=== PATIENT | male | born 1960 | race Caucasian/White ===

== ENCOUNTER 2023-05-03 06:41 | Observation (INO) ==
--- NOTE | 2023-04-26 08:16 | History & Physical Report ---
Date of Service April 26, 2023 date of surgery: 05/03/23 Procedure: Right Total Knee Arthroplasty Surgeon: Gareth Rust, DO Assessment & Plan (1) Arthritis of right knee: Plan: X-rays were reviewed which show advanced degenerative changes of the right knee, he has a history of right knee meniscectomy 30+ years ago. Has tried and failed previous injections and would like to proceed with surgical invention. Plan to be patient-matched Yair right total knee arthroplasty, we will plan to keep him overnight with discharge home the following day with home health physical therapy. Otherwise has no other questions or concerns The risks and benefits have been discussed including, but not limited to, risk of infection, nerve injury, stiffness, loss of motion, failure to improve, etc. Reasonable outcomes and options of treatment were discussed. An explanation of appropriate alternatives to the procedure that may be advantageous were discussed and their risks and benefits, as well as the risks and benefits of not proceeding with treatment. I offered to answer any additional inquiries concerning the treatment involved. All the patient's questions were answered. The patient is agreeable, understanding of the treatment plan and alternatives, and wishes to proceed with the treatment plan. History of Present Illness Chief Complaint: Right knee pain Primary Care Provider: Rock Christie is a pleasant 63-year-old male who presented for preop evaluation prior to upcoming right total knee replacement. He has a longstanding history of right knee pain, had a scope on that knee approximately 30 years ago, has also undergone injections including viscosupplementation without any relief. He has tried oral anti-inflammatories and Tylenol, his pain is now affecting his daily activities and at this point he would like to proceed with right total knee replacement Allergies Allergy/AdvReac Type Severity Reaction Status Date / Time No Known Allergies Allergy Verified 04/25/23 08:21 Home Medications Medication Instructions Recorded Confirmed Type Lactobacillus 40-Bifidobact 1 cap PO QAM 03/27/23 04/25/23 History 3-S.thermophilus 100 billion cell capsule (Probiotic) aspirin 81 mg capsule 81 mg PO QAM 03/27/23 03/27/23 History atorvastatin 80 mg tablet 80 mg PO HS 03/27/23 04/25/23 History cyanocobalamin (vitamin B-12) 1,000 mcg PO QAM 03/27/23 04/25/23 History 1,000 mcg tablet (Vitamin B-12) empagliflozin 25 mg tablet 25 mg PO QPM 03/27/23 04/25/23 History (Jardiance) fluticasone propionate 50 1 spray intranasal QAM 03/27/23 04/25/23 History mcg/actuation nasal spray,suspension lisinopril 20 mg tablet 20 mg PO QAM 03/27/23 04/25/23 History magnesium 200 mg tablet 400 mg PO HS 03/27/23 04/25/23 History metoprolol tartrate 50 mg tablet 50 mg PO BID 03/27/23 04/25/23 History tamsulosin 0.4 mg capsule 0.4 mg PO HS 03/27/23 04/25/23 History zinc 50 mg tablet 50 mg PO HS 03/27/23 04/25/23 History multivitamin with minerals-folic tab PO 04/03/23 History acid 0.4 mg tablet (Adult One Daily Multivitamin) Past Med/Surg History Medical History GERD (gastroesophageal reflux disease) rare Witnessed apneic spells per patient's , denies previous sleep apnea study Snoring Hypertension controlled, stable per pt History of airway aspiration per pt, josuha-operatively for renal stone procedure in past CAD (coronary artery disease) 2005- x1 stent 2009- x1 stent 2016- CABG x3 Follows with Dr. 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 No other treatments/no current issues Diabetes mellitus, type 2 NIDDM Surgical History Family history of adverse reaction to anesthesia Grandmother in 1934- from the ether given to her by anesthesia S/P cystoscopy with ureteral stent placement w/laser lithotripsy History of anesthesia complications pt stated he should not be intubated unless it's a dire emergency due to his overactive/hyperactive gag reflex; did aspirate once when going under for kidney stones" Hx of left knee surgery age 7, cancerous tumor removed Hx of right knee surgery 1970s-"total reconstruction" Hx laparoscopic cholecystectomy History of esophagogastroduodenoscopy (EGD) Hx of colonoscopy Hx of nasal septoplasty Hx of tonsillectomy History of cardiac cath 2005- x1 stent 2009- x1 stent 2016- CABG x3 Hx of CABG CABG x3 (2016) Social History Smoking Status: Former smoker Second Hand Exposure: No; Do You Dip or Chew Tobacco: No (quit 10/15/15); Hx Alcohol Use: Yes Hx Substance Use: No Preferred Language: Colombian Communication Ability: Effective Shareholder Required: No Beliefs That Will Affect Care: None Current Living Situation: Spouse Feels Safe at Home: Yes Assistive Devices: Glasses Review of Systems Review of Systems: All systems reviewed & are unremarkable except as noted in HPI & below Constitutional: no fever, no chills and no sweats Respiratory: no cough and no dyspnea Cardiovascular: no chest pain, no dyspnea and no orthopnea Gastrointestinal: no abdominal pain, no nausea and no vomiting Musculoskeletal: as per Subjective / HPI Physical Exam Physical Exam: HT: 5ft 6in WT: 88kg Constitutional: WD/WN, vitals as above no acute distress Respiratory: normal respiratory effort, lungs clear to auscultation no respiratory distress, no labored breathing and does not use accessory muscles Cardiovascular: RRR, no murmur, no edema Gastrointestinal (Abdomen): normal bowel sounds, soft, nontender, no hepatosplenomegaly Musculoskeletal: Knee: + knee abnormal to inspection (RIGHT KNEE), + effusion (+1 effusion), + surgical incision (well healed portals), + limited ROM of knee (ROM 0/3/110), + knee ROM with crepitation, + joint line tenderness (medial joint line) and + Justine's sign positive; no deformity, no skin erythema, no ecchymosis, no valgus laxity, no varus laxity, anterior drawer test negative, Lamar's sign negative and pivot shift test negative Results & Data Results & Data Diagnostic Findings Right Knee X-ray: Right knee series showing degenerative changes to the right knee, findings showing joint space narrowing of the medial compartment and patello-femoral joint, osteophyte formation and subchondral sclerosis noted. overall varus alignment. no acute bony pathology noted.
--- NOTE | 2023-04-28 11:30 | Anesthesiology Consultation ---
Date of Service April 28, 2023 Assessment & Plan (1) Encounter for pre-operative examination: Plan - check BSG am DOS. - please also refer to 04/03/23 PAT clinic note. Account number changed for re- scheduled surgery. - anesthesia concerns: plan is for neuraxial anesthesia, patient will further discuss with anesthesiologist assigned to case and surgeon DOS if procedure is not tolerated with neuraxial anesthesia and sedation if he would wish they proc eed with general anesthesia/intubation or for procedure to be aborted. He states in that situation would be agreeable to general anesthesia, will have final discussion with anesthesiologist DOS. He said NO students to participate in any aspect of his case. He states he will notify the surgeon's office. - surgery re-scheduled due to surgeon illness. - cardiology clearance 04/14/23: "...able to exercise daily without any complaints of chest pain or chest pressure...do not recommend further invasive or noninvasive cardiovascular testing or procedures...monotherapy with ASA need not be routinely d/c'd for elective noncardiac surgery...should be d/c'd if known bleeding risks are similar or more severe than CV risk of ASA withdrawal..." - PCP office advised thyroid ultrasound is scheduled after surgery. Patient denied shortness of breath or breathing difficulties at PAT visit. Case discussed in detail with Dr. Enrique who advised patient is acceptable to proceed with surgery prior to thyroid ultrasound. - Outpatient joint assessment: Patient is currently scheduled for inpatient pathway. If re-evaluated and patient/surgeon requests outpatient pathway, patient is not recommended candidate for outpatient joint program from anesthesia standpoint. - Per personal trainer on 04/27/2023: No known infectious disease contacts, current infectious disease symptoms in past 10 days or COVID positive test result in the past 90 days. Chart Review Chart Review: Acceptable Risk for Surgery and Patient NOT seen in Pre Admission Testing History Surgery Operation Date: 05/03/23 08:15 Proposed Procedures p Right Total Knee Arthroplasty - Gareth Rust DO Height/Weight Height: 5 ft 6 in Weight: 83.915 kg Allergies Allergy/AdvReac Type Severity Reaction Status Date / Time No Known Allergies Allergy Verified 04/27/23 12:47 Medications Home Medications Medication Instructions Recorded Confirmed Last Taken Lactobacillus 40-Bifidobact 1 cap PO QAM 03/27/23 04/27/23 04/23/23 18:00 3-S.thermophilus 100 billion cell capsule (Probiotic) aspirin 81 mg capsule 81 mg PO QAM 03/27/23 04/27/23 04/25/23 07:00 atorvastatin 80 mg tablet 80 mg PO HS 03/27/23 04/27/23 04/23/23 18:00 cyanocobalamin (vitamin B-12) 1,000 mcg PO QAM 03/27/23 04/27/23 04/23/23 07:00 1,000 mcg tablet (Vitamin B-12) empagliflozin 25 mg tablet 25 mg PO QPM 03/27/23 04/27/23 04/24/23 21:00 (Jardiance) fluticasone propionate 50 1 spray intranasal QAM 03/27/23 04/27/23 04/25/23 07:00 mcg/actuation nasal spray,suspension lisinopril 20 mg tablet 20 mg PO QAM 03/27/23 04/27/23 04/24/23 07:00 magnesium 200 mg tablet 400 mg PO HS 03/27/23 04/27/23 04/23/23 07:00 metoprolol tartrate 50 mg tablet 50 mg PO BID 03/27/23 04/27/23 04/25/23 07:00 tamsulosin 0.4 mg capsule 0.4 mg PO HS 03/27/23 04/27/23 04/24/23 09:00 zinc 50 mg tablet 50 mg PO HS 03/27/23 04/27/23 04/23/23 07:00 multivitamin with minerals-folic 1 tab PO DAILY 04/03/23 04/27/23 04/23/23 07:00 acid 0.4 mg tablet (Adult One Daily Multivitamin) Past Medical History Medical History GERD (gastroesophageal reflux disease) rare Witnessed apneic spells per patient's , denies previous sleep apnea study Snoring Hypertension controlled, stable per pt History of airway aspiration per pt, joshua-operatively for renal stone procedure in past CAD (coronary artery disease) 2005- x1 stent 2009- x1 stent 2016- CABG x3 Follows with Dr. Frances/ELIZABETH Mar of renal calculi last episode several months ago Hyperactive gag reflex "please do not intubate due to overactive/hyperactive gag reflex" History of cancer Age 7, 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 No other treatments/no current issues Diabetes mellitus, type 2 NIDDM Past Surgical History Surgical History Family history of adverse reaction to anesthesia Grandmother in 1934- from the ether given to her by anesthesia S/P cystoscopy with ureteral stent placement w/laser lithotripsy History of anesthesia complications pt stated he should not be intubated unless it's a dire emergency due to his overactive/hyperactive gag reflex; did aspirate once when going under for kidney stones" Hx of left knee surgery age 7, cancerous tumor removed Hx of right knee surgery -"total reconstruction" Hx laparoscopic cholecystectomy History of esophagogastroduodenoscopy (EGD) Hx of colonoscopy Hx of nasal septoplasty Hx of tonsillectomy History of cardiac cath 2005- x1 stent 2009- x1 stent 2016- CABG x3 Hx of CABG CABG x3 (2016) Social History Smoking Status: Former smoker Do You Dip or Chew Tobacco: No Smoking End Date: 30 yrs Hx Alcohol Use: Yes alcohol intake frequency: a few times a month Hx Substance Use: No substance use type: does not use Testing Laboratory Results 03/30/2023 WBC: 4.2 H/H: 15/54 PLATELETS: 125 SODIUM: 136 POTASSIUM: 4.5 CHLORIDE: 103 CO2: 27 Albumin: 4.5 BUN: 18 CREATININE: 0.6 GLUCOSE: 146 TSH: < 0.01 T4, free: 1.2 HbA1c: 7.1% Electrocardiogram Date: 05/23/22 SR 83 bpm RSR' Chest X-Ray Date: 04/03/23 No acute process Echocardiogram Date: 06/03/16 EF 60% Poor endocardial delineation precludes a proper assessment however there is probably normal LV cavity size, wall thickness and preserved LV systolic function Normal TV size and systolic function
[~2023-05-03 06:41] MED LIST: ACETAMINOPHEN 500 MG TAB PO SCH; CeleBREX 200 MG CAP PO SCH; FAMOTIDINE 20 MG TAB PO SCH; GABAPENTIN 600 MG DOSE PO SCH; LR 500ML BOLUS, THEN 15ML/HR IV SCH; LR 60ML/HR IV SCH; METOCLOPRAMIDE HCL 10 MG TABLET PO SCH; ROPIVACAINE 0.5% HCL/PF 150 MG, BUPIVACAINE 0.75% MPF 20 ML, EPINEPHrine 30MG/30ML (OR ... INSTIL SCH; TRANEXAMIC ACID 1,000 MG **IV Intra-op IV SCH; TRANEXAMIC ACID 1,000 MG **IV Pre-op IV SCH; ceFAZolin 2000MG 2,000 MG/15 ML SYR IV SCH
--- NOTE | 2023-05-03 07:04 | History & Physical Bridge Note ---
Date of Service May 03, 2023 History & Physical Bridge Note I have examined the patient, reviewed the History & Physical and in the interval since the performance of the History & Physical I have noted the following changes of clinical significance: no changes noted
[2023-05-03] MEDS ORDERED: ORTHO JOINT ANESTHETIC ONE (07:07)
[2023-05-03] MEDS ORDERED: MIDAZOLAM HCL 1 MG/ML 2ML VIAL ONE (07:14)
[2023-05-03] MEDS ORDERED: PROPOFOL IV EMULSION 10 MG/ML 20 ML VIAL IV ONE (07:14)
[2023-05-03] MEDS ORDERED: ONDANSETRON INJ 2 MG/ML 2 ML VIAL ONE (07:14)
[2023-05-03] MEDS ORDERED: BUPIVACAINE 0.5 % 5 MG/1 ML PF 10ML VIAL ONE (07:22)
[2023-05-03] MEDS ORDERED: BUPIVACAINE 0.25% PF 30 ML VIAL ONE (07:23)
[2023-05-03] MEDS ORDERED: ONDANSETRON INJ 2 MG/ML 2 ML VIAL IV PRN ×2 (07:39→11:01)
[2023-05-03] MEDS ORDERED: fentaNYL citrate PF 100 MCG/2 ML VIAL IV PRN (07:39)
[2023-05-03] MEDS ORDERED: ePHEDrine sulfate 50 MG/ML AMP IV PRN (07:39)
[2023-05-03] MEDS ORDERED: ATROPINE SULFATE 0.1 MG/ML 10ML SYR IV PRN (07:39)
[2023-05-03] MEDS ORDERED: fentaNYL citrate PF 100 MCG/2 ML VIAL ONE (08:36)
[2023-05-03] MEDS ORDERED: ePHEDrine sulfate 50 MG/5 ML SYR ONE (08:41)
[2023-05-03] MEDS ORDERED: PHENYLEPHRINE 100MCG/ML 10ML SYR IV ONE (09:00)
[2023-05-03] MEDS ORDERED: GLYCOPYRROLATE 0.2 MG/ML VIAL ONE (09:02)
--- NOTE | 2023-05-03 09:23 | Operative Report ---
Post Operative Report Pre & Post Diagnosis Operation Date: 05/03/23 08:15 Pre-Op Diagnosis: Right Knee Osteoarthritis Post-Op Diagnosis: Right Knee Osteoarthritis I identified the patient and participated in the time-out.: Yes Procedure Operation Date: 05/03/23 08:15 Actual Procedures p Right Total Knee Arthroplasty(Right)Utilizing [employer]air [employer] persona right total knee arthroplasty size femur 9 narrow CR tibia F poly 10 patella 31 oval - Gareth Rust DO Surgeon Gareth Rust DO Face Boss Avinash CACERES Estimated Blood Loss 5 Findings Consistent with Post-Op Diagnosis Patient presents with severe end-stage DJD eburnated ebge-so-ovez subchondral cystic changes marginal osteophytes moderate to large effusion Specimens Bone and cartilage Drains Medium bore Hemovac Anesthesia Type MAC Spinal Regional Complications none Disposition Accompanied Patient To Recovery: No Disposition: Recovery Room Indications Patient presents with severe end-stage tricompartmental DJD failing attempted conservative management clinic physical therapy anti-inflammatories relative rest activity modification corticosteroid injection viscosupplementation Description of Procedure After proper prepping and draping of the Right lower extremity anterior midline incision was made over the region of the extensor extensor mechanism after meticulous hemostasis was obtained and maintained in subcutaneous tissues a medial parapatellar incision was made The patella was subluxed lateralward the medial lateral gutter were cleaned from any hypertrophic synovitis and scar tissue of the distal femoral block was placed and the distal femoral osteotomy cut was made subsequently the chamfers anterior and posterior osteotomy cuts were made utilizing the 4-in-1 block the tibia was subsequently subluxed anteriorward medial and ateral meniscal remnants were excised in their entirety remnants of the anterior and posterior cruciate ligaments were excised in their entirety excellent exposure of the proximal tibia was obtained the tibial osteotomy guide was placed on the proximal tibial osteotomy cut was made once again the knee was irrigated with copious amounts of sterile saline solution the patella was subsequently everted lateralward thickened scar tissue around the patella was removed the patella was subsequently cut utilizing a freehand technique and was drilled prepared for final preparation and placement of patella socially flexion-extension gaps were checked and the equal and symmetric trials were placed to the appropriate femoral and tibial trials with poly-spacer being placed for equal flexion and extension gaps and full range of motion including extension to 0 and flexion to 140 the trial components after having been taken to recovery range of motion was subsequently removed meticulous hemostasis was obtained and maintained subsequently a knee block injection of joint cocktail including ropivacaine 0.5% 150 mg. Bupivacaine 0.5% epinephrine 1-200,030 mL's toradol 30 mg dexamethasone 4 mg ketamine 10 mg clonidine 100 micrograms normal saline solution 30 mg was infiltrated into the soft tissues of the posterior knee medial lateral gutters and periosteal synovium special attention was paid to protect neurovascular structures at all times subsequently trial components having been removed the knee was irrigated with sterile saline solution. debris was removed the proximal tibia was subsequently prepared and was made ready for the placement of the tibial component tibial component was also cemented and tamped into position the femoral component was subsequently placed and cemented in the position the patellar component was subsequently cemented in position because hemostasis once again obtained and maintained wound having been thoroughly irrigated with debridement and debridement lavage was performed as well as a medial parapatellar incision closed with #1 Vicryl in interrupted fashion subcutaneous was closed with #2 Vicryl skin was closed with skin clips. PA-C was necessary for prepping and drapping as well as wound closure of deep fascia Sub cutaneous tissue and skin and was necessary for the case. A sterile compressive dressing was placed patient was taken to recovery in stable condition of report dictated by Barrera I attest to the content of the Intraoperative Record and any orders documented therein. Any exceptions are noted below.Due to the complex nature of the procedure, the entire surgery was performed with the operational assistance of Avinash CACERES. The vector control assistant, under direct supervision, was involved in the actual performance of all aspects of the surgical procedure including hemostasis, tissue retraction and incision, instrument management, patient positioning, and wound closure. I attest to the content of the Intraoperative Record and any orders documented therein. Any exceptions are noted below.
--- NOTE | 2023-05-03 10:36 | XRay Report ---
TWO VIEWS RIGHT KNEE CLINICAL HISTORY: Postoperative examination. FINDINGS: AP and crosstable lateral portable views of the right knee are obtained. A right knee arthr oplasty is in near anatomic alignment. There has been undersurface remodeling of the patella. No acut e fracture is seen. There are expected postoperative changes around the knee including a surgical roslyn in, soft tissue edema, and subcutaneous gas. IMPRESSION: Expected postoperative changes status post right knee arthroplasty. No acute fracture is seen. ACT 112: Negative or not required by law. Electronically signed by: Adelso He M.D. 05/03/2023 10:35 AM
[2023-05-03] MEDS ORDERED: NALOXONE HCL 0.4 MG/1 ML VIAL/CARP IV PRN (11:01)
[2023-05-03] MEDS ORDERED: HYDROmorphone INJ 0.5 MG/0.5 ML SYR IV PRN (11:01)
[2023-05-03] MEDS ORDERED: PHARMACY GLYCEMIC MGMT CONSULT PRN (11:01)
[2023-05-03] MEDS ORDERED: bisacodyL 10 MG SUPP PR PRN (11:01)
[2023-05-03] MEDS ORDERED: diphenhydrAMINE 50 MG/ML VIAL IV PRN (11:01)
[2023-05-03] MEDS ORDERED: MAGNESIUM HYDROXIDE SUSP 30 ML UDC PO PRN (11:01)
[2023-05-03] MEDS ORDERED: SODIUM CHLORIDE 0.9% 1,000 ML IV SCH (11:01)
[2023-05-03] MEDS ORDERED: CARBOHYDRATES FOR HYPOGLYCEMIA PO PRN (11:30)
[2023-05-03] MEDS ORDERED: LANTUS PER UNIT CHARGE SC ONE (11:30)
[2023-05-03] MEDS ORDERED: GLUCOSE 10 TAB/TUBE PO PRN (11:30)
[2023-05-03] MEDS ORDERED: GLUCOSE 40% GEL 15 GM TUBE PO PRN (11:30)
[2023-05-03] MEDS ORDERED: GLUCAGON FOR INJ 1 MG VIAL IM PRN (11:30)
[2023-05-03] MEDS ORDERED: DEXTROSE 50% 50 ML SYRINGE IV PRN (11:30)
[2023-05-03] MEDS: INSULIN ASPART PER UNIT CHARGE SC SCH ×3 (12:15→21:33)
--- NOTE | 2023-05-03 12:26 | Anesthesiology Progress Note ---
Date of Service May 03, 2023 Anesthesia Post Procedure Vital Signs Vital Signs: Temp Pulse Pulse Pulse Resp BP Pulse Ox 05/03/23 12:14 36.4 C L 58 L 16 108/62 95 05/03/23 11:20 36.6 C 55 L 18 115/74 94 05/03/23 10:30 36.4 C L 52 L 19 115/67 96 05/03/23 10:20 58 L 15 113/70 97 05/03/23 10:10 71 18 109/67 97 05/03/23 10:00 36.1 C L 65 16 102/59 L 96 05/03/23 07:05 36.9 C 59 L 21 132/73 95 O2 Del Method 05/03/23 12:14 Room Air 05/03/23 11:20 Room Air 05/03/23 10:30 Room Air 05/03/23 10:20 Room Air 05/03/23 10:10 Room Air 05/03/23 10:00 Room Air 05/03/23 07:05 Room Air Pain Intensity Right Knee: Pain Intensity: 3 Right Ankle: Pain Intensity: 7 Transfer of Care Handoff Completed per policy Notes Mental Status: alert / awake / arousable and participated in evaluation Patient Amnestic to Procedure: Yes Nausea / Vomiting: adequately controlled Pain: adequately controlled Airway Patency, RR, SpO2: stable & adequate BP & HR: stable & adequate Hydration State: stable & adequate Neuraxial Anesthesia: was administered and sensory block is resolving Anesthetic Complications: no major complications apparent and Pt Satisfied with anesthetic care
--- NOTE | 2023-05-03 12:51 | Pharmacy Report ---
Pharmacy Glycemic Short Note 2 - Date of Service May 03, 2023 - Glycemic Short BSG Results (Last 24 hours): 05/03/23 05/03/23 05/03/23 07:00 10:02 11:39 POC Glucose 150 H 146 H 144 H OUTPATIENT ANTIDIABETIC REGIMEN: * Jardiance 25 mg PO daily HbA1c ordered for 05/04/23 ASSESSMENT: * OMER is a 63 year old male POD #0 s/p right total knee arthroplasty * No IV steroids in OR, but did receive intra-articular ortho mix containing dexamethasone * Preop BSG of 150 mg/dL, postop BSG of 144 * Will utilize a low-dose basal dose today w/ weight-based stress of 2 Novolog parameters PLAN FOR INPATIENT GLYCEMIC CONTROL: * Hold outpatient oral diabetes medications * Basal insulin * Lantus 5 units SQ x 1 * Bolus insulin * NovoLog per scale ACHS or Q6hrs while NPO * Goal Range: Low 110 mg/dL - High 140 mg/dL * Correction Factor: 25 mg/dL/unit * Nutritional / Prandial insulin per carb ratio of 1 unit per 9 grams CHO consumed
[2023-05-03] MEDS: ACETAMINOPHEN 500 MG TAB PO SCH ×2 (14:27→21:56)
[2023-05-03] MEDS: ceFAZolin 2000MG 2,000 MG/15 ML SYR IV SCH ×2 (15:34→23:18)
[2023-05-03] MEDS ORDERED: MAGNESIUM OXIDE 400 MG TAB PO SCH (21:00)
[2023-05-03] MEDS ORDERED: ZINC SULFATE 220 MG CAPSULE PO SCH (21:00)
[2023-05-03] MEDS ORDERED: TAMSULOSIN HCL 0.4 MG CAP PO SCH (21:00)
[2023-05-03] MEDS ORDERED: ATORVASTATIN 40 MG TAB PO SCH (21:00)
[2023-05-03] MEDS ORDERED: SENNA 8.6 MG TAB PO SCH (21:00)
[2023-05-03] MEDS ORDERED: EMPAGLIFLOZIN 25 MG TAB PO SCH (21:00)
[2023-05-03] MEDS: oxyCODONE HCL IR 5 MG TAB (IMMEDIATE RELEASE) PO PRN (21:34)
[2023-05-03] MEDS: ASPIRIN 81 MG ECTAB PO SCH (21:56)
[2023-05-03] MEDS: DOCUSATE SODIUM 100 MG CAP PO SCH (21:57)
[2023-05-03] MEDS: METOPROLOL TARTRATE 50 MG TAB PO SCH (21:57)
[2023-05-04] MEDS: ACETAMINOPHEN 500 MG TAB PO SCH (05:33)
[2023-05-04 07:14] LABS: Hematocrit (blood only) 38.4 % (42.0-52.0); Hemoglobin 13.4 g/dl (14.0-18.0); Mean Corpuscular Hemoglobin 29.8 pg (25.0-34.0); Mean Corpuscular Hgb Conc 34.9 g/dL (32.0-36.0); Mean Corpuscular Volume 85.3 fL (80.0-100.0); Mean Platelet Volume 11.9 fL (9.4-12.4); Platelet Count 120 K/uL (130-400); RDW Coefficient of Variation 12.9 % (11.5-14.5); RDW Standard Deviation 39.8 fL (36.4-46.3); White Blood Count 11.55 K/ul (4.8-10.8)
[2023-05-04] MEDS: oxyCODONE HCL IR 5 MG TAB (IMMEDIATE RELEASE) PO PRN (07:35)
[2023-05-04 07:39] LABS: BUN Creatinine Ratio 29.1 (10-20); Calcium 9.2 mg/dl (8.6-10.3); Creatinine Clr Calc Pharmacy 142.3 ml/min; Est GFR (African American) 128.5 ml/min; Est GFR (Non-African American) 110.9 ml/min; Potassium 4.5 mmol/L (3.5-5.1)
--- NOTE | 2023-05-04 08:31 | Orthopedic Progress Note ---
Date of Service May 04, 2023 Assessment & Plan (1) Arthritis of right knee: Plan: Postop day #1 status post right total knee arthroplasty. PT/OT. DVT prophylaxisaspirin twice daily x 30 days, LASHAE stockings x 2 weeks. Weightbearing as tolerated right lower extremity. The Hemovac will stay in place for 24 more hours. Plan will be to have the Hemovac removed by home health tomorrow. Discharge planningHome with home health today. Admission and Anticipated Discharge Date Admission Date: May 03, 2023 Subjective Patient states he is doing well. Pain is controlled in the right knee. Denies chest pain, shortness of breath, lightheadedness. States plan at discharge is to go home with home health. No complaints today. Physical Exam Constitutional: WD/WN, vitals as above no acute distress Musculoskeletal: Knee: + surgical incision (Right knee: KARLA dressing in place and functioning.) and + surgical drain present (675 cc total drainage in 24 hours.); no deformity and no skin erythema Skin: no rashes, warm and dry Neurologic: normal touch/pain/proprioception Psychiatric: A+Ox3, euthymic affect Speech: normal rate/rhythm/volume of speech Results & Data Vital Signs (Past 12 Hours) Vital Signs Temp Pulse Resp BP Pulse Ox O2 Del Method 05/04/23 07:20 36.5 C 73 16 99/59 L 95 Room Air 05/04/23 03:56 36.5 C 60 16 110/70 95 Room Air 05/03/23 23:48 36.6 C 75 16 104/61 95 Room Air Laboratory Results Laboratory Tests 05/04/23 06:45 Hgb 13.4 L Hct 38.4 L BUN 16 Creatinine 0.55 L
[2023-05-04 08:32] LABS: Estimated Average Glucose 169 mg/dl; Hemoglobin A1C 7.5 % (4.5-5.6)
[2023-05-04] MEDS ORDERED: LANTUS PER UNIT CHARGE SC ONE (09:00)
[2023-05-04] MEDS ORDERED: FLUTICASONE PROPIONATE NA SPR 16 GM BTL SCH (09:00)
[2023-05-04] MEDS ORDERED: ADVANCED PROBIOTIC 1250 MG CAPSULE PO SCH (09:00)
[2023-05-04] MEDS ORDERED: lisinopril 20 MG TAB PO SCH (09:00)
[2023-05-04] MEDS ORDERED: MULTIVITAMIN TAB PO SCH (09:00)
[2023-05-04] MEDS: INSULIN ASPART PER UNIT CHARGE SC SCH (09:26)
[2023-05-04] MEDS: DOCUSATE SODIUM 100 MG CAP PO SCH (09:26)
[2023-05-04] MEDS: ASPIRIN 81 MG ECTAB PO SCH (09:28)
[2023-05-04] MEDS: METOPROLOL TARTRATE 50 MG TAB PO SCH (09:57)
== END 2023-05-04 11:45 | disposition home health service (06) ==
LOC: ASU 06:41 → 3W 06:41

== ENCOUNTER 2023-11-18 12:35 | Observation (INO) ==
--- NOTE | 2023-11-18 13:06 | Emergency Department Note ---
History of Present Illness General Chief complaint: Chest Pain Stated complaint: CHEST PAIN, WEAKNESS L ARM, POSS HEART ATTACK Time Seen by Provider: 11/18/23 12:46 Source: patient, family ( was at the bedside), RN notes reviewed and old records reviewed (05/03/23-orthopedics visit for osteoarthritis) Mode of arrival: ambulatory Limitations: no limitations History of Present Illness This patient is a 63-year-old male with history of coronary artery disease, comes in after having episode of chest pain last night he said it felt exactly like his previous chest pain which she has not had since 2016. He said it was different and that he had no shortness of breath this time. He has had 2 stents in 2015 and 2016 as well as had a CABG in 2016 they have been done at [place]. He was at rest and had a onset of this pain it was 8 out of 10 initially and went down his arm his left arm felt painful and weak. He was diaphoretic and pale. The whole episode lasted about an hour although he woke up this morning felt a little sore he denies that he has any pain at present. He did travel to [facility] 3 weeks ago but has had no lower extreme pain or swelling no history of DVT. No pleuritic component. No focal numbness or weakness anywhere. No fever or cough or recent illness. Home Medications Medication Instructions Recorded Confirmed Type Lactobacillus 40-Bifidobact 1 cap PO QAM 03/27/23 11/18/23 History 3-S.thermophilus 100 billion cell capsule (Probiotic) aspirin 81 mg capsule 81 mg PO QAM 03/27/23 11/18/23 History atorvastatin 80 mg tablet 80 mg PO HS 03/27/23 11/18/23 History cyanocobalamin (vitamin B-12) 1,000 mcg PO QAM 03/27/23 11/18/23 History 1,000 mcg tablet (Vitamin B-12) empagliflozin 25 mg tablet 25 mg PO QPM 03/27/23 11/18/23 History (Jardiance) lisinopril 20 mg tablet 20 mg PO QAM 03/27/23 11/18/23 History magnesium 200 mg tablet 400 mg PO HS 03/27/23 11/18/23 History metoprolol tartrate 50 mg tablet 50 mg PO BID 03/27/23 11/18/23 History multivitamin with minerals-folic 1 tab PO DAILY 04/03/23 11/18/23 History acid 0.4 mg tablet (Adult One Daily Multivitamin) Allergies Allergy/AdvReac Type Severity Reaction Status Date / Time metformin Allergy Intermediate Rash Unverified 11/18/23 14:54 ether Allergy Unknown Unknown Unverified 11/18/23 14:54 Past Med/Surg History Problem List (Updated 11/18/23 @ 15:41 by Jeromy Vanegas MD) D-dimer, elevated (Acute) Elevated troponin (Acute) Diabetes mellitus, type 2 NIDDM Hypertension controlled, stable per pt Bradycardia, sinus (Acute) Hx of CABG (Acute) Chest pain (Acute) Arthritis of right knee Encounter for pre-operative examination Medical History GERD (gastroesophageal reflux disease) rare Witnessed apneic spells per patient's , denies previous sleep apnea study Snoring Hypertension controlled, stable per pt History of airway aspiration per pt, joshua-operatively for renal stone procedure in past CAD (coronary artery disease) 2004- stent stent 2016- CABG x3 Follows with Dr. 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 No other treatments/no current issues Diabetes mellitus, type 2 NIDDM Surgical History Family history of adverse reaction to anesthesia Grandmother in 1934- from the ether given to her by anesthesia S/P cystoscopy with ureteral stent placement w/laser lithotripsy History of anesthesia complications pt stated he should not be intubated unless it's a dire emergency due to his overactive/hyperactive gag reflex; did aspirate once when going under for kidney stones" Hx of left knee surgery age 7, cancerous tumor removed Hx of right knee surgery -"total reconstruction" Hx laparoscopic cholecystectomy History of esophagogastroduodenoscopy (EGD) Hx of colonoscopy Hx of nasal septoplasty Hx of tonsillectomy History of cardiac cath 2004- x1 stent 2008- x1 stent 2016- CABG x3 Hx of CABG CABG x3 (2016) Social History Smoking Status: Never smoker Second Hand Exposure: No; Do You Dip or Chew Tobacco: No; Hx Alcohol Use: Yes Hx Substance Use: No Preferred Language: Singaporean Communication Ability: Effective Chemical Tester Required: No Beliefs That Will Affect Care: None Current Living Situation: Spouse Feels Safe at Home: Yes Assistive Devices: Walker Review of Systems A total of 10 systems reviewed and were otherwise negative Physical Exam Vital Signs Vital Signs - 24 hr 11/18/23 12:39 11/18/23 12:49 11/18/23 12:49 Temperature 36.7 C Temperature Source Temporal Artery Scan Pulse Rate 57 L Pulse Rate [Apical] 55 L Pulse Rhythm Pulse Rhythm [Apical] Regular Pulse Strength [Apical] Normal Respiratory Rate 18 20 Respiratory Effort / Characteristics Non-Labored Spontaneous Non-Labored Spontaneous Respiratory Depth Normal Normal Respiratory Pattern Regular Blood Pressure 128/82 Blood Pressure [Right Arm] 149/86 H Blood Pressure Mean 97 Blood Pressure Mean [Right Arm] 107 Blood Pressure Position [Right Arm] Pulse Oximetry 96 96 96 Oxygen Delivery Method Room Air Room Air Room Air Sepsis Recent Fever Within 48 Hours No Sepsis New/Unexplained Change in Mental Status No Sepsis Action Taken by Nursing No Action Required 11/18/23 12:55 11/18/23 13:35 11/18/23 14:36 Temperature Temperature Source Pulse Rate 56 L 53 L Pulse Rate [Apical] 61 Pulse Rhythm Regular Pulse Rhythm [Apical] Regular Pulse Strength [Apical] Normal Respiratory Rate 20 18 Respiratory Effort / Characteristics Non-Labored Spontaneous Respiratory Depth Normal Respiratory Pattern Regular Blood Pressure Blood Pressure [Right Arm] 119/62 Blood Pressure Mean Blood Pressure Mean [Right Arm] 81 Blood Pressure Position [Right Arm] Sitting Pulse Oximetry 94 96 Oxygen Delivery Method Room Air Room Air Sepsis Recent Fever Within 48 Hours Sepsis New/Unexplained Change in Mental Status Sepsis Action Taken by Nursing General: Well developed well nourished middle-age male who appears not ill and in no acute distress, breathing comfortably on room air. Normal speech HEENT: Normal cephalic atraumatic. Pupils are equal round and reactive to light. Extraocular movements are intact. Oropharynx is pink with moist mucous membranes. No swelling of the mouth lips or tongue. Neck: Supple with a midline trachea. No meningeal signs or stiffness, no JVD or bruits. No Stridor. Chest: Clear to auscultation bilaterally. No wheezes or rhonchi. No increased work of breathing. Heart: Regular rate and rhythm without murmurs or gallops. Abdomen: Soft nontender, nondistended without rebound guarding or rigidity. Extremities: No cyanosis clubbing or edema. No calf tenderness or assymetry Spine/Back. Non tender to palpation. No CVA tenderness Skin: Good turgor without rashes. Neurologic exam: Cranial nerves two through 12 are intact. Motor and sensation are intact and symmetrical throughout. Course Administered Medications Heparin Sodium/Dextrose (Heparin Sodium/Dextrose) 25,000 units in 500 mls @ 18 mls/hr IV .Q24H [facility]; Protocol Stop: 12/18/23 14:59 Last Admin: 11/18/23 15:14 Dose: 900 units/hr, 18 mls/hr Documented By: SUKI Co-signed By: RAISA Discontinued Medications Clopidogrel Bisulfate (Clopidogrel Bisulfate 300 Mg Tab) 300 mg PO NOW STA Stop: 11/18/23 14:35 Last Admin: 11/18/23 15:14 Dose: 300 mg Documented By: SUKI Heparin Sodium (Porcine) (Heparin Sod (Porcine) 1000 Unit/Ml) 4,000 units IV NOW ONE Stop: 11/18/23 15:01 Last Admin: 11/18/23 15:14 Dose: 4,000 units Documented By: SUKI Co-signed By: RAISA Heparin Sodium/Dextrose (Heparin Iv Adult Wt-Based Low-Dose W/ Initial Bolus Protocol) 1 each IV NOW STA; Protocol Stop: 11/18/23 14:35 Last Admin: 11/18/23 15:37 Dose: Not Given Documented By: SUKI Ioversol (Optiray 320 150ml) 82 ml IV ONCE ONE Stop: 11/18/23 14:39 Last Admin: 11/18/23 14:41 Dose: 82 ml Documented By: ANTONIO Medical Decision Making Differential Diagnosis Acute coronary syndrome, arrhythmia, GI illness, PE, pneumothorax, aortic pathologies, electrolyte or metabolic abdomen, musculoskeletal, anxiety, infection Medical Records Attestation: I reviewed the patient's medical records. Home Medications Current Medication List: was personally reviewed by me Laboratory Data Attestation: I reviewed the patient's lab results. 11/18/23 12:49 11/18/23 12:49 Lab Results 11/18/23 11/18/23 Range/Units 12:49 14:56 WBC 6.33 (4.8-10.8) K/ul RBC 5.32 (4.70-6.10) M/uL Hgb 16.3 (14.0-18.0) g/dl Hct 48.1 (42.0-52.0) % MCV 90.4 (80.0-100.0) fL MCH 30.6 (25.0-34.0) pg MCHC 33.9 (32.0-36.0) g/dL RDW Std Deviation 41.1 (36.4-46.3) fL RDW Coeff of [place] 12.5 (11.5-14.5) % Plt Count 147 (130-400) K/uL MPV 10.7 (9.4-12.4) fL Immature Gran % (Auto) 0.3 % Neut % (Auto) 68.9 % Lymph % (Auto) 15.5 % [place] % (Auto) 11.5 % Eos % (Auto) 3.0 % Baso % (Auto) 0.8 % Neut # (Auto) 4.36 (1.40-6.50) K/uL Lymph # (Auto) 0.98 L (1.20-3.40) K/uL [place] # (Auto) 0.73 H (0.11-0.59) K/uL Eos # (Auto) 0.19 (0.00-0.50) K/uL Baso # (Auto) 0.05 (0.00-0.20) K/uL Immature Gran # (Auto) 0.02 (0.01-0.20) K/uL D-Dimer 1160 H* (0-500) ug/L FEU Sodium 136 (136-145) mmol/L Potassium 4.7 (3.5-5.1) mmol/L Chloride 103 (98-107) mmol/L Carbon Dioxide 28 (21-32) mmol/L Anion Gap 5 (3-11) BUN 23 (6-23) mg/dl Creatinine 0.77 (0.6-1.4) mg/dl Est Cr Clr Drug Dosing 104.8 ml/min Est GFR ( Amer) 111.9 ml/min Est GFR (Non-Af Amer) 96.6 ml/min BUN/Creatinine Ratio 29.9 H (10-20) Glucose 191 H (70-99(Fasting)) mg/dl Calcium 10.3 (8.6-10.3) mg/dl Total Bilirubin 0.8 (0.2-1.0) mg/dl AST 21 (13-39) U/L ALT 36 (7-52) U/L Alkaline Phosphatase 101 (34-104) U/L Troponin I High Sens 189.8 H* 195.3 H* (0-20) pg/ml Total Protein 7.9 (6.0-8.3) gm/dl Albumin 4.8 (3.4-5.0) gm/dl Globulin 3.1 (2.5-4.0) gm/dl Albumin/Globulin Ratio 1.5 (0.9-2) Lipase 45 (11-82) U/L Imaging Data Attestation: I personally reviewed and interpreted this imaging study as follows: My Impression: Chest x-raymild cardiomegaly but no acute infiltrate, failure, pneumothorax seen CT angiography for TERE do not see any large or central PE Radiologist's Impression: Chest X-Ray 11/18/23 13:01 SINGLE VIEW CHEST CLINICAL HISTORY: Atypical chest pain FINDINGS: An AP, portable, upright chest radiograph is compared to study dated 04/03/2023. The patient is status post midline sternotomy. The heart is not enlarged and noting atherosclerotic calcification of the thoracic aorta. The pulmonary vasculature is noncongested. There is mild bibasilar scarring/atelectasis. No airspace consolidation or large pleural effusion is identified. No pneumothorax is seen. The skeletal structures appear osteopenic. The bony thorax is grossly intact. Arthritic change is noted in the shoulders. IMPRESSION: Mild cardiomegaly with no acute cardiopulmonary abnormality identified. ACT 112: Negative or not required by law. Electronically signed by: Adelso He M.D. 11/18/2023 1:26 PM Chest CTA 11/18/23 13:57 CT ANGIOGRAM OF THE CHEST CLINICAL HISTORY: Atypical chest pain. COMPARISON STUDY: Chest x-ray dated 11/18/2023. TECHNIQUE: Following the IV administration of 82 cc of Optiray 320, CT angiogram of the chest was performed from the upper abdomen to the thoracic inlet utilizing the pulmonary embolus protocol. Images are reviewed in the axial, sagittal, and coronal planes. 3-D MIPS images are created and assessed. IV contrast was administered without complication. A dose lowering technique was utilized adhering to the principles of ALARA. CT DOSE: 883.32 mGy.cm FINDINGS: Thyroid: Imaged portions of the thyroid gland are normal in size and attenuation. Thoracic aorta: There is atherosclerotic calcification of the thoracic aorta, which is normal in caliber and demonstrates standard 3-vessel arch anatomy. No dissection is seen. Pulmonary vasculature: The pulmonary trunk is normal in caliber. There are no filling defects identified in main, lobar, or segmental pulmonary branches to suggest pulmonary embolus. Heart: The patient is status post midline sternotomy. The heart is mildly enlarged and without pericardial effusion. The coronary arteries are densely calcified. Lungs and pleural spaces: There is no airspace consolidation typical for pneumonia or pleural effusion. Foci of probable scarring are seen throughout both lungs. There is a 10 mm right basilar pulmonary nodule seen on image #70. 2 to 3 mm left lower lobe pulmonary nodules are seen on images #60, #77, and #88. A 3 mm right lower lobe nodule as seen on image #105, and a 7 mm right upper lobe nodule as seen on image #176. The trachea and central airways are clear. Mediastinum: There is no mediastinal lymphadenopathy. [place]: Clear. Axillae: There is no axillary lymphadenopathy. Upper abdomen: Cholecystectomy clips are noted. Diverticulosis is seen in the partially imaged colon. Skeletal structures: The skeletal structures are osteopenic. Degenerative change is noted in the shoulders and spine. There is a subacute appearing right anterior 7th rib fracture. No lytic or blastic bony lesions are seen. IMPRESSION: 1. There is no evidence of pulmonary embolus in the main, lobar, or segmental pulmonary arteries. 2. Cardiomegaly noting advanced coronary artery atherosclerosis. 3. There is no airspace consolidation or pleural effusion. 4. Scattered pulmonary nodules measure to 10 mm. These are pathologically indeterminate and can be followed as per the Fleischner criteria. See below. 5. There is a subacute appearing right anterior 7th rib fracture. 6. Additional findings as above. Please refer to below summary of Fleischner criteria recommendations for follow- up of incidental CT nodules ([place], Guidelines for management of small pulmonary nodules detected on CT scans: A statement from the Fleischner Society, Radiology 237: [phone].) SOLID NODULES Solitary nodule size: <6 mm * low risk patients: no follow-up needed * high risk patients: optional CT at 12 months Solitary nodule size: 6-8 mm * low risk patients: follow-up at 6-12 months, then consider further follow-up at 18-24 months * high risk patients: initial follow-up CT at 6-12 months and then at 18-24 months if no change Solitary nodule size: >8 mm * either low or high risk patients - consider follow-up CT at 3 months, and/or CT-PET, and/or biopsy Multiple nodules size: <6 mm * low risk patients: no routine follow-up * high risk patients: optional CT at 12 months Multiple nodules size: 6-8 mm * low risk patients: follow-up at 3-6 months, then consider further follow-up at 18-24 months * high risk patients: follow-up at 3-6 months, then at 18-24 months if no change Multiple nodules size: >8 mm * low risk patients: follow-up at 3-6 months, then consider further follow-up at 18-24 months * high risk patients: follow-up at 3-6 months, then at 18-24 months if no change Note: newly detected indeterminate nodule in persons 35 years of age or older. * low risk patients: minimal or absent history of smoking and/or other known risk factors * high risk patients: history of smoking or of other known risk factors (e.g. first degree relative with lung cancer, or exposure to asbestos, radon, uranium) * if a nodule up to 8 mm is partly solid or is ground glass further follow-up is required after 24 months to exclude possible slow growing adenocarcinoma (BRIDGETT) SUBSOLID NODULES Solitary pure ground-glass nodule * nodule size <6 mm - no CT follow-up required * nodule size >=6 mm - follow-up CT at 6-12 months, then every 2 years until 5 years Solitary part-solid nodule * nodule size <6 mm - no CT follow-up required * nodule size >=6 mm - follow-up CT at 3-6 months. If unchanged, and solid component remains <6 mm, then annual follow-up for 5 years Multiple subsolid nodules * nodule size <6 mm - follow-up CT at 3-6 months, consider further follow-up at 2 and 4 years if stable * nodule size >=6 mm - follow-up CT at 3-6 months, subsequent management based on the most suspicious nodule(s) ACT 112: Positive. There are findings on this exam that require communication between the performing entity and the patient following Patient Test Result Information Act ([place] Act 112) guidelines. Electronically signed by: Adelso He M.D. 11/18/2023 3:41 PM ECG Data Attestation: I personally reviewed and interpreted this ECG as follows: Indication: + chest pain Rate (beats per minute): 55 Rhythm: + normal sinus ECG Intervals/blocks: + Normal QRS, + Normal QT and + Normal DC ECG [place]: + Normal ECG ST segments: + Normal ST segments ECG Findings: no PACs or no PVCs Comparison ECG Date: no prior available Additional Comments: EKG #2: Sinus bradycardia without ischemic changes. No change compared to EKG #1. MDM Narrative This patient comes in as described above. He was placed on a playground monitor and B11. He had episode of chest pain last evening around 630 p.m. He feels better at present he does have a significant cardiac history and felt that this felt similar to previous cardiac events. His initial EKG shows no ischemic changes or ectopy. IV access was established and multiple blood testing was obtained including cardiac biomarkers. I also ordered D-dimer given his recent travel although I do not think PE is likely at this point. Chest x-ray was ordered as well. Chest x-ray was unremarkable for any acute findings. He has no significant electrolyte or metabolic abnormalities. He has not suggest infection or any significant anemia. His troponin came back significantly elevated at 189. The patient is asymptomatic at present. A second EKG shows no change compared to the first. His D-dimer was also elevated moderately so I did a CT angiography to the rule out PE I do not see any large PE. I do think the patient needs to be admitted/observed he has requested the [facility] team. I talked to Dr. Murray in consultation, and he saw the patient in the emergency department will admit the patient for these measures. The patient's formal read of the CAT scan came back negative for PE. I went to check on the patient and he was getting an echo and was resting comfortably and had no pain. His second troponin was also only minimally elevated compared to the first in the 190s. Continuous cardiac monitoring: Orders placed in EMR for continuous cardiac monitoring: Upon my evaluation patient noted to be in sinus bradycardia at a rate of 55 Impression & Plan Chest pain, Hx of CABG, Bradycardia, sinus, Elevated troponin, D-dimer, elevated Discharge Plan Visit Data Chief Complaint: Chest Pain Stated Complaint: CHEST PAIN, WEAKNESS L ARM, POSS HEART ATTACK ED Provider: Jeromy Vanegas Discharge Problem: Chest pain, Hx of CABG, Bradycardia, sinus, Elevated troponin, D-dimer, elevated Forms Stand Alone Forms: My [facility] Prescriptions Prescriptions: No Action atorvastatin 80 mg Tablet 80 mg PO HS lisinopril 20 mg Tablet 20 mg PO QAM cyanocobalamin (vitamin B-12) [Vitamin B-12] 1,000 mcg Tablet 1,000 mcg PO QAM metoprolol tartrate 50 mg Tablet 50 mg PO BID magnesium 200 mg Tablet 400 mg PO HS Jardiance 25 mg Tablet 25 mg PO QPM Rx Instructions: after evening meal Probiotic 100 billion cell Capsule 1 cap PO QAM aspirin 81 mg Capsule 81 mg PO QAM multivit with min-folic acid [Adult One Daily Multivitamin] 0.4 mg Tablet 1 tab PO DAILY Referrals Referrals: Rock Fairchild MD [Primary Care Provider] - Discharge Problem: Chest pain Qualifiers: Chest pain type: precordial pain Qualified Code(s): R07.2 - Precordial pain
[2023-11-18 13:17] LABS: Basophils # (auto) 0.05 K/uL (0.00-0.20); Basophils % (auto) 0.8 %; Eosinophils # (auto) 0.19 K/uL (0.00-0.50); Hematocrit (blood only) 48.1 % (42.0-52.0); Hemoglobin 16.3 g/dl (14.0-18.0); Immature Granulocytes # (auto) 0.02 K/uL (0.01-0.20); Immature Granulocytes % (auto) 0.3 %; Lymphocytes # (auto) 0.98 K/uL (1.20-3.40); Lymphocytes % (auto) 15.5 %; Mean Corpuscular Hemoglobin 30.6 pg (25.0-34.0); Mean Corpuscular Hgb Conc 33.9 g/dL (32.0-36.0); Mean Corpuscular Volume 90.4 fL (80.0-100.0); Mean Platelet Volume 10.7 fL (9.4-12.4); Monocytes # (auto) 0.73 K/uL (0.11-0.59); Monocytes % (auto) 11.5 %; Neutrophils # (auto) 4.36 K/uL (1.40-6.50); Neutrophils % (auto) 68.9 %; Platelet Count 147 K/uL (130-400); RDW Coefficient of Variation 12.5 % (11.5-14.5); RDW Standard Deviation 41.1 fL (36.4-46.3); Red Blood Count 5.32 M/uL (4.70-6.10); White Blood Count 6.33 K/ul (4.8-10.8)
--- NOTE | 2023-11-18 13:27 | XRay Report ---
SINGLE VIEW CHEST CLINICAL HISTORY: Atypical chest pain FINDINGS: An AP, portable, upright chest radiograph is compared to study dated 04/03/2023. The patien t is status post midline sternotomy. The heart is not enlarged and noting atherosclerotic calcificati on of the thoracic aorta. The pulmonary vasculature is noncongested. There is mild bibasilar scarring /atelectasis. No airspace consolidation or large pleural effusion is identified. No pneumothorax is s een. The skeletal structures appear osteopenic. The bony thorax is grossly intact. Arthritic change i s noted in the shoulders. IMPRESSION: Mild cardiomegaly with no acute cardiopulmonary abnormality identified. ACT 112: Negative or not required by law. Electronically signed by: Adelso He M.D. 11/18/2023 1:26 PM
[2023-11-18 13:35] LABS: Albumin Globulin Ratio 1.5 (0.9-2); Albumin Level 4.8 gm/dl (3.4-5.0); BUN Creatinine Ratio 29.9 (10-20); Bilirubin,Total 0.8 mg/dl (0.2-1.0); Calcium 10.3 mg/dl (8.6-10.3); Creatinine Clr Calc Pharmacy 104.8 ml/min; Est GFR (African American) 111.9 ml/min; Est GFR (Non-African American) 96.6 ml/min; Globulin 3.1 gm/dl (2.5-4.0); Potassium 4.7 mmol/L (3.5-5.1); Total Protein 7.9 gm/dl (6.0-8.3)
[2023-11-18 13:47] LABS: Troponin I High Sensitivity 189.8 pg/ml (0-20)
[2023-11-18 13:56] LABS: D Dimer 1160 ug/L FEU (0-500)
--- NOTE | 2023-11-18 14:09 | History & Physical Report ---
Date of Service November 18, 2023 Assessment & Plan (1) Chest pain: Plan: Chest pain, history of CAD History of PCI to RCA 2008, CABG with MONTES to LAD/SVG to OM/SVG to RCA 10/2015 Sudden onset of severe chest pain into the chest, left shoulder and arm without shortness of breath but with sweating/diaphoresis which persisted until patient took aspirin and then improved is highly suspicious for plaque rupture improved following aspirin. Initial troponin 189. Biomarkers trended. Echo ordered. Patient given Plavix load and heparinized. Cardiology consulted. Last seen by [facility] 04/2023 for preoperative clearance. At that time was able to perform 4 above METS without any anginal symptoms Patient had recent travel to [facility]. D-dimer was obtained which showed a level of 1160, CTA ordered, no PE Metoprolol dose reduced from 50 mg twice daily to 25 mg twice daily due to bradycardia. (2) Diabetes mellitus, type 2: Plan: Type 2 DM - On jardiance - Allergic to metformin Basal bolus insulin while inpatient, BSG on admission 191 Goal BSG [id number] RIGHT Knee replacement - R Knee TKA w/ Dr Rust in April Doing well since. Some slight leg swelling postoperatively, but patient reports this has not changed there is no calf tenderness and no pitting edema (3) Hx of CABG: (4) Pulmonary nodule: Plan: CTA with multiple pulmonary nodules up to 10 cm. Per Fleischner criteria should have repeat CT in 3 months. Discussed with patient. Refer to pulmonary nodule clinic Does have history of former tobacco abuse in remission Plan DVT prophylaxis: Anticoagulated Disposition: PCU CODE STATUS: Full code Diet: Heart healthy/DM2 History of Present Illness Primary Care Provider: Rock Fairchild Pratik is a 63-year-old male with a PMHx of R TKA, history of PCI to RCA 2008, CABG MONTES to LAD, SVG to OM, SVG to RCA 10/14/2015 who presents with chest pain and elevated troponin. Patient like to establish with [facility] providers. 'Puneet' Seen at the bedside with his present. 2004 got his first stent, 2008 got his second stent, 2015 had triple bipass. 'Last night first time in 9 years I have a chest pain event.' Had sudden onset in the evening of chest and left arm pain pain, discomfort, sweats, and a little tingling/weakness/tightness of the L chest into his left shoulder and radiating into his L arm. Lasted for about 1 hour, then severity reduced but lasted most of the night and was present when he woke up. In the morning he took his usual aspirin 81 mg, and then by the time he went to the bathroom after taking aspirin pain subsided. No shortness of breath during the episode. No pain with breathing. He has some right leg swelling after his knee replacement in April, this has not changed in there is no pitting edema. Got back from [facility] on the 27 of October. No leg swelling. No pain. No orthopnea. No inspiratory pain No fever,schills, or sweats. No lightheadedness or dizziness. Sees Dr. Frances in [facility], would like to switch his care to [facility] He and his has had good experiences with [facility] specialists int he past. Exercises and lfits weights, walks 3-5 miles per day. No limited chest pain or dyspnea. Still takes 81mg aspirin qam. Atovastatin 80mg daily. Lisinopril 20mg daily. Multivitamin, probiotic, b12 daily,jardiance 25 daily, mg 400mg daily, metoprolol 50mg tartrate BID Medical History: Reviewed Medications: Reviewed. Surgical History: Reviewed Family history: Reviewed Allergies: Reviewed. Rash to metformin, allergy to ether in childhood Social History: Quit cigarettes October 2015. 1 can per day x 30 years. EtOH average 1 per week. Code Status: Full Allergies Allergy/AdvReac Type Severity Reaction Status Date / Time metformin Allergy Intermediate Rash Unverified 11/18/23 14:54 ether Allergy Unknown Unknown Unverified 11/18/23 14:54 Home Medications Medication Instructions Recorded Confirmed Type Lactobacillus 40-Bifidobact 1 cap PO QAM 03/27/23 11/18/23 History 3-S.thermophilus 100 billion cell capsule (Probiotic) aspirin 81 mg capsule 81 mg PO QAM 03/27/23 11/18/23 History atorvastatin 80 mg tablet 80 mg PO HS 03/27/23 11/18/23 History cyanocobalamin (vitamin B-12) 1,000 mcg PO QAM 03/27/23 11/18/23 History 1,000 mcg tablet (Vitamin B-12) empagliflozin 25 mg tablet 25 mg PO QPM 03/27/23 11/18/23 History (Jardiance) lisinopril 20 mg tablet 20 mg PO QAM 03/27/23 11/18/23 History magnesium 200 mg tablet 400 mg PO HS 03/27/23 11/18/23 History metoprolol tartrate 50 mg tablet 50 mg PO BID 03/27/23 11/18/23 History multivitamin with minerals-folic 1 tab PO DAILY 04/03/23 11/18/23 History acid 0.4 mg tablet (Adult One Daily Multivitamin) Past Med/Surg History Problem List (Updated 11/18/23 @ 16:19 by Shawn Kennedy MD) Pulmonary nodule D-dimer, elevated (Acute) Elevated troponin (Acute) Diabetes mellitus, type 2 NIDDM Hypertension controlled, stable per pt Bradycardia, sinus (Acute) Hx of CABG (Acute) Chest pain (Acute) Arthritis of right knee Encounter for pre-operative examination Medical History GERD (gastroesophageal reflux disease) rare Witnessed apneic spells per patient's , denies previous sleep apnea study Snoring Hypertension controlled, stable per pt History of airway aspiration per pt, joshua-operatively for renal stone procedure in past CAD (coronary artery disease) 2005- x1 stent 2009- x1 stent 2016- CABG x3 Follows with Dr. 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 No other treatments/no current issues Diabetes mellitus, type 2 NIDDM Surgical History Family history of adverse reaction to anesthesia Grandmother in 1934- from the ether given to her by anesthesia S/P cystoscopy with ureteral stent placement w/laser lithotripsy History of anesthesia complications pt stated he should not be intubated unless it's a dire emergency due to his overactive/hyperactive gag reflex; did aspirate once when going under for kidney stones" Hx of left knee surgery age 7, cancerous tumor removed Hx of right knee surgery 1970s-"total reconstruction" Hx laparoscopic cholecystectomy History of esophagogastroduodenoscopy (EGD) Hx of colonoscopy Hx of nasal septoplasty Hx of tonsillectomy History of cardiac cath 2004- x1 stent 2009- x1 stent 2016- CABG x3 Hx of CABG CABG x3 (2016) Social History Smoking Status: Never smoker Second Hand Exposure: No; Do You Dip or Chew Tobacco: No; Hx Alcohol Use: Yes Hx Substance Use: No Preferred Language: Urdu Communication Ability: Effective Material Assembler Required: No Beliefs That Will Affect Care: None Current Living Situation: Spouse Feels Safe at Home: Yes Assistive Devices: Walker Physical Exam Physical Exam: General: A&Ox3. NAD. Cooperative. HEENT: Atraumatic, normocephalic. Vision and hearing grossly intact Pulm: CTAB A&P. -wheezes, -rales, -rhonchi. Symmetrical chest rise. No increased work of breathing. No respiratory distress. Cardiac: RRR, +sm. Radial pulses intact and symmetrical. Abdominal: Nontender, nondistended, soft. BS present. Ext: Warm, dry. No pitting edema. Strength/sensation intact in upper and lower extremities bilaterally without asymmetry or deficit Results & Data Results & Data Vital Signs (Past 12 Hours) Vital Signs Temp Pulse Pulse Resp BP BP Pulse Ox 11/18/23 13:35 53 L 20 94 11/18/23 12:55 56 L 11/18/23 12:49 55 L 20 149/86 H 96 11/18/23 12:49 96 11/18/23 12:39 36.7 C 57 L 18 128/82 96 O2 Del Method 11/18/23 13:35 Room Air 11/18/23 12:55 11/18/23 12:49 Room Air 11/18/23 12:49 Room Air 11/18/23 12:39 Room Air PG Care Time/CCT Total # of Minutes Spent Total Time Spent with Patient: Total time spent is greater than 50% in coordination of care (as documented) at patient's floor/unit and/or counseling patient: Coding Level of Care Code 81043 INT INP/OBS CARE 3/75MIN Diagnoses Chest pain R07.9 Diabetes mellitus, type 2 E11.9 Hx of CABG Z95.1 Pulmonary nodule R91.1
[2023-11-18] MEDS ORDERED: GLUCAGON FOR INJ 1 MG VIAL SQ PRN (14:40)
[2023-11-18] MEDS ORDERED: DEXTROSE 50% 50 ML SYRINGE IV PRN (14:40)
[2023-11-18] MEDS ORDERED: CARBOHYDRATES FOR HYPOGLYCEMIA PO PRN (14:40)
[2023-11-18] MEDS ORDERED: GLUCOSE 10 TAB/TUBE PO PRN (14:40)
[2023-11-18] MEDS ORDERED: GLUCOSE 40% GEL 15 GM TUBE PO PRN (14:40)
[2023-11-18] MEDS: OPTIRAY 320 150ml IV ONE (14:41)
[2023-11-18] MEDS: HEPARIN SODIUM/DEXTROSE 25,000 UNITS/500 ML BAG IV SCH (15:14)
[2023-11-18] MEDS: CLOPIDOGREL BISULFATE 300 MG TAB PO STA (15:14)
[2023-11-18] MEDS: HEPARIN SOD (PORCINE) 1000 UNIT/ML IV ONE (15:14)
[2023-11-18] MEDS: Heparin IV Adult Wt-Based Low-Dose w/ INITIAL Bolus Protocol IV STA (15:37)
--- NOTE | 2023-11-18 15:44 | CT Scan Report ---
CT ANGIOGRAM OF THE CHEST CLINICAL HISTORY: Atypical chest pain. COMPARISON STUDY: Chest x-ray dated 11/18/2023. TECHNIQUE: Following the IV administration of 82 cc of Optiray 320, CT angiogram of the chest was per formed from the upper abdomen to the thoracic inlet utilizing the pulmonary embolus protocol. Images are reviewed in the axial, sagittal, and coronal planes. 3-D MIPS images are created and assessed. IV contrast was administered without complication. A dose lowering technique was utilized adhering to the principles of ALARA. CT DOSE: 883.32 mGy.cm FINDINGS: Thyroid: Imaged portions of the thyroid gland are normal in size and attenuation. Thoracic aorta: There is atherosclerotic calcification of the thoracic aorta, which is normal in grisel daren and demonstrates standard 3-vessel arch anatomy. No dissection is seen. Pulmonary vasculature: The pulmonary trunk is normal in caliber. There are no filling defects identif ied in main, lobar, or segmental pulmonary branches to suggest pulmonary embolus. Heart: The patient is status post midline sternotomy. The heart is mildly enlarged and without perica rdial effusion. The coronary arteries are densely calcified. Lungs and pleural spaces: There is no airspace consolidation typical for pneumonia or pleural effusio n. Foci of probable scarring are seen throughout both lungs. There is a 10 mm right basilar pulmonary nodule seen on image #70. 2 to 3 mm left lower lobe pulmonary nodules are seen on images #60, #77, a nd #88. A 3 mm right lower lobe nodule as seen on image #105, and a 7 mm right upper lobe nodule as s een on image #176. The trachea and central airways are clear. Mediastinum: There is no mediastinal lymphadenopathy. Aleah: Clear. Axillae: There is no axillary lymphadenopathy. Upper abdomen: Cholecystectomy clips are noted. Diverticulosis is seen in the partially imaged colon. Skeletal structures: The skeletal structures are osteopenic. Degenerative change is noted in the shou lders and spine. There is a subacute appearing right anterior 7th rib fracture. No lytic or blastic b osmani lesions are seen. IMPRESSION: 1. There is no evidence of pulmonary embolus in the main, lobar, or segmental pulmonary arteries. 2. Cardiomegaly noting advanced coronary artery atherosclerosis. 3. There is no airspace consolidation or pleural effusion. 4. Scattered pulmonary nodules measure to 10 mm. These are pathologically indeterminate and can be fo llowed as per the Fleischner criteria. See below. 5. There is a subacute appearing right anterior 7th rib fracture. 6. Additional findings as above. Please refer to below summary of Fleischner criteria recommendations for follow-up of incidental CT n odules ([place], Guidelines for management of small pulmonary nodules detected on CT scans: A sta tement from the Fleischner Society, Radiology 237: [phone].) SOLID NODULES Solitary nodule size: <6 mm * low risk patients: no follow-up needed * high risk patients: optional CT at 12 months Solitary nodule size: 6-8 mm * low risk patients: follow-up at 6-12 months, then consider further follow-up at 18-24 months * high risk patients: initial follow-up CT at 6-12 months and then at 18-24 months if no change Solitary nodule size: >8 mm * either low or high risk patients - consider follow-up CT at 3 months, and/or CT-PET, and/or biopsy Multiple nodules size: <6 mm * low risk patients: no routine follow-up * high risk patients: optional CT at 12 months Multiple nodules size: 6-8 mm * low risk patients: follow-up at 3-6 months, then consider further follow-up at 18-24 months * high risk patients: follow-up at 3-6 months, then at 18-24 months if no change Multiple nodules size: >8 mm * low risk patients: follow-up at 3-6 months, then consider further follow-up at 18-24 months * high risk patients: follow-up at 3-6 months, then at 18-24 months if no change Note: newly detected indeterminate nodule in persons 35 years of age or older. * low risk patients: minimal or absent history of smoking and/or other known risk factors * high risk patients: history of smoking or of other known risk factors (e.g. first degree relative with lung cancer, or exposure to asbestos, radon, uranium) * if a nodule up to 8 mm is partly solid or is ground glass further follow-up is required after 24 m onths to exclude possible slow growing adenocarcinoma (BRIDGETT) SUBSOLID NODULES Solitary pure ground-glass nodule * nodule size <6 mm - no CT follow-up required * nodule size >=6 mm - follow-up CT at 6-12 months, then every 2 years until 5 years Solitary part-solid nodule * nodule size <6 mm - no CT follow-up required * nodule size >=6 mm - follow-up CT at 3-6 months. If unchanged, and solid component remains <6 mm, then annual follow-up for 5 years Multiple subsolid nodules * nodule size <6 mm - follow-up CT at 3-6 months, consider further follow-up at 2 and 4 years if sta ble * nodule size >=6 mm - follow-up CT at 3-6 months, subsequent management based on the most suspiciou s nodule(s) ACT 112: Positive. There are findings on this exam that require communication between the performing entity and the patient following Patient Test Result Information Act ([place] Act 112) guidelines. Electronically signed by: Adelso He M.D. 11/18/2023 3:41 PM
[2023-11-18] MEDS ORDERED: ACETAMINOPHEN 325 MG TAB PO PRN (16:26)
[2023-11-18] MEDS: INSULIN ASPART PER UNIT CHARGE SC SCH (17:48)
[2023-11-18] MEDS: ATORVASTATIN 40 MG TAB PO SCH (20:25)
[2023-11-18] MEDS: EMPAGLIFLOZIN 25 MG TAB PO SCH (20:26)
[2023-11-18] MEDS: METOPROLOL TARTRATE 25 MG TAB PO SCH (20:26)
--- NOTE | 2023-11-18 20:36 | XCELERA ---
[id number]
[2023-11-18] MEDS: LANTUS PER UNIT CHARGE SQ SCH (21:01)
[2023-11-18 22:18] LABS: ANTI-Xa, UFH(UnfractionatedHep 0.24 IU/ml (0.3-0.7)
[2023-11-18] MEDS: MELATONIN 3 MG TAB PO PRN (23:33)
[2023-11-19 05:35] LABS: Basophils # (auto) 0.04 K/uL (0.00-0.20); Basophils % (auto) 0.8 %; Eosinophils # (auto) 0.23 K/uL (0.00-0.50); Eosinophils % (auto) 4.7 %; Hematocrit (blood only) 45.2 % (42.0-52.0); Hemoglobin 15.7 g/dl (14.0-18.0); Immature Granulocytes # (auto) 0.01 K/uL (0.01-0.20); Immature Granulocytes % (auto) 0.2 %; Lymphocytes # (auto) 1.11 K/uL (1.20-3.40); Lymphocytes % (auto) 22.9 %; Mean Corpuscular Hgb Conc 34.7 g/dL (32.0-36.0); Mean Corpuscular Volume 89.2 fL (80.0-100.0); Mean Platelet Volume 10.4 fL (9.4-12.4); Monocytes # (auto) 0.55 K/uL (0.11-0.59); Monocytes % (auto) 11.3 %; Neutrophils # (auto) 2.91 K/uL (1.40-6.50); Neutrophils % (auto) 60.1 %; Platelet Count 114 K/uL (130-400); RDW Coefficient of Variation 12.5 % (11.5-14.5); RDW Standard Deviation 40.1 fL (36.4-46.3); Red Blood Count 5.07 M/uL (4.70-6.10); White Blood Count 4.85 K/ul (4.8-10.8)
[2023-11-19 05:46] LABS: BUN Creatinine Ratio 26.7 (10-20); Calcium 9.8 mg/dl (8.6-10.3); Est GFR (African American) 113.2 ml/min; Est GFR (Non-African American) 97.6 ml/min; Potassium 4.7 mmol/L (3.5-5.1)
[2023-11-19 05:58] LABS: Troponin I High Sensitivity 112.2 pg/ml (0-20)
[2023-11-19 05:59] LABS: ANTI-Xa, UFH(UnfractionatedHep 0.27 IU/ml (0.3-0.7)
--- NOTE | 2023-11-19 07:15 | Electrocardiogram Report ---
Test Reason : Blood Pressure : / mmHG Vent. Rate : 055 BPM Atrial Rate : 055 BPM P-R Int : 160 ms QRS Dur : 078 ms QT Int : 404 ms P-R-T Axes : 049 016 030 degrees QTc Int : 386 ms Sinus bradycardia Otherwise normal ECG No previous ECGs available Confirmed by Jadiel Hooper ([id number]) on 11/19/2023 7:15:05 AM Referred By: REFERRED SELF Confirmed By:Bob Hooper
--- NOTE | 2023-11-19 07:18 | Electrocardiogram Report ---
Test Reason : Blood Pressure : / mmHG Vent. Rate : 057 BPM Atrial Rate : 057 BPM P-R Int : 164 ms QRS Dur : 080 ms QT Int : 412 ms P-R-T Axes : 041 016 034 degrees QTc Int : 401 ms Sinus bradycardia Otherwise normal ECG When compared with ECG of 18-NOV-2023 12:49, (unconfirmed) No significant change was found Confirmed by Jadiel Hooper ([id number]) on 11/19/2023 7:18:02 AM Referred By: REFERRED SELF Confirmed By:Bob Hooper
[2023-11-19] MEDS: ASPIRIN 81 MG ECTAB PO SCH (09:01)
[2023-11-19] MEDS: lisinopril 20 MG TAB PO SCH (09:01)
--- NOTE | 2023-11-19 09:27 | Cardiology Consultation ---
Date of Consultation November 19, 2023 Assessment & Plan (1) Chest pain: (2) Elevated troponin: (3) Bradycardia, sinus: (4) CAD (coronary artery disease): Plan 1. Chest pain: Unclear etiology. He feels that the symptoms are similar to those that he experienced prior to his former revascularization. The character certainly concerning for cardiac ischemia, but the prolonged nature of the event, the absence of his prior severe dyspnea and the only mild elevation of biomarkers leads me to believe this was likely not an acute coronary syndrome. 2. Elevated troponin: Very mild elevation of the cardiac biomarkers which is fairly constant peer no acute rise and fall as we would expect with acute coronary syndrome. The magnitude of the elevation is also very small suggesting this was not an acute coronary event. No new wall motion abnormalities on his echocardiogram. While it is possible this could have involved a small branch vessel or a territory that is otherwise well perfused, do not think we need to deras to coronary angiography and its associated risks. I think we can perform some perfusion imaging and if that looks promising perhaps reassess his medical regimen and avoid invasive test. 3. Coronary disease: No symptoms until yesterday. Previously followed through the [facility] system. We can continue his outpatient regimen which includes aspirin, high-dose atorvastatin, Jardiance, lisinopril and metoprolol. 4. Lipids: Will obtain a fasting lipid profile in the morning I think we will continue Plavix daily and the heparin infusion until this afternoon. Will obtain a perfusion study tomorrow morning for risk stratification. History of Present Illness Reason for Consultation: Chest pain, elevated troponin Requesting Physician: Brent Attending Physician: Jose Jiménez MD History of Present Illness The patient is a 63-year-old gentleman with a history of coronary artery disease having previously undergone both percutaneous and surgical revascularization. Generally speaking he has been feeling well. He and in fact exercised yesterday by walking over 3 miles. He states that yesterday afternoon he noticed the fairly sudden onset of diaphoresis left chest discomfort and left arm weakness. The symptoms were fairly severe for approximately 1 hour and then improved. The diaphoresis seem to have resolved but the chest pressure and left arm symptoms never resolved until the following day. He was able to sleep but awoke in the morning with similar symptoms. He took his usual morning medications and his symptoms gradually resolved. However, based on the nature of the symptoms in the recollection of prior cardiac symptoms which were similar he elected to proceed to the emergency room for evaluation. He reported being symptom free by the time of arrival. He has not had any recurrence of symptoms over the course of the evening. This morning feeling quite well. No breathing difficulty, no chest pain, no arm weakness, no sense of palpitations, no dizziness. In general he is an active individual who exercises regularly. Since his bypass surgery in 2016 he cannot recall any cardiac symptoms. Symptoms leading up to his prior evaluations included the chest pressure and left arm weakness in association with significant dyspnea on exertion. Allergies Allergy/AdvReac Type Severity Reaction Status Date / Time metformin Allergy Intermediate Rash Unverified 11/18/23 14:54 ether Allergy Unknown Unknown Unverified 11/18/23 14:54 Home Medications Medication Instructions Recorded Confirmed Type Lactobacillus 40-Bifidobact 1 cap PO QAM 03/27/23 11/18/23 History 3-S.thermophilus 100 billion cell capsule (Probiotic) aspirin 81 mg capsule 81 mg PO QAM 03/27/23 11/18/23 History atorvastatin 80 mg tablet 80 mg PO HS 03/27/23 11/18/23 History cyanocobalamin (vitamin B-12) 1,000 mcg PO QAM 03/27/23 11/18/23 History 1,000 mcg tablet (Vitamin B-12) empagliflozin 25 mg tablet 25 mg PO QPM 03/27/23 11/18/23 History (Jardiance) lisinopril 20 mg tablet 20 mg PO QAM 03/27/23 11/18/23 History magnesium 200 mg tablet 400 mg PO HS 03/27/23 11/18/23 History metoprolol tartrate 50 mg tablet 50 mg PO BID 03/27/23 11/18/23 History multivitamin with minerals-folic 1 tab PO DAILY 04/03/23 11/18/23 History acid 0.4 mg tablet (Adult One Daily Multivitamin) Patient History Medical History GERD (gastroesophageal reflux disease) rare Witnessed apneic spells per patient's , denies previous sleep apnea study Snoring Hypertension controlled, stable per pt History of airway aspiration per pt, joshua-operatively for renal stone procedure in past CAD (coronary artery disease) 2005- x1 stent 2008- x1 stent 2016- CABG x3 Follows with Dr. 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 No other treatments/no current issues Diabetes mellitus, type 2 NIDDM Surgical History Family history of adverse reaction to anesthesia Grandmother in 1934- from the ether given to her by anesthesia S/P cystoscopy with ureteral stent placement w/laser lithotripsy History of anesthesia complications pt stated he should not be intubated unless it's a dire emergency due to his overactive/hyperactive gag reflex; did aspirate once when going under for kidney stones" Hx of left knee surgery age 7, cancerous tumor removed Hx of right knee surgery -"total reconstruction" Hx laparoscopic cholecystectomy History of esophagogastroduodenoscopy (EGD) Hx of colonoscopy Hx of nasal septoplasty Hx of tonsillectomy History of cardiac cath 2005- x1 stent 2008- x1 stent 2016- CABG x3 Hx of CABG CABG x3 (2016) Social History Smoking Status: Former smoker Smoking End Date: 11 years ago; Second Hand Exposure: No; Do You Dip or Chew Tobacco: No; Tobacco Cessation Education Requested by Patient: No Hx Alcohol Use: Yes Alcohol type: beer Hx Substance Use: No Preferred Language: Ethiopian Communication Ability: Effective Studio Hand Required: No Beliefs That Will Affect Care: None Current Living Situation: Spouse Current Living Situation Comment: Lives at home with Other Information That Helps Us Care for You: No Feels Safe at Home: Yes Safety Concerns: Feels Safe At This Time Assistive Devices: Glasses Review of Systems Review of Systems: Per HPI Physical Exam Physical Exam: The patient is alert and oriented. Mood and affect appeared normal. He answered all questions appropriately. HEENT: Pupils are equal and reactive to light and accommodation. Extraocular movements are intact. The sclerae are anicteric. Neuro: Cranial nerves intact Chest: Well-healed sternotomy scar Lungs: Clear to auscultation bilaterally. He has good air movement without use of accessory muscles. No rales wheezes or rhonchi. Cardiac: Heart demonstrates a regular rate and rhythm. Normal S1 and S2. No murmurs on examination. Pulses: The patient has palpable radial pulses bilaterally that are equal in intensity Extremities: There was no evidence of hypoperfusion. There is no cyanosis or clubbing. There is no edema. Skin: I did not appreciate any rashes on examination today. Results & Data Vital Signs (Past 12 Hours) Vital Signs Temp Pulse Pulse Resp BP Pulse Ox O2 Del Method 11/19/23 08:06 37.0 C 66 20 122/75 95 Room Air 11/19/23 07:13 58 L 11/19/23 03:14 36.5 C 55 L 18 108/73 98 Room Air 11/18/23 23:31 36.6 C 54 L 19 117/72 94 Room Air 11/18/23 23:08 58 L Laboratory Results Abnormal Lab Results 11/18/23 11/18/23 11/18/23 12:49 14:56 17:40 WBC 6.33 RBC 5.32 Hgb 16.3 Hct 48.1 MCV 90.4 MCH 30.6 MCHC 33.9 RDW Std Deviation 41.1 RDW Coeff of [place] 12.5 Plt Count 147 MPV 10.7 Immature Gran % (Auto) 0.3 Neut % (Auto) 68.9 Lymph % (Auto) 15.5 Gladwin % (Auto) 11.5 Eos % (Auto) 3.0 Baso % (Auto) 0.8 Neut # (Auto) 4.36 Lymph # (Auto) 0.98 L Gladwin # (Auto) 0.73 H Eos # (Auto) 0.19 Baso # (Auto) 0.05 Immature Gran # (Auto) 0.02 D-Dimer 1160 H* Heparin Anti-Xa, Unfract Sodium 136 Potassium 4.7 Chloride 103 Carbon Dioxide 28 Anion Gap 5 BUN 23 Creatinine 0.77 Est Cr Clr Drug Dosing 104.8 Est GFR ( Amer) 111.9 Est GFR (Non-Af Amer) 96.6 BUN/Creatinine Ratio 29.9 H Glucose 191 H POC Glucose 150 H Calcium 10.3 Total Bilirubin 0.8 AST 21 ALT 36 Alkaline Phosphatase 101 Troponin I High Sens 189.8 H* 195.3 H* Total Protein 7.9 Albumin 4.8 Globulin 3.1 Albumin/Globulin Ratio 1.5 Lipase 45 11/18/23 11/18/23 11/19/23 20:37 21:43 05:18 WBC 4.85 RBC 5.07 Hgb 15.7 Hct 45.2 MCV 89.2 MCH 31.0 MCHC 34.7 RDW Std Deviation 40.1 RDW Coeff of [place] 12.5 Plt Count 114 L MPV 10.4 Immature Gran % (Auto) 0.2 Neut % (Auto) 60.1 Lymph % (Auto) 22.9 Gladwin % (Auto) 11.3 Eos % (Auto) 4.7 Baso % (Auto) 0.8 Neut # (Auto) 2.91 Lymph # (Auto) 1.11 L Gladwin # (Auto) 0.55 Eos # (Auto) 0.23 Baso # (Auto) 0.04 Immature Gran # (Auto) 0.01 D-Dimer Heparin Anti-Xa, Unfract 0.24 L 0.27 L Sodium 134 L Potassium 4.7 Chloride 102 Carbon Dioxide 26 Anion Gap 6 BUN 20 Creatinine 0.75 Est Cr Clr Drug Dosing 105.0 Est GFR ( Amer) 113.2 Est GFR (Non-Af Amer) 97.6 BUN/Creatinine Ratio 26.7 H Glucose 140 H POC Glucose 201 H Calcium 9.8 Total Bilirubin AST ALT Alkaline Phosphatase Troponin I High Sens 178.6 H* 112.2 H* D Total Protein Albumin Globulin Albumin/Globulin Ratio Lipase 11/19/23 07:47 WBC RBC Hgb Hct MCV MCH MCHC RDW Std Deviation RDW Coeff of [place]ore[place] Plt Count MPV Immature Gran % (Auto) Neut % (Auto) Lymph % (Auto) Gladwin % (Auto) Eos % (Auto) Baso % (Auto) Neut # (Auto) Lymph # (Auto) Gladwin # (Auto) Eos # (Auto) Baso # (Auto) Immature Gran # (Auto) D-Dimer Heparin Anti-Xa, Unfract Sodium Potassium Chloride Carbon Dioxide Anion Gap BUN Creatinine Est Cr Clr Drug Dosing Est GFR ( Amer) Est GFR (Non-Af Amer) BUN/Creatinine Ratio Glucose POC Glucose 140 H Calcium Total Bilirubin AST ALT Alkaline Phosphatase Troponin I High Sens Total Protein Albumin Globulin Albumin/Globulin Ratio Lipase Diagnostic Findings Echocardiogram 11/18/2023: Normal LV systolic function with ejection fraction of 60-65%. Stage II diastolic dysfunction. Mild LVH. Mild left atrial dilation. Aortic valve sclerosis without stenosis. Mild mitral annular calcification. Chest CTA 11/18/2023: No pulmonary embolus. Cardiac catheterization 2004 [facility]: PCI to the RCA Cardiac catheterization 2008 [facility]: PCI to the RCA Cardiac catheterization 2015 [facility]: Proximal LAD 80%, proximal OM1 90%, distal RCA 90% Coronary bypass grafting 2016 [facility]: Arce to LAD, saphenous vein graft to OM, saphenous vein graft to RCA ECG Additional Comments: EKG the time admission revealed sinus bradycardia, otherwise unremarkable. PG Care Time/CCT Total # of Minutes Spent Total Time Spent with Patient: Total time spent is greater than 50% in coordination of care (as documented) at patient's floor/unit and/or counseling patient: Coding Level of Care Code 12143 IN/OBS CONSULT LVL 4,60M Diagnoses Chest pain R07.2 Chest pain type: precordial pain Elevated troponin R79.89 Bradycardia, sinus R00.1 CAD (coronary artery disease) I25.10 (1) Chest pain Chest pain type: precordial pain Qualified Code(s): R07.2 - Precordial pain
[2023-11-19 12:50] LABS: ANTI-Xa, UFH(UnfractionatedHep 0.28 IU/ml (0.3-0.7)
--- NOTE | 2023-11-19 16:35 | Hospitalist Progress Note ---
Date of Service November 19, 2023 Assessment & Plan (1) Chest pain: Plan: History of coronary artery disease and CABG/PCI. Appreciate cardiology consultation and recommendations. He will undergo stress testing with imaging tomorrow, November 19. This will determine whether he can be discharged or proceed to left heart catheterization. Previous PCI to RCA 2008, CABG with MONTES to LAD/SVG to OM/SVG to RCA 10/2015. Usually seen by [facility] (2) Diabetes mellitus, type 2: Plan: ADA diet. Sliding scale coverage. Jardiance is on hold. (3) Pulmonary nodule: Plan: Seen on chest CT scan. Outpatient follow-up warranted. Plan To be determined by stress test results on November 19 Admission and Anticipated Discharge Date Admission Date: November 18, 2023 Subjective Alert and oriented. Currently asymptomatic. Metoprolol has been down titrated and heart rate has improved. He is no longer bradycardic. Cardiology consultation and recommendations appreciated. Stress testing with imaging will be completed tomorrow, November 19. Heparin drip will be discontinued today, November 18. Review of Systems 2 Review of Systems: Constitutional-no fever or chills ENT-no blurred vision, no double vision, no epistaxis, no sore throat Respiratory-no cough, no wheezing, no shortness of breath Cardiac-no palpitations, no chest pain, no syncope GI-no nausea, vomiting, diarrhea, melena, hematochezia -no urinary retention, no urinary incontinence, no dysuria, no hematuria Musculoskeletal-no joint pain, no muscle tenderness Skin-no bruising, no rashes, no pruritus Neuro-no isolated weakness, no paresthesia Psych-no depression, no anxiety Physical Exam 2 Physical Exam: General-alert and oriented x3, no fever, no chills HEENT-head atraumatic and normocephalic, pupils equal and reactive to light, extraocular muscles intact Neck-no lymphadenopathy or thyromegaly, trachea midline Chest-clear to auscultation. No rales, wheezing or rhonchi Cardiac-regular rate and rhythm, normal S1 and S2 Abdomen-normal bowel sounds, no hepatosplenomegaly Extremities-no cyanosis, clubbing, or edema Neuro-cranial nerves II through XII intact, motor and sensory function within normal limits, strength symmetrical, no focal deficits Psych-normal affect, normal mood Results & Data Results & Data Vital Signs (Past 12 Hours) Vital Signs Temp Pulse Pulse Resp BP Pulse Ox O2 Del Method 11/19/23 15:41 36.9 C 68 20 114/72 96 Room Air 11/19/23 12:32 36.9 C 61 20 100/67 95 Room Air 11/19/23 08:06 37.0 C 66 20 122/75 95 Room Air 11/19/23 07:13 58 L Laboratory Results 11/19/23 05:18 11/19/23 05:18 PG Care Time/CCT Total # of Minutes Spent Total Time Spent with Patient: Total time spent is greater than 50% in coordination of care (as documented) at patient's floor/unit and/or counseling patient: Coding Level of Care Code 00530 SUB INP/OBS CARE 3/50MIN Diagnoses Chest pain R07.2 Chest pain type: precordial pain Diabetes mellitus, type 2 E11.9 Pulmonary nodule R91.1 (1) Chest pain Chest pain type: precordial pain Qualified Code(s): R07.2 - Precordial pain
[2023-11-19 19:34] LABS: ANTI-Xa, UFH(UnfractionatedHep 0.31 IU/ml (0.3-0.7)
[2023-11-19] MEDS: STOP HEPARIN ORDER ONE (19:59)
[2023-11-20 05:48] LABS: Basophils # (auto) 0.04 K/uL (0.00-0.20); Basophils % (auto) 0.8 %; Eosinophils # (auto) 0.26 K/uL (0.00-0.50); Hematocrit (blood only) 45.6 % (42.0-52.0); Hemoglobin 15.8 g/dl (14.0-18.0); Immature Granulocytes # (auto) 0.01 K/uL (0.01-0.20); Immature Granulocytes % (auto) 0.2 %; Lymphocytes # (auto) 1.04 K/uL (1.20-3.40); Lymphocytes % (auto) 20.2 %; Mean Corpuscular Hemoglobin 30.7 pg (25.0-34.0); Mean Corpuscular Hgb Conc 34.6 g/dL (32.0-36.0); Mean Corpuscular Volume 88.5 fL (80.0-100.0); Mean Platelet Volume 10.6 fL (9.4-12.4); Monocytes # (auto) 0.69 K/uL (0.11-0.59); Monocytes % (auto) 13.4 %; Neutrophils # (auto) 3.12 K/uL (1.40-6.50); Neutrophils % (auto) 60.4 %; Platelet Count 116 K/uL (130-400); RDW Coefficient of Variation 12.4 % (11.5-14.5); RDW Standard Deviation 40.7 fL (36.4-46.3); Red Blood Count 5.15 M/uL (4.70-6.10); White Blood Count 5.16 K/ul (4.8-10.8)
[2023-11-20 06:03] LABS: Calcium 9.8 mg/dl (8.6-10.3); Chol HDL Ratio 2.1 (0-5); Creatinine Clr Calc Pharmacy 95.7 ml/min; Est GFR (Non-African American) 93.2 ml/min; Potassium 4.7 mmol/L (3.5-5.1)
[2023-11-20] MEDS: CLOPIDOGREL BISULFATE 75 MG TAB PO ONE (09:14)
--- NOTE | 2023-11-20 10:52 | Electrocardiogram Report ---
Test Reason : Blood Pressure : / mmHG Vent. Rate : 067 BPM Atrial Rate : 067 BPM P-R Int : 154 ms QRS Dur : 082 ms QT Int : 400 ms P-R-T Axes : 046 029 041 degrees QTc Int : 422 ms Normal sinus rhythm Normal ECG When compared with ECG of 18-NOV-2023 14:08, No significant change was found Confirmed by Jadiel Hooper ([id number]) on 11/20/2023 10:52:00 AM Referred By: REFERRED SELF Confirmed By:Bob Hooper
[2023-11-20] MEDS: REGADENOSON 0.4 MG/5 ML SYR IV ONE (13:53)
--- NOTE | 2023-11-20 14:33 | Discharge Summary ---
Date of Service November 20, 2023 Admission HPI Per Admitting Provider Pratik is a 63-year-old male with a PMHx of R TKA, history of PCI to RCA 2008, CABG MONTES to LAD, SVG to OM, SVG to RCA 10/14/2015 who presents with chest pain and elevated troponin. Patient like to establish with [facility] providers. 'Puneet' Seen at the bedside with his present. 2004 got his first stent, 2008 got his second stent, 2015 had triple bipass. 'Last night first time in 9 years I have a chest pain event.' Had sudden onset in the evening of chest and left arm pain pain, discomfort, sweats, and a little tingling/weakness/tightness of the L chest into his left shoulder and radiating into his L arm. Lasted for about 1 hour, then severity reduced but lasted most of the night and was present when he woke up. In the morning he took his usual aspirin 81 mg, and then by the time he went to the bathroom after taking aspirin pain subsided. No shortness of breath during the episode. No pain with breathing. He has some right leg swelling after his knee replacement in April, this has not changed in there is no pitting edema. Got back from [facility] on the 27 of October. No leg swelling. No pain. No orthopnea. No inspiratory pain No fever,schills, or sweats. No lightheadedness or dizziness. Sees Dr. Frances in [facility], would like to switch his care to [facility]. He and his has had good experiences with [facility] specialists int he past. Exercises and lfits weights, walks 3-5 miles per day. No limited chest pain or dyspnea. Still takes 81mg aspirin qam. Atovastatin 80mg daily. Lisinopril 20mg daily. Multivitamin, probiotic, b12 daily,jardiance 25 daily, mg 400mg daily, metoprolol 50mg tartrate BID Medical History: Reviewed Medications: Reviewed. Surgical History: Reviewed Family history: Reviewed Allergies: Reviewed. Rash to metformin, allergy to ether in childhood Social History: Quit cigarettes October 2015. 1 can per day x 30 years. EtOH average 1 per week. Code Status: Full Principal Diagnosis Atypical chest pain, sinus bradycardia Discharge Exam General-alert and oriented x3, no fever, no chills HEENT-head atraumatic and normocephalic, pupils equal and reactive to light, extraocular muscles intact Neck-no lymphadenopathy or thyromegaly, trachea midline Chest-clear to auscultation. No rales, wheezing or rhonchi Cardiac-regular rate and rhythm, normal S1 and S2 Abdomen-normal bowel sounds, no hepatosplenomegaly Extremities-no cyanosis, clubbing, or edema Neuro-cranial nerves II through XII intact, motor and sensory function within normal limits, strength symmetrical, no focal deficits Psych-normal affect, normal mood Discharge Data Allergies Allergy/AdvReac Type Severity Reaction Status Date / Time metformin Allergy Intermediate Rash Unverified 11/18/23 14:54 ether Allergy Unknown Unknown Unverified 11/18/23 14:54 Consultations 11/18/23 13:57 ED Decision to Admit Stat 11/18/23 14:39 Consult Cardiology Stat Ordered Studies 11/18/23 13:57 CT angio chest PE protocol Stat Hospital Course (1) Chest pain: History of coronary artery disease and CABG/PCI. Appreciate cardiology consultation and recommendations. Lexiscan stress test completed today, November 19, was negative for myocardial ischemia. Previous PCI to RCA 2008, CABG with MONTES to LAD/SVG to OM/SVG to RCA 10/2015. Usually seen by [facility]. He will be switching to [facility] cardiology (2) Bradycardia: Sinus bradycardia present on admission. Metoprolol has been down titrated and now resolved. (3) Diabetes mellitus, type 2: ADA diet. Sliding scale coverage. Jardiance is on hold. (4) Pulmonary nodule: Seen on chest CT scan. Outpatient follow-up warranted. Plan Home todayNovember 19 Total Time Total Time Spent Total Time Spent (In Minutes): 45 minutes Discharge Plan Discharge Items Patient Disposition: Home - Self-Care Reason For Visit: CHEST PAIN Discharge Diagnosis: Atypical chest pain, sinus bradycardia Activity: Resume your previous activity Non-emergency contact: Primary Care Provider and Squad Leader Call non-emergency contact if: you have any medication questions and your symptoms worsen Follow-up/Referrals: Rock Fairchild MD [Primary Care Provider] - Diet: Carb Consistent or DM2 and Heart Healthy Addtl Attending Provider Instructions: Metoprolol dosage has been lowered. Take Plavix (clopidogrel) once daily. Use nitroglycerin as directed under the tongue as needed for any recurrent chest discomfort Pending Studies at Discharge: No Stand-Alone Forms: My [facility], Smoking Cessation Medications and DC Order Prescriptions: New metoprolol tartrate 25 mg Tablet 25 mg PO BID Qty: 60 0RF clopidogrel 75 mg tablet 75 mg PO DAILY Qty: 30 0RF nitroglycerin 0.4 mg tablet, sublingual 0.4 mg sublingual Q5M PRN (Reason: chest pain) Qty: 25 0RF Continued atorvastatin 80 mg Tablet 80 mg PO HS lisinopril 20 mg Tablet 20 mg PO QAM cyanocobalamin (vitamin B-12) [Vitamin B-12] 1,000 mcg Tablet 1,000 mcg PO QAM magnesium 200 mg Tablet 400 mg PO HS Jardiance 25 mg Tablet 25 mg PO QPM Rx Instructions: after evening meal Probiotic 100 billion cell Capsule 1 cap PO QAM aspirin 81 mg Capsule 81 mg PO QAM multivit with min-folic acid [Adult One Daily Multivitamin] 0.4 mg Tablet 1 tab PO DAILY Discontinued metoprolol tartrate 50 mg Tablet 50 mg PO BID Discharge Orders: Discharge Order (Routine); Ordered 11/20/23 Ordered By: Jose Jiménez Admission Data Admit Date/Time: 11/18/23 14:39 Attending Provider: Jose Jiménez Admit Provider: Shawn Kennedy Primary Care Provider: Rock Fairchild Other Providers: Shawn Kennedy; Jadiel Hooper Coding Level of Care Code 13641 INP/OBS DISCH >30 MIN Diagnoses Chest pain R07.2 Chest pain type: precordial pain Bradycardia R00.1 Diabetes mellitus, type 2 E11.9 Pulmonary nodule R91.1
--- NOTE | 2023-11-20 16:47 | Myocardial Perfusion Study ---
Date of Service November 20, 2023 Myocardial Perfusion Study Blk Myocardial Perfusion Study Report LEXISCAN STRESS MYOCARDIAL PERFUSION IMAGING STUDY Indication: Chest pain Brief description: Rest portion-patient was injected with 9.7 mCi of technetium 99m Cardiolite IV. 1 hour following injection, myocardial perfusion imaging was performed in multiple projections. Stress portion-baseline heart rate, blood pressure, and EKG were obtained. These same parameters were monitored continuously for 3 minutes during infusion and 3 minutes of recovery. They were intermittently recorded. Patient was infused with 0.4 mg Lexiscan IV followed immediately by injection of 33.3 mCi of technetium 99m Cardiolite IV. 30 minutes following injection, myocardial perfusion imaging was performed in multiple projections identical to those used for the rest portion. Patient reported mild dyspnea with infusion. Hemodynamic and electrocardiographic findings: 1. Resting heart rate 56 bpm colin to a maximum of 99 bpm with Lexiscan infusion. 2. Resting blood pressure 106/70 mmHg colin to a maximum of 115/71 mmHg with Lexiscan infusion. 3. Baseline EKG shows sinus bradycardia. Otherwise normal EKG. There are no Lexiscan induced diagnostic ST segment or T wave changes. No Lexiscan induced arrhythmias. Myocardial perfusion imaging findings: 1. Raw data analysis demonstrates no significant sources of artifact. This is a good quality study. 2. Gated myocardial perfusion imaging demonstrates a normal size LV, normal EF calculated at 65%, and only very mild septal hypokinesis consistent with prior cardiac surgery. 3. There were no significant rest or stress associated myocardial perfusion defects. No evidence of myocardial ischemia or infarction. 4. This is considered a low risk myocardial perfusion stress test for ischemia. No prior studies for comparison. [facility] Myocardial perfusion code Indication for Procedure (1) Chest pain: (2) Hx of CABG: Procedure Code Procedure 1: Myocardial Perfusion Codes: 46853 Cardiovascular Stress Test, multiple Procedure 2: Myocardial Perfusion Codes: 63386 Cardiovascular Stress Test, supervision only Procedure 3: Myocardial Perfusion Codes: 87929 Cardiovascular Stress Test, interpretation and report
== END 2023-11-20 16:13 | disposition home or self-care (01) | DRG 313 ==
LOC: ED 12:35 → EDINP 14:39 → SUATTDRO 14:39 → INTOOBSV 14:39 → EDINP 16:26 → 4W 18:23

== ENCOUNTER 2024-09-19 11:43 | Inpatient (IN) ==
[2024-09-19 12:39] LABS: Hematocrit (blood only) 37.2 % (42.0-52.0); Mean Corpuscular Hgb Conc 32.3 g/dL (32.0-36.0); Mean Corpuscular Volume 89.9 fL (80.0-100.0); Mean Platelet Volume 11.4 fL (9.4-12.4); Platelet Count 174 K/uL (130-400); RDW Coefficient of Variation 13.5 % (11.5-14.5); RDW Standard Deviation 43.7 fL (36.4-46.3); Red Blood Count 4.14 M/uL (4.70-6.10); White Blood Count 19.25 K/ul (4.8-10.8)
[2024-09-19] MEDS: SODIUM CHLORIDE 0.9% 1,000 ML IV ONE (12:51)
[2024-09-19 12:54] LABS: Albumin Globulin Ratio 1.5 (0.9-2); Albumin Level 4.1 gm/dl (3.4-5.0); BUN Creatinine Ratio 41.6 (10-20); Bilirubin,Total 0.6 mg/dl (0.2-1.0); Calcium 9.6 mg/dl (8.6-10.3); Creatinine Clr Calc Pharmacy 90.6 ml/min; Globulin 2.7 gm/dl (2.5-4.0); Total Protein 6.8 gm/dl (6.0-8.3)
[2024-09-19 13:04] LABS: Basophils # (auto) 0.03 K/uL (0.00-0.20); Basophils % (auto) 0.2 %; Echinocytes 1+; Immature Granulocytes # (auto) 0.15 K/uL (0.01-0.20); Immature Granulocytes % (auto) 0.8 %; Lymphocytes # (auto) 0.66 K/uL (1.20-3.40); Lymphocytes % (auto) 3.4 %; Monocytes # (auto) 0.75 K/uL (0.11-0.59); Monocytes % (auto) 3.9 %; Neutrophils # (auto) 17.66 K/uL (1.40-6.50); Neutrophils % (auto) 91.7 %
[2024-09-19 13:07] LABS: INR 1.1 (0.9-1.1); Partial Thromboplastin Ratio 0.8; Partial Thromboplastin Time 22 Seconds (21-31); Prothrombin Time 11.8 Seconds (9.0-12.0)
--- NOTE | 2024-09-19 14:07 | History & Physical Report ---
Date of Service September 19, 2024 Assessment & Plan (1) Upper GI bleed: (2) Hyperkalemia: (3) CAD (coronary artery disease): (4) Convulsive syncope: (5) Aspiration pneumonia: Plan This pt is a 64-year-old male who came in for a syncopal episode on the evening of 09/18. Coming in for GI bleed, hyperkalemia, aspiration pneumonia, and syncope workup. # Acute GI bleed Melena that started on Friday 09/15; BRB in stool x 2 A/P CT angio with and without contrast performed at [facility] was unremarkable; no diverticulitis Per [facility] labs: Hgb 13.1 at 0100 -> 12.0 at 1200 on 09/19 --> 10.1 at 1600 on 09/19 Fecal occult stool positive Lactate 4.3 -> 1.6 Troponin WNL x 2 BUN/creatinine ratio 41.6 NPO/bowel rest for now Plasma-Lyte at 80 mL/hr started; held for transfusions Protonix bolus + drip Trend H&H q4h Blood consent form obtained at bedside Given tachycardia / pre-syncope / new onset BRB in stool, concern for progression of of a gradual GI bleed to something more acute 2u ordered / transfused for symptomatic anemia; 1 additional unit ordered, held 2 large bore IVs ordered / communicated to nursing staff Reached out to GI, who recommended initial resuscitation prior to scope Signed out to overnight hospital medicine team #Hyperkalemia K 6.0 -> 5.3 on arrival Calcium gluconate 1000 mg IV x 1 Trend BMP q4h #CAD s/p PCI and CABG Nuclear stress test 11/20/2023 negative for ischemia Hold all p.o. medications in the setting of acute GI bleed (hold aspirin, Plavix, metoprolol, atorvastatin, lisinopril) #Convulsive syncope/vasovagal syncope Full LOC on the evening of 09/18 with 20 seconds of jerking/convulsions No prior history of seizures Head CT on 09/19 at [facility] revealed no acute findings Orthostatic vitals ordered, pending Suspect this could be vasovagal/orthostatic in nature However given patient's cardiac history, will obtain echocardiogram Update at 1500: Patient had another episode of diaphoresis, lightheadedness, and nausea while standing to use urinal in the emergency department Activity: Bedrest #Aspiration pneumonia Per , patient aspirated into his airway on 09/19 Leukocytosis of 19.25 with a neutrophilic predominance Zosyn 4.5 g IV q8h CXR ordered, pending #T2DM Last A1c at 7.5% on 05/04/2023 Hold metformin Hold Lantus while NPO Loose SSI with target BSG range 120-150mg/dL, CF 50, carb ratio 15 BSG q4h while NPO Adjust regimen as needed AM A1c Disposition: Admit to PCU telemetry VTE PPx: Hold chemical DVT PPx in the setting of GI bleed; SCDs History of Present Illness Chief Complaint: GI bleed Primary Care Provider: Rock Fairchild Mr. Osullivan is a 64-year-old male with PMH of HTN, T2DM, CAD, CABG, apneic episodes, and GERD. He presented on 09/19 for a syncopal episode that occurred at 2300 on 09/18. Patient reports he has been in his normal state of health this past week. He did begin to develop black/tarry stools on Friday 09/15. Then, last night, after eating dinner, he went to the bathroom around 9:30 PM and felt queasy and lightheaded. He was barely able to make it up back to his bedroom. Around 2300, he fainted; full LOC. His then witnessed seizure-like activity for 20 seconds involving teeth clenching, and vomiting. Patient did vomit into his own airway, and had to clear his airway. No prior history of seizures. No eye rolling. No loss of urinary continence or tongue biting. When he came to, he was dazed, but oriented to self and location. They called EMS and he went to [facility] ED at 0100. There, he had another episode where he became diaphoretic, nauseated, and presyncopal. At [facility] he had 2 bloody bowel movements. BRB in stool. This was new compared to the black tarry stool has been having a week. He was told at [facility] that he would need to have a endoscopy done, but given his cardiac history and the lack of cardiology group at [facility], anesthesia reportedly would be uncomfortable performing the scope there. The patient decided to leave AMA, and come to [facility]. He currently takes Plavix and aspirin for history of heart stent in 2005, as well as triple bypass. Patient restarted Plavix in November 2023. Of not e, the patient has been taking ibuprofen 2 tablets (400 mg) every 6-8 hours x 5 days recently for a dental crown; stop taking on Monday. No prior history of blood transfusions. No prior history of GI bleeds, but he did have episodes of black tarry stool in June. No iron supplements or Pepto-Bismol. Patient did not take any of his regular morning medicine today; last aspirin and Plavix were taken yesterday morning. No history of allergies to antibiotics or penicillin. He does have a history of internal hemorrhoids. Patient denies smoking or tobacco use. Alcohol use last weekend; Misael Fernandez. Patient is tachycardic at 104 bpm at time of admission; vitals otherwise stable. ED course: ROS: Patient endorses syncope, convulsions, diaphoresis, pallor, black stool x 3 days, abdominal bloating + pain when going to the bathroom, N/V, cough x 2 weeks, and nocturia. Patient denies fever, chills, chest pain, chest palpitations, pleuritic CP, SOB, hematemesis, burning with urination, blood in the urine, or numbness/tingling in the arms or legs. Allergies Allergy/AdvReac Type Severity Reaction Status Date / Time metformin Allergy Intermediate Rash Unverified 05/20/24 14:42 ether Allergy Unknown Unknown Unverified 05/20/24 14:42 Home Medications Medication Instructions Recorded Confirmed Type Lactobacillus 40-Bifidobact 1 cap PO QAM 03/27/23 09/19/24 History 3-S.thermophilus 100 billion cell capsule (Probiotic) aspirin 81 mg capsule 81 mg PO QAM 03/27/23 09/19/24 History cyanocobalamin (vitamin B-12) 1,000 mcg PO QAM 03/27/23 09/19/24 History 1,000 mcg tablet (Vitamin B-12) empagliflozin 25 mg tablet 25 mg PO QPM 03/27/23 09/19/24 History (Jardiance) magnesium 200 mg tablet 400 mg PO HS 03/27/23 09/19/24 History multivitamin with minerals-folic 1 tab PO DAILY 04/03/23 09/19/24 History acid 0.4 mg tablet (Adult One Daily Multivitamin) clopidogrel 75 mg tablet 75 mg PO DAILY #30 tabs 11/20/23 09/19/24 Rx nitroglycerin 0.4 mg sublingual 0.4 mg sublingual Q5M PRN chest 11/20/23 09/19/24 Rx tablet pain #25 tabs atorvastatin 80 mg tablet 80 mg PO HS #90 tabs 07/22/24 09/19/24 Rx lisinopril 20 mg tablet 20 mg PO DAILY 08/15/24 09/19/24 History zinc acetate 50 mg (zinc) capsule 50 mg PO DAILY 08/15/24 09/19/24 History metoprolol tartrate 25 mg tablet 50 mg PO BID 09/19/24 09/19/24 History Past Med/Surg History Problem List (Updated 09/19/24 @ 19:09 by Ran Church PA-C) Aspiration pneumonia Convulsive syncope CAD (coronary artery disease) 2005- x1 stent 2008- x1 stent 2016- CABG x3 Follows with Dr. Frances/ELIZABETH Bagley Hyperkalemia Upper GI bleed Obesity Ex-smoker Multiple pulmonary nodules Bradycardia Elevated troponin (Acute) Hypertension controlled, stable per pt Bradycardia, sinus (Acute) Chest pain (Acute) Arthritis of right knee Encounter for pre-operative examination Medical History (Updated 09/19/24 @ 19:09 by YASH BasurtoC) Pulmonary nodule Diabetes mellitus, type 2 NIDDM GERD (gastroesophageal reflux disease) rare Witnessed apneic spells per patient's , denies previous sleep apnea study Snoring History of airway aspiration per pt, joshua-operatively for renal stone procedure in past Hx of renal calculi last episode several months ago Hyperactive gag reflex "please do not intubate due to overactive/hyperactive gag reflex" History of cancer Age 7, 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 No other treatments/no current issues Surgical History (Updated 08/15/24 @ 10:26 by Delma Bourgeois RN) Hx of CABG Family history of adverse reaction to anesthesia Grandmother in 1934- from the ether given to her by anesthesia S/P cystoscopy with ureteral stent placement w/laser lithotripsy History of anesthesia complications pt stated he should not be intubated unless it's a dire emergency due to his overactive/hyperactive gag reflex; did aspirate once when going under for kidney stones" Hx of left knee surgery age 7, cancerous tumor removed Hx of right knee surgery 1970s-"total reconstruction" Hx laparoscopic cholecystectomy History of esophagogastroduodenoscopy (EGD) Hx of colonoscopy Dr. Benigno Bryson 10/13/2014 Hx of nasal septoplasty Hx of tonsillectomy History of cardiac cath 2005- x1 stent 2009- x1 stent 2016- CABG x3 Hx of CABG CABG x3 (2016) Social History (Updated 04/04/24 @ 15:36 by Audrey Caballero LPN) Smoking Status: Never smoker Age Started Using Tobacco: 24; Age Quit Using Tobacco: 34; packs per day: 1; Second Hand Exposure: No; Do You Dip or Chew Tobacco: No; Hx Alcohol Use: Yes Alcohol type: beer Hx Substance Use: No Preferred Language: Romanian Communication Ability: Effective Office Electrician Required: No Beliefs That Will Affect Care: None Current Living Situation: Spouse Current Living Situation Comment: Lives at home with Feels Safe at Home: Yes Assistive Devices: Glasses Review of Systems Review of Systems: See HPI above Physical Exam Physical Exam: General: no acute distress; non-toxic appearing; well-nourished; cooperative; SpO2 95% on RA HEENT: normocephalic, atraumatic; no scleral icterus; PERRLA w/ EOMs intact; vision and hearing grossly intact Neck: supple; no lymphadenopathy; trachea midline Skin: warm, dry without signs of tenting; no cyanosis; no rashes, bruising, lesions, or erythema noted CV: chest wall NTP; RR tachycardic around 120bpm; S1/S2 normal; no murmurs/rubs/gallops; pulses intact and symmetric at radial, DP, and PT Lungs: no acute respiratory distress; symmetrical chest wall expansion; clear breath sounds across all lung mendes w/o adventitious sounds; no wheezing ABD: Soft, NTP in all four quadrants; BS present; no rebound/guarding; no distention MSK: no tics or fasciculations; no edema noted in the LEs b/l, nonerythematous Neuro: A&Ox3; normal mood and affect; fluent speech; no focal deficits; sensation intact and symmetric the lower extremities bilaterally Results & Data Results & Data Vital Signs (Past 12 Hours) Vital Signs Temp Pulse Resp BP Pulse Ox O2 Del Method 09/19/24 13:06 104 H 20 115/73 97 09/19/24 12:46 118 H 09/19/24 12:15 117 H 16 98 Room Air 09/19/24 11:49 36.5 C 119 H 18 115/68 97 Room Air Laboratory Results Abnormal lab results 09/19/24 Range/Units 12:06 WBC 19.25 H (4.8-10.8) K/ul RBC 4.14 L (4.70-6.10) M/uL Hgb 12.0 L (14.0-18.0) g/dl Hct 37.2 L (42.0-52.0) % Neut # (Auto) 17.66 H (1.40-6.50) K/uL Lymph # (Auto) 0.66 L (1.20-3.40) K/uL Sabine # (Auto) 0.75 H (0.11-0.59) K/uL Potassium 6.0 H (3.5-5.1) mmol/L BUN 37 H (6-23) mg/dl BUN/Creatinine Ratio 41.6 H (10-20) Glucose 259 H (70-99(Fasting)) mg/dl ECG Additional Comments: ECG revealed sinus tachycardia at 118 bpm; QTc 442 Code Status & VTE Plan Code Status Full code VTE Prophylaxis Plan VTE Prophylaxis will be ordered: Yes Supervising Physician Co-Signing Physician Notes Attending Attestation & Admit Note: Pt seen/examined, chart reviewed, admit care plan d/w MORRIS Church. I agree w/ the rebolledo components of his admission documentation. 64yo male with h/o HTN, hyperlipidemia, T2DM, CAD with stents, prior CABG, GERD. 09/15/24, pt began to have black/tarry stools. This was in the absence of taking FE supplements or pepto. The tarry schools continued into Monday/Monday. He admits to drinking liquor last Monday and taking motrin for about 5 days for recent dental issues. This is in the setting of taking asa/plavix for CAD. Evening of 09/18 had severe dizziness that then progressed to full syncopal episode followed by <30 seconds of convulsive type activity. In the midst of this episode apparently vomited then aspirated ? This prompted him to visit [facility] in [facility]. There his stool was heme+ and they were concerned about GI bleeding. By report he left [facility] due to lack of cardiology availability and hesitation from [facility] to perform endoscopies without cardiac back-up? While at [facility] he had another brief episode of diaphoresis and dizziness/pre-syncope. He subsequently came to [facility] for evaluation. since arrival here any time he attempts to stand he has severe dizziness. He has been tachycardic since arrival as well. He mentions he had a melena stool in between [place] and [facility], and had a mixed melena stool with some BRB after arrival in our ER. PMH/PSH/allergies/meds/soch - reviewed vitals - tachy, but BP wnl; afebrile gen - laying comfortably in bed, awake/alert, no pain/distress skin - pallor, not diaphoretic neck - no JVD mouth - MM dry heart - tachy, s1 s2 lungs - CTA b/l, no rales, no wheeze, no tachypnea or distress abd - soft NT ND BS+, no peritoneal signs, no HSM ext - pulses 1+ b/l feet, no edema labs reviewed initial Hb 12, falling to 10.1 within 4 hours BUN elevated, Cr <1 leukocytosis INR 1.1 EKG - my reading - sinus tach, no ST changes trop minimally elevated A/P: 1. acute GI bleeding, proven heme+ at outside hospital; initially melena for several days, now mixed melena/BRB? 2. acute blood loss anemia 3. known CAD with prior stents & CABG 4. chronic asa/plavix for #3 with recent motrin for dental problem & recent etoh use 5. T2DM 6. ?convulsive syncope; does not sound like true seizure event (he had no prolonged post-ictal state, etc); suspect syncope due to #1, #2 7. HTN PPI bolus followed by drip strict NPO hold aspirin / plavix will Tx 2 units PRBCs now given highly symptomatic acute blood loss anemia (dizzy with standing, presyncope/syncope, ongoing tachycardia, etc) hold anti-hypertensives I have spoken directly to on-call GI, Dr Parson; discussed Mr Osullivan's case in great detail Dr Parson will perform urgent endoscopy tonight or overnight if there are ongoing symptoms/signs of worsening GI bleeding despite supportive care, IV PPI, and PRBCs serial labs, exams, and follow vitals closely given the severe tachycardia given concern for aspiration & leukocytosis will obtain cxr cover for possible aspiration pneumonitis with zosyn to be complete will obtain echo in light of syncope at this time anti-epileptic medicine likely not needed plan of care relayed to night physician by MORRIS Herzog MD PG Care Time/CCT Total # of Minutes Spent Total Time Spent with Patient: Total time spent is greater than 50% in coordination of care (as documented) at patient's floor/unit and/or counseling patient: Coding [place] [address] INT INP/OBS CARE 3/75MIN Patient Type Established Medical Decision Making High Complexity Diagnoses Upper GI bleed K92.2 Hyperkalemia E87.5 CAD (coronary artery disease) I25.10 Convulsive syncope R55 Aspiration pneumonia J69.0
[2024-09-19] MEDS: CALCIUM GLUCONATE 1,000 MG/60 ML BAG IV STA (14:39)
--- NOTE | 2024-09-19 14:53 | Emergency Department Note ---
Impression & Plan Acute GI bleeding, Tachycardia ED Provider Note NAME: CARMEN HELTON AGE: 64 SEX: M : 1960 ARRIVES VIA: Walk-In INFORMANT: Patient, ED PROVIDER(S): Ankit Bird MD CHIEF COMPLAINT: Syncope, GI bleed HPI: This is a 54-year-old male presenting for syncope and GI bleed. Patient states he went outside facility due to syncope and significant GI bleeding. He notes that last night around 11 PM he began having presyncopal/syncopal episode. He was diaphoretic and nauseous when standing up. He passed out at some point later in the night. This was thought to be due to multiple episodes of initially dark stool which progressed to more bloody stool Over the past 2 days. Patient was in outside hospital where he was resuscitated, had CT imaging, basic blood work and was admitted. The anesthesiologist there was uncomfortable doing colonoscopy but patient left AMA and came here. This is because patient has cardiac history. Daughter and are with the patient who state that he may have also had a seizure during the syncopal episodes lasting under 20 seconds each time. Patient on Plavix and aspirin, last taken yesterday. ROS: See above HPI for pertinent positives & negatives. A total of 10 systems reviewed and were otherwise negative. PAST MEDICAL HISTORY: See Below PAST SURGICAL HISTORY: See Below FAMILY HISTORY: See Below SOCIAL HISTORY: See Below HOME MEDICATIONS: See Below ALLERGIES: See Below VITALS: See Below PHYSICAL EXAMINATION: General: resting comfortably in no acute distress Head: Normocephalic and atraumatic Eyes: Normal inspection, extraocular muscles intact Ear, nose, throat: Normal external exam Neck: Normal range of motion Respiratory: lungs clear to auscultation bilaterally Cardiovascular: Regular rate/rhythm, no murmur GI: soft, nontender, no guarding or rebound Extremities: nontender, moves all extremities Neuro: The patient awake and alert, appropriately conversive, no focal deficits, symmetric faces Skin: Warm, dry, and intact MEDICAL DECISION MAKING: This is a 54-year-old male present for syncope/GI bleed. Unclear if patient had seizure, based on story this may be more syncope however currently patient is tachycardic and have a GI bleed. His CTA done outside facility which revealed no acute bleeding. -Lab work at outside facility reveals a hemoglobin of 12.1 on last check, downtrending at 1 point. Lactic acid was slowly rising as per family. -Significant leukocytosis to 19.25, hemoglobin 10.1, electrolytes show hyperkalemia to 6 at this time. No signs of EKG changes. Troponin at 22.1, possibly demand ischemia. Patient has no current chest pain -ECG independently interpreted by me with sinus tachycardia rate of 118, normal [place], normal QRS, normal QTc, no ST segment elevations consistent with STEMI criteria -Will admit the patient at this time the patient has continued GI bleed symptoms and presyncopal/syncopal episodes. -Care discussed with Ran Church PA-C for [facility] service -Patient admitted to their service Differential diagnosis: Upper versus lower GI bleed, syncope, ACS, demand ischemia Independent History obtained from: and daughter Diagnostics interpreted by me: ECG: See above Cardiac Monitoring: An order was placed for continuous cardiac monitoring. The monitor shows a rate of 118 with sinus tachycardia rhythm. Past Med/Surg History Problem List (Updated 09/20/24 @ 09:49 by Ankit Bird MD) Tachycardia (Acute) Acute GI bleeding (Acute) GI bleed Aspiration pneumonia Convulsive syncope CAD (coronary artery disease) 2005- x1 stent 2009- x1 stent 2016- CABG x3 Follows with Dr. Frances/ELIZABETH Bagley Hyperkalemia Upper GI bleed Obesity Ex-smoker Multiple pulmonary nodules Bradycardia Elevated troponin (Acute) Hypertension controlled, stable per pt Bradycardia, sinus (Acute) Chest pain (Acute) Arthritis of right knee Encounter for pre-operative examination Medical History (Updated 09/20/24 @ 09:49 by Ankit Bird MD) Pulmonary nodule Diabetes mellitus, type 2 NIDDM GERD (gastroesophageal reflux disease) rare Witnessed apneic spells per patient's , denies previous sleep apnea study Snoring History of airway aspiration per pt, joshua-operatively for renal stone procedure in past Hx of renal calculi last episode several months ago Hyperactive gag reflex "please do not intubate due to overactive/hyperactive gag reflex" History of cancer Age 7, 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 No other treatments/no current issues Surgical History (Updated 08/15/24 @ 10:26 by Delma Bourgeois RN) Hx of CABG Family history of adverse reaction to anesthesia Grandmother in 1934- from the ether given to her by anesthesia S/P cystoscopy with ureteral stent placement w/laser lithotripsy History of anesthesia complications pt stated he should not be intubated unless it's a dire emergency due to his overactive/hyperactive gag reflex; did aspirate once when going under for kidney stones" Hx of left knee surgery age 7, cancerous tumor removed Hx of right knee surgery 1970s-"total reconstruction" Hx laparoscopic cholecystectomy History of esophagogastroduodenoscopy (EGD) Hx of colonoscopy Dr. Benigno Bryson 10/13/2014 Hx of nasal septoplasty Hx of tonsillectomy History of cardiac cath 2005- x1 stent 2009- x1 stent 2016- CABG x3 Hx of CABG CABG x3 (2016) Social History (Updated 04/04/24 @ 15:36 by Audrey Caballero LPN) Smoking Status: Never smoker Age Started Using Tobacco: 24; Age Quit Using Tobacco: 34; packs per day: 1; Second Hand Exposure: No; Do You Dip or Chew Tobacco: No; Hx Alcohol Use: Yes Alcohol type: beer Hx Substance Use: No Preferred Language: [place] Communication Ability: Effective Director Group Sales Required: No Beliefs That Will Affect Care: None Current Living Situation: Spouse Current Living Situation Comment: Lives at home with Feels Safe at Home: Yes Assistive Devices: Glasses Allergies Allergies Allergy/AdvReac Type Severity Reaction Status Date / Time metformin Allergy Intermediate Rash Unverified 05/20/24 14:42 ether Allergy Unknown Unknown Unverified 05/20/24 14:42 Home Meds Home Medications Medication Instructions Recorded Confirmed Lactobacillus 40-Bifidobact 1 cap PO QAM 03/27/23 09/19/24 3-S.thermophilus 100 billion cell capsule (Probiotic) aspirin 81 mg capsule 81 mg PO QAM 03/27/23 09/19/24 cyanocobalamin (vitamin B-12) 1,000 mcg PO QAM 03/27/23 09/19/24 1,000 mcg tablet (Vitamin B-12) empagliflozin 25 mg tablet 25 mg PO QPM 03/27/23 09/19/24 (Jardiance) magnesium 200 mg tablet 400 mg PO HS 03/27/23 09/19/24 multivitamin with minerals-folic 1 tab PO DAILY 04/03/23 09/19/24 acid 0.4 mg tablet (Adult One Daily Multivitamin) lisinopril 20 mg tablet 20 mg PO DAILY 08/15/24 09/19/24 zinc acetate 50 mg (zinc) capsule 50 mg PO DAILY 08/15/24 09/19/24 metoprolol tartrate 25 mg tablet 50 mg PO BID 09/19/24 09/19/24 Previous Rx's Medication Instructions Recorded clopidogrel 75 mg tablet 75 mg PO DAILY #30 tabs 11/20/23 nitroglycerin 0.4 mg sublingual 0.4 mg sublingual Q5M PRN chest 11/20/23 tablet pain #25 tabs atorvastatin 80 mg tablet 80 mg PO HS #90 tabs 07/22/24 Results & Data (ED) Vital Signs Vital Signs - 24 hr 09/19/24 11:49 09/19/24 12:15 09/19/24 12:46 Temperature 36.5 C Temperature Source Temporal Artery Scan Pulse Rate 119 H 117 H 118 H Pulse Rate from SpO2 Sensor Respiratory Rate 18 16 Respiratory Effort / Characteristics Non-Labored Spontaneous Respiratory Depth Normal Respiratory Pattern Regular Blood Pressure 115/68 Blood Pressure Mean 83 Pulse Oximetry 97 98 Oxygen Delivery Method Room Air Room Air Sepsis Recent Fever Within 48 Hours No Sepsis New/Unexplained Change in Mental Status N/A Sepsis Action Taken by Nursing No Action Required 09/19/24 13:06 09/19/24 14:09 09/19/24 15:09 Temperature Temperature Source Pulse Rate 104 H 113 H 121 H Pulse Rate from SpO2 Sensor 104 H 115 H Respiratory Rate 20 19 20 Respiratory Effort / Characteristics Respiratory Depth Respiratory Pattern Blood Pressure 115/73 132/78 116/78 Blood Pressure Mean 87 96 90 Pulse Oximetry 97 96 95 Oxygen Delivery Method Sepsis Recent Fever Within 48 Hours Sepsis New/Unexplained Change in Mental Status Sepsis Action Taken by Nursing Laboratory Data 09/20/24 05:50 09/20/24 05:50 Lab Results 09/19/24 Range/Units 12:06 WBC 19.25 H (4.8-10.8) K/ul RBC 4.14 L (4.70-6.10) M/uL Hgb 12.0 L (14.0-18.0) g/dl Hct 37.2 L (42.0-52.0) % MCV 89.9 (80.0-100.0) fL MCH 29.0 (25.0-34.0) pg MCHC 32.3 (32.0-36.0) g/dL RDW Std Deviation 43.7 (36.4-46.3) fL RDW Coeff of [place] 13.5 (11.5-14.5) % Plt Count 174 (130-400) K/uL MPV 11.4 (9.4-12.4) fL Immature Gran % (Auto) 0.8 % Neut % (Auto) 91.7 % Lymph % (Auto) 3.4 % [place] % (Auto) 3.9 % Eos % (Auto) 0.0 % Baso % (Auto) 0.2 % Neut # (Auto) 17.66 H (1.40-6.50) K/uL Lymph # (Auto) 0.66 L (1.20-3.40) K/uL [place] # (Auto) 0.75 H (0.11-0.59) K/uL Eos # (Auto) 0.00 (0.00-0.50) K/uL Baso # (Auto) 0.03 (0.00-0.20) K/uL Immature Gran # (Auto) 0.15 (0.01-0.20) K/uL Echinocytes 1+ PT 11.8 (9.0-12.0) Seconds INR 1.1 (0.9-1.1) APTT 22 (21-31) Seconds PTT Ratio 0.8 Sodium 139 (136-145) mmol/L Potassium 6.0 H (3.5-5.1) mmol/L Chloride 107 (98-107) mmol/L Carbon Dioxide 21 (21-32) mmol/L Anion Gap 11 (3-11) BUN 37 H (6-23) mg/dl Creatinine 0.89 (0.6-1.4) mg/dl Est Cr Clr Drug Dosing 90.6 ml/min eGFR 95.70 BUN/Creatinine Ratio 41.6 H (10-20) Glucose 259 H (70-99(Fasting)) mg/dl Calcium 9.6 (8.6-10.3) mg/dl Total Bilirubin 0.6 (0.2-1.0) mg/dl AST 13 (13-39) U/L ALT 20 (7-52) U/L Alkaline Phosphatase 79 (34-104) U/L Troponin I High Sens 22.1 H (0-20) pg/ml Total Protein 6.8 (6.0-8.3) gm/dl Albumin 4.1 (3.4-5.0) gm/dl Globulin 2.7 (2.5-4.0) gm/dl Albumin/Globulin Ratio 1.5 (0.9-2) Blood Type A Positive Antibody Screen NEGATIVE Crossmatch See Detail Administered Medications Piperacillin Sod/Tazobactam Sod (Zosyn) 4.5 gm in 100 mls @ 25 mls/hr IV Q8H FOR[facility], 1928[facility]1983; Protocol Stop: 09/24/24 22:59 Last Admin: 09/20/24 07:34 Dose: 25 mls/hr Documented By: Infusion: 09/20/24 02:55 Dose: Infused Documented By: Admin: 09/19/24 22:55 Dose: 25 mls/hr Documented By: MICHELLE Pantoprazole Sodium 40 mg/ (Dextrose) 100 mls @ 20 mls/hr IV Q5H [facility], [facility]–1983 Stop: 10/19/24 19:29 Last Admin: 09/20/24 05:42 Dose: 8 mg/hr, 20 mls/hr Documented By: Infusion: 09/20/24 05:42 Dose: Infused Documented By: Admin: 09/20/24 00:51 Dose: 8 mg/hr, 20 mls/hr Documented By: Infusion: 09/20/24 00:51 Dose: Infused Documented By: Admin: 09/19/24 21:07 Dose: 8 mg/hr, 20 mls/hr Documented By: MICHELLE Insulin Human Regular 250 (units/ Sodium Chloride) 250 mls @ 11.4 mls/hr IV .[id number] [facility], 1928–1983; Protocol Stop: 10/20/24 02:14 Last Titration: 09/20/24 08:35 Dose: 11.4 units/hr, 11.4 mls/hr Documented By: MARKELL Co-signed By: MANE Titration: 09/20/24 06:58 Dose: 11.4 units/hr, 11.4 mls/hr Documented By: MICHELLE Co-signed By: MARKELL Titration: 09/20/24 05:57 Dose: 11.4 units/hr, 11.4 mls/hr Documented By: MICHELLE Co-signed By: NATALIIA Titration: 09/20/24 04:53 Dose: 11.4 units/hr, 11.4 mls/hr Documented By: MICHELLE Co-signed By: MANE(2) Titration: 09/20/24 03:44 Dose: 9.5 units/hr, 9.5 mls/hr Documented By: MICHELLE Co-signed By: NATALIIA Admin: 09/20/24 02:34 Dose: 9.5 units/hr, 9.5 mls/hr Documented By: MICHELLE Co-signed By: NATALIIA Sodium Chloride (Nss) 1,000 mls @ 125 mls/hr IV .Q8H ONOFRE Stop: 09/21/24 03:29 Last Admin: 09/20/24 03:42 Dose: 80 mls/hr Documented By: MICHELLE Insulin Aspart (Insulin Aspart Per Unit Charge) 0 units SC ACHS ONOFRE Stop: 10/20/24 07:29 Last Admin: 09/20/24 08:34 Dose: Not Given Documented By: MARKELL Co-signed By: MANE Ondansetron HCl (Ondansetron Inj 2 Mg/Ml 2 Ml Vial) 4 mg IV Q6H PRN PRN Reason: Nausea Stop: 10/19/24 17:53 Last Admin: 09/20/24 01:03 Dose: 4 mg Documented By: Admin: 09/19/24 19:40 Dose: 4 mg Documented By: MICHELLE Discontinued Medications Sodium Chloride (Nss) 1,000 mls @ 999 mls/hr IV .Q1H1M ONE Stop: 09/19/24 13:46 Last Infusion: 09/19/24 14:39 Dose: Infused Documented By: Admin: 09/19/24 12:51 Dose: 999 mls/hr Documented By: Calcium Gluconate () 1,000 mg in 60 mls @ 240 mls/hr IV NOW STA Stop: 09/19/24 14:34 Last Infusion: 09/19/24 14:59 Dose: Infused Documented By: Admin: 09/19/24 14:39 Dose: 240 mls/hr Documented By: JH Piperacillin Sod/Tazobactam Sod (Zosyn) 4.5 gm in 100 mls @ 200 mls/hr IV NOW ONE; Protocol Stop: 09/19/24 15:51 Last Infusion: 09/19/24 18:13 Dose: Infused Documented By: Admin: 09/19/24 17:19 Dose: 200 mls/hr Documented By: ARLENE Pantoprazole Sodium (Protonix) 40 mg in 10 mls @ 5 mls/min IV NOW ONE Stop: 09/19/24 15:24 Last Admin: 09/19/24 17:19 Dose: 5 mls/min Documented By: ARLENE Parenteral Electrolytes (Plasma-Lyte A Ph 7.4) 1,000 mls @ 80 mls/hr IV .[id number] [facility], 1928–1983 Stop: 09/20/24 15:44 Last Admin: 09/19/24 18:48 Dose: Not Given Documented By: MARKELL Pantoprazole Sodium 40 mg/ (Dextrose) 110 mls @ 480 mls/hr IV NOW ONE Stop: 09/19/24 19:18 Last Infusion: 09/19/24 20:52 Dose: Infused Documented By: Admin: 09/19/24 20:38 Dose: 480 mls/hr Documented By: MICHELLE Parenteral Electrolytes (Plasma-Lyte A Ph 7.4) 1,000 mls @ 999 mls/hr IV .Q1H1M ONE Stop: 09/20/24 03:13 Last Infusion: 09/20/24 03:32 Dose: Infused Documented By: Admin: 09/20/24 02:31 Dose: 999 mls/hr Documented By: MICHELLE Parenteral Electrolytes (Plasma-Lyte A Ph 7.4) 1,000 mls @ 999 mls/hr IV .Q1H1M ONE Stop: 09/20/24 08:13 Last Infusion: 09/20/24 08:52 Dose: Infused Documented By: Admin: 09/20/24 07:40 Dose: 999 mls/hr Documented By: MARKELL Insulin Aspart (Insulin Aspart Per Unit Charge) 0 units SC ACHS [facility]1983 Stop: 10/19/24 16:29 Last Admin: 09/19/24 17:52 Dose: 3 units Documented By: MARKELL Co-signed By: TJ Insulin Aspart (Insulin Aspart Per Unit Charge) 0 units SC Q4 [facility]1983 Stop: 10/20/24 00:00 Last Admin: 09/20/24 00:49 Dose: 5 units Documented By: MICHELLE Co-signed By: MANE(2) Ioversol (Optiray 320 125ml) 112 ml IV ONCE ONE Stop: 09/20/24 08:15 Last Admin: 09/20/24 08:14 Dose: 112 ml Documented By: NITO Sodium Bicarbonate (Sodium Bicarb 8.4% Inj 50 Meq/50 Ml Syr) 50 meq IV NOW STA Stop: 09/19/24 15:22 Last Admin: 09/19/24 15:35 Dose: 50 meq Documented By: MR Discharge Plan Visit Data Chief Complaint: GI Bleed Stated Complaint: GI BLEED, ABDOMINAL PAIN, DIZZY, PASSED OUT ED Provider: Ankit Bird Discharge Problem: Acute GI bleeding, Tachycardia Patient Disposition: Admitted As Inpatient Discharge Instructions Interventions: ED Discharge Assessment Last Done: 09/19/24 17:22
[2024-09-19] MEDS ORDERED: SODIUM CHLORIDE 0.9% 100 ML IV PRN ×3 (15:25→16:56)
[2024-09-19] MEDS: SODIUM BICARB 8.4% INJ 50 MEQ/50 ML SYR IV STA (15:35)
[2024-09-19] MEDS ORDERED: DEXTROSE 50% 50 ML SYRINGE IV PRN (15:40)
[2024-09-19] MEDS ORDERED: GLUCAGON FOR INJ 1 MG VIAL SQ PRN (15:40)
[2024-09-19 15:41] LABS: Troponin I High Sensitivity 22.1 pg/ml (0-20)
[2024-09-19] MEDS ORDERED: GLUCOSE 10 TAB/TUBE PO PRN (15:45)
[2024-09-19] MEDS ORDERED: CARBOHYDRATES FOR HYPOGLYCEMIA PO PRN (15:45)
[2024-09-19] MEDS ORDERED: GLUCOSE 40% GEL 15 GM TUBE PO PRN (15:45)
--- NOTE | 2024-09-19 16:34 | XRay Report ---
EXAM: Radiograph of the Chest 1 View INDICATION: Aspiration TECHNIQUE: Frontal view of the chest. COMPARISON: 04/02/2024 FINDINGS: Lungs and pleural spaces: Stable mild left basilar pleural and parenchymal scarring. No consolidation or pulmonary edema. No pleural effusion or pneumothorax. Heart: Coronary bypass changes noted. Mediastinum: Normal contour. Bones/joints: No fracture, erosion or dislocation. Soft tissues: No abnormality noted. No radiopaque foreign body noted. Upper abdomen: No abnormality noted. IMPRESSION: No acute cardiopulmonary disease. ACT 112: N/A Electronically signed by Denisha Cameron 09-19-2024 4:33 PM
[2024-09-19 16:45] LABS: Hematocrit (blood only) 30.7 % (42.0-52.0); Hemoglobin 10.1 g/dl (14.0-18.0)
[2024-09-19 16:54] LABS: BUN Creatinine Ratio 56.3 (10-20); Calcium 9.1 mg/dl (8.6-10.3); Creatinine Clr Calc Pharmacy 113.6 ml/min; Potassium 5.3 mmol/L (3.5-5.1)
[2024-09-19] MEDS: PIPERACILLIN/TAZOBACTAM 4.5 GM/100 ML BAG IV ONE (17:19)
[2024-09-19] MEDS: PANTOprazole 40 MG/10 ML SYR IV ONE (17:19)
[2024-09-19] MEDS: INSULIN ASPART PER UNIT CHARGE SC SCH (17:52)
[2024-09-19] MEDS: PLASMA-LYTE A 1,000 ML IV SCH (18:48)
[2024-09-19] MEDS ORDERED: PANTOPRAZOLE BOLUS/DRIP IV STA (19:05)
[2024-09-19] MEDS: ONDANSETRON INJ 2 MG/ML 2 ML VIAL IV PRN (19:40)
[2024-09-19] MEDS ORDERED: Nursing to Pharmacy Communication SCH ×2 (20:15→20:30)
[2024-09-19] MEDS: PANTOprazole 40 MG in DEXTROSE 5% 100 ML IV ONE (20:38)
[2024-09-19] MEDS ORDERED: PANTOprazole 40 MG/10 ML SYR IV SCH (21:00)
[2024-09-19] MEDS: PANTOprazole 40 MG in DEXTROSE 5% MINI-B 100 ML IV SCH (21:07)
--- NOTE | 2024-09-19 22:46 | Electrocardiogram Report ---
Test Reason : Blood Pressure : */* mmHG Vent. Rate : 118 BPM Atrial Rate : 118 BPM P-R Int : 132 ms QRS Dur : 68 ms QT Int : 316 ms P-R-T Axes : 36 27 51 degrees QTcB Int : 442 ms Sinus tachycardia Otherwise normal ECG When compared with ECG of 19-Nov-2023 16:52, Vent. rate has increased by 51 bpm Confirmed by Saud Huber ([id number]) on 09/19/2024 10:45:45 PM Referred By: REFERRED SELF Confirmed By: Saud Huber
[2024-09-19] MEDS: PIPERACILLIN/TAZOBACTAM 4.5 GM/100 ML BAG IV SCH (22:55)
[2024-09-20] MEDS ORDERED: INSULIN ASPART PER UNIT CHARGE SC SCH
[2024-09-20] MEDS: INSULIN ASPART PER UNIT CHARGE SC SCH ×2 (00:49→08:34)
--- NOTE | 2024-09-20 00:49 | Communication Note ---
Date of Service: September 20, 2024 Contacted by RN due to patient having elevated HR in 140-150s. Went to bedside to evaluate and patient found to be awake and alert, and in NAD. He endorses having dizziness and palpitations. Denies having chest pain, SOB, abdominal discomfort, N/V, or other sxs. VS at the time showing BP with systolic in 120s and diastolic in 70s, afebrile, and with good O2 saturation at room air. Patient had just recently completed transfusion of 2 units of PRBCs and was s/p 1L IVF. Exam showing patient with light sheen over skin, and shorter breaths. Exam otherwise unremarkable. RN indicated bsg at the time was 360. EKG showing sinus tachycardia. Given VS and presentation as well as bsg, I did order VBG, BMP, Mg, lactate, and post-transfusion HH was also drawn at this time. Hgb was 11.1 with Hct at 33.6. VBG with pH of 7.31 and pCO2 of 29. BMP w/ Na of 141, K of 5.4, Anion gap of 15, BUN of 59 (was 40), Creatinine 1.13 (was 0.71), and bsg of 331. Lactate was 5.7. Magnesium was 2.1. TSH was 0.498 and Free T4 was 0.79. Current presentation and lab findings concerning for DKA with current bleed/infection acting as a precipitating factor versus developing sepsis. Patient currently on Zosyn. Will order Plasmalyte 1L bolus and start insulin gtt. Q4h BMP, VBG, Mag, Phos, and repeat lactate in am. 2-hr repeat lactate collected and pending. Second PIV obtained. Once bsg ~250, will start D5, and once bsg ~150, will hold insulin gtt and switch to subcutaneous. May add potassium to fluids if this decreases with insulin drip. Suspect that once DKA resolves, patient's tachycardia and dizziness may also improve. If tachycardia fails to respond, given improved BP and stable hgb after transfusion, less suggestive of hypovolemia, but may consider other causes such as metoprolol withdrawal or sepsis. Continue to monitor. Resident Activity Tracking Resident Involvement: Resident Care Provided Care Provided: [facility]
[2024-09-20 01:01] LABS: Base Excess VBG -10.2 mEq/L; HCO3 VBG 15 mmol/L; Oxygen Saturation VBG 73.8 %; PCO2 VBG 29 mmHg (38-50); PO2 VBG 41 mmHg; pH VBG 7.31 (7.36-7.41)
[2024-09-20 01:23] LABS: Hematocrit (blood only) 33.6 % (42.0-52.0); Hemoglobin 11.1 g/dl (14.0-18.0)
[2024-09-20 01:24] LABS: BUN Creatinine Ratio 52.2 (10-20); Calcium 8.5 mg/dl (8.6-10.3); Creatinine Clr Calc Pharmacy 71.4 ml/min; Magnesium 2.1 mg/dl (1.7-2.4); Potassium 5.4 mmol/L (3.5-5.1)
[2024-09-20 01:38] LABS: Thyroid Stimulating Hormone 0.498 uIu/ml (0.300-4.500)
[2024-09-20 01:52] LABS: T4 Free Thyroxine 0.79 ng/dl (0.61-1.60)
[2024-09-20] MEDS ORDERED: STAT IV Infusion **Titration per Protocol STA (02:08)
[2024-09-20] MEDS ORDERED: PHARMACY GLYCEMIC MGMT CONSULT PRN (02:08)
[2024-09-20] MEDS: PLASMA-LYTE A 1,000 ML IV ONE ×2 (02:31→07:40)
[2024-09-20] MEDS: INSULIN REGULAR 250 UNITS in SODIUM CHLORIDE 0.9% 247.5 ML IV SCH (02:34)
[2024-09-20] MEDS: SODIUM CHLORIDE 0.9% 1,000 ML IV SCH (03:42)
[2024-09-20 06:22] LABS: Basophils # (auto) 0.02 K/uL (0.00-0.20); Basophils % (auto) 0.1 %; Hematocrit (blood only) 28.3 % (42.0-52.0); Hemoglobin 9.6 g/dl (14.0-18.0); Immature Granulocytes # (auto) 0.07 K/uL (0.01-0.20); Immature Granulocytes % (auto) 0.5 %; Lymphocytes # (auto) 1.29 K/uL (1.20-3.40); Lymphocytes % (auto) 9.2 %; Mean Corpuscular Hemoglobin 30.5 pg (25.0-34.0); Mean Corpuscular Hgb Conc 33.9 g/dL (32.0-36.0); Mean Corpuscular Volume 89.8 fL (80.0-100.0); Mean Platelet Volume 11.6 fL (9.4-12.4); Monocytes # (auto) 1.38 K/uL (0.11-0.59); Monocytes % (auto) 9.8 %; Neutrophils # (auto) 11.32 K/uL (1.40-6.50); Neutrophils % (auto) 80.4 %; Platelet Count 178 K/uL (130-400); RDW Coefficient of Variation 13.9 % (11.5-14.5); RDW Standard Deviation 44.2 fL (36.4-46.3); Red Blood Count 3.15 M/uL (4.70-6.10); White Blood Count 14.08 K/ul (4.8-10.8)
[2024-09-20 06:47] LABS: BUN Creatinine Ratio 42.2 (10-20); Calcium 8.4 mg/dl (8.6-10.3); Creatinine Clr Calc Pharmacy 54.8 ml/min; Magnesium 2.3 mg/dl (1.7-2.4); Phosphorus 2.7 mg/dl (2.5-4.9); Potassium 4.5 mmol/L (3.5-5.1)
--- NOTE | 2024-09-20 07:16 | Gastrointestinal Consultation ---
Date of Consultation September 20, 2024 Assessment & Plan (1) GI bleed: Clinical picture consistent with upper GI bleed. Differential includes peptic ulcer disease, NSAID gastropathy, gastritis less likely variceal bleeding. Clinical picture complicated by elevated lactate level and leukocytosis. No clear infection. Agree with CTA to exclude mass of ischemia or intra-abdominal pathology as well as to help better localize the bleeding site. Continue to manage his diabetes, maintain adequate hydration light of azotemia which may partially reflect an upper GI bleed but suspect these intravascularly volume. Continue IV PPI drip. Will plan on endoscopy this morning once CTA excludes any other significant pathology. History of Present Illness Reason for Consultation: GI bleed Attending Physician: Owen Espinoza MD History of Present Illness Patient was well until 5 days prior to admission when he started noticing some black bowel movements and some mild dyspeptic like symptoms. 2 days prior to admission here he had a syncopal episode and was taken to a local hospital. [place] that he had an upper GI bleed. He was unhappy with the care there and presented to our emergency room yesterday. He was informed that he had melena. As June episode of black stool which was found to be heme-negative. 10 years ago he had a colonoscopy and endoscopy which showed some colon polyps and gastritis. He had been in his usual state of good health until 5 days ago. Denies any history of liver disease significant alcohol use. Has been taking ibuprofen over the last several days after dental work. He does take aspirin and Plavix for underlying cardiac disease. On admission he has been found to have a lactate level that is elevated and tachycardic with a leukocytosis. Chest x-ray was negative. He has been treated for DKA. EKG shows sinus tachycardia. Overnight he was transfused 2 units of packed red blood cells hemoglobin colin to 11.1 has had 1 episode of dark bloody stool around 4 AM. Blood pressures remained stable. Last hemoglobin was 9.6. Denies any abdominal pain, fever chills, vomiting recent weight loss. Allergies Allergy/AdvReac Type Severity Reaction Status Date / Time metformin Allergy Intermediate Rash Unverified 05/20/24 14:42 ether Allergy Unknown Unknown Unverified 05/20/24 14:42 Home Medications Medication Instructions Recorded Confirmed Type Lactobacillus 40-Bifidobact 1 cap PO QAM 03/27/23 09/19/24 History 3-S.thermophilus 100 billion cell capsule (Probiotic) aspirin 81 mg capsule 81 mg PO QAM 03/27/23 09/19/24 History cyanocobalamin (vitamin B-12) 1,000 mcg PO QAM 03/27/23 09/19/24 History 1,000 mcg tablet (Vitamin B-12) empagliflozin 25 mg tablet 25 mg PO QPM 03/27/23 09/19/24 History (Jardiance) magnesium 200 mg tablet 400 mg PO HS 03/27/23 09/19/24 History multivitamin with minerals-folic 1 tab PO DAILY 04/03/23 09/19/24 History acid 0.4 mg tablet (Adult One Daily Multivitamin) clopidogrel 75 mg tablet 75 mg PO DAILY #30 tabs 11/20/23 09/19/24 Rx nitroglycerin 0.4 mg sublingual 0.4 mg sublingual Q5M PRN chest 11/20/23 09/19/24 Rx tablet pain #25 tabs atorvastatin 80 mg tablet 80 mg PO HS #90 tabs 07/22/24 09/19/24 Rx lisinopril 20 mg tablet 20 mg PO DAILY 08/15/24 09/19/24 History zinc acetate 50 mg (zinc) capsule 50 mg PO DAILY 08/15/24 09/19/24 History metoprolol tartrate 25 mg tablet 50 mg PO BID 09/19/24 09/19/24 History Patient History Medical History (Updated 09/20/24 @ 07:21 by Joseph Parson MD) Pulmonary nodule Diabetes mellitus, type 2 NIDDM GERD (gastroesophageal reflux disease) rare Witnessed apneic spells per patient's , denies previous sleep apnea study Snoring History of airway aspiration per pt, joshua-operatively for renal stone procedure in past Hx of renal calculi last episode several months ago Hyperactive gag reflex "please do not intubate due to overactive/hyperactive gag reflex" History of cancer Age 7, 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 No other treatments/no current issues Surgical History (Updated 08/15/24 @ 10:26 by Delma Bourgeois RN) Hx of CABG Family history of adverse reaction to anesthesia Grandmother in 1934- from the ether given to her by anesthesia S/P cystoscopy with ureteral stent placement w/laser lithotripsy History of anesthesia complications pt stated he should not be intubated unless it's a dire emergency due to his overactive/hyperactive gag reflex; did aspirate once when going under for kidney stones" Hx of left knee surgery age 7, cancerous tumor removed Hx of right knee surgery 1970s-"total reconstruction" Hx laparoscopic cholecystectomy History of esophagogastroduodenoscopy (EGD) Hx of colonoscopy Dr. Benigno Bryson 10/13/2014 Hx of nasal septoplasty Hx of tonsillectomy History of cardiac cath 2005- x1 stent 2008- x1 stent 2016- CABG x3 Hx of CABG CABG x3 (2016) Social History (Updated 04/04/24 @ 15:36 by Audrey Caballero LPN) Smoking Status: Never smoker Age Started Using Tobacco: 24; Age Quit Using Tobacco: 34; packs per day: 1; Second Hand Exposure: No; Do You Dip or Chew Tobacco: No; Hx Alcohol Use: Yes Alcohol type: beer Hx Substance Use: No Preferred Language: Portuguese Communication Ability: Effective Marketing Systems Analyst Required: No Beliefs That Will Affect Care: None Current Living Situation: Spouse Current Living Situation Comment: Lives at home with Feels Safe at Home: Yes Assistive Devices: Glasses Review of Systems Review of Systems: No fever No chills No SOB No CP No Abd pain Physical Exam Physical Exam: Eyes; anicteric HENT No masses Chest clear to A Cor S1, S2 physiologic Abd: softer nontender no masses Ext no edema Results & Data Vital Signs (Past 12 Hours) Vital Signs Temp Pulse Pulse Resp BP BP Pulse Ox 09/20/24 01:35 154 H 118/81 09/19/24 23:49 36.6 C 148 H 20 120/72 95 09/19/24 23:14 36.4 C L 149 H 20 111/80 95 09/19/24 23:00 154 H 09/19/24 22:14 36.6 C 150 H 18 88/64 L 96 09/19/24 21:44 36.2 C L 148 H 20 92/64 L 96 09/19/24 21:31 36.3 C L 146 H 20 100/71 95 09/19/24 21:29 36.3 C L 154 H 20 100/71 95 09/19/24 21:12 36.4 C L 154 H 18 110/80 96 09/19/24 20:34 36.6 C 150 H 18 113/81 96 09/19/24 20:09 36.6 C 149 H 18 114/76 96 09/19/24 19:40 O2 Del Method 09/20/24 01:35 09/19/24 23:49 09/19/24 23:14 09/19/24 23:00 09/19/24 22:14 09/19/24 21:44 09/19/24 21:31 09/19/24 21:29 09/19/24 21:12 09/19/24 20:34 09/19/24 20:09 09/19/24 19:40 Room Air Laboratory Results Laboratory Results - last 48 hr 09/19/24 09/19/24 09/19/24 12:06 16:23 17:46 WBC 19.25 H RBC 4.14 L Hgb 12.0 L 10.1 L Hct 37.2 L 30.7 L MCV 89.9 MCH 29.0 MCHC 32.3 RDW Std Deviation 43.7 RDW Coeff of [place] 13.5 Plt Count 174 MPV 11.4 Immature Gran % (Auto) 0.8 Neut % (Auto) 91.7 Lymph % (Auto) 3.4 [place] % (Auto) 3.9 Eos % (Auto) 0.0 Baso % (Auto) 0.2 Neut # (Auto) 17.66 H Lymph # (Auto) 0.66 L [place] # (Auto) 0.75 H Eos # (Auto) 0.00 Baso # (Auto) 0.03 Immature Gran # (Auto) 0.15 Echinocytes 1+ PT 11.8 INR 1.1 APTT 22 PTT Ratio 0.8 VBG pH VBG pCO2 VBG pO2 VBG HCO3 VBG O2 Saturation VBG Base Excess Sodium 139 141 Potassium 6.0 H 5.3 H Chloride 107 111 H Carbon Dioxide 21 22 Anion Gap 11 8 BUN 37 H 40 H Creatinine 0.89 0.71 Est Cr Clr Drug Dosing 90.6 113.6 eGFR 95.70 102.45 BUN/Creatinine Ratio 41.6 H 56.3 H Glucose 259 H 200 H POC Glucose 256 H Lactate Calcium 9.6 9.1 Phosphorus Magnesium Total Bilirubin 0.6 AST 13 ALT 20 Alkaline Phosphatase 79 Lactate Dehydrogenase Troponin I High Sens 22.1 H 67.7 H* D Total Protein 6.8 Albumin 4.1 Globulin 2.7 Albumin/Globulin Ratio 1.5 TSH Free T4 Blood Type A Positive Antibody Screen NEGATIVE Crossmatch See Detail 09/20/24 09/20/24 09/20/24 00:26 00:40 00:44 WBC RBC Hgb 11.1 L Hct 33.6 L MCV MCH MCHC RDW Std Deviation RDW Coeff of [place] Plt Count MPV Immature Gran % (Auto) Neut % (Auto) Lymph % (Auto) [place] % (Auto) Eos % (Auto) Baso % (Auto) Neut # (Auto) Lymph # (Auto) [place] # (Auto) Eos # (Auto) Baso # (Auto) Immature Gran # (Auto) Echinocytes PT INR APTT PTT Ratio VBG pH 7.31 L VBG pCO2 29 L VBG pO2 41 VBG HCO3 15 VBG O2 Saturation 73.8 VBG Base Excess -10.2 Sodium 141 Potassium 5.4 H Chloride 111 H Carbon Dioxide 15 L Anion Gap 15 H BUN 59 H Creatinine 1.13 D Est Cr Clr Drug Dosing 71.4 eGFR 72.58 BUN/Creatinine Ratio 52.2 H Glucose 331 H* POC Glucose 372 H* 331 H* Lactate 5.7 H* Calcium 8.5 L Phosphorus Magnesium 2.1 Total Bilirubin AST ALT Alkaline Phosphatase Lactate Dehydrogenase Troponin I High Sens Total Protein Albumin Globulin Albumin/Globulin Ratio TSH 0.498 Free T4 0.79 Blood Type Antibody Screen Crossmatch 09/20/24 09/20/24 09/20/24 02:18 02:34 03:44 WBC RBC Hgb Hct MCV MCH MCHC RDW Std Deviation RDW Coeff of [place] Plt Count MPV Immature Gran % (Auto) Neut % (Auto) Lymph % (Auto) [place] % (Auto) Eos % (Auto) Baso % (Auto) Neut # (Auto) Lymph # (Auto) [place] # (Auto) Eos # (Auto) Baso # (Auto) Immature Gran # (Auto) Echinocytes PT INR APTT PTT Ratio VBG pH VBG pCO2 VBG pO2 VBG HCO3 VBG O2 Saturation VBG Base Excess Sodium Potassium Chloride Carbon Dioxide Anion Gap BUN Creatinine Est Cr Clr Drug Dosing eGFR BUN/Creatinine Ratio Glucose POC Glucose 360 H* 279 H Lactate 6.3 H* Calcium Phosphorus Magnesium Total Bilirubin AST ALT Alkaline Phosphatase Lactate Dehydrogenase Troponin I High Sens Total Protein Albumin Globulin Albumin/Globulin Ratio TSH Free T4 Blood Type Antibody Screen Crossmatch 09/20/24 09/20/24 09/20/24 04:51 05:50 05:52 WBC 14.08 H RBC 3.15 L Hgb 9.6 L Hct 28.3 L MCV 89.8 MCH 30.5 MCHC 33.9 RDW Std Deviation 44.2 RDW Coeff of [place] 13.9 Plt Count 178 MPV 11.6 Immature Gran % (Auto) 0.5 Neut % (Auto) 80.4 Lymph % (Auto) 9.2 [place] % (Auto) 9.8 Eos % (Auto) 0.0 Baso % (Auto) 0.1 Neut # (Auto) 11.32 H Lymph # (Auto) 1.29 [place] # (Auto) 1.38 H Eos # (Auto) 0.00 Baso # (Auto) 0.02 Immature Gran # (Auto) 0.07 Echinocytes PT INR APTT PTT Ratio VBG pH 7.26 L VBG pCO2 VBG pO2 VBG HCO3 VBG O2 Saturation VBG Base Excess Sodium 145 Potassium 4.5 Chloride 112 H Carbon Dioxide 19 L Anion Gap 14 H BUN 62 H Creatinine 1.47 H D Est Cr Clr Drug Dosing 54.8 eGFR 52.93 BUN/Creatinine Ratio 42.2 H Glucose 267 H POC Glucose 291 H 277 H Lactate Calcium 8.4 L Phosphorus 2.7 Magnesium 2.3 Total Bilirubin AST ALT Alkaline Phosphatase Lactate Dehydrogenase 114 Troponin I High Sens Total Protein Albumin Globulin Albumin/Globulin Ratio TSH Free T4 Blood Type Antibody Screen Crossmatch 09/20/24 09/20/24 06:33 06:52 WBC RBC Hgb Hct MCV MCH MCHC RDW Std Deviation RDW Coeff of [place] Plt Count MPV Immature Gran % (Auto) Neut % (Auto) Lymph % (Auto) [place] % (Auto) Eos % (Auto) Baso % (Auto) Neut # (Auto) Lymph # (Auto) [place] # (Auto) Eos # (Auto) Baso # (Auto) Immature Gran # (Auto) Echinocytes PT INR APTT PTT Ratio VBG pH VBG pCO2 VBG pO2 VBG HCO3 VBG O2 Saturation VBG Base Excess Sodium Potassium Chloride Carbon Dioxide Anion Gap BUN Creatinine Est Cr Clr Drug Dosing eGFR BUN/Creatinine Ratio Glucose POC Glucose 262 H Lactate 5.9 H* Calcium Phosphorus Magnesium Total Bilirubin AST ALT Alkaline Phosphatase Lactate Dehydrogenase Troponin I High Sens Total Protein Albumin Globulin Albumin/Globulin Ratio TSH Free T4 Blood Type Antibody Screen Crossmatch PG Care Time/CCT Total # of Minutes Spent Total Time Spent with Patient: Total time spent is greater than 50% in coordination of care (as documented) at patient's floor/unit and/or counseling patient: Coding Level of Care Code 75505 INT INP/OBS CARE 75MIN Diagnoses GI bleed K92.2
[2024-09-20] MEDS: OPTIRAY 320 125ml IV ONE (08:14)
--- NOTE | 2024-09-20 08:55 | CT Scan Report ---
CT ANGIOGRAPHY OF THE ABDOMEN AND PELVIS CLINICAL HISTORY: Upper GI bleed, increasing lactate; ischemia? COMPARISON STUDY: No previous studies for comparison. TECHNIQUE: Helical axial images of the abdomen and pelvis were obtained during arterial phase followi ng intravenous injection 112 cc Optiray 320 IV. Sagittal and coronal reformats were viewed as well as maximal intensity projections on an independent 3-D workstation. A dose lowering technique was utili zed adhering to the principles of ALARA. FINDINGS: A 1 cm right lower lobe pulmonary nodule is unchanged since initial chest CT of November 17 4. No pneumatosis, free air or portal venous gas is present. There is no biliary ductal dilatation st atus post cholecystectomy. Unenhanced images of the liver, spleen and adrenal glands are unremarkable . Bilateral renal calculi measure up to 8 mm. There are no ureteral calculi. There is no hydronephros is. 1.7 cm right mid pole renal lesion on image 151 has an attenuation of 29 Hounsfield units. There is no evidence for a bowel obstruction. Colonic diverticulosis without evidence for acute diverticuli tis. A few hyperdense foci within the gastric fundus are noted. The largest is on image 69. This may represent the site of bleed. Ingested contents could appear similar. Linear hyperdensity within the w all of the gastric fundus is also noted. No lymphadenopathy. No ascites is present. There are no flui d collections. The caliber of the abdominal aorta is normal. There is no abdominal aortic dissection. There is mild plaque within the abdominal aorta and the branch vessels. Branch vessels are patent. T here is no aneurysm within the abdomen or pelvis. IMPRESSION: 1. Normal caliber abdominal aorta. Mild plaque within the abdominal aorta. No stenoses or aneurysms i dentified. 2. Small intraluminal hyperdense focus within the gastric fundus with a few linear hyperdensities wit hin the wall of the gastric fundus. This favors active bleeding although ingested contents could appe ar similar. Findings could be correlated with upper endoscopy. 3. Colonic diverticulosis. No evidence for acute diverticulitis. No bowel wall thickening. No bowel o bstruction. 4. Bilateral nephrolithiasis. 5. Stable 1 cm right lower lobe pulmonary nodule since initial chest CT November 18, 2023. A chest CT in 6 months to ensure continued stability is recommended. 6. 1.7 cm right renal lesion. This is indeterminate although a cyst is favored. Renal ultrasound is r ecommended for confirmation. ACT 112: Negative or not required by law. Electronically signed by: Tony Villavicencio M.D. 09/20/2024 8:52 AM
[2024-09-20 08:58] LABS: Estimated Average Glucose 160 mg/dl; Hemoglobin A1C 7.2 % (4.5-5.6)
[2024-09-20] MEDS ORDERED: SODIUM CHLORIDE 0.9% 100 ML IV PRN ×3 (09:00→16:39)
--- NOTE | 2024-09-20 09:46 | Hospitalist Progress Note ---
Date of Service September 20, 2024 Assessment & Plan (1) Duodenal ulcer with hemorrhage: (2) Upper GI bleed: (3) Hyperkalemia: (4) CAD (coronary artery disease): (5) Convulsive syncope: (6) Aspiration pneumonia: (7) Elevated troponin: (8) Uncontrolled diabetes mellitus with hyperglycemia: (9) Lactic acidosis: (10) ESTRADA (acute kidney injury): (11) Acute blood loss anemia: Plan 64-year-old male with known CAD on DAPT and T2DM -- presented after 2 near- syncopal & syncopal episodes on the evening of 09/18, upper GI bleed, hyperkalemia, possible aspiration pneumonia. # Acute Upper GI bleed with resulting acute blood loss anemia - 2nd to duodenal ulcer with visible vessel - appreciate Dr Parson's assistance from GI a STAT CTA abd/pelvis obtained this am showing probable active GI bleed from the stomach followed by EGD --> this confirmed the duodenal ulcer - s/p epi injection, bipolar cautery, and clip placement s/p 2 units PRBCs with 3rd this am and ultimately gave 4th unit following his EGD Cont serial H/H's KEEP STRICT NPO Cont PPI drip Holding asa/plavix of course #Hyperkalemia - K 6.0 at peak s/p multiple interventions with normalized K level Cont BMP checks #CAD s/p PCI and CABG - Nuclear stress test 11/20/2023 negative for ischemia Echo with hyperdynamic LV (70% EF) due to acute GI bleeding Holding asa/plavix/HILARIO/BB/statin Fortunately, despite severe sinus tach from his UGI bleeding/Acute blood loss anemia and copious PRBCs, he has had no ischemic symptoms and has had no evidence of volume overload #Convulsive syncope/vasovagal syncope - Full LOC on the evening of 09/18 with 20 seconds of jerking/convulsions No prior history of seizures Head CT on 09/19 at [facility] revealed no acute findings Echo with findings as above Syncope 2nd to acute, active upper GI bleeding with resulting anemia and likely drop in BP with standing Cont bedrest #Aspiration pneumonia - possible - Per , patient aspirated into his airway on 09/19 Leukocytosis of 19.25 with a neutrophilic predominance at time of admission Zosyn 4.5 g IV q8h remains, cxr negative - but reasonable to cont for now O2 sats remain wnl #T2DM - Uncontrolled in setting of severe bodily stress s/p institution of insulin drip overnight due to prolonged NPO status & hyperglycemia Cont such Pharmacy glycemic team assisting #lactic acidosis - 2nd to upper GI bleeding and probable ischemia from such fortunately lactates have improved with PRBCs and resuscitation #hypernatremia - Change fluids to hypotonic starting tonight and serial BMPs ordered #ESTRADA - Multifactorial but likely all pre-renal from decreased renal perfusion in setting of severe GI bleeding / acute blood loss can't rule out contrast injury from CT contrast given at outside hospital cont PRBCs & IV fluids serial BMPs follow UOP holding HILARIO #acute encephalopathy - had such this afternoon acidosis, hyperglycemia, ESTRADA, lack of sleep, etc -- all to blame supportive care serial exams updated at bedside this am case d/w Dr Parson multiple times left message for pt's on her voicemail this evening, 09/20 patient remains very ill given several drips, ongoing PRBCs, ongoing acute GI bleeding management & rx -- this constitutes critical care; critical care time ~60 min today if any worsening overnight would Tx to our ICU as well plan of care signed out to night physician on-call if patient rebleeds....Tx to tertiary care center for IR embolization?? Admission and Anticipated Discharge Date Admission Date: September 19, 2024 Subjective overnight events extensively reviewed continues with maroon-colored stools - copious this am required institution of insulin drip overnight due to rising BSGs this am gave 1 unit PRBCs due to dropping H/H and ongoing tachycardia I communicated with Dr Parson from GI he saw patient in consult and EGD ultimately performed late am/early afternoon demonstrated duodenal ulcer with visible vessel with red blood in the duodenum s/p epi, clip, etc post-EGD H/H again down - gave another unit of PRBCs (this is 4th unit) during my rounds early AM he amazingly denied any abd pain or N/V he is very tired and has slept little denies orthopnea, PND, or chest pain at bedside during AM rounds tele - persistent sinus tachy, 130s/140s no arrhythmia, however Review of Systems Review of Systems: gen - no fevers or chills cv - no cp, no orthopnea pulm - no dyspnea GI - ongoing melena but primarily maroon-colored stools (frequent, copious) - still having some voiding issues at times Physical Exam Physical Exam: gen - generalized pallor/ashen complexion, NAD, resting comfortably in bed, awake/alert mouth - MMM neck - no JVD heart - tachy, s1 s2, no murmur lungs - CTA b/l abd - soft NT ND BS+; no HSM ext - cool feet, 1+ pulses, cap refill slightly prolonged; no edema psych - awake/alert Results & Data Results & Data Vital Signs (Past 12 Hours) Vital Signs Temp Pulse Pulse Resp BP BP Pulse Ox 09/20/24 09:31 36.8 C 147 H 18 113/80 81 L 09/20/24 09:15 36.9 C 142 H 18 115/81 98 09/20/24 08:08 36.3 C L 143 H 18 113/78 95 09/20/24 01:35 154 H 118/81 09/19/24 23:49 36.6 C 148 H 20 120/72 95 09/19/24 23:14 36.4 C L 149 H 20 111/80 95 09/19/24 23:00 154 H 09/19/24 22:14 36.6 C 150 H 18 88/64 L 96 O2 Del Method 09/20/24 09:31 09/20/24 09:15 09/20/24 08:08 Room Air 09/20/24 01:35 09/19/24 23:49 09/19/24 23:14 09/19/24 23:00 09/19/24 22:14 Laboratory Results Laboratory Results - last 24 hr 09/19/24 09/19/24 09/19/24 12:06 16:23 17:46 WBC 19.25 H RBC 4.14 L Hgb 12.0 L 10.1 L Hct 37.2 L 30.7 L MCV 89.9 MCH 29.0 MCHC 32.3 RDW Std Deviation 43.7 RDW Coeff of [place] 13.5 Plt Count 174 MPV 11.4 Immature Gran % (Auto) 0.8 Neut % (Auto) 91.7 Lymph % (Auto) 3.4 [place] % (Auto) 3.9 Eos % (Auto) 0.0 Baso % (Auto) 0.2 Neut # (Auto) 17.66 H Lymph # (Auto) 0.66 L [place] # (Auto) 0.75 H Eos # (Auto) 0.00 Baso # (Auto) 0.03 Immature Gran # (Auto) 0.15 Echinocytes 1+ PT 11.8 INR 1.1 APTT 22 PTT Ratio 0.8 VBG pH VBG pCO2 VBG pO2 VBG HCO3 VBG O2 Saturation VBG Base Excess Sodium 139 141 Potassium 6.0 H 5.3 H Chloride 107 111 H Carbon Dioxide 21 22 Anion Gap 11 8 BUN 37 H 40 H Creatinine 0.89 0.71 Est Cr Clr Drug Dosing 90.6 113.6 eGFR 95.70 102.45 BUN/Creatinine Ratio 41.6 H 56.3 H Glucose 259 H 200 H POC Glucose 256 H Estimat Average Glucose Hemoglobin A1c Lactate Calcium 9.6 9.1 Phosphorus Magnesium Total Bilirubin 0.6 AST 13 ALT 20 Alkaline Phosphatase 79 Lactate Dehydrogenase Troponin I High Sens 22.1 H 67.7 H* D Total Protein 6.8 Albumin 4.1 Globulin 2.7 Albumin/Globulin Ratio 1.5 TSH Free T4 Nasal Screen MRSA (PCR) POC Stool Occult Blood Blood Type A Positive Antibody Screen NEGATIVE Crossmatch See Detail 09/20/24 09/20/24 09/20/24 00:26 00:40 00:44 WBC RBC Hgb 11.1 L Hct 33.6 L MCV MCH MCHC RDW Std Deviation RDW Coeff of [place] Plt Count MPV Immature Gran % (Auto) Neut % (Auto) Lymph % (Auto) [place] % (Auto) Eos % (Auto) Baso % (Auto) Neut # (Auto) Lymph # (Auto) [place] # (Auto) Eos # (Auto) Baso # (Auto) Immature Gran # (Auto) Echinocytes PT INR APTT PTT Ratio VBG pH 7.31 L VBG pCO2 29 L VBG pO2 41 VBG HCO3 15 VBG O2 Saturation 73.8 VBG Base Excess -10.2 Sodium 141 Potassium 5.4 H Chloride 111 H Carbon Dioxide 15 L Anion Gap 15 H BUN 59 H Creatinine 1.13 D Est Cr Clr Drug Dosing 71.4 eGFR 72.58 BUN/Creatinine Ratio 52.2 H Glucose 331 H* POC Glucose 372 H* 331 H* Estimat Average Glucose Hemoglobin A1c Lactate 5.7 H* Calcium 8.5 L Phosphorus Magnesium 2.1 Total Bilirubin AST ALT Alkaline Phosphatase Lactate Dehydrogenase Troponin I High Sens Total Protein Albumin Globulin Albumin/Globulin Ratio TSH 0.498 Free T4 0.79 Nasal Screen MRSA (PCR) POC Stool Occult Blood Blood Type Antibody Screen Crossmatch 09/20/24 09/20/24 09/20/24 02:18 02:34 03:44 WBC RBC Hgb Hct MCV MCH MCHC RDW Std Deviation RDW Coeff of [place] Plt Count MPV Immature Gran % (Auto) Neut % (Auto) Lymph % (Auto) [place] % (Auto) Eos % (Auto) Baso % (Auto) Neut # (Auto) Lymph # (Auto) [place] # (Auto) Eos # (Auto) Baso # (Auto) Immature Gran # (Auto) Echinocytes PT INR APTT PTT Ratio VBG pH VBG pCO2 VBG pO2 VBG HCO3 VBG O2 Saturation VBG Base Excess Sodium Potassium Chloride Carbon Dioxide Anion Gap BUN Creatinine Est Cr Clr Drug Dosing eGFR BUN/Creatinine Ratio Glucose POC Glucose 360 H* 279 H Estimat Average Glucose Hemoglobin A1c Lactate 6.3 H* Calcium Phosphorus Magnesium Total Bilirubin AST ALT Alkaline Phosphatase Lactate Dehydrogenase Troponin I High Sens Total Protein Albumin Globulin Albumin/Globulin Ratio TSH Free T4 Nasal Screen MRSA (PCR) POC Stool Occult Blood Blood Type Antibody Screen Crossmatch 09/20/24 09/20/24 09/20/24 04:51 05:50 05:52 WBC 14.08 H RBC 3.15 L Hgb 9.6 L Hct 28.3 L MCV 89.8 MCH 30.5 MCHC 33.9 RDW Std Deviation 44.2 RDW Coeff of [place] 13.9 Plt Count 178 MPV 11.6 Immature Gran % (Auto) 0.5 Neut % (Auto) 80.4 Lymph % (Auto) 9.2 [place] % (Auto) 9.8 Eos % (Auto) 0.0 Baso % (Auto) 0.1 Neut # (Auto) 11.32 H Lymph # (Auto) 1.29 [place] # (Auto) 1.38 H Eos # (Auto) 0.00 Baso # (Auto) 0.02 Immature Gran # (Auto) 0.07 Echinocytes PT INR APTT PTT Ratio VBG pH 7.26 L VBG pCO2 VBG pO2 VBG HCO3 VBG O2 Saturation VBG Base Excess Sodium 145 Potassium 4.5 Chloride 112 H Carbon Dioxide 19 L Anion Gap 14 H BUN 62 H Creatinine 1.47 H D Est Cr Clr Drug Dosing 54.8 eGFR 52.93 BUN/Creatinine Ratio 42.2 H Glucose 267 H POC Glucose 291 H 277 H Estimat Average Glucose 160 Hemoglobin A1c 7.2 H Lactate Calcium 8.4 L Phosphorus 2.7 Magnesium 2.3 Total Bilirubin AST ALT Alkaline Phosphatase Lactate Dehydrogenase 114 Troponin I High Sens Total Protein Albumin Globulin Albumin/Globulin Ratio TSH Free T4 Nasal Screen MRSA (PCR) POC Stool Occult Blood Blood Type Antibody Screen Crossmatch 09/20/24 09/20/24 09/20/24 06:33 06:40 06:52 WBC RBC Hgb Hct MCV MCH MCHC RDW Std Deviation RDW Coeff of [place] Plt Count MPV Immature Gran % (Auto) Neut % (Auto) Lymph % (Auto) [place] % (Auto) Eos % (Auto) Baso % (Auto) Neut # (Auto) Lymph # (Auto) [place] # (Auto) Eos # (Auto) Baso # (Auto) Immature Gran # (Auto) Echinocytes PT INR APTT PTT Ratio VBG pH VBG pCO2 VBG pO2 VBG HCO3 VBG O2 Saturation VBG Base Excess Sodium Potassium Chloride Carbon Dioxide Anion Gap BUN Creatinine Est Cr Clr Drug Dosing eGFR BUN/Creatinine Ratio Glucose POC Glucose 262 H Estimat Average Glucose Hemoglobin A1c Lactate 5.9 H* Calcium Phosphorus Magnesium Total Bilirubin AST ALT Alkaline Phosphatase Lactate Dehydrogenase Troponin I High Sens 317.2 H* D Total Protein Albumin Globulin Albumin/Globulin Ratio TSH Free T4 Nasal Screen MRSA (PCR) POC Stool Occult Blood Blood Type Antibody Screen Crossmatch 09/20/24 09/20/24 09/20/24 08:03 09:00 Unknown WBC RBC Hgb Hct MCV MCH MCHC RDW Std Deviation RDW Coeff of [place] Plt Count MPV Immature Gran % (Auto) Neut % (Auto) Lymph % (Auto) [place] % (Auto) Eos % (Auto) Baso % (Auto) Neut # (Auto) Lymph # (Auto) [place] # (Auto) Eos # (Auto) Baso # (Auto) Immature Gran # (Auto) Echinocytes PT INR APTT PTT Ratio VBG pH VBG pCO2 VBG pO2 VBG HCO3 VBG O2 Saturation VBG Base Excess Sodium Potassium Chloride Carbon Dioxide Anion Gap BUN Creatinine Est Cr Clr Drug Dosing eGFR BUN/Creatinine Ratio Glucose POC Glucose 245 H Estimat Average Glucose Hemoglobin A1c Lactate Calcium Phosphorus Magnesium Total Bilirubin AST ALT Alkaline Phosphatase Lactate Dehydrogenase Troponin I High Sens Total Protein Albumin Globulin Albumin/Globulin Ratio TSH Free T4 Nasal Screen MRSA (PCR) Negative Diagnostic Findings EGD findings reviewed PG Care Time/CCT Total # of Minutes Spent Total Time Spent with Patient: Total time spent is greater than 50% in coordination of care (as documented) at patient's floor/unit and/or counseling patient: Critical Care Time: Yes Total Critical Care Time: 60 Coding Level of Care Code None Diagnoses Duodenal ulcer with hemorrhage K26.4 Upper GI bleed K92.2 Hyperkalemia E87.5 CAD (coronary artery disease) I25.10 Convulsive syncope R55 Aspiration pneumonia J69.0 Elevated troponin R79.89 Uncontrolled diabetes mellitus with hyperglycemia E11.65 Lactic acidosis E87.20 ESTRADA (acute kidney injury) N17.9 Acute blood loss anemia D62 Additional Codes Critical Care Time - Critical Care Time: Yes ([id number]) Time Spent (min) 60
--- NOTE | 2024-09-20 09:53 | Pharmacy Report ---
Pharmacy Glycemic Short Note 2 - Date of Service September 20, 2024 - Glycemic Short BSG Results (Last 24 hours): 09/19/24 09/19/24 09/19/24 12:06 16:23 17:46 Glucose 259 H 200 H POC Glucose 256 H 09/20/24 09/20/24 09/20/24 00:26 00:40 00:44 Glucose 331 H* POC Glucose 372 H* 331 H* 09/20/24 09/20/24 09/20/24 02:18 03:44 04:51 Glucose POC Glucose 360 H* 279 H 291 H 09/20/24 09/20/24 09/20/24 05:50 05:52 06:52 Glucose 267 H POC Glucose 277 H 262 H 09/20/24 08:03 Glucose POC Glucose 245 H OUTPATIENT ANTIDIABETIC REGIMEN: * Jardiance 25 mg PO PM HbA1c: * 7.2% (09/20/24) ASSESSMENT: * 64 yo M admitted on 09/19/24 secondary to acute GI bleed. Pharmacy has been consulted to assist with inpatient glycemic management. Patient is a Type 2 diabetic as an outpatient. Please refer to outpatient regimen and most recent HbA1c above. * Patient presented with hyperglycemia. BSGs [phone] mg/dL. He has been started on a Protonix drip, Zosyn, and received 3 units of blood so far. He is NPO currently for possible EGD. * There was some concern for DKA but acidosis may be related to elevated lactate: 5.7-6.3-5.9. VBG this AM showed pH of 7.26. BMP this AM showed AG of 14 and CO2 of 19. K was 6 upon admit but down to 4.5 this AM. BSGs this AM have been: 780-324-760-245 mg/dL. * Patient was started on an IV insulin drip overnight with an initial bolus of 9.5 units IVP. Drip was started at a rate of 9.5 units/hr but has been at 11.4 units/hr since. I have tightened the goal range on the drip to 110-180 mg/dL this AM (more for hyperglycemia rather than true DKA). Fluids are NS at 125 mL/hr as of now. These may need adjusted based on next BMP results to include potassium or even dextrose. Sodium is also at upper limit of normal so may consider reducing to half NS. * Given the acute nature of this patients illness, plan is to avoid any basal insulin and forego transitioning off the insulin drip until he is more stable. Likely to transition off the drip tomorrow. Continue with insulin drip for today with patient being NPO and plan for EGD. PLAN FOR INPATIENT GLYCEMIC CONTROL: * Hold outpatient oral diabetes medications * Continue with IV insulin drip today * Goal range: 110-180 mg/dL * Current rate: 11.4 units/hr * Basal insulin * Hold until patient more stable * Bolus insulin - per insulin drip calculator for now in case a diet is ordered post-EGD * NovoLog per scale ACHS or Q6hrs while NPO * Goal Range: Low [] mg/dL - High [] mg/dL * Correction Factor: [] mg/dL/unit * Nutritional / Prandial insulin per carb ratio of 1 unit per [] grams CHO consumed
--- NOTE | 2024-09-20 10:00 | Electrocardiogram Report ---
Test Reason : Blood Pressure : */* mmHG Vent. Rate : 146 BPM Atrial Rate : 146 BPM P-R Int : 134 ms QRS Dur : 66 ms QT Int : 260 ms P-R-T Axes : 43 33 49 degrees QTcB Int : 405 ms Sinus tachycardia Otherwise normal ECG When compared with ECG of 19-Sep-2024 12:05, No significant change was found Confirmed by Saud Huber ([id number]) on 09/20/2024 10:00:14 AM Referred By: REFERRED SELF Confirmed By: Saud Huber
--- NOTE | 2024-09-20 10:37 | XCELERA ---
[id number] [id number]
--- NOTE | 2024-09-20 12:07 | Anesthesiology Consultation ---
Date of Service September 20, 2024 Assessment & Plan ASA ASA4E Proposed Anesthesia Anesthesia Type: MAC Risk / Benefits Reviewed With: PT / POA / Parent / Guardian, Accepts Plan and Informed Consent Obtained Additional Comments: pt is not optimized and is being r/o for dka vs sepsis. pt recieved two units of prbc but has dropped two grms hgb since. i spoke with dr ibanez and feels the patient has an upper gi bleed and needs to be done emergently. i d/w pt and family. they wish to proceed History Surgery Operation Date: 09/20/24 16:45 Proposed Procedures p Esophagogastroduodenoscopy Dr. Ibanez - Joseph Ibanez MD Height/Weight Height: 5 ft 6 in Weight: 95 kg Allergies Allergy/AdvReac Type Severity Reaction Status Date / Time metformin Allergy Intermediate Rash Verified 09/20/24 11:50 ether Allergy Unknown Unknown Verified 09/20/24 11:50 Medications Home Medications Medication Instructions Recorded Confirmed Last Taken Lactobacillus 40-Bifidobact 1 cap PO QAM 03/27/23 09/19/24 09/18/24 3-S.thermophilus 100 billion cell capsule (Probiotic) aspirin 81 mg capsule 81 mg PO QAM 03/27/23 09/19/24 09/18/24 cyanocobalamin (vitamin B-12) 1,000 mcg PO QAM 03/27/23 09/19/24 09/18/24 1,000 mcg tablet (Vitamin B-12) empagliflozin 25 mg tablet 25 mg PO QPM 03/27/23 09/19/24 09/18/24 (Jardiance) magnesium 200 mg tablet 400 mg PO HS 03/27/23 09/19/24 09/18/24 multivitamin with minerals-folic 1 tab PO DAILY 04/03/23 09/19/24 09/18/24 acid 0.4 mg tablet (Adult One Daily Multivitamin) clopidogrel 75 mg tablet 75 mg PO DAILY #30 tabs 11/20/23 09/19/24 09/18/24 nitroglycerin 0.4 mg sublingual 0.4 mg sublingual Q5M PRN chest 11/20/23 09/19/24 Unknown tablet pain #25 tabs atorvastatin 80 mg tablet 80 mg PO HS #90 tabs 07/22/24 09/19/24 09/18/24 lisinopril 20 mg tablet 20 mg PO DAILY 08/15/24 09/19/24 09/18/24 zinc acetate 50 mg (zinc) capsule 50 mg PO DAILY 08/15/24 09/19/24 09/18/24 metoprolol tartrate 25 mg tablet 50 mg PO BID 09/19/24 09/19/24 09/18/24 Active Medications Generic Name Dose Route Start Last Admin Trade Name Freq PRN Reason Stop Dose Admin Piperacillin Sod/Tazobactam Sod 4.5 gm in 100 mls @ 25 mls/hr 09/19/24 23:00 09/20/24 11:53 Zosyn IV 09/24/24 22:59 Infused Q8H ONOFRE Infusion Protocol Pantoprazole Sodium 40 mg/ 100 mls @ 20 mls/hr 09/19/24 19:30 09/20/24 10:17 Dextrose IV 10/19/24 19:29 8 mg/hr Q5H ONOFRE 20 mls/hr Administration 8 MG/HR Insulin Human Regular 250 250 mls @ 11.4 mls/hr 09/20/24 02:15 09/20/24 12:03 units/ Sodium Chloride IV 10/20/24 02:14 11.4 units/hr .[id number] ONOFRE 11.4 mls/hr Titration Protocol 11.4 UNITS/HR Sodium Chloride 1,000 mls @ 125 mls/hr 09/20/24 03:30 09/20/24 03:42 Nss IV 09/21/24 03:29 80 mls/hr .Q8H ONOFRE Administration Insulin Aspart 0 units 09/20/24 07:30 09/20/24 11:54 Insulin Aspart Per Unit Charge SC 10/20/24 07:29 Not Given ACHS ONOFRE Ondansetron HCl 4 mg 09/19/24 17:54 09/20/24 01:03 Ondansetron Inj 2 Mg/Ml 2 Ml Vial IV 10/19/24 17:53 4 mg Q6H PRN Administration Nausea NPO Date Last Intake of Fluids: 09/20/24 Time Last Intake of Fluids: 08:00 Date Last Intake of Solids: 09/18/24 Time Last Intake of Solids: 18:00 Past Medical History Medical History Pulmonary nodule Diabetes mellitus, type 2 NIDDM GERD (gastroesophageal reflux disease) rare Witnessed apneic spells per patient's , denies previous sleep apnea study Snoring History of airway aspiration per pt, joshua-operatively for renal stone procedure in past Hx of renal calculi last episode several months ago Hyperactive gag reflex "please do not intubate due to overactive/hyperactive gag reflex" History of cancer Age 7, 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 No other treatments/no current issues Exercise / Class Metabolic Activity II 4-5 Yardwork/Stairs/Walk up hill Past Surgical History Surgical History Hx of CABG Family history of adverse reaction to anesthesia Grandmother in 1934- from the ether given to her by anesthesia S/P cystoscopy with ureteral stent placement w/laser lithotripsy History of anesthesia complications pt stated he should not be intubated unless it's a dire emergency due to his overactive/hyperactive gag reflex; did aspirate once when going under for kidney stones" Hx of left knee surgery age 7, cancerous tumor removed Hx of right knee surgery -"total reconstruction" Hx laparoscopic cholecystectomy History of esophagogastroduodenoscopy (EGD) Hx of colonoscopy Dr. Benigno Bryson 10/13/2014 Hx of nasal septoplasty Hx of tonsillectomy History of cardiac cath 2005- x1 stent 2009- x1 stent 2016- CABG x3 Hx of CABG CABG x3 (2016) Past Anesthesia History No Hx of Anesthesia Complications and No Family Hx of Anesthesia Complications History of PONV No Hx of PONV and No Hx of Motion Sickness Social History Smoking Status: Never smoker Do You Dip or Chew Tobacco: No Hx Alcohol Use: Yes Alcohol type: beer alcohol intake frequency: holidays/special occasions only Hx Substance Use: No substance use type: does not use Review of Systems denies fever/cough/ colds/ chest pain/ SOB/ ADRIAN denies ADRIAN Physical Exam Vital Signs Last Vital Signs Temp 37.2 C 09/20/24 11:54 Pulse 155 H 09/20/24 11:54 Resp 16 09/20/24 11:54 BP 150/96 H 09/20/24 11:54 Pulse Ox 97 09/20/24 11:54 O2 Del Method Room Air 09/20/24 11:54 ENMT Mouth: no TMJ abnormality and no dentition abnormality Thyromental Distance: > or= 3.5 Finger Breadths Mallampati Class: II Neck neck extension not limited Respiratory normal respiratory effort; no respiratory distress Auscultation: lungs clear to auscultation bilaterally Cardiovascular Rate/Rhythm: regular rhythm and + tachycardic Neurologic moves all extremities Psychiatric Orientation: alert and oriented x 3 Testing Laboratory Results 09/20/24 05:50 09/20/24 05:50 PT 11.8 Seconds (9.0-12.0) 09/19/24 12:06 INR 1.1 (0.9-1.1) 09/19/24 12:06 APTT 22 Seconds (21-31) 09/19/24 12:06 Hemoglobin A1c 7.2 % (4.5-5.6) H 09/20/24 05:50 Blood Type A Positive 09/19/24 12:06 Antibody Screen NEGATIVE 09/19/24 12:06 09/20/24 09/20/24 09/20/24 10:16 08:03 06:52 POC Glucose 172 H 245 H 262 H 09/20/24 09/20/24 09/20/24 05:52 04:51 03:44 POC Glucose 277 H 291 H 279 H 09/20/24 09/20/24 09/20/24 02:18 00:40 00:26 POC Glucose 360 H* 331 H* 372 H*
--- NOTE | 2024-09-20 13:31 | Anesthesiology Progress Note ---
Date of Service September 20, 2024 Anesthesia Post Procedure Vital Signs Vital Signs: Temp Pulse Pulse Resp BP BP BP 09/20/24 11:54 37.2 C 155 H 16 150/96 H 09/20/24 10:53 156 H 09/20/24 10:53 09/20/24 10:19 36.7 C 148 H 20 129/85 09/20/24 09:49 36.7 C 138 H 20 125/84 09/20/24 09:34 36.6 C 148 H 18 104/71 09/20/24 09:31 36.8 C 147 H 18 113/80 09/20/24 09:15 36.9 C 142 H 18 115/81 09/20/24 08:08 36.3 C L 143 H 18 113/78 09/20/24 01:35 154 H 118/81 09/19/24 23:49 36.6 C 148 H 20 120/72 09/19/24 23:14 36.4 C L 149 H 20 111/80 09/19/24 23:00 154 H 09/19/24 22:14 36.6 C 150 H 18 88/64 L 09/19/24 21:44 36.2 C L 148 H 20 92/64 L 09/19/24 21:31 36.3 C L 146 H 20 100/71 09/19/24 21:29 36.3 C L 154 H 20 100/71 09/19/24 21:12 36.4 C L 154 H 18 110/80 09/19/24 20:34 36.6 C 150 H 18 113/81 09/19/24 20:09 36.6 C 149 H 18 114/76 09/19/24 19:40 09/19/24 19:09 36.6 C 147 H 20 92/66 L 09/19/24 18:39 36.6 C 138 H 20 142/79 H 09/19/24 18:37 36.6 C 133 H 18 133/80 09/19/24 18:24 36.7 C 135 H 20 142/79 H 09/19/24 18:14 36.9 C 140 H 18 112/66 09/19/24 18:08 36.8 C 139 H 18 123/85 09/19/24 17:00 127 H 18 115/87 09/19/24 15:09 121 H 20 116/78 04/10/25 14:09 113 H 19 132/78 Pulse Ox O2 Del Method 09/20/24 11:54 97 Room Air 09/20/24 10:53 09/20/24 10:53 Room Air 09/20/24 10:19 97 09/20/24 09:49 09/20/24 09:34 96 09/20/24 09:31 81 L 09/20/24 09:15 98 09/20/24 08:08 95 Room Air 09/20/24 01:35 09/19/24 23:49 95 09/19/24 23:14 95 09/19/24 23:00 09/19/24 22:14 96 09/19/24 21:44 96 09/19/24 21:31 95 09/19/24 21:29 95 09/19/24 21:12 96 09/19/24 20:34 96 09/19/24 20:09 96 09/19/24 19:40 Room Air 09/19/24 19:09 96 09/19/24 18:39 95 09/19/24 18:37 96 09/19/24 18:24 95 09/19/24 18:14 97 Room Air 09/19/24 18:08 96 09/19/24 17:00 95 Room Air 09/19/24 15:09 95 09/19/24 14:09 96 Pain Intensity Abdomen: Pain Intensity: 4 Transfer of Care Handoff Completed per policy Notes Mental Status: alert / awake / arousable and participated in evaluation Patient Amnestic to Procedure: Yes Nausea / Vomiting: adequately controlled Pain: adequately controlled Airway Patency, RR, SpO2: stable & adequate BP & HR: stable & adequate (pt tachycardic prior to case and remains so) Hydration State: stable & adequate Anesthetic Complications: no major complications apparent and Pt Satisfied with anesthetic care
--- NOTE | 2024-09-20 13:32 | GI REPORT ---
[facility] Patient: CARMEN HELTON : 1960 Sex at : Male Age: 64 Years Procedure: Upper GI endoscopy Date: 09/20/2024 Attending Physician: Joseph Parson MD Referring MD: Owen Espinoza Indications: - Suspected upper gastrointestinal bleeding Medications: - Monitored Anesthesia Care Complications: - No immediate complications. Procedure: - Prior to the procedure, a History and Physical was performed, and patient medications and allergies were reviewed. The patient's tolerance of previous anesthesia was also reviewed. The risks and benefits of the procedure and the sedation options and risks were discussed with the patient. All questions were answered, and informed consent was obtained. [Anticoagulant Agents] [Days Prior to Procedure]. [ASA Grade]. After reviewing the risks and benefits, the patient was deemed in satisfactory condition to undergo the procedure. - The egd scope was introduced through the mouth and advanced to the third part of the duodenum. - The upper GI endoscopy was accomplished without difficulty. - The patient tolerated the procedure well. Findings: - The examined esophagus was normal. - The entire examined stomach was normal. - Red blood was found in the first portion of the duodenum. - One non-bleeding cratered circumferential duodenal ulcer with a nonbleeding visible vessel (Francisco Class IIa) was found in the first portion of the duodenum. Injected 2 mL 1:10,000 epinephrine into base of ulcer near visible vessel Coagulation for hemostasis using bipolar probe was successful. For hemostasis, one hemostatic clip was successfully placed. - One non-bleeding cratered circumferential duodenal ulcer was found in the third portion of the duodenum. Impression: - Normal esophagus. - Normal stomach. - Blood in the first portion of the duodenum. - Non-bleeding duodenal ulcer with a nonbleeding visible vessel (Francisco Class IIa). Treated with bipolar cautery. Clip was placed. - Injected 2 mL 1:10,000 epinephrine into base of ulcer near visible vessel - Non-bleeding duodenal ulcer. - No specimens collected. Recommendation: - Resume previous diet. - Patient has a contact number available for emergencies. The signs and symptoms of potential delayed complications were discussed with the patient. Return to normal activities tomorrow. Written discharge instructions were provided to the patient. Procedure Code(s): - 61028, Esophagogastroduodenoscopy, flexible, transoral; with control of bleeding, any method Diagnosis Code(s): - K92.2, Gastrointestinal hemorrhage, unspecified - K26.4, Chronic or unspecified duodenal ulcer with hemorrhage - K26.9, Duodenal ulcer, unspecified as acute or chronic, without hemorrhage or perforation CPT(R) - 202 copyright [employer]. All Rights Reserved. The CPT codes, CCI edits and ICD codes generated are intended as suggestions and were generated based on input data. These codes are preliminary and upon market research lead review may be revised to meet current compliance and payer requirements. The provider is responsible for the final determination of appropriate codes, and modifiers. Joseph Parson MD This document has been electronically signed. Note Initiated:09/20/2024 Note Completed:09/20/2024 1:31 PM \\[email or web address]\Central\InterfaceData\Data\Provation\Results\LIVE\[id number]
[2024-09-20] MEDS: LIDOCAINE 2% 2 ML VIAL/AMP(20MG/ML) INFIL ONE (15:16)
[2024-09-20] MEDS: PROPOFOL IV EMULSION 10 MG/ML 20 ML VIAL IV ONE (15:16)
[2024-09-20 15:25] LABS: Hemoglobin 8.7 g/dl (14.0-18.0); Mean Corpuscular Hemoglobin 28.9 pg (25.0-34.0); Mean Corpuscular Hgb Conc 33.5 g/dL (32.0-36.0); Mean Corpuscular Volume 86.4 fL (80.0-100.0); Mean Platelet Volume 11.5 fL (9.4-12.4); Nucleated RBC # (auto) 0.03 K/uL (0.00-0.12); Nucleated RBC % (auto) 0.2 %; Platelet Count 154 K/uL (130-400); RDW Coefficient of Variation 15.2 % (11.5-14.5); RDW Standard Deviation 46.3 fL (36.4-46.3); Red Blood Count 3.01 M/uL (4.70-6.10); White Blood Count 16.25 K/ul (4.8-10.8)
[2024-09-20 15:39] LABS: Calcium 7.9 mg/dl (8.6-10.3); Creatinine Clr Calc Pharmacy 64.9 ml/min; Magnesium 2.4 mg/dl (1.7-2.4); Phosphorus 2.1 mg/dl (2.5-4.9); Potassium 3.8 mmol/L (3.5-5.1)
[2024-09-20] MEDS: SODIUM CHLOR 0.45% + 20MEQ KCL 20 MEQ/1,000 ML BAG IV SCH (19:41)
[2024-09-20 20:06] LABS: Hematocrit (blood only) 29.5 % (42.0-52.0); Hemoglobin 10.2 g/dl (14.0-18.0)
[2024-09-20 20:17] LABS: BUN Creatinine Ratio 55.4 (10-20); Calcium 7.8 mg/dl (8.6-10.3); Creatinine Clr Calc Pharmacy 71.9 ml/min; Phosphorus 2.4 mg/dl (2.5-4.9); Potassium 3.7 mmol/L (3.5-5.1)
[2024-09-20 23:41] LABS: BUN Creatinine Ratio 49.2 (10-20); Calcium 7.6 mg/dl (8.6-10.3); Creatinine Clr Calc Pharmacy 64.9 ml/min; Phosphorus 2.9 mg/dl (2.5-4.9)
[2024-09-21 00:26] LABS: Hematocrit (blood only) 27.7 % (42.0-52.0); Hemoglobin 9.4 g/dl (14.0-18.0)
[2024-09-21 00:51] LABS: Fibrinogen 168 mg/dl (184-400); INR 1.2 (0.9-1.1); Prothrombin Time 13.1 Seconds (9.0-12.0)
[2024-09-21] MEDS ORDERED: SODIUM CHLORIDE 0.9% 100 ML IV PRN ×3 (01:29→10:19)
[2024-09-21] MEDS: CALCIUM GLUCONATE 1,000 MG/60 ML BAG IV SCH ×2 (02:26→09:16)
[2024-09-21 04:11] LABS: Hematocrit (blood only) 24.7 % (42.0-52.0); Hemoglobin 8.4 g/dl (14.0-18.0); Mean Corpuscular Hemoglobin 29.6 pg (25.0-34.0); Mean Platelet Volume 11.3 fL (9.4-12.4); Nucleated RBC # (auto) 0.05 K/uL (0.00-0.12); Nucleated RBC % (auto) 0.3 %; Platelet Count 123 K/uL (130-400); RDW Coefficient of Variation 15.8 % (11.5-14.5); RDW Standard Deviation 48.2 fL (36.4-46.3); Red Blood Count 2.84 M/uL (4.70-6.10); White Blood Count 19.45 K/ul (4.8-10.8)
[2024-09-21 04:28] LABS: BUN Creatinine Ratio 51.5 (10-20); Calcium 7.9 mg/dl (8.6-10.3); Creatinine Clr Calc Pharmacy 79.7 ml/min; Magnesium 2.1 mg/dl (1.7-2.4); Phosphorus 2.9 mg/dl (2.5-4.9); Potassium 5.8 mmol/L (3.5-5.1)
[2024-09-21] MEDS: SODIUM CHLORIDE 0.45 % 500 ML IV SCH (05:17)
--- NOTE | 2024-09-21 05:20 | Communication Note ---
Date of Service: September 21, 2024 Notified by RN re: rectal bleeding overnight - pt seen at bedside, having moderate volume liquidy melanotic stool, no bright red blood. Repeat Hgb 9.4, no change in vitals, no new sx. Addl labs checked: INR 1.2, Fibrinogen 168 - gave 1U FFP and 2g calcium gluconate. Later notified by RN of increasing frequency of stools, still maroon/liquidy - AM labs drawn early: - Hgb 8.4: fortunately, pt continues to be asx and remains hemodynamically stable. Case discussed with attending, will transfuse additional unit pRBCs. Timed repeat H&H ordered. Will contact on-call GI between now and day shift if stool volume increases/if passing overt red blood or if notable change in vitals.
--- NOTE | 2024-09-21 08:46 | Gastroenterology Progress Note ---
Date of Service September 21, 2024 Assessment & Plan (1) Acute blood loss anemia: (2) Duodenal ulcer with hemorrhage: Plan: Ongoing bleeding from ulcer in the duodenal sweep. The patient is being transferred to [facility] for possible IR embolization Admission and Anticipated Discharge Date Admission Date: September 19, 2024 Subjective Ongoing maroon stools. The patient feels weak . Hg decreased to 8.4 Remains tachycardic. Receiving 5th unit of PRBCs Review of Systems Review of Systems: Constitutional: Weak, fatigued Respiratory: Denies cough, denies shortness of breath. Cardiovascular: Denies chest pain and palpitations. Gastrointestinal:Ongoing maroon stools Physical Exam Physical Exam: Constitutional: vitals as above Respiratory: normal respiratory effort, lungs clear to auscultation Cardiovascular: tachycardic no murmur, no edema Gastrointestinal (Abdomen): normal bowel sounds, soft, nontender, no hepatosplenomegaly. Neurological: Oriented x 3, grossly no focal abnormalities, speech is intact. Results & Data Results & Data Vital Signs (Past 12 Hours) Vital Signs Temp Pulse Pulse Resp BP BP Pulse Ox 09/21/24 07:56 37.0 C 123 H 18 147/89 H 97 09/21/24 06:56 36.6 C 126 H 18 144/80 H 97 09/21/24 06:26 36.7 C 122 H 18 143/88 H 95 09/21/24 06:11 36.7 C 130 H 18 95 09/21/24 06:05 36.7 C 130 H 16 155/98 H 98 09/21/24 05:53 36.5 C 132 H 18 142/73 H 97 09/21/24 04:41 36.9 C 135 H 18 143/86 H 98 09/21/24 03:41 36.6 C 135 H 16 148/90 H 96 09/21/24 03:11 36.8 C 133 H 16 151/96 H 93 09/21/24 02:56 36.7 C 136 H 18 138/96 95 09/21/24 02:37 36.7 C 134 H 16 139/89 96 09/21/24 01:05 140 H 09/20/24 23:40 36.7 C 136 H 18 127/66 97 09/20/24 23:05 37.0 C 135 H 18 141/68 H 98 O2 Del Method 09/21/24 07:56 09/21/24 06:56 09/21/24 06:26 09/21/24 06:11 09/21/24 06:05 09/21/24 05:53 09/21/24 04:41 09/21/24 03:41 09/21/24 03:11 09/21/24 02:56 09/21/24 02:37 09/21/24 01:05 09/20/24 23:40 Room Air 09/20/24 23:05 Room Air PG Care Time/CCT Total # of Minutes Spent Total Time Spent with Patient: Total time spent is greater than 50% in coordination of care (as documented) at patient's floor/unit and/or counseling patient: Coding Level of Care Code 07514 SUB INP/OBS CARE 2/35MIN Diagnoses Acute blood loss anemia D62 Duodenal ulcer with hemorrhage K26.4
[2024-09-21 08:58] LABS: BUN Creatinine Ratio 41.8 (10-20); Calcium 7.9 mg/dl (8.6-10.3); Creatinine Clr Calc Pharmacy 82.2 ml/min
[2024-09-21] MEDS: SODIUM BICARB 8.4% INJ 50 MEQ/50 ML SYR IV STA (09:13)
[2024-09-21] MEDS: SODIUM BICARBONATE 8.4% 150 MEQ in WATER, STERILE 1,000 ML IV SCH (09:51)
[2024-09-21 10:02] LABS: Base Excess VBG 0.8 mEq/L; HCO3 VBG 26 mmol/L; Oxygen Saturation VBG < 60.0 %; PCO2 VBG 43 mmHg (38-50); PO2 VBG 20 mmHg; pH VBG 7.39 (7.36-7.41)
--- NOTE | 2024-09-21 10:08 | Procedure Note ---
Procedure Note Date of Service September 21, 2024 ARTERIAL LINE PROCEDURE NOTE: Procedure: Arterial Line Placement Provider: Boni Hawkins MD Indication: Monitoring on Pressors Anesthesia: None Verbal consent was obtained prior to the procedure. Indication, risks, and benefits were explained at length. Patient expressed understanding and is in agreement with plan as outlined A time-out was completed verifying correct patient, procedure, site, positioning, and implant(s) or special equipment if applicable. Allens test was performed to ensure adequate perfusion. Patients right wrist was prepped and draped in the usual sterile fashion. A 20g Arrow arterial line was introduced into the right radial artery. Catheter was threaded, and the needle was removed with appropriate blood return. Good waveform was observed. The patient tolerated the procedure well. Blood Loss: Minimal Complications: None [facility] Procedure Codes (Charges) Tubes, Drains, and Vasc Access Procedure 1: Tubes, Drains, and Vasc Access: [id number] Arterial Cath/Cannulation Sampling/Monitoring/Transfusion Coding CPT Codes Tubes, Drains, and Vasc Access - Tubes, Drains, and Vasc Access: [id number] Arterial Cath/Cannulation Sampling/Monitoring/Transfusion ([id number]) Additional Codes Date of Service (PG.SURGERY)
[2024-09-21 10:09] LABS: Hematocrit (blood only) 26.4 % (42.0-52.0); Hemoglobin 8.8 g/dl (14.0-18.0)
[2024-09-21] MEDS: PLASMA-LYTE A 2,000 ML IV ONE (10:20)
[2024-09-21 10:27] LABS: iSTAT Art Bld Gas pCO2 Correct 33 mmHg (35-46); iSTAT Art Bld Gas pH Corrected 7.459 (7.35-7.45); iSTAT Arterial Blood Gas HCO3 24 meg/L (19-24); iSTAT Arterial Blood Gas pCO2 34 mmHg (35-46); iSTAT Arterial Blood Gas pH 7.46 (7.35-7.45); iSTAT Arterial Blood Gas pO2 70 mmHg (80-95); iSTAT Arterial Blood Gas pO2 C 69; iSTAT Carbon Dioxide 25 mmol/L (24-31); iSTAT Hematocrit 22 % (42-52); iSTAT Hemoglobin 7.5 g/dl (14.0-18.0); iSTAT Sample Type Arterial; iSTAT Site Art Line; iSTAT Sodium 151 mmol/L (135-144); iSTAT SpO2 99
[2024-09-21 10:31] LABS: Fibrinogen 155 mg/dl (184-400); INR 1.3 (0.9-1.1); Prothrombin Time 13.8 Seconds (9.0-12.0)
--- NOTE | 2024-09-21 11:04 | Discharge Summary ---
Discharge Summary Date of Service September 21, 2024 Principal Dx & Hospital Course #1 = Principal Diagnosis (1) Duodenal ulcer with hemorrhage: (2) Upper GI bleed: (3) Hyperkalemia: (4) CAD (coronary artery disease): (5) Convulsive syncope: (6) Aspiration pneumonia: (7) Elevated troponin: (8) Uncontrolled diabetes mellitus with hyperglycemia: (9) Lactic acidosis: (10) ESTRADA (acute kidney injury): (11) Acute blood loss anemia: Plan 64-year-old male with known CAD on DAPT and T2DM -- presented after 2 near- syncopal & syncopal episodes on the evening of 09/18, upper GI bleed, hyperkalemia, possible aspiration pneumonia. # Acute Upper GI bleed with resulting acute blood loss anemia - 2nd to duodenal ulcer with visible vessel - appreciate Dr Parson's assistance from GI a STAT CTA abd/pelvis obtained this am showing probable active GI bleed from the stomach followed by EGD --> this confirmed the duodenal ulcer - s/p epi injection, bipolar cautery, and clip placement s/p 2 units PRBCs with 3rd this am and ultimately gave 4th unit following his EGD Cont serial H/H's KEEP STRICT NPO Cont PPI drip Holding asa/plavix of course #Hyperkalemia - K 6.0 at peak s/p multiple interventions with normalized K level Cont BMP checks #CAD s/p PCI and CABG - Nuclear stress test 11/20/2023 negative for ischemia Echo with hyperdynamic LV (70% EF) due to acute GI bleeding Holding asa/plavix/HILARIO/BB/statin Fortunately, despite severe sinus tach from his UGI bleeding/Acute blood loss anemia and copious PRBCs, he has had no ischemic symptoms and has had no evidence of volume overload #Convulsive syncope/vasovagal syncope - Full LOC on the evening of 09/18 with 20 seconds of jerking/convulsions No prior history of seizures Head CT on 09/19 at [facility] revealed no acute findings Echo with findings as above Syncope 2nd to acute, active upper GI bleeding with resulting anemia and likely drop in BP with standing Cont bedrest #Aspiration pneumonia - possible - Per , patient aspirated into his airway on 09/19 Leukocytosis of 19.25 with a neutrophilic predominance at time of admission Zosyn 4.5 g IV q8h remains, cxr negative - but reasonable to cont for now O2 sats remain wnl #T2DM - Uncontrolled in setting of severe bodily stress s/p institution of insulin drip overnight due to prolonged NPO status & hyperglycemia Cont such Pharmacy glycemic team assisting #lactic acidosis - 2nd to upper GI bleeding and probable ischemia from such fortunately lactates have improved with PRBCs and resuscitation #hypernatremia - Change fluids to hypotonic starting tonight and serial BMPs ordered #ESTRADA - Multifactorial but likely all pre-renal from decreased renal perfusion in setting of severe GI bleeding / acute blood loss can't rule out contrast injury from CT contrast given at outside hospital cont PRBCs & IV fluids serial BMPs follow UOP holding HILARIO #acute encephalopathy - had such this afternoon acidosis, hyperglycemia, ESTRADA, lack of sleep, etc -- all to blame supportive care serial exams updated at bedside this am case d/w Dr Parson multiple times left message for pt's on her voicemail this evening, 09/20 patient remains very ill given several drips, ongoing PRBCs, ongoing acute GI bleeding management & rx -- this constitutes critical care; critical care time ~60 min today if any worsening overnight would Tx to our ICU as well plan of care signed out to night physician on-call if patient rebleeds....Tx to tertiary care center for IR embolization?? Admission HPI Per Admitting Provider Mr. Osullivan is a 64-year-old male with PMH of HTN, T2DM, CAD, CABG, apneic episodes, and GERD. He presented on 09/19 for a syncopal episode that occurred at 2300 on 09/18. Patient reports he has been in his normal state of health this past week. He did begin to develop black/tarry stools on Friday 09/15. Then, last night, after eating dinner, he went to the bathroom around 9:30 PM and felt queasy and lightheaded. He was barely able to make it up back to his bedroom. Around 2300, he fainted; full LOC. His then witnessed seizure-like activity for 20 seconds involving teeth clenching, and vomiting. Patient did vomit into his own airway, and had to clear his airway. No prior history of seizures. No eye rolling. No loss of urinary continence or tongue biting. When he came to, he was dazed, but oriented to self and location. They called EMS and he went to [facility] ED at 0100. There, he had another episode where he became diaphoretic, nauseated, and presyncopal. At [facility] he had 2 bloody bowel movements. BRB in stool. This was new compared to the black tarry stool has been having a week. He was told at [facility] that he would need to have a endoscopy done, but given his cardiac history and the lack of cardiology group at [facility], anesthesia reportedly would be uncomfortable performing the scope there. The patient decided to leave [place], and come to [facility]. He currently takes Plavix and aspirin for history of heart stent in 2005, as well as triple bypass. Patient restarted Plavix in November 2023. Of note, the patient has been taking ibuprofen 2 tablets (400 mg) every 6-8 hours x 5 days recently for a dental crown; stop taking on Monday. No prior history of blood transfusions. No prior history of GI bleeds, but he did have episodes of black tarry stool in June. No iron supplements or Pepto-Bismol. Patient did not take any of his regular morning medicine today; last aspirin and Plavix were taken yesterday morning. No history of allergies to antibiotics or penicillin. He does have a history of internal hemorrhoids. Patient denies smoking or to bacco use. Alcohol use last ; Misael Anton's. Patient is tachycardic at 104 bpm at time of admission; vitals otherwise stable. ED course: ROS: Patient endorses syncope, convulsions, diaphoresis, pallor, black stool x 3 days, abdominal bloating + pain when going to the bathroom, N/V, cough x 2 weeks, and nocturia. Patient denies fever, chills, chest pain, chest palpitations, pleuritic CP, SOB, hematemesis, burning with urination, blood in the urine, or numbness/tingling in the arms or legs. Discharge Exam gen - generalized pallor/ashen complexion, NAD, resting comfortably in bed, awake/alert mouth - MMM neck - no JVD heart - tachy, s1 s2, no murmur lungs - CTA b/l abd - soft NT ND BS+; no HSM ext - cool feet, 1+ pulses, cap refill slightly prolonged; no edema psych - awake/alert Discharge Plan Discharge Items Reason For Visit: GI BLEED Follow-up/Referrals: Rock Fairchild MD [Primary Care Provider] - Addtl Testboard Operator Provider Instructions: DIABETES RECOMMENDATIONS: - Given GI bleed/anemia, your hemoglobin A1c level is possibly inaccurate. - Because of this and high blood sugar levels while hospitalized, recommend you check your blood sugar 1x/day x few weeks to ensure home blood sugar levels are within a reasonable safe range. - Try to change the time you check from day to day. - Great times to check are before any meal and before bed. - Please notify your provider of blood sugar levels frequently above target. Medications and DC Order Prescriptions: No Action atorvastatin 80 mg tablet 80 mg PO HS Qty: 90 3RF zinc acetate 50 mg (zinc) capsule 50 mg PO DAILY lisinopril 20 mg tablet 20 mg PO DAILY cyanocobalamin (vitamin B-12) [Vitamin B-12] 1,000 mcg Tablet 1,000 mcg PO QAM magnesium 200 mg Tablet 400 mg PO HS Jardiance 25 mg Tablet 25 mg PO QPM Rx Instructions: after evening meal Probiotic 100 billion cell Capsule 1 cap PO QAM aspirin 81 mg Capsule 81 mg PO QAM multivit with min-folic acid [Adult One Daily Multivitamin] 0.4 mg Tablet 1 tab PO DAILY clopidogrel 75 mg tablet 75 mg PO DAILY Qty: 30 0RF nitroglycerin 0.4 mg tablet, sublingual 0.4 mg sublingual Q5M PRN (Reason: chest pain) Qty: 25 0RF metoprolol tartrate 25 mg tablet 50 mg PO BID Krames/Other Patient Handouts: Managing Type 2 Diabetes, How to Check Your Blood Sugar Admission Data Admit Date/Time: 09/19/24 15:16 Attending Provider: Owen Espinoza Admit Provider: Owen Espinoza Primary Care Provider: Rock Fairchild Other Providers: Owen Espinoza; Joseph Prason I Hospital Stay Data Consultations 09/19/24 14:55 ED Decision to Admit Stat 09/19/24 15:09 Consult Gastroenterology Routine 09/21/24 10:10 Radiology Transfer Of Images Stat Procedures Performed Operation Date: 09/20/24 16:45 Actual Procedures p EGD Hemostasis - Joseph Parson MD Diagnostic Imagining Performed 09/20/24 06:50 CTA abdomen pelvis w con [CT angio abdomen pelvis w con] Stat Coding Diagnoses Duodenal ulcer with hemorrhage K26.4 Upper GI bleed K92.2 Hyperkalemia E87.5 CAD (coronary artery disease) I25.10 Convulsive syncope R55 Aspiration pneumonia J69.0 Elevated troponin R79.89 Uncontrolled diabetes mellitus with hyperglycemia E11.65 Lactic acidosis E87.20 ESTRADA (acute kidney injury) N17.9 Acute blood loss anemia D62
--- NOTE | 2024-09-21 11:31 | Critical Care Consultation ---
Date of Consultation September 21, 2024 Assessment & Plan (1) Acute blood loss anemia: (2) Duodenal ulcer with hemorrhage: (3) Tachycardia: (4) Hyperkalemia: Plan Impression: 64-year-old male with prior history of coronary disease presenting now with duodenal ulcer with visible vessel now rebleeding status post endoscopic therapy. He is pending transfer to a tertiary facility for IR evaluation versus repeat endoscopy. He is hemodynamically stable but was transferred to the ICU due to hyperkalemia and ongoing blood loss. Recommendations: 1. Neurologic: No current issues. Follow clinically. 2. Cardiovascular: Patient's tachycardic and hypertensive currently. Suspect that he is still under resuscitated from a volume standpoint. Will give an additional 2 L of crystalloid now. Repeat [id number] hemoglobin was 7.2 so we will transfuse an additional 1 unit now and cross for an additional 1 unit. Arterial line was placed for frequent lab draws and closer hemodynamic monitoring 3. Pulmonary: No active issues. 4. GI: GI bleed. Continue Protonix. Await transfer to tertiary facility. 5. Renal: Hyperkalemia: The patient received bicarb and is on an insulin drip for his diabetes. He received calcium prior to transfer to the ICU. [id number] electrolytes revealed a potassium of 4.0 on our assessment here. Discontinue bicarb infusion. Will continue calcium repletion. Replete calcium 6. Endocrine: The patient is on an insulin drip for glycemic control. 7. Hemo-: Acute blood loss anemia: Continue to transfuse and try defend hemoglobin of around 8 or 9 given active bleeding. Await fibrinogen and INR but will try and target fibrinogen greater than 200, and INR less than 1.5. Try and keep platelets above 50,000 in the setting of active bleeding. 8. ID: The patient was placed on Zosyn due to concerns about aspiration pneumonia. His CT showed no evidence of pneumonia his white count is mildly elevated but he is afebrile. Antibiotics will be discontinued at this point time and the patient followed clinically. Will observe the patient in the ICU pending transfer to tertiary facility. The above recommendations and plan were discussed extensively with the patient as well as with his family at bedside and the hospitalist. Total of 45 minutes in critical care time was spent in evaluation management and coordination of care for this patient with acute life-threatening GI bleeding and hyperkalemia History of Present Illness Attending Physician: Owen Espinoza MD History of Present Illness Asked by hospitalist to assist in evaluation management of this patient with duodenal ulcer upper GI bleed, hyperkalemia, and ongoing bleeding despite endoscopic efforts to control the ulcer. History is obtained from discussion with the patient as well as with the hospitalist and reviewed electronic medical record. The patient is a 64-year-old male who was admitted to the facility after sustaining a syncopal episode on the day previously. He has a history of diabetes and heart disease status post CABG. He had had a crown placed and had been taking ibuprofen 400 mg twice a day for the last multiple days. He developed dark stools on Friday 09/15. He had a syncopal episode on 09/18 with some questionable seizure-like activity and some vomiting. He was initially evaluated at [facility]. They felt given his cardiac history that they were unable to take care of him there so the patient signed out AMA and came to [facility]. He was on Plavix and aspirin. He was admitted to the floor and GI consultation was obtained. He underwent upper endoscopy 09/20/2014 revealing a duodenal ulcer with a visible vessel. Bipolar cautery was used. It was injected and hemostatic clips were placed. He was placed on a proton pump inhibitor and observed on the floor. He continued to develop decrease in hemoglobin and hematocrit but fortunately remained hemodynamically stable. He is received a total of 5 units of packed cells. Due to concern about persistent bleeding GI was contacted which recommended transfer to a tertiary facility for potential IR. He does not been seen by surgery. His labs this morning demonstrated hyperkalemia at 7.0 which prompted transfer to the ICU. I assessed the patient immediately on arrival. He is awake alert conversant and in no distress. He is hemodynamically stable actually tachycardic and hypertensive currently. He is not having any pain. He is complaining of dry mouth. No prior history of GI bleeding. Allergies Allergy/AdvReac Type Severity Reaction Status Date / Time metformin Allergy Intermediate Rash Verified 09/20/24 11:50 ether Allergy Unknown Unknown Verified 09/20/24 11:50 Home Medications Medication Instructions Recorded Confirmed Type Lactobacillus 40-Bifidobact 1 cap PO QAM 03/27/23 09/19/24 History 3-S.thermophilus 100 billion cell capsule (Probiotic) aspirin 81 mg capsule 81 mg PO QAM 03/27/23 09/19/24 History cyanocobalamin (vitamin B-12) 1,000 mcg PO QAM 03/27/23 09/19/24 History 1,000 mcg tablet (Vitamin B-12) empagliflozin 25 mg tablet 25 mg PO QPM 03/27/23 09/19/24 History (Jardiance) magnesium 200 mg tablet 400 mg PO HS 03/27/23 09/19/24 History multivitamin with minerals-folic 1 tab PO DAILY 04/03/23 09/19/24 History acid 0.4 mg tablet (Adult One Daily Multivitamin) clopidogrel 75 mg tablet 75 mg PO DAILY #30 tabs 11/20/23 09/19/24 Rx nitroglycerin 0.4 mg sublingual 0.4 mg sublingual Q5M PRN chest 11/20/23 09/19/24 Rx tablet pain #25 tabs atorvastatin 80 mg tablet 80 mg PO HS #90 tabs 07/22/24 09/19/24 Rx lisinopril 20 mg tablet 20 mg PO DAILY 08/15/24 09/19/24 History zinc acetate 50 mg (zinc) capsule 50 mg PO DAILY 08/15/24 09/19/24 History metoprolol tartrate 25 mg tablet 50 mg PO BID 09/19/24 09/19/24 History Patient History Medical History Pulmonary nodule Diabetes mellitus, type 2 NIDDM GERD (gastroesophageal reflux disease) rare Witnessed apneic spells per patient's , denies previous sleep apnea study Snoring History of airway aspiration per pt, joshua-operatively for renal stone procedure in past Hx of renal calculi last episode several months ago Hyperactive gag reflex "please do not intubate due to overactive/hyperactive gag reflex" History of cancer Age 7, 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 No other treatments/no current issues Surgical History Hx of CABG Family history of adverse reaction to anesthesia Grandmother in 1934- from the ether given to her by anesthesia S/P cystoscopy with ureteral stent placement w/laser lithotripsy History of anesthesia complications pt stated he should not be intubated unless it's a dire emergency due to his overactive/hyperactive gag reflex; did aspirate once when going under for kidney stones" Hx of left knee surgery age 7, cancerous tumor removed Hx of right knee surgery 1970s-"total reconstruction" Hx laparoscopic cholecystectomy History of esophagogastroduodenoscopy (EGD) Hx of colonoscopy Dr. Benigno Bryson 10/13/2014 Hx of nasal septoplasty Hx of tonsillectomy History of cardiac cath 2005- x1 stent 2009- x1 stent 2016- CABG x3 Hx of CABG CABG x3 (2016) Social History (Updated 04/04/24 @ 15:36 by Audrey Caballero LPN) Smoking Status: Never smoker Age Started Using Tobacco: 24; Age Quit Using Tobacco: 34; packs per day: 1; Second Hand Exposure: No; Do You Dip or Chew Tobacco: No; Hx Alcohol Use: Yes Alcohol type: beer Hx Substance Use: No Preferred Language: Amharic Communication Ability: Effective Riding Double Required: No Beliefs That Will Affect Care: None Current Living Situation: Spouse Current Living Situation Comment: Lives at home with Feels Safe at Home: Yes Assistive Devices: Glasses Review of Systems 2 Review of Systems: Please refer to hospitalist notes. No additions or deletions Physical Exam Constitutional: WD/WN, vitals as above Neck: trachea midline, no thyromegaly Respiratory: normal respiratory effort, lungs clear to auscultation Cardiovascular: RRR, no murmur, no edema Gastrointestinal (Abdomen): normal bowel sounds, soft, nontender, no hep atosplenomegaly Musculoskeletal: Extremities: extremities normal to inspection Skin: no rashes, warm and dry Neurologic: Nonfocal exam Lymphatic: no cervical lymphadenopathy Results & Data Results & Data Vital Signs (Past 12 Hours) Vital Signs Temp Pulse Pulse Resp BP BP Pulse Ox 09/21/24 09:06 37.2 C 124 H 18 147/76 H 98 09/21/24 08:56 37.2 C 124 H 18 147/76 H 98 09/21/24 07:56 37.0 C 123 H 18 147/89 H 97 09/21/24 06:56 36.6 C 126 H 18 144/80 H 97 09/21/24 06:26 36.7 C 122 H 18 143/88 H 95 09/21/24 06:11 36.7 C 130 H 18 95 09/21/24 06:05 36.7 C 130 H 16 155/98 H 98 09/21/24 05:53 36.5 C 132 H 18 142/73 H 97 09/21/24 04:41 36.9 C 135 H 18 143/86 H 98 09/21/24 03:41 36.6 C 135 H 16 148/90 H 96 09/21/24 03:11 36.8 C 133 H 16 151/96 H 93 09/21/24 02:56 36.7 C 136 H 18 138/96 95 09/21/24 02:37 36.7 C 134 H 16 139/89 96 09/21/24 01:05 140 H 09/20/24 23:40 36.7 C 136 H 18 127/66 97 09/20/24 23:05 37.0 C 135 H 18 141/68 H 98 O2 Del Method 09/21/24 09:06 09/21/24 08:56 09/21/24 07:56 09/21/24 06:56 09/21/24 06:26 09/21/24 06:11 09/21/24 06:05 09/21/24 05:53 09/21/24 04:41 09/21/24 03:41 09/21/24 03:11 09/21/24 02:56 09/21/24 02:37 09/21/24 01:05 09/20/24 23:40 Room Air 09/20/24 23:05 Room Air Critical Care Results & Data Vital Signs (Past 12 Hours) Vital Signs Temp Pulse Pulse Resp BP BP Pulse Ox 09/21/24 11:18 36.8 C 105 H 18 176/66 H 95 09/21/24 11:01 36.7 C 108 H 18 157/67 H 96 09/21/24 10:33 108 H 24 151/83 H 98 09/21/24 10:03 116 H 19 97 09/21/24 09:06 37.2 C 124 H 18 147/76 H 98 09/21/24 08:56 37.2 C 124 H 18 147/76 H 98 09/21/24 07:56 37.0 C 123 H 18 147/89 H 97 09/21/24 06:56 36.6 C 126 H 18 144/80 H 97 09/21/24 06:26 36.7 C 122 H 18 143/88 H 95 09/21/24 06:11 36.7 C 130 H 18 95 09/21/24 06:05 36.7 C 130 H 16 155/98 H 98 09/21/24 05:53 36.5 C 132 H 18 142/73 H 97 09/21/24 04:41 36.9 C 135 H 18 143/86 H 98 09/21/24 03:41 36.6 C 135 H 16 148/90 H 96 09/21/24 03:11 36.8 C 133 H 16 151/96 H 93 09/21/24 02:56 36.7 C 136 H 18 138/96 95 09/21/24 02:37 36.7 C 134 H 16 139/89 96 09/21/24 01:05 140 H 09/20/24 23:40 36.7 C 136 H 18 127/66 97 O2 Del Method 09/21/24 11:18 09/21/24 11:01 09/21/24 10:33 Room Air 09/21/24 10:03 09/21/24 09:06 09/21/24 08:56 09/21/24 07:56 09/21/24 06:56 09/21/24 06:26 09/21/24 06:11 09/21/24 06:05 09/21/24 05:53 09/21/24 04:41 09/21/24 03:41 09/21/24 03:11 09/21/24 02:56 09/21/24 02:37 09/21/24 01:05 09/20/24 23:40 Room Air Lab & Micro Results (Past 24 Hours) RBC 2.84 M/uL (4.70-6.10) L 09/21/24 WBC 19.45 K/ul (4.8-10.8) H 09/21/24 Hgb 8.8 g/dl (14.0-18.0) L 09/21/24 Hct 26.4 % (42.0-52.0) L 09/21/24 MCV 87.0 fL (80.0-100.0) 09/21/24 MCH 29.6 pg (25.0-34.0) 09/21/24 MCHC 34.0 g/dL (32.0-36.0) 09/21/24 RDW Standard Deviation 48.2 fL (36.4-46.3) H 09/21/24 RDW Coefficient of Variation 15.8 % (11.5-14.5) H 09/21/24 Plt Count 123 K/uL (130-400) L 09/21/24 MPV 11.3 fL (9.4-12.4) 09/21/24 Nucleated Red Blood Cells % (auto) 0.3 % 09/21 Nucleated RBC Absolute Count (auto) 0.05 K/uL (0.00-0.12) 0 09/21/24 Na 149 mmol/L (136-145) H 09/21/24 K 7.0 mmol/L (3.5-5.1) H* 09/21/24 Cl 120 mmol/L (98-107) H 09/21/24 CO2 25 mmol/L (21-32) 09/21/24 Anion Gap 4 (3-11) 09/21/24 BUN 41 mg/dl (6-23) H 09/21/24 Creatinine 0.98 mg/dl (0.6-1.4) 09/21/24 BUN/Creatinine Ratio 41.8 (10-20) H 09/21/24 Glu 247 mg/dl (70-99(Fasting)) H 09/21/24 Ca 7.9 mg/dl (8.6-10.3) L 09/21/24 Phosphorus Level 2.9 mg/dl (2.5-4.9) 09/21/24 Mg 2.1 mg/dl (1.7-2.4) 09/21/24 03:56 Calcium Level 7.9 mg/dl (8.6-10.3) L 09/21/24 08:06 Prothromb Time International Ratio 1.3 (0.9-1.1) H 09/21/24 09 :35 Venous Blood pH 7.39 (7.36-7.41) 09/21/24 09:44 Venous Blood Partial Pressure CO2 43 mmHg (38-50) 09/21/24 09:4 4 Venous Blood Partial Pressure O2 20 mmHg 09/21/24 09:44 Venous Blood HCO3 26 mmol/L 09/21/24 09:44 Venous Blood Base Excess 0.8 mEq/L 09/21/24 09:44 Venous Blood Oxygen Saturation < 60.0 % 09/21/24 09:44 Ranjit Test NA 09/21/24 10:13 I & O Totals 24 Hours 09/20/24 09/21/24 09/22/24 06:59 06:59 06:59 Intake Total 3207.425 / 3207.425 4914.101 / 4921.731 1223.463 / 1223.463 Output Total 1552 / 1552 Balance 1655.425 / 0740.447 7309.101 / 4907.731 1223.463 / 1223.463 Cumulative 09/19/24 11:43 thru 09/21/24 11:13 Intake Total 9344.989 Output Total 1566 Balance 7778.989 RT Ventilator Mngmt (Last Documented) Ventilator Ordered Settings Respiratory Rate 18 09/21/24 11:18 Ventilator - PT Measurements Respiratory Rate 18 Coding Level of Care Code 27654 CRITICAL CARE 1ST 30-74M Diagnoses Acute blood loss anemia D62 Duodenal ulcer with hemorrhage K26.4 Tachycardia R00.0 Hyperkalemia E87.5
[2024-09-21 11:40] VITALS: RESP 20
[2024-09-21 12:16] VITALS: TEMP 98.2
[2024-09-21 12:55] VITALS: BP 177/86; PULSE 107; O2SAT 98
== END 2024-09-21 13:40 | disposition short-term general hospital (02) | DRG 377 ==
LOC: ED 11:43 → 2S 15:16 → 1E 09-21 09:27

== ENCOUNTER 2025-02-05 10:28 | Inpatient (IN) ==
[2025-02-05 11:32] LABS: Hematocrit (blood only) 41.1 % (42.0-52.0); Hemoglobin 13.6 g/dl (14.0-18.0); Immature Granulocytes # (auto) 0.02 K/uL (0.01-0.20); Immature Granulocytes % (auto) 0.3 %; Mean Corpuscular Hemoglobin 25.7 pg (25.0-34.0); Mean Corpuscular Volume 77.5 fL (80.0-100.0); Platelet Count 134 K/uL (130-400); Red Blood Count 5.30 M/uL (4.70-6.10); White Blood Count 6.39 K/ul (4.8-10.8)
[2025-02-05 11:53] LABS: Polychromasia 1+; Smudge Cells Present
--- NOTE | 2025-02-05 11:56 | Emergency Department Note ---
History of Present Illness General Chief complaint: Cardiac Assessment Stated complaint: CHEST PAIN, LEFT ARM NUMBNESS, CARDIAC HISTORY Time Seen by Provider: 02/05/25 11:26 History of Present Illness Maximum Pain Intensity: 4 Patient is a 64-year-old male with past medical history significant for hypertension, dyslipidemia, coronary artery disease status post PCI and CABG x 3, history of duodenal ulcer with GI bleed, diabetes, among other chronic medical problems who presents to the emergency department for evaluation of chest pain x 6 hours. He states that at 5:00 this morning, roughly 6 hours ago, he developed pain in the underside of his left arm, that radiated to his armpit and into the left chest. He describes it as "stiffness" in his chest initially was left-sided, though it is now radiating across the entire chest. At its worst, he would have rated his discomfort an 8/10, states that it was very severe around [id number], he took 2 nitroglycerin tablets that he thinks were , during this time, which helped significantly and brought his pain down to a 2/10. states that he was sweaty and pale. There was no associated headache, lightheadedness, dizziness, nausea, vomiting, shortness of breath or palpitations. He does normally get short of breath and he notes that he did not. Patient does state that this pain is similar to prior, when he has needed further cardiac evaluation. Patient had a significant GI bleed in September of this year, he required 7 units of blood, and ultimately needed to be transferred for IR embolization. He feels like he has recovered from this, he was just started on iron at the beginning of the month, and his family doctor is monitoring his hemoglobin and hematocrit levels. He just saw cardiology in November, they felt that he could discontinue his aspirin at that time because of the GI bleed. He otherwise is active and healthy, he walks 3-1/2 miles per day, and lifts weights and never has chest pain with exercise. He did take his normal morning medications today including Plavix. Home Medications Medication Instructions Recorded Confirmed Type aspirin 81 mg capsule 81 mg PO QAM 03/27/23 02/05/25 History cyanocobalamin (vitamin B-12) 1,000 mcg PO QAM 03/27/23 02/05/25 History 1,000 mcg tablet (Vitamin B-12) empagliflozin 25 mg tablet 25 mg PO QPM 03/27/23 02/05/25 History (Jardiance) multivitamin with minerals-folic 1 tab PO DAILY 04/03/23 02/05/25 History acid 0.4 mg tablet (Adult One Daily Multivitamin) clopidogrel 75 mg tablet 75 mg PO DAILY #30 tabs 11/20/23 02/05/25 Rx nitroglycerin 0.4 mg sublingual 0.4 mg sublingual Q5M PRN chest 11/20/23 02/05/25 Rx tablet pain #25 tabs atorvastatin 80 mg tablet 80 mg PO HS #90 tabs 07/22/24 02/05/25 Rx lisinopril 20 mg tablet 20 mg PO DAILY 08/15/24 02/05/25 History metoprolol tartrate 25 mg tablet 25 mg PO BID 09/19/24 02/05/25 History pantoprazole 40 mg tablet,delayed 40 mg PO DAILY 90 days #90 tabs 11/14/24 02/05/25 Rx release ferrous sulfate 325 mg (65 mg 325 mg PO UD 02/05/25 02/05/25 History iron) tablet Allergies Allergy/AdvReac Type Severity Reaction Status Date / Time metformin Allergy Intermediate Rash Verified 12/02/24 11:51 ether Allergy Unknown Unknown Verified 12/02/24 11:51 Past Med/Surg History Problem List (Updated 02/05/25 @ 16:42 by Cesar Martinez) Substernal precordial chest pain (Acute) Unstable angina Diabetes mellitus, type 2 NIDDM Duodenal ulcer Renal cyst Acute blood loss anemia ESTRADA (acute kidney injury) Lactic acidosis Uncontrolled diabetes mellitus with hyperglycemia Duodenal ulcer with hemorrhage Tachycardia (Acute) Acute GI bleeding (Acute) GI bleed Aspiration pneumonia Convulsive syncope CAD (coronary artery disease) (Acute) 2005- x1 stent 2009- x1 stent 2016- CABG x3 Follows with Dr. Frances/ELIZABETH Bagley Hyperkalemia Upper GI bleed Obesity Ex-smoker Multiple pulmonary nodules Bradycardia Hypertension controlled, stable per pt Bradycardia, sinus (Acute) Chest pain (Acute) Arthritis of right knee Encounter for pre-operative examination Medical History Elevated troponin Pulmonary nodule Diabetes mellitus, type 2 NIDDM GERD (gastroesophageal reflux disease) rare Witnessed apneic spells per patient's , denies previous sleep apnea study Snoring History of airway aspiration per pt, joshua-operatively for renal stone procedure in past Hx of renal calculi last episode several months ago Hyperactive gag reflex "please do not intubate due to overactive/hyperactive gag reflex" History of cancer Age 7, 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 No other treatments/no current issues Surgical History Hx of CABG Family history of adverse reaction to anesthesia Grandmother in 1934- from the ether given to her by anesthesia S/P cystoscopy with ureteral stent placement w/laser lithotripsy History of anesthesia complications pt stated he should not be intubated unless it's a dire emergency due to his overactive/hyperactive gag reflex; did aspirate once when going under for kidney stones" Hx of left knee surgery age 7, cancerous tumor removed Hx of right knee surgery -"total reconstruction" Hx laparoscopic cholecystectomy History of esophagogastroduodenoscopy (EGD) Hx of colonoscopy Dr. Benigno Bryson 10/13/2014 Hx of nasal septoplasty Hx of tonsillectomy History of cardiac cath 2005- x1 stent 2009- x1 stent 2016- CABG x3 Hx of CABG CABG x3 (2016) Social History Smoking Status: Former smoker Age Started Using Tobacco: 24; Age Quit Using Tobacco: 34; packs per day: 1; Second Hand Exposure: No; Do You Dip or Chew Tobacco: No; Hx Alcohol Use: Yes Alcohol type: beer Hx Substance Use: No Preferred Language: Filipino Communication Ability: Effective Museum Registrar Required: No Beliefs That Will Affect Care: None Current Living Situation: Spouse Current Living Situation Comment: Lives at home with Feels Safe at Home: Yes Assistive Devices: Glasses Review of Systems A total of 10 systems reviewed and were otherwise negative Physical Exam Vital Signs Vital Signs - 24 hr 02/05/25 10:41 02/05/25 10:58 02/05/25 11:09 Temperature 36.6 C Temperature Source Temporal Artery Scan Pulse Rate 55 L 54 L 56 L Pulse Rate [Apical] Pulse Rate from SpO2 Sensor 55 L Respiratory Rate 18 18 Respiratory Effort / Characteristics Respiratory Depth Respiratory Pattern Blood Pressure 117/74 106/56 L Blood Pressure [Left Arm] Blood Pressure Mean 88 72 Blood Pressure Mean [Left Arm] Blood Pressure Position [Left Arm] Pulse Oximetry 96 96 Oxygen Delivery Method Room Air Sepsis New/Unexplained Change in Mental Status No Sepsis Action Taken by Nursing No Action Required 02/05/25 11:30 02/05/25 12:00 02/05/25 12:30 Temperature Temperature Source Pulse Rate 58 L 57 L 57 L Pulse Rate [Apical] Pulse Rate from SpO2 Sensor 59 L 57 L 57 L Respiratory Rate 20 18 22 Respiratory Effort / Characteristics Respiratory Depth Respiratory Pattern Blood Pressure 121/72 121/72 116/72 Blood Pressure [Left Arm] Blood Pressure Mean 88 88 86 Blood Pressure Mean [Left Arm] Blood Pressure Position [Left Arm] Pulse Oximetry 97 96 97 Oxygen Delivery Method Sepsis New/Unexplained Change in Mental Status Sepsis Action Taken by Nursing 02/05/25 13:00 02/05/25 13:01 02/05/25 13:15 Temperature Temperature Source Pulse Rate 57 L Pulse Rate [Apical] 60 Pulse Rate from SpO2 Sensor 58 L Respiratory Rate 16 18 Respiratory Effort / Characteristics Non-Labored Spontaneous Respiratory Depth Normal Respiratory Pattern Regular Blood Pressure 111/63 Blood Pressure [Left Arm] 111/63 Blood Pressure Mean 73 Blood Pressure Mean [Left Arm] 79 Blood Pressure Position [Left Arm] Semi-fowlers Pulse Oximetry 96 96 Oxygen Delivery Method Room Air Sepsis New/Unexplained Change in Mental Status Sepsis Action Taken by Nursing 02/05/25 13:33 02/05/25 14:00 02/05/25 14:33 Temperature Temperature Source Pulse Rate 63 61 74 Pulse Rate [Apical] Pulse Rate from SpO2 Sensor 62 59 L 71 Respiratory Rate 22 19 14 Respiratory Effort / Characteristics Respiratory Depth Respiratory Pattern Blood Pressure 108/71 124/76 Blood Pressure [Left Arm] Blood Pressure Mean 83 92 Blood Pressure Mean [Left Arm] Blood Pressure Position [Left Arm] Pulse Oximetry 97 97 100 Oxygen Delivery Method Sepsis New/Unexplained Change in Mental Status Sepsis Action Taken by Nursing 02/05/25 15:02 Temperature Temperature Source Pulse Rate 76 Pulse Rate [Apical] Pulse Rate from SpO2 Sensor Respiratory Rate Respiratory Effort / Characteristics Respiratory Depth Respiratory Pattern Blood Pressure Blood Pressure [Left Arm] Blood Pressure Mean Blood Pressure Mean [Left Arm] Blood Pressure Position [Left Arm] Pulse Oximetry Oxygen Delivery Method Sepsis New/Unexplained Change in Mental Status Sepsis Action Taken by Nursing CONSTITUTIONAL: Pleasant, well-appearing 64-year-old male who is awake and alert and laying on the gurney. is at the bedside. CARDIOVASCULAR: Regular rate and rhythm. Peripheral pulses easy to palpable. RESPIRATORY: Breath sounds equal and clear to auscultation . GI: Bowel sounds are present. Abdomen is soft, nontender, nondistended. No organomegaly. No pulsatile masses. No guarding or rebound. MUSCULOSKELETAL: Full range of motion of extremities x 4 with good strength. No cyanosis, edema, joint tenderness or swelling. No deformity. INTEGUMENTARY: No lesions or rash, normal skin turgor. NEUROLOGICAL: Alert, oriented, and cooperative. Cranial nerves, sensation and strength grossly intact. Pupils round, equal, and react to light, EOMs are full. LYMPH: No lymphadenopathy. Course Course The patient was seen and assessed as above. External medical records reviewed, including recent cardiology and GI notes. He presents to the emergency department for evaluation of chest pain, alleviated with nitroglycerin, that started about 6 hours ago. He is still having symptoms in the left arm and across the chest, but is much more comfortable. IV lock was initiated and laboratory studies collected. He was observed on the conveyor monitor. EKG and chest x-ray were obtained. Patient history and physical, ED plan were all reviewed with attending physician, Dr. Roy who agrees. I did discuss with the patient risks versus benefits of a single dose of aspirin 324 mg in the emergency department, given his recent GI bleed, and he was agreeable. Diagnostics, as interpreted by me: Laboratory studies: Normal white count at 6300, H&H 13.6 and 41.1, normal indices. Platelet count 134,000. Coags are normal. No significant electrolyte imbalance, no ESTRADA, no transaminitis. Nonfasting glucose elevated at 303. Initial troponin is negative. ECG: Sinus bradycardia, 53 bpm, no acute ischemic changes, no interval prolongation, no significant change on review of prior EKGs. Cardiac monitoring: An order was placed for continuous cardiac monitoring. The monitor shows a sinus bradycardia 55 beats per my interpretation. Medical decision rules: Heart score is 6, moderate risk for major adverse cardiac event. Imaging studies: Chest x-ray clear, no infiltrate or consolidation. All laboratory and diagnostic imaging studies were reviewed with the patient and his family at length. Given symptoms, and his extensive cardiac history, I do feel that patient would benefit from admission/observation for continued cardiac evaluation. Ultimately, patient and family were agreeable to this. Patient reviewed with ED caser up, and consultation placed with the [facility] service for further care and management. Patient discussed with Santy Church PA-C. Chronic conditions affecting care: CAD, DM type II, hypertension Differential diagnosis: acute myocardial infarction, acute coronary syndrome, myocarditis, pericarditis, pulmonary embolism, pneumonia, pneumothorax, cardiomyopathy, congestive heart failure, anemia, COPD/asthma exacerbation, musculoskeletal, anxiety, costochondritis, among others. Administered Medications Discontinued Medications Aspirin (Aspirin 81 Mg Chew) 324 mg PO NOW STA Stop: 02/05/25 11:53 Last Admin: 02/05/25 12:14 Dose: 324 mg Documented By: JADE Medical Decision Making Differential Diagnosis See ED course. Medical Records Attestation: I reviewed the patient's medical records. Home Medications Current Medication List: was personally reviewed by me Laboratory Data Attestation: I reviewed the patient's lab results. 02/05/25 11:00 02/05/25 11:00 Lab Results 02/05/25 02/05/25 02/05/25 Range/Units 11:00 14:24 16:50 WBC 6.39 (4.8-10.8) K/ul RBC 5.30 (4.70-6.10) M/uL Hgb 13.6 L (14.0-18.0) g/dl Hct 41.1 L (42.0-52.0) % MCV 77.5 L (80.0-100.0) fL MCH 25.7 (25.0-34.0) pg MCHC 33.1 (32.0-36.0) g/dL Plt Count 134 (130-400) K/uL MPV 10.4 (9.4-12.4) fL Immature Gran % (Auto) 0.3 % Neut % (Auto) 80.1 % Lymph % (Auto) 9.5 % [place] % (Auto) 8.0 % Eos % (Auto) 1.6 % Baso % (Auto) 0.5 % Neut # (Auto) 5.12 (1.40-6.50) K/uL Lymph # (Auto) 0.61 L (1.20-3.40) K/uL [place] # (Auto) 0.51 (0.11-0.59) K/uL Eos # (Auto) 0.10 (0.00-0.50) K/uL Baso # (Auto) 0.03 (0.00-0.20) K/uL Immature Gran # (Auto) 0.02 (0.01-0.20) K/uL Smudge Cells Present Polychromasia 1+ PT 11.4 (9.0-12.0) Seconds INR 1.1 (0.9-1.1) APTT 25 (21-31) Seconds PTT Ratio 0.9 Sodium 134 L (136-145) mmol/L Potassium 4.9 (3.5-5.1) mmol/L Chloride 102 (98-107) mmol/L Carbon Dioxide 26 (21-32) mmol/L Anion Gap 6 (3-11) BUN 23 (6-23) mg/dl Creatinine 0.69 (0.6-1.4) mg/dl Est Cr Clr Drug Dosing 115.1 ml/min eGFR 103.34 BUN/Creatinine Ratio 33.3 H (10-20) Glucose 303 H* (70-99(Fasting)) mg/dl POC Glucose 131 H (70-99) mg/dl Calcium 9.8 (8.6-10.3) mg/dl Total Bilirubin 0.5 (0.2-1.0) mg/dl AST 18 (13-39) U/L ALT 25 (7-52) U/L Alkaline Phosphatase 87 (34-104) U/L Troponin I High Sens < 2.3 10.3 D (0-20) pg/ml Total Protein 7.1 (6.0-8.3) gm/dl Albumin 4.1 (3.4-5.0) gm/dl Globulin 3.0 (2.5-4.0) gm/dl Albumin/Globulin Ratio 1.4 (0.9-2) Imaging Data Attestation: I personally reviewed and interpreted this imaging study as follows: Radiologist's Impression: Chest X-Ray 02/05/25 11:10 SINGLE VIEW CHEST CLINICAL HISTORY: Chest pain FINDINGS: An AP, portable, upright chest radiograph is compared to study dated 09/19/2024 and correlated with chest CT dated 11/28/2024. The patient is status post midline sternotomy. The heart is enlarged noting atherosclerotic calcification of the thoracic aorta. The pulmonary vasculature is noncongested. Airspace opacities are seen in the left lung base. Small pulmonary nodules seen on the prior chest CT are not appreciated on x-ray. No large pleural effusion or pneumothorax is identified. The skeletal structures are osteopenic. The bony thorax is grossly intact. IMPRESSION: 1. Cardiomegaly without radiographic evidence of congestive failure. 2. Left basilar opacities could represent atelectasis versus a mild pneumonitis. Clinical correlation will be required and radiographic follow-up to resolution is recommended. ACT 112: Negative or not required by law. Electronically signed by: Adelso He M.D. 02/05/2025 12:02 PM MDM Narrative See ED course. Impression & Plan Substernal precordial chest pain, CAD (coronary artery disease) Discharge Plan Visit Data Chief Complaint: Cardiac Assessment Stated Complaint: CHEST PAIN, LEFT ARM NUMBNESS, CARDIAC HISTORY ED Provider: Lindsay Roy ED Midlevel Provider: Cesar Martinez Discharge Problem: Substernal precordial chest pain, CAD (coronary artery disease) Patient Disposition: Being Evaluated by Hospitalist Condition: Fair Forms Stand Alone Forms: [facility] Cream.HR Prescriptions Prescriptions: No Action atorvastatin 80 mg tablet 80 mg PO HS Qty: 90 3RF lisinopril 20 mg tablet 20 mg PO DAILY Hold Instructions: hold for now pantoprazole 40 mg tablet,delayed release (DR/EC) 40 mg PO DAILY 90 Days Qty: 90 3RF Suflave 178.7-7.3-0.5 gram recon soln 0 ml PO UD 0RF Patient Comments: 02/05- no fill history unable to verify cyanocobalamin (vitamin B-12) [Vitamin B-12] 1,000 mcg Tablet 1,000 mcg PO QAM Hold Instructions: hold for now Patient Comments: 02/05- otc unable to verify Jardiance 25 mg Tablet 25 mg PO QPM Hold Instructions: hold for now Rx Instructions: after evening meal aspirin 81 mg Capsule 81 mg PO QAM Hold Instructions: hold due to GI bleeding Patient Comments: 02/05- otc unable to verify multivit with min-folic acid [Adult One Daily Multivitamin] 0.4 mg Tablet 1 tab PO DAILY Hold Instructions: hold for now Patient Comments: 02/05- otc unable to verify clopidogrel 75 mg tablet 75 mg PO DAILY Qty: 30 0RF Hold Instructions: hold due to GI bleeding nitroglycerin 0.4 mg tablet, sublingual 0.4 mg sublingual Q5M PRN (Reason: chest pain) Qty: 25 0RF Patient Comments: 02/05- no fill history unable to verify metoprolol tartrate 25 mg tablet 25 mg PO BID Hold Instructions: hold for now ferrous sulfate 325 mg (65 mg iron) tablet 325 mg PO UD Referrals Referrals: Rock Fairchild MD [Primary Care Provider] - Risk - HEART Scoring HEART Score for Major Cardiac Events History: Highly Suspicious EKG: Normal Age: > 64 Years of Age Risk Factors: >2 Risk Factors Initial Troponin: Normal Limit Total Points: 6 Risk Level: Moderate Risk for Major Adverse Cardiac Event HEART Score Interpretation: Score interpretation (as per derivation study): HEART Adverse Cardiac Score Event Risk Management 0-3 0.9-1.7% In the HEART Score study, these patients were discharged. 4-6 12-16.6% In the HEART Score study, these patients were admitted to the hospital. 7-10 50-65% In the HEART Score study, these patients were candidates for early invasive measurements. Original Source: 1. Casey AJ, Ulises BE, Amos MAYEN. Chest pain in the emergency room: value of the HEART score. Neth Heart J. 2008; 16(6):191-6.
[2025-02-05 12:01] LABS: INR 1.1 (0.9-1.1); Partial Thromboplastin Time 25 Seconds (21-31); Prothrombin Time 11.4 Seconds (9.0-12.0)
--- NOTE | 2025-02-05 12:03 | XRay Report ---
SINGLE VIEW CHEST CLINICAL HISTORY: Chest pain FINDINGS: An AP, portable, upright chest radiograph is compared to study dated 09/19/2024 and correlat ed with chest CT dated 11/28/2024. The patient is status post midline sternotomy. The heart is enlarge d noting atherosclerotic calcification of the thoracic aorta. The pulmonary vasculature is noncongest ed. Airspace opacities are seen in the left lung base. Small pulmonary nodules seen on the prior ches t CT are not appreciated on x-ray. No large pleural effusion or pneumothorax is identified. The skele javed structures are osteopenic. The bony thorax is grossly intact. IMPRESSION: 1. Cardiomegaly without radiographic evidence of congestive failure. 2. Left basilar opacities could represent atelectasis versus a mild pneumonitis. Clinical correlation will be required and radiographic follow-up to resolution is recommended. ACT 112: Negative or not required by law. Electronically signed by: Adelso He M.D. 02/05/2025 12:02 PM
[2025-02-05 12:04] LABS: Alanine Aminotransferase 25 U/L (7-52); Albumin Globulin Ratio 1.4 (0.9-2); Alkaline Phosphatase 87 U/L (34-104); Anion Gap 6 (3-11); Bilirubin,Total 0.5 mg/dl (0.2-1.0); Blood Urea Nitrogen 23 mg/dl (6-23); Calcium 9.8 mg/dl (8.6-10.3); Carbon Dioxide 26 mmol/L (21-32); Chloride 102 mmol/L (98-107); Creatinine Clr Calc Pharmacy 115.1 ml/min; Globulin 3.0 gm/dl (2.5-4.0); Glucose 303 mg/dl (70-99(Fasting)); Potassium 4.9 mmol/L (3.5-5.1); Sodium 134 mmol/L (136-145); Total Protein 7.1 gm/dl (6.0-8.3)
[2025-02-05] MEDS: ASPIRIN 81 MG CHEW PO STA (12:14)
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
[2025-02-05] MEDS ORDERED: GLUCAGON FOR INJ 1 MG VIAL SQ PRN (16:10)
[2025-02-05] MEDS ORDERED: GLUCOSE 40% GEL 15 GM TUBE PO PRN (16:10)
[2025-02-05] MEDS ORDERED: CARBOHYDRATES FOR HYPOGLYCEMIA PO PRN (16:10)
[2025-02-05] MEDS ORDERED: DEXTROSE 50% 50 ML SYRINGE IV PRN (16:10)
[2025-02-05] MEDS ORDERED: GLUCOSE 10 TAB/TUBE PO PRN (16:10)
[2025-02-05] MEDS: INSULIN ASPART PER UNIT CHARGE SC SCH (18:36)
[2025-02-05] MEDS ORDERED: NITROGLYCERIN SL 0.4 MG/TAB TAB SL PRN (18:44)
[2025-02-05] MEDS ORDERED: ACETAMINOPHEN 325 MG TAB PO PRN (18:44)
[2025-02-05] MEDS: METOPROLOL TARTRATE 25 MG TAB PO SCH (21:20)
[2025-02-05] MEDS ORDERED: MELATONIN 3 MG TAB PO PRN (22:43)
[2025-02-05] MEDS: ATORVASTATIN 40 MG TAB PO SCH (22:47)
[2025-02-06] MEDS: MELATONIN 3 MG TAB PO PRN (00:44)
[2025-02-06 07:24] LABS: Hemoglobin A1C 8.4 % (4.5-5.6)
--- NOTE | 2025-02-06 08:23 | Hospitalist Progress Note ---
"Date of Service February 06, 2025 Assessment & Plan (1) NSTEMI (non-ST elevated myocardial infarction): (2) Chest pain: (3) Diabetes mellitus, type 2: Plan This patient is a 64-year-old male who presented on 02/05 for left arm pain with radiation into the left chest wall. #NSTEMI | CAD s/p CHELSEY | HLD Troponin 2 ->10 ->218 -> 252 -> 193 Last echocardiogram on 09/20/2024 revealed LVEF at >70%; no regional wall motion abnormalities appreciated Repeat echocardiogram ordered, pending Patient follows with Dr. Hooper outpatient; last cardio visit 11/12/2024 H/o CAD s/p PCI and CABG in 2015 Nuclear stress test on 11/20/2023 was negative for ischemiaki Clinical history suspicious for cardiac event: Woke patient from sleep, severe left arm/chest pain at rest, and heart score: 5 Interventional cardiology consult appreciated N.p.o. for now Will proceed with cardiac catheterization on 02/06 Continue Plavix Continue atorvastatin Nitro tablets PRN for recurrence of angina #T2DM A1c 8.4% on 02/06/2025 Hold Jardiance Lantus 5u QAM SSI with target BSG range 110-150mg/dL, CF 50, carb ratio 15 T2DM diet BSG ACHS Adjust regimen as needed #HTN Continue metoprolol, lisinopril #GERD Continue pantoprazole Disposition: Continued stay on MedSurg telemetry VTE PPx: SCDs prior to cardiac catheterization Admission and Anticipated Discharge Date Admission Date: February 06, 2025 Subjective Mr. Osullivan is glad to report that he is doing well this morning. He had no e pisodes of recurrent chest pain or left shoulder/arm pain overnight. No chest palpitations. No pleuritic CP. He reports feeling fairly asymptomatic this time. Patient seen in conjunction with Dr. Johnson (interventional cardiology). Given patient's cardiac history, elevated troponin, and that the pain woke him from sleep yesterday (similar to prior cardiac events), it was recommended that we proceed with a cardiac catheterization. Patient is amenable at this time. ROS: Patient denies recurrence of chest pain, left arm pain, fever, chest palpitations, pleuritic CP, SOB, abdominal pain, N/V/D, or numbness or tingling in arms or legs. Review of Systems Review of Systems: See HPI above Physical Exam Physical Exam: General: no acute distress; pleasant affect; family at bedside; non-toxic appearing; well-nourished; cooperative; SpO2 95% on RA HEENT: normocephalic, atraumatic; no scleral icterus; PERRLA w/ EOMs intact; vision and hearing grossly intact Neck: supple; trachea midline Skin: warm, dry without signs of tenting; no cyanosis; no rashes, bruising, lesions, or erythema noted CV: chest wall NTP; pain is not reproducible with pressing on exam; no rashes or bruising on the chest wall or left flank; RRR; S1/S2 normal; no murmurs/rubs/gallops; pulses intact and symmetric at radial, DP, and PT Lungs: no acute respiratory distress; symmetrical chest wall expansion; clear breath sounds across all lung mendes w/o adventitious sounds; no wheezing ABD: Soft, NTP; BS present; no rebound/guarding; no distention MSK: no tics or fasciculations; no edema noted in the LEs b/l, nonerythematous; 5/5 deputy chief counsel strength bilateral; patient demonstrates ability to stand and move about the room without recurrence of chest pain Neuro: A&Ox3; normal mood and affect; fluent speech; no focal deficits; se nsation intact and symmetric in the upper and lower extremities bilaterally assessed via light touch Results & Data Results & Data Vital Signs (Past 12 Hours) Vital Signs Temp Pulse Pulse Resp BP BP Pulse Ox 02/06/25 08:22 54 L 02/06/25 07:35 36.8 C 61 20 111/71 96 02/06/25 03:25 36.2 C L 54 L 18 112/73 95 02/05/25 22:50 36.6 C 65 16 139/73 97 02/05/25 22:43 64 02/05/25 22:14 66 17 128/73 97 02/05/25 21:00 68 17 128/73 95 O2 Del Method 02/06/25 08:22 02/06/25 07:35 Room Air 02/06/25 03:25 Room Air 02/05/25 22:50 Room Air 02/05/25 22:43 02/05/25 22:14 Room Air 02/05/25 21:00 Room Air PG Care Time/CCT Total # of Minutes Spent Total Time Spent with Patient: Total time spent is greater than 50% in coordination of care (as documented) at patient's floor/unit and/or counseling patient: Coding [place] [address] SUB INP/OBS CARE 3/50MIN Patient Type Established History Comprehensive Exam Comprehensive Medical Decision Making High Complexity Diagnoses NSTEMI (non-ST elevated myocardial infarction) I21.4 Chest pain R07.2 Chest pain type: precordial pain Diabetes mellitus, type 2 E11.9 (2) Chest pain Chest pain type: precordial pain Qualified Code(s): R07.2 - Precordial pain"
[2025-02-06] MEDS: CLOPIDOGREL BISULFATE 75 MG TAB PO SCH (09:37)
[2025-02-06] MEDS: FERROUS SULFATE 325 MG TAB PO SCH (09:37)
--- NOTE | 2025-02-06 13:40 | Pre Anesthesia Assessment ---
Date of Service February 06, 2025 Pre Sedation Assessment Vital Signs Temp Pulse Pulse Resp BP BP Pulse Ox 02/06/25 11:10 97.9 F 72 21 132/80 96 02/06/25 08:22 54 L 02/06/25 07:35 98.2 F 61 20 111/71 96 02/06/25 03:25 97.2 F L 54 L 18 112/73 95 02/05/25 22:50 97.9 F 65 16 139/73 97 02/05/25 22:43 64 02/05/25 22:14 66 17 128/73 97 02/05/25 21:00 68 17 128/73 95 02/05/25 19:00 89 18 114/75 95 02/05/25 18:44 95 02/05/25 16:39 60 20 132/72 95 02/05/25 16:15 61 20 120/76 95 02/05/25 15:03 61 21 121/69 95 02/05/25 15:02 76 02/05/25 14:33 74 14 100 02/05/25 14:00 61 19 124/76 97 O2 Del Method 02/06/25 11:10 Room Air 02/06/25 08:22 02/06/25 07:35 Room Air 02/06/25 03:25 Room Air 02/05/25 22:50 Room Air 02/05/25 22:43 02/05/25 22:14 Room Air 02/05/25 21:00 Room Air 02/05/25 19:00 Room Air 02/05/25 18:44 Room Air 02/05/25 16:39 02/05/25 16:15 02/05/25 15:03 02/05/25 15:02 02/05/25 14:33 02/05/25 14:00 Cardiovascular + regular rate Respiratory + respiratory effort normal Pre-Sedation Airway Assessment Smoking Status: Never smoker Hx Sleep Apnea: No Hx Difficult Intubation: No Short, Thick Neck: No Thyromental Distance: < 3.5 Finger Breadths Oral Cavity: + Dental Abnormalities Mallampati Class: III ASA: ASA3 Procedure Planning Contraindications for Sedation: none Current Medications Reviewed: Yes Notes The planned sedation has been discussed with the patient. Informed Consent was obtained. I have identified the patient, determined the appropriateness of sedation and have assessed the patient immediately prior to the procedure. All medicine(s) and interventions are by my order.
[2025-02-06 13:47] VITALS: RESP 18
[2025-02-06] MEDS: HEPARIN (PORCINE) 1000 UNIT/ML 10 ML (CATH LAB USE ONLY) ONE (14:44)
[2025-02-06] MEDS: OPTIRAY 350 ONE (14:45)
[2025-02-06] MEDS: MIDAZOLAM HCL 1 MG/ML 2ML VIAL ONE ×2 (14:45)
[2025-02-06] MEDS: NITROGLYCERIN/D5W 100MCG/ML 20ML SYR ONE (14:46)
--- NOTE | 2025-02-06 15:15 | Post Anesthesia Assessment ---
Date of Service February 06, 2025 Post Sedation Assessment Vital Signs Temp Pulse Pulse Resp BP BP Pulse Ox 02/06/25 15:00 63 18 113/79 97 02/06/25 13:42 60 18 118/72 99 02/06/25 11:10 97.9 F 72 21 132/80 96 02/06/25 08:22 54 L 02/06/25 07:35 98.2 F 61 20 111/71 96 02/06/25 03:25 97.2 F L 54 L 18 112/73 95 02/05/25 22:50 97.9 F 65 16 139/73 97 02/05/25 22:43 64 02/05/25 22:14 66 17 128/73 97 02/05/25 21:00 68 17 128/73 95 02/05/25 19:00 89 18 114/75 95 02/05/25 18:44 95 02/05/25 16:39 60 20 132/72 95 02/05/25 16:15 61 20 120/76 95 O2 Del Method 02/06/25 15:00 Room Air 02/06/25 13:42 Room Air 02/06/25 11:10 Room Air 02/06/25 08:22 02/06/25 07:35 Room Air 02/06/25 03:25 Room Air 02/05/25 22:50 Room Air 02/05/25 22:43 02/05/25 22:14 Room Air 02/05/25 21:00 Room Air 02/05/25 19:00 Room Air 02/05/25 18:44 Room Air 02/05/25 16:39 02/05/25 16:15 Recovery Score Activity: Moves 4 extremities Respiration: Deep Breath/Cough Circulation: +/-20% PreAnes Value Consciousness: Fully Awake Oxygen Saturation: > 92% On Room Air Post Anesthesia Score: 10 Discharge Sedation Level of Care: Fast Track Phase II
[2025-02-06] MEDS: ASPIRIN 325 MG ECTAB PO ONE (15:58)
[2025-02-06 16:41] VITALS: O2SAT 95
[2025-02-06 17:18] VITALS: PULSE 70; TEMP 98.1
--- NOTE | 2025-02-06 17:36 | XCELERA ---
[id number]
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
[2025-02-06 19:24] VITALS: BP 112/71
--- NOTE | 2025-02-06 23:39 | Cardiac Catheterization ---
[facility] Data: Assembler Erector Cardiac Status Clinical evaluation leading to the procedure CAD Presenation: Non STEMI Anginal Classification: CCS IV Diagnostic Physicians Name: Jadiel Johnson MD Closure Device Recommendations: Medical Therapy and/or Counseling Cardiac Cath Procedure Full Procedure Date February 06, 2025 Pre-Procedure Diagnosis Pre-Procedure Diagnosis: Non STEMI AUC Score AUC Score: 8 Post-Procedure Diagnosis Post-Procedure Diagnosis: Severe CAD and Normal Intracardiac Pressures Procedure(s) Performed Procedure(s) Performed: Coronary Angiography, Left Heart Cath and Bypass Graft Angiography Car Stereo Installer Jadiel Johnson MD Residential Worker(s) Barron Estimated Blood Loss Estimated Blood Loss: 25 Medication(s) Medication(s): Fentanyl, Heparin, Lidocaine 1%, Nicardipine, Nitroglycerin and Versed Summary of Findings Indication: NSTEMI. History of CAD post three-vessel CABG Access: 6 Fr slender left radial artery Catheters: JL 3.5, JR4, MPA, DEVEN Findings: LM -normal caliber, no significant disease LAD -medium caliber, 20-30% proximal, mid segment tortuous with 50% stenosis just before takeoff of tortuous/bifurcating D2. Competitive flow in latemid/distal LAD. D2 without significant disease. Circumflex -100% mid occlusion at takeoff of very small OM2. Some haziness in mid segment potentially consistent with thrombus and acute on chronic occlusion. RCA -dominant, large caliber, proximal luminal irregularities, diffuse mid segment disease up to 50%. Diffuse distal disease up to 90%. Competitive flow in RPDA. SVG to OMlarge caliber and widely patent. OM after anastomosis without significant disease. Retrofills into AV groove circumflex and into left PLB. SVG to PDApatent, angulated proximally with 30-40% earlymid stenosis. RPDA after anastomosis widely patent. LIMALADsmall, widely patent. LAD after anastomosis widely patent with competitive flow. LVEDP -10 Arterial Closure: TR band Summary: 1. Patent SVGOM, SVGPDA (30% mid graft), small MONTES to LAD 2. Multivessel [place] coronary artery disease 100% mid circumflex (possibly acute on chronic with questionable thrombus?acute culprit). 50% mid LAD Diffuse mid RCA 50%, diffuse distal RCA up to 90%. 2. Normal intracardiac filling pressure Recommendations: No high risk findings on current study. Presenting pain may have been secondary to acute on chronic occlusion of mid circumflex lesion. Vein graft to downstream OM is large caliber and widely patent and no need for intervention to mid circumflex. Recommend additional antianginal therapy and continued ASCVD risk factor modification. Will start Imdur 30 mg daily. Continue current clopidogrel, antihypertensives and statin Hemodynamics Rest Ao:: 114/70/91 Final Ao: 113/67/91 LV: 121/10 Recommendations Recommendations: Medical Therapy and/or Counseling Radiation Exposure (mGy) 2339 Contrast (mls) 130 Anesthesia Moderate [id number] Procedural Complication(s) None Disposition PCU I attest to the content of the Intraoperative Record and any orders documented therein. Any exceptions are noted below. [facility] C[facility] Cardiac Catheterization Procedure 1: Cardiovascular Cath Procedures: 02686 Coronaries & LHC (+/-LV) & Grafts/IM (arterial & venous) Moderate Sedation Procedure 1: Sedation/Anesthesia: 11649 Mod Sedation by the same physician;Init15 Min Child Age 5 & Up Procedure 2: Sedation/Anesthesia: 04896 Mod Sedation by the same physician; Ea [id number] Minutes PG Care Time/CCT Total # of Minutes Spent Total Time Spent with Patient: Total time spent is greater than 50% in coordination of care (as documented) at patient's floor/unit and/or counseling patient:
--- NOTE | 2025-02-07 00:15 | Cardiology Consultation ---
Date of Consultation February 07, 2025 Assessment & Plan (1) NSTEMI (non-ST elevated myocardial infarction): 2. Coronary artery diseasepatent MONTES to LAD, SVG to OM, 2. Coronary artery diseasepatent MONTES to LAD, SVG to OM, SVG to PDA. 3. Preserved LV function 4. Hypertension 5. Type 2 diabetes 6. History of duodenal ulcer and GI bleeding. Cardiac catheterization revealed widely patent grafts today. Question if his symptoms were secondary to acute on chronic occlusion of his mid circumflex v ersus small vessel spasm. No need for PCI at this time and going forward recommend additional vasodilators and continued ASCVD risk factor modification. Will start Imdur 30 mg daily. Also add home sublingual nitroglycerin. With peptic ulcer disease will continue on antiplatelet therapy with clopidogrel alone. Continue home metoprolol, lisinopril Continue home statin, Jardiance. Cardiac standpoint okay with discharge today. Follow-up with cardiology in 2 weeks. History of Present Illness Attending Physician: Shawn Kennedy MD History of Present Illness Mr. Osullivan is a very pleasant 64-year-old man with a history of CAD post three- vessel CABG in 2016 seen today due to ACS. His primary raw sampler is Dr. Hooper. Remote PCI to RCA in 1999'. Prior hospital admission 11/2023 with mildly elevated troponin 295. Nuclear SPECT at that time unremarkable. Other medical issues include type 2 diabetes, hypertension, dyslipidemia. He has a history of duodenal ulcer with GI bleed and syncope 06/2024. Occurred in the setting of frequent ibuprofen use and required 7 units of blood products and eventual [place] [facility] [place]GD cautery for embolization of bleeding artery. Presented to [facility] yesterday after was awoken around 5 AM with chest pain radiating to his left arm consistent with his prior anginal symptoms. Symptoms largely resolved on arrival and has been chest pain-free. HS TropI peaked at 250. ECG is unremarkable. Repeat echo today showed EF 65% with no new WMA. No valve pathology. Underwent cardiac catheterization this afternoon which showed widely patent MONTES to LAD, SVG to OM and SVG to PDA. Questionable haziness at site of mid circumflex occlusion and question acute on chronic. Allergies Allergy/AdvReac Type Severity Reaction Status Date / Time metformin Allergy Intermediate Rash Verified 12/02/24 11:51 ether Allergy Unknown Unknown Verified 12/02/24 11:51 Home Medications Medication Instructions Recorded Confirmed Type cyanocobalamin (vitamin B-12) 1,000 mcg PO QAM 03/27/23 02/05/25 History 1,000 mcg tablet (Vitamin B-12) empagliflozin 25 mg tablet 25 mg PO QPM 03/27/23 02/05/25 History (Jardiance) multivitamin with minerals-folic 1 tab PO DAILY 04/03/23 02/05/25 History acid 0.4 mg tablet (Adult One Daily Multivitamin) clopidogrel 75 mg tablet 75 mg PO DAILY #30 tabs 11/20/23 02/05/25 Rx nitroglycerin 0.4 mg sublingual 0.4 mg sublingual Q5M PRN chest 11/20/23 02/05/25 Rx tablet pain #25 tabs atorvastatin 80 mg tablet 80 mg PO HS #90 tabs 07/22/24 02/05/25 Rx lisinopril 20 mg tablet 20 mg PO DAILY 08/15/24 02/05/25 History metoprolol tartrate 25 mg tablet 25 mg PO BID 09/19/24 02/05/25 History pantoprazole 40 mg tablet,delayed 40 mg PO DAILY 90 days #90 tabs 11/14/24 02/05/25 Rx release ferrous sulfate 325 mg (65 mg 325 mg PO UD 02/05/25 02/05/25 History iron) tablet isosorbide mononitrate 30 mg 30 mg PO DAILY #30 tabs 02/06/25 Rx tablet,extended release 24 hr Patient History Medical History Elevated troponin Pulmonary nodule Diabetes mellitus, type 2 NIDDM GERD (gastroesophageal reflux disease) rare Witnessed apneic spells per patient's , denies previous sleep apnea study Snoring History of airway aspiration per pt, joshua-operatively for renal stone procedure in past Hx of renal calculi last episode several months ago Hyperactive gag reflex "please do not intubate due to overactive/hyperactive gag reflex" History of cancer Age 7, 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 No other treatments/no current issues Surgical History Hx of CABG Family history of adverse reaction to anesthesia Grandmother in 1934- from the ether given to her by anesthesia S/P cystoscopy with ureteral stent placement w/laser lithotripsy History of anesthesia complications pt stated he should not be intubated unless it's a dire emergency due to his overactive/hyperactive gag reflex; did aspirate once when going under for kidney stones" Hx of left knee surgery age 7, cancerous tumor removed Hx of right knee surgery 1970s-"total reconstruction" Hx laparoscopic cholecystectomy History of esophagogastroduodenoscopy (EGD) Hx of colonoscopy Dr. Benigno Bryson 10/13/2014 Hx of nasal septoplasty Hx of tonsillectomy History of cardiac cath 2005- x1 stent 2009- x1 stent 2016- CABG x3 Hx of CABG CABG x3 (2016) Social History Smoking Status: Never smoker Age Started Using Tobacco: 24; Age Quit Using Tobacco: 34; packs per day: 1; Second Hand Exposure: No; Do You Dip or Chew Tobacco: No; Hx Alcohol Use: Yes Alcohol type: beer Hx Substance Use: No Preferred Language: Estonian Communication Ability: Effective Civil Design Specialist Required: No Beliefs That Will Affect Care: None Current Living Situation: Spouse Current Living Situation Comment: lives at home with Feels Safe at Home: Yes Assistive Devices: None Review of Systems Review of Systems: All systems reviewed & are unremarkable except as noted in HPI & below Physical Exam Physical Exam: General: Comfortable HEENT: Sclerae anicteric Lungs: Clear to auscultation bilaterally, no crackles or wheezes Cardiac: Regular rate and rhythm, no murmurs. Vascular: 2+ radial, DP pulses. No bruits Abdomen: Soft, nontender Extremities: Well perfused, no peripheral edema Neuro: Nonfocal Psych: Alert orient x3, normal affect and mood Results & Data Vital Signs (Past 12 Hours) Vital Signs Temp Pulse Pulse Resp BP BP Pulse Ox 02/06/25 19:22 98.1 F 70 18 112/71 128/76 95 02/06/25 17:10 98.1 F 70 18 128/76 02/06/25 16:40 97.3 F L 66 18 110/75 95 02/06/25 16:03 97.9 F 63 18 101/64 93 02/06/25 15:50 97.7 F 66 18 103/67 94 02/06/25 15:30 65 02/06/25 15:30 97.3 F L 66 18 112/71 96 02/06/25 15:15 63 18 104/69 95 02/06/25 15:00 63 18 113/79 97 02/06/25 13:42 60 18 118/72 99 O2 Del Method 02/06/25 19:22 02/06/25 17:10 02/06/25 16:40 Room Air 02/06/25 16:03 Room Air 02/06/25 15:50 Room Air 02/06/25 15:30 02/06/25 15:30 Room Air 02/06/25 15:15 Room Air 02/06/25 15:00 Room Air 02/06/25 13:42 Room Air PG Care Time/CCT Total # of Minutes Spent Total Time Spent with Patient: Total time spent is greater than 50% in coordination of care (as documented) at patient's floor/unit and/or counseling patient: Coding Level of Care Code 46701 IN/OBS CONSULT LVL 4,60M Diagnoses NSTEMI (non-ST elevated myocardial infarction) I21.4
--- NOTE | 2025-02-08 05:41 | Electrocardiogram Report ---
Test Reason : Blood Pressure : */* mmHG Vent. Rate : 53 BPM Atrial Rate : 53 BPM P-R Int : 166 ms QRS Dur : 82 ms QT Int : 418 ms P-R-T Axes : 56 33 45 degrees QTcB Int : 392 ms Sinus bradycardia Otherwise normal ECG When compared with ECG of 19-Sep-2024 23:54, Vent. rate has decreased by 93 bpm Confirmed by Saud Huber ([id number]) on 02/08/2025 5:41:03 AM Referred By: Confirmed By: Saud Huber
--- NOTE | 2025-02-08 05:42 | Electrocardiogram Report ---
Test Reason : Blood Pressure : */* mmHG Vent. Rate : 61 BPM Atrial Rate : 61 BPM P-R Int : 166 ms QRS Dur : 88 ms QT Int : 422 ms P-R-T Axes : 47 35 37 degrees QTcB Int : 424 ms Normal sinus rhythm Normal ECG When compared with ECG of 05-Feb-2025 21:33, No significant change was found Confirmed by Saud Huber ([id number]) on 02/08/2025 5:41:55 AM Referred By: REFERRED SELF Confirmed By: Saud Huber
--- NOTE | 2025-02-08 05:42 | Electrocardiogram Report ---
Test Reason : Blood Pressure : */* mmHG Vent. Rate : 62 BPM Atrial Rate : 62 BPM P-R Int : 160 ms QRS Dur : 86 ms QT Int : 398 ms P-R-T Axes : 55 38 35 degrees QTcB Int : 403 ms Normal sinus rhythm Normal ECG When compared with ECG of 05-Feb-2025 10:50, No significant change was found Confirmed by Saud Huber ([id number]) on 02/08/2025 5:41:46 AM Referred By: REFERRED SELF Confirmed By: Saud Huber
== END 2025-02-06 19:30 | disposition home or self-care (01) | DRG 281 ==
LOC: SUATTDRO → EDINP 10:28 → ED 10:28 → SUATTDRO 16:09 → 2S 22:14

== ENCOUNTER 2025-04-11 19:19 | Inpatient (IN) ==
--- NOTE | 2025-04-11 19:59 | Emergency Department Note ---
Impression & Plan Cellulitis, Tachycardia, Sepsis, Encephalopathy acute, Pseudohyponatremia, Acute dehydration ED Provider Note NAME: CARMEN HELTON AGE: 65 SEX: M : 1960 ARRIVES VIA: Walk-In INFORMANT: Patient, ED PROVIDER(S): Huber Fraga DO CHIEF COMPLAINT: Foot pain, fever HPI: This is a 65-year-old male with the PMHx of CHF, vascular disease, DM2 and prior GI bleed presenting to [facility] for further evaluation of rapid progression of L foot swelling, erythema and warmth. Patient is accompanied by his who provide additional history. notes intermittent confusion which has been odd to her. Notes that they were seen by orthopaedic surgery and placed in walking boot. He does have pain in this foot. No injury or trauma. They deny fever or chills. No cough or congestion. Denies chest pain or palpitations. No shortness of breath. They deny abdominal pain, nausea and vomiting. No urinary complaints. No recent changes in bowel movements. Patient denies recent changes in medications or OTC supplements. Patient offers no other complaints, today. ADDITIONAL HISTORY OBTAINED: Per HPI Chronic Medical/Social Conditions Affecting Care: Per HPI PAST MEDICAL HISTORY: See Below PAST SURGICAL HISTORY: See Below FAMILY HISTORY: See Below SOCIAL HISTORY: See Below HOME MEDICATIONS: See Below ALLERGIES: See Below VITALS: See Below PHYSICAL EXAMINATION: GENERAL: Sitting up in bed, alert, well appearing, well nourished, no distress, non-toxic EYE EXAM: normal conjunctiva. PERRL and EOM's grossly intact. OROPHARYNX: no exudate, no erythema, lips, buccal mucosa, and tongue normal and mucous membranes are moist NECK: supple, no nuchal rigidity, no adenopathy, non-tender LUNGS: Clear to auscultation. Normal chest wall mechanics HEART: no murmurs, tachycardic rate, regular rhythm ABDOMEN: abdomen soft, non-tender, no masses, no rebound or guarding. BACK: Back is symmetrical on inspection and there is no deformity, no midline tenderness, no CVA tenderness. SKIN: no rashes and no bruising UPPER EXTREMITIES: upper extremities are grossly normal. LOWER EXTREMITIES: No pitting edema. Swelling and erythema to the L foot. Pain out of proportion to exam. NVI. No crepitus, bullae or fluctuance. NEURO EXAM: Normal sensorium, GCS 15, he is inattentive, normal speech, no gross weakness of arms, no gross weakness of legs. No drift. Finger to nose intact. Gross sensation intact. MEDICAL DECISION MAKING: Differential diagnoses includes but not limited to cellulitis, necrotizing fasciitis, OM, abscess, gout, sepsis, bacteremia In summary, this is a 65 year old male who presented with foot infection. Differential as above. Nursing notes and pertinent past medical records reviewed. Vital signs reviewed and the patient is tachycardic, borderline febrile and mildly tachypneic. Patient has been intermittent inattentive and confused as well. Vital signs are concerning for sepsis with possible source of the soft tissue of the L foot. History and presentation revealed risk factors for severe soft tissue infection includng DM2. Physical examination revealed significant erythema, warmth and swelling. No fluctance or crepitus. As a result of my initial evaluation, we will provide for treatment of NSTI while obtaining further workup including CT scan and labs. Meets SIRS criteria and blood cultures obtained. NSAIDs were avoided at the patient's 's request given history of prior GI bleeds. IVFR and IV tylenol ordered Diagnostics interpreted by me include EKG and cardiac monitoring as listed below: -Cardiac Monitoring: An order was placed for continuous cardiac monitoring. The monitor shows a rate of 110-160s with regular rhythm. -ECG: Sinus tachycardia at a rate of [address] segment changes to suggest STEMI. Intervals are within normal limits. Patient completed laboratory studies and imaging. Results independently interpreted by me are leukocytosis with thrombocytopenia. Hyponatremia in the setting of hyperglycemia. Likely pseudohyponatremia. Does have an anion gap with increased BUN to creatinine ratio. Do feel some of his electrolyte derangements are from acute dehydration. Minimal troponin leak. Slight elevation in total bilirubin. Procalcitonin is also significantly elevated.. The patient was managed with broad spectrum abx including MRSA coverage and toxin prevention with Clindamycin. LRINEC score is 7. High risk NSTI at this point but clinical picture does fit with severe cellulitis. Question the possibility of deeper space including osteomyelitis in the setting of his vascular disease and DM2. The patient should be closely monitored on broad spectrum antibiotics which I have included as Zosyn, Clindamycin and Vancomycin. MRSA nares is positive. I would continue medications as above until clinical improvement prior to deescalation. Ultimately, the decision was made to admit the patient for severe soft tissue infection of the left lower extremity with concerns for possible necrotizing soft tissue infection. Patient is septic secondary to above. I discussed the case with the hospitalist service via telephone/TigerText and they are agreeable to admit the patient to their services. Based on the above, including the patient's age, coexisting illnesses, labs, imaging, and exam findings the decision to treat as an inpatient. I discussed the patient with the hospitalist team who recommended admission to their services. They received the medications, treatments, interventions indicated above and their condition remained guarded. I discussed my findings with the patient and their family and they understand and agree with the treatment plan. All patient / family questions were answered to their satisfaction. Consults/Care Managements Discussions: Per MDM ER treatment provided: See above Procedures:none Critical Care: None The chart was completed utilizing [employer] Speech voice recognition software. Grammatical errors, random word insertions, pronoun errors, and incomplete sentences are an occasional consequence of this system due to software limitations, ambient noise, and hardware issues. Any formal questions or concerns about the content, text, or information contained within the body of this dictation should be directly addressed to the physician for clarification. Past Med/Surg History Problem List (Updated 04/14/25 @ 16:31 by Huber Fraga DO) Acute dehydration (Acute) Pseudohyponatremia (Acute) Encephalopathy acute (Acute) Sepsis (Acute) Tachycardia (Acute) Cellulitis (Acute) Bacteremia Hyponatremia Sepsis Cellulitis Diabetes mellitus, type 2 NIDDM Duodenal ulcer Renal cyst Acute blood loss anemia ESTRADA (acute kidney injury) Lactic acidosis Uncontrolled diabetes mellitus with hyperglycemia Duodenal ulcer with hemorrhage Tachycardia (Acute) Acute GI bleeding (Acute) GI bleed Aspiration pneumonia Convulsive syncope CAD (coronary artery disease) (Acute) 2005- x1 stent 2009- x1 stent 2016- CABG x3 Follows with Dr. Frances/ELIZABETH Bagley Hyperkalemia Upper GI bleed Obesity Ex-smoker Multiple pulmonary nodules Bradycardia Hypertension controlled, stable per pt Bradycardia, sinus (Acute) Arthritis of right knee Encounter for pre-operative examination Medical History NSTEMI (non-ST elevated myocardial infarction) Substernal precordial chest pain Unstable angina Chest pain Elevated troponin Pulmonary nodule GERD (gastroesophageal reflux disease) rare Witnessed apneic spells per patient's , denies previous sleep apnea study Snoring History of airway aspiration per pt, joshua-operatively for renal stone procedure in past Hx of renal calculi last episode several months ago Hyperactive gag reflex "please do not intubate due to overactive/hyperactive gag reflex" History of cancer Age 7, 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 No other treatments/no current issues Surgical History Hx of CABG Family history of adverse reaction to anesthesia Grandmother in 1934- from the ether given to her by anesthesia S/P cystoscopy with ureteral stent placement w/laser lithotripsy History of anesthesia complications pt stated he should not be intubated unless it's a dire emergency due to his overactive/hyperactive gag reflex; did aspirate once when going under for kidney stones" Hx of left knee surgery age 7, cancerous tumor removed Hx of right knee surgery -"total reconstruction" Hx laparoscopic cholecystectomy History of esophagogastroduodenoscopy (EGD) Hx of colonoscopy Dr. Benigno Bryson 10/13/2014 Hx of nasal septoplasty Hx of tonsillectomy History of cardiac cath 2005- x1 stent 2009- x1 stent 2016- CABG x3 Hx of CABG CABG x3 (2016) Social History Smoking Status: Never smoker Age Started Using Tobacco: 24; Age Quit Using Tobacco: 34; packs per day: 1; Second Hand Exposure: No; Do You Dip or Chew Tobacco: No; Hx Alcohol Use: No Hx Substance Use: No Preferred Language: Romansh Communication Ability: Effective Electric Trucker Required: No Beliefs That Will Affect Care: None Current Living Situation: Spouse Current Living Situation Comment: lives at home with Feels Safe at Home: Yes Assistive Devices: None Allergies Allergies Allergy/AdvReac Type Severity Reaction Status Date / Time metformin Allergy Intermediate Rash Verified 04/11/25 22:13 ether Allergy Unknown Unknown Verified 04/11/25 22:13 NSAIDS (Non-Steroidal AdvReac Intermediate Gastrointestinal Verified 04/11/25 22:13 Anti-Inflamma Upset Home Meds Home Medications Medication Instructions Recorded Confirmed cyanocobalamin (vitamin B-12) 1,000 mcg PO QAM 03/27/23 04/11/25 1,000 mcg tablet (Vitamin B-12) empagliflozin 25 mg tablet 25 mg PO QPM 03/27/23 04/11/25 (Jardiance) multivitamin with minerals-folic 1 tab PO DAILY 04/03/23 04/11/25 acid 0.4 mg tablet (Adult One Daily Multivitamin) lactobacillus comb no.10 20 20,000 mmu cells PO DAILY 04/11/25 04/11/25 billion cell capsule (Probiotic) magnesium citrate,mag oxide 250 mg 250 mg PO DAILY 04/11/25 04/11/25 capsule zinc acetate 50 mg (zinc) capsule 50 mg PO DAILY 04/11/25 04/11/25 Previous Rx's Medication Instructions Recorded clopidogrel 75 mg tablet 75 mg PO DAILY #90 tabs 02/12/25 metoprolol tartrate 25 mg tablet 25 mg PO BID #180 tabs 02/12/25 atorvastatin 80 mg tablet 80 mg PO HS #90 tabs 03/12/25 lisinopril 20 mg tablet 20 mg PO DAILY #90 tabs 03/12/25 nitroglycerin 0.4 mg sublingual 0.4 mg sublingual Q5M PRN chest 03/12/25 tablet pain #25 tabs pantoprazole 40 mg tablet,delayed 40 mg PO DAILY 90 days #90 tabs 03/12/25 release Results & Data (ED) Vital Signs Vital Signs - 24 hr 04/11/25 19:32 04/11/25 19:51 04/11/25 21:06 Temperature 36.9 C 37.9 C H Temperature Source Oral Oral Pulse Rate 163 H 149 H Pulse Rate [Apical] 144 H Pulse Rhythm [Apical] Regular Pulse Strength [Apical] Normal Respiratory Rate 20 30 H Respiratory Effort / Characteristics Non-Labored Non-Labored Respiratory Depth Normal Normal Respiratory Pattern Regular Blood Pressure 142/81 H Blood Pressure [Right Arm] 130/98 Blood Pressure Mean 101 Blood Pressure Mean [Right Arm] 108 Blood Pressure Position [Right Arm] Lying Pulse Oximetry 93 95 Oxygen Delivery Method Room Air Room Air Sepsis Recent Fever Within 48 Hours Yes Sepsis New/Unexplained Change in Mental Status N/A Sepsis Action Taken by Nursing No Action Required 04/11/25 22:27 04/11/25 23:01 Temperature Temperature Source Pulse Rate Pulse Rate [Apical] 126 H 126 H Pulse Rhythm [Apical] Regular Regular Pulse Strength [Apical] Normal Normal Respiratory Rate 30 H 27 H Respiratory Effort / Characteristics Non-Labored Non-Labored Respiratory Depth Normal Normal Respiratory Pattern Regular Regular Blood Pressure Blood Pressure [Right Arm] 130/98 130/98 Blood Pressure Mean Blood Pressure Mean [Right Arm] 108 108 Blood Pressure Position [Right Arm] Lying Lying Pulse Oximetry 98 98 Oxygen Delivery Method Room Air Sepsis Recent Fever Within 48 Hours Sepsis New/Unexplained Change in Mental Status Sepsis Action Taken by Nursing Laboratory Data 04/14/25 06:53 04/14/25 06:53 Lab Results 04/11/25 04/11/25 04/11/25 Range/Units 19:50 19:59 20:00 WBC 14.76 H (4.8-10.8) K/ul RBC 5.54 (4.70-6.10) M/uL Hgb 16.1 (14.0-18.0) g/dl Hct 46.8 (42.0-52.0) % MCV 84.5 (80.0-100.0) fL MCH 29.1 (25.0-34.0) pg MCHC 34.4 (32.0-36.0) g/dL RDW Std Deviation 46.1 (36.4-46.3) fL RDW Coeff of [place] 15.9 H (11.5-14.5) % Plt Count 119 L (130-400) K/uL MPV 9.7 (9.4-12.4) fL Immature Gran % (Auto) 3.7 % Neut % (Auto) 83.6 % Lymph % (Auto) 2.2 % Vil[place] % (Auto) 10.3 % Eos % (Auto) 0.0 % Baso % (Auto) 0.2 % Neut # (Auto) 12.34 H (1.40-6.50) K/uL Lymph # (Auto) 0.32 L (1.20-3.40) K/uL Vil[place] # (Auto) 1.52 H (0.11-0.59) K/uL Eos # (Auto) 0.00 (0.00-0.50) K/uL Baso # (Auto) 0.03 (0.00-0.20) K/uL Immature Gran # (Auto) 0.55 H (0.01-0.20) K/uL Sodium 131 L (136-145) mmol/L Potassium 4.3 (3.5-5.1) mmol/L Chloride 97 L (98-107) mmol/L Carbon Dioxide 17 L (21-32) mmol/L Anion Gap 17 H (3-11) BUN 29 H (6-23) mg/dl Creatinine 1.01 (0.6-1.4) mg/dl Est Cr Clr Drug Dosing 74.8 ml/min eGFR 82.53 BUN/Creatinine Ratio 28.7 H (10-20) Glucose 196 H (70-99(Fasting)) mg/dl Lactate 2.3 H* (0.4-2.0) mmol/L Uric Acid 6.4 (2.6-7.2) mg/dl Calcium 10.2 (8.6-10.3) mg/dl Magnesium 2.2 (1.7-2.4) mg/dl Total Bilirubin 1.3 H (0.2-1.0) mg/dl Direct Bilirubin 0.4 H (0-0.2) mg/dl AST 24 (13-39) U/L ALT 22 (7-52) U/L Alkaline Phosphatase 96 (34-104) U/L Troponin I High Sens 36.7 H (0-20) pg/ml C-Reactive Protein (0-0.5) mg/dl Total Protein 8.1 (6.0-8.3) gm/dl Albumin 4.2 (3.4-5.0) gm/dl Procalcitonin 11.20 H (0-0.5) ng/ml Nasal Screen MRSA (PCR) (Negative) Staphylococcus sp PCR DETECTED A (NotDetected) Staph aureus (PCR) DETECTED A (NotDetected) mecA/C & MREJ Resist Gene MRSA DETECTED A* (NotDetected) Bld Cult ID Panel PCR See PCR Comment (NotDetected) 04/11/25 04/11/25 Range/Units 21:15 22:21 WBC (4.8-10.8) K/ul RBC (4.70-6.10) M/uL Hgb (14.0-18.0) g/dl Hct (42.0-52.0) % MCV (80.0-100.0) fL MCH (25.0-34.0) pg MCHC (32.0-36.0) g/dL RDW Std Deviation (36.4-46.3) fL RDW Coeff of [place] (11.5-14.5) % Plt Count (130-400) K/uL MPV (9.4-12.4) fL Immature Gran % (Auto) % Neut % (Auto) % Lymph % (Auto) % Vil[place] % (Auto) % Eos % (Auto) % Baso % (Auto) % Neut # (Auto) (1.40-6.50) K/uL Lymph # (Auto) (1.20-3.40) K/uL Vil[place] # (Auto) (0.11-0.59) K/uL Eos # (Auto) (0.00-0.50) K/uL Baso # (Auto) (0.00-0.20) K/uL Immature Gran # (Auto) (0.01-0.20) K/uL Sodium (136-145) mmol/L Potassium (3.5-5.1) mmol/L Chloride (98-107) mmol/L Carbon Dioxide (21-32) mmol/L Anion Gap (3-11) BUN (6-23) mg/dl Creatinine (0.6-1.4) mg/dl Est Cr Clr Drug Dosing ml/min eGFR BUN/Creatinine Ratio (10-20) Glucose (70-99(Fasting)) mg/dl Lactate 1.5 (0.4-2.0) mmol/L Uric Acid (2.6-7.2) mg/dl Calcium (8.6-10.3) mg/dl Magnesium (1.7-2.4) mg/dl Total Bilirubin (0.2-1.0) mg/dl Direct Bilirubin (0-0.2) mg/dl AST (13-39) U/L ALT (7-52) U/L Alkaline Phosphatase (34-104) U/L Troponin I High Sens 40.8 H (0-20) pg/ml C-Reactive Protein 38.84 H (0-0.5) mg/dl Total Protein (6.0-8.3) gm/dl Albumin (3.4-5.0) gm/dl Procalcitonin (0-0.5) ng/ml Nasal Screen MRSA (PCR) Positive A (Negative) Staphylococcus sp PCR (NotDetected) Staph aureus (PCR) (NotDetected) mecA/C & MREJ Resist Gene (NotDetected) Bld Cult ID Panel PCR (NotDetected) Administered Medications Acetaminophen (Acetaminophen 325 Mg Tab) 650 mg PO Q4H PRN PRN Reason: Pain or Fever Stop: 05/12/25 01:19 Last Admin: 04/12/25 18:33 Dose: 650 mg Documented By: Admin: 04/12/25 10:47 Dose: 650 mg Documented By: JULIETA Atorvastatin Calcium (Atorvastatin 40 Mg Tab) 80 mg PO HS ONOFRE Stop: 05/12/25 20:59 Last Admin: 04/13/25 20:56 Dose: 80 mg Documented By: Admin: 04/12/25 21:01 Dose: 80 mg Documented By: YVONNE Clopidogrel Bisulfate (Clopidogrel Bisulfate 75 Mg Tab) 75 mg PO DAILY ONOFRE Stop: 05/12/25 08:59 Last Admin: 04/14/25 08:28 Dose: 75 mg Documented By: Admin: 04/13/25 08:43 Dose: 75 mg Documented By: Admin: 04/12/25 08:56 Dose: 75 mg Documented By: JULIETA Vancomycin HCl 1,750 mg/ (Sodium Chloride) 535 mls @ 200 mls/hr IV Q8H ONOFRE Stop: 04/28/25 07:59 Last Admin: 04/14/25 16:18 Dose: 200 mls/hr Documented By: Infusion: 04/14/25 11:09 Dose: Infused Documented By: Admin: 04/14/25 08:28 Dose: 200 mls/hr Documented By: MKIAYLA Insulin Aspart (Insulin Aspart Per Unit Charge) 0 units SC ACHS ONOFRE Stop: 05/12/25 07:29 Last Admin: 04/14/25 12:03 Dose: 9 units Documented By: MIKAYLA Co-signed By: TJ Admin: 04/14/25 08:27 Dose: 4 units Documented By: MIKAYLA Co-signed By: ADE Admin: 04/13/25 20:55 Dose: 2 units Documented By: YVONNE Co-signed By: ARLEY Admin: 04/13/25 17:27 Dose: 4 units Documented By: SILVER Co-signed By: DTT Admin: 04/13/25 12:37 Dose: 5 units Documented By: SILVER Co-signed By: OO Admin: 04/13/25 08:46 Dose: 6 units Documented By: SILVER Co-signed By: CA Admin: 04/12/25 21:00 Dose: 3 units Documented By: YVONNE Co-signed By: alt Admin: 04/12/25 17:22 Dose: 6 units Documented By: JULIETA Co-signed By: DTT Admin: 04/12/25 12:56 Dose: 5 units Documented By: JULIETA Co-signed By: EP Admin: 04/12/25 08:56 Dose: 4 units Documented By: JULIETA Co-signed By: KENNEDI Metoprolol Tartrate (Metoprolol Tartrate 50 Mg Tab) 50 mg PO BID ONOFRE Stop: 05/12/25 08:59 Last Admin: 04/14/25 08:28 Dose: 50 mg Documented By: Admin: 04/13/25 20:56 Dose: 50 mg Documented By: Admin: 04/13/25 08:43 Dose: 50 mg Documented By: Admin: 04/12/25 21:01 Dose: 50 mg Documented By: Admin: 04/12/25 09:31 Dose: 50 mg Documented By: JULIETA Pantoprazole Sodium (Pantoprazole 40 Mg Tab) 40 mg PO DAILY ONOFRE Stop: 05/12/25 08:59 Last Admin: 04/14/25 08:28 Dose: 40 mg Documented By: Admin: 04/13/25 08:44 Dose: 40 mg Documented By: Admin: 04/12/25 08:56 Dose: 40 mg Documented By: JULIETA Psyllium Hydrophilic Mucilloid (Psyllium Husk 4gm Packet) 4 gm PO BID ONOFRE Stop: 05/12/25 12:44 Last Admin: 04/14/25 08:28 Dose: 4 gm Documented By: Admin: 04/13/25 20:56 Dose: 4 gm Documented By: Admin: 04/13/25 08:44 Dose: 4 gm Documented By: Admin: 04/12/25 21:01 Dose: 4 gm Documented By: Admin: 04/12/25 13:00 Dose: 4 gm Documented By: JULIETA Discontinued Medications Colchicine (Colchicine 0.6 Mg Tab) 0.6 mg PO BID ONOFRE Stop: 05/11/25 23:29 Last Admin: 04/12/25 02:15 Dose: 0.6 mg Documented By: AKP Fentanyl Citrate (Fentanyl Citrate Pf 100 Mcg/2 Ml Vial) 50 mcg IV NOW ONE Stop: 04/11/25 20:07 Last Admin: 04/11/25 23:09 Dose: Not Given Documented By: ASW Clindamycin Phosphate (Cleocin/D5w) 900 mg in 50 mls @ 100 mls/hr IV NOW ONE Stop: 04/11/25 20:33 Last Infusion: 04/11/25 22:10 Dose: Infused Documented By: vgr Admin: 04/11/25 21:28 Dose: 100 mls/hr Documented By: vgr Piperacillin Sod/Tazobactam Sod (Zosyn) 4.5 gm in 100 mls @ 200 mls/hr IV NOW ONE; Protocol Stop: 04/11/25 20:33 Last Infusion: 04/11/25 21:34 Dose: Infused Documented By: vgr Admin: 04/11/25 20:45 Dose: 200 mls/hr Documented By: vgr Vancomycin HCl 2,250 mg/ (Sodium Chloride) 545 mls @ 200 mls/hr IV NOW ONE Stop: 04/11/25 22:47 Last Infusion: 04/12/25 00:07 Dose: Infused Documented By: Admin: 04/11/25 21:25 Dose: 200 mls/hr Documented By: vgr Parenteral Electrolytes (Plasma-Lyte A Ph 7.4) 1,000 mls @ 999 mls/hr IV .Q1H1M ONE Stop: 04/11/25 21:06 Last Infusion: 04/11/25 22:53 Dose: Infused Documented By: Admin: 04/11/25 21:34 Dose: 999 mls/hr Documented By: vgr Acetaminophen (Ofirmev) 1,000 mg in 100 mls @ 400 mls/hr IV NOW STA Stop: 04/11/25 20:20 Last Infusion: 04/11/25 21:34 Dose: Infused Documented By: vgr Admin: 04/11/25 20:46 Dose: 400 mls/hr Documented By: vgr Parenteral Electrolytes (Plasma-Lyte A Ph 7.4) 1,000 mls @ 999 mls/hr IV .Q1H1M ONE Stop: 04/11/25 23:09 Last Infusion: 04/12/25 00:07 Dose: Infused Documented By: Admin: 04/11/25 22:53 Dose: 999 mls/hr Documented By: LYNN Piperacillin Sod/Tazobactam Sod (Zosyn) 4.5 gm in 100 mls @ 25 mls/hr IV Q8H ONOFRE; Protocol Stop: 04/19/25 01:59 Last Admin: 04/13/25 10:55 Dose: Not Given Documented By: Infusion: 04/13/25 08:44 Dose: Infused Documented By: Infusion: 04/13/25 06:21 Dose: 0 mls/hr Documented By: Admin: 04/13/25 02:27 Dose: 25 mls/hr Documented By: Infusion: 04/12/25 21:11 Dose: Infused Documented By: Admin: 04/12/25 17:23 Dose: 25 mls/hr Documented By: Infusion: 04/12/25 13:41 Dose: Infused Documented By: Admin: 04/12/25 09:33 Dose: 25 mls/hr Documented By: Infusion: 04/12/25 06:15 Dose: Infused Documented By: Admin: 04/12/25 02:15 Dose: 25 mls/hr Documented By: YVONNE Lactated Ringer's (Lr) 1,000 mls @ 100 mls/hr IV .Q10H ONOFRE Stop: 04/15/25 01:19 Last Infusion: 04/13/25 04:03 Dose: Infused Documented By: Admin: 04/12/25 21:00 Dose: 125 mls/hr Documented By: Infusion: 04/12/25 20:56 Dose: Infused Documented By: Admin: 04/12/25 12:56 Dose: 125 mls/hr Documented By: Infusion: 04/12/25 12:56 Dose: Infused Documented By: Admin: 04/12/25 08:18 Dose: 125 mls/hr Documented By: Infusion: 04/12/25 08:18 Dose: Infused Documented By: Admin: 04/12/25 02:15 Dose: 125 mls/hr Documented By: YVONNE Vancomycin HCl (Vancomycin Hcl / Nss) 1,000 mg in 270 mls @ 200 mls/hr IV Q12H ONOFRE Stop: 04/19/25 08:59 Last Infusion: 04/12/25 10:20 Dose: Infused Documented By: Admin: 04/12/25 08:55 Dose: 200 mls/hr Documented By: JULIETA Lactated Ringer's (Lr) 1,000 mls @ 999 mls/hr IV .Q1H1M ONE Stop: 04/12/25 07:26 Last Infusion: 04/12/25 08:19 Dose: Infused Documented By: Admin: 04/12/25 06:30 Dose: 999 mls/hr Documented By: YVONNE Vancomycin HCl 1,250 mg/ (Sodium Chloride) 275 mls @ 200 mls/hr IV Q12H ONOFRE Stop: 04/26/25 19:59 Last Infusion: 04/13/25 09:56 Dose: Infused Documented By: Admin: 04/13/25 08:52 Dose: 275 mls/hr Documented By: Infusion: 04/12/25 22:45 Dose: Infused Documented By: Admin: 04/12/25 21:00 Dose: 200 mls/hr Documented By: YVONNE Potassium Chloride/Sodium Chloride (Normal Saline W/20 Meq Kcl) 20 meq in 1,000 mls @ 80 mls/hr IV .[id number] ONOFRE Stop: 04/16/25 10:59 Last Infusion: 04/14/25 11:47 Dose: Infused Documented By: Admin: 04/14/25 11:11 Dose: 80 mls/hr Documented By: Infusion: 04/14/25 11:11 Dose: Infused Documented By: Admin: 04/13/25 23:09 Dose: 80 mls/hr Documented By: Infusion: 04/13/25 23:09 Dose: Infused Documented By: Admin: 04/13/25 11:50 Dose: 80 mls/hr Documented By: SILVER Vancomycin HCl 1,500 mg/ (Sodium Chloride) 530 mls @ 200 mls/hr IV Q8H ONOFRE Stop: 04/27/25 15:59 Last Infusion: 04/14/25 03:28 Dose: Infused Documented By: Admin: 04/14/25 00:41 Dose: 200 mls/hr Documented By: Infusion: 04/13/25 19:07 Dose: Infused Documented By: Admin: 04/13/25 16:22 Dose: 200 mls/hr Documented By: SILVER Ioversol (Optiray 320 100ml) 90 ml IV ONCE ONE Stop: 04/11/25 20:31 Last Admin: 04/11/25 20:30 Dose: 90 ml Documented By: HYACINTH Metoprolol Tartrate (Metoprolol Tartrate 25 Mg Tab) 25 mg PO NOW STA Stop: 04/12/25 02:38 Last Admin: 04/12/25 03:42 Dose: 25 mg Documented By: YVONNE Metoprolol Tartrate (Metoprolol Tartrate 1 Mg/Ml Vial) 5 mg IV NOW STA Stop: 04/12/25 08:10 Last Admin: 04/12/25 08:19 Dose: 5 mg Documented By: JULIETA Miscellaneous (Timely Administration Of Vanco - Pending Order) 1 each N/A TODAY@2330 ONE Stop: 04/13/25 23:31 Last Admin: 04/14/25 03:28 Dose: Not Given Documented By: YVONNE Sodium Bicarbonate (Sodium Bicarb 8.4% Inj 50 Meq/50 Ml Syr) 50 meq IV NOW STA Stop: 04/12/25 06:21 Last Admin: 04/12/25 06:29 Dose: 50 meq Documented By: YVONNE Imaging Data Radiologist's Impression: Chest X-Ray 04/11/25 19:40 Exam(s): XR CXR 1 VIEW EXAM: XR Chest, 1 View CLINICAL HISTORY: Reason for exam: Sepsis. TECHNIQUE: Frontal view of the chest. COMPARISON: Chest radiograph on 02/05/2025 FINDINGS: Hardware: None. Lungs/pleura: Left basilar opacity. No pleural effusion or pneumothorax. Heart/mediastinum: Normal. No cardiomegaly. Soft tissues: Unremarkable. Bones: No acute fracture. Upper abdomen: Normal. IMPRESSION: Left basilar opacity may represent atelectasis. Infectious/inflammatory process is not excluded. Electronically signed by: Mark Douglas M.D. 04/11/25 21:[address] 04/11/25 20:04 Exam(s): CT LEFT FOOT With Contrast EXAM: CT Left Lower Extremity With Intravenous Contrast, Foot CLINICAL HISTORY: Reason for exam: eval fo nec fasc. TECHNIQUE: Axial computed tomography images of the left foot with intravenous contrast. CTDI is 6.6 mGy and DLP is 379.19 mGy-cm. Automated exposure control was utilized for the study. A dose lowering technique was utilized adhering to the principles of ALARA. COMPARISON: None FINDINGS: Bones/joints: Plantar calcaneal spur. No acute fracture. No dislocation. No bony lesion to suggest osteomyelitis. Soft tissues: Soft tissue swelling and fat stranding throughout the visualized left ankle and foot. No discrete abscess or soft tissue gas. No radiopaque foreign body. IMPRESSION: 1. No bony lesion to suggest osteomyelitis. 2. Soft tissue swelling and fat stranding throughout the visualized left ankle and foot. No discrete abscess or soft tissue gas. Electronically signed by: Mark Douglas M.D. 04/11/25 20:[address] 04/11/25 20:04 Exam(s): CT EXTREMITY LEFT LOWER With Contrast IV Amt: 90ml [id number] EXAM: CT Left Lower Extremity With Intravenous Contrast CLINICAL HISTORY: Reason for exam: eval for nec fasc. TECHNIQUE: Axial computed tomography images of the left lower extremity with intravenous contrast. CTDI is 6.6 mGy and DLP is 379.19 mGy-cm. Automated exposure control was utilized for the study. A dose lowering technique was utilized adhering to the principles of ALARA. CONTRAST: Patient received 90ml [id number] of IV contrast COMPARISON: None FINDINGS: Bones/joints: Mild chondrocalcinosis in the medial and lateral compartments of the left knee. Small bone island in the lateral femoral condyle. No bony lesion to suggest osteomyelitis. No acute fracture or dislocation. Soft tissues: Soft tissue swelling and fat stranding in the distal left lower leg and ankle. No abscess or soft tissue gas identified. IMPRESSION: 1. No bony lesion to suggest osteomyelitis. 2. Soft tissue swelling and fat stranding in the distal left lower leg and ankle. No abscess or soft tissue gas identified. Electronically signed by: Mark Douglas M.D. 04/11/25 21:12 PM Discharge Plan Visit Data Chief Complaint: Infection Stated Complaint: POSS SEPSIS, LT FOOT SWOLLEN, FEVER, CONFUSION ED Provider: Huber Fraga Discharge Problem: Cellulitis, Tachycardia, Sepsis, Encephalopathy acute, Pseudohyponatremia, Acute dehydration Patient Disposition: Admitted As Inpatient Condition: Serious Discharge Instructions Interventions: ED Discharge Assessment Last Done: 04/12/25 00:44
[2025-04-11] MEDS ORDERED: VANCOMYCIN CONSULT ACTIVE PRN (20:04)
[2025-04-11 20:19] LABS: Hematocrit (blood only) 46.8 % (42.0-52.0); Hemoglobin 16.1 g/dl (14.0-18.0); Immature Granulocytes # (auto) 0.55 K/uL (0.01-0.20); Immature Granulocytes % (auto) 3.7 %; Mean Corpuscular Hemoglobin 29.1 pg (25.0-34.0); Mean Corpuscular Volume 84.5 fL (80.0-100.0); Platelet Count 119 K/uL (130-400); RDW Standard Deviation 46.1 fL (36.4-46.3); Red Blood Count 5.54 M/uL (4.70-6.10); White Blood Count 14.76 K/ul (4.8-10.8)
[2025-04-11] MEDS: OPTIRAY 320 100ml IV ONE (20:30)
[2025-04-11 20:37] LABS: Alanine Aminotransferase 22.0 U/L (7-52); Albumin Level 4.2 gm/dl (3.4-5.0); Alkaline Phosphatase 96.0 U/L (34-104); Anion Gap 17.0 (3-11); Bilirubin,Total 1.3 mg/dl (0.2-1.0); Blood Urea Nitrogen 29.0 mg/dl (6-23); Calcium 10.2 mg/dl (8.6-10.3); Carbon Dioxide 17.0 mmol/L (21-32); Chloride 97.0 mmol/L (98-107); Creatinine Clr Calc Pharmacy 74.8 ml/min; Glucose 196.0 mg/dl (70-99(Fasting)); Magnesium 2.2 mg/dl (1.7-2.4); Potassium 4.3 mmol/L (3.5-5.1); Sodium 131.0 mmol/L (136-145); Total Protein 8.1 gm/dl (6.0-8.3)
[2025-04-11] MEDS: PIPERACILLIN/TAZOBACTAM 4.5 GM/100 ML BAG IV ONE (20:45)
[2025-04-11] MEDS: ACETAMINOPHEN 1,000 MG/100 ML VIAL IV STA (20:46)
--- NOTE | 2025-04-11 21:00 | CT Scan Report ---
Exam(s): CT LEFT FOOT With Contrast EXAM: CT Left Lower Extremity With Intravenous Contrast, Foot CLINICAL HISTORY: Reason for exam: eval fo nec fasc. TECHNIQUE: Axial computed tomography images of the left foot with intravenous contrast. CTDI is 6.6 mGy and DLP is 379.19 mGy-cm. Automated exposure control was utilized for the study. A dose lowering technique was utilized adhering to the principles of ALARA. COMPARISON: None FINDINGS: Bones/joints: Plantar calcaneal spur. No acute fracture. No dislocation. No bony lesion to suggest osteomyelitis. Soft tissues: Soft tissue swelling and fat stranding throughout the visualized left ankle and foot. No discrete abscess or soft tissue gas. No radiopaque foreign body. IMPRESSION: 1. No bony lesion to suggest osteomyelitis. 2. Soft tissue swelling and fat stranding throughout the visualized left ankle and foot. No discrete abscess or soft tissue gas. Electronically signed by: Mark Douglas M.D. 04/11/25 20:59 PM
--- NOTE | 2025-04-11 21:13 | CT Scan Report ---
Exam(s): CT EXTREMITY LEFT LOWER With Contrast IV Amt: 90ml [id number] EXAM: CT Left Lower Extremity With Intravenous Contrast CLINICAL HISTORY: Reason for exam: eval for nec fasc. TECHNIQUE: Axial computed tomography images of the left lower extremity with intravenous contrast. CTDI is 6.6 mGy and DLP is 379.19 mGy-cm. Automated exposure control was utilized for the study. A dose lowering technique was utilized adhering to the principles of ALARA. CONTRAST: Patient received 90ml [id number] of IV contrast COMPARISON: None FINDINGS: Bones/joints: Mild chondrocalcinosis in the medial and lateral compartments of the left knee. Small bone island in the lateral femoral condyle. No bony lesion to suggest osteomyelitis. No acute fracture or dislocation. Soft tissues: Soft tissue swelling and fat stranding in the distal left lower leg and ankle. No abscess or soft tissue gas identified. IMPRESSION: 1. No bony lesion to suggest osteomyelitis. 2. Soft tissue swelling and fat stranding in the distal left lower leg and ankle. No abscess or soft tissue gas identified. Electronically signed by: Mark Douglas M.D. 04/11/25 21:12 PM
--- NOTE | 2025-04-11 21:17 | XRay Report ---
Exam(s): XR CXR 1 VIEW EXAM: XR Chest, 1 View CLINICAL HISTORY: Reason for exam: Sepsis. TECHNIQUE: Frontal view of the chest. COMPARISON: Chest radiograph on 02/05/2025 FINDINGS: Hardware: None. Lungs/pleura: Left basilar opacity. No pleural effusion or pneumothorax. Heart/mediastinum: Normal. No cardiomegaly. Soft tissues: Unremarkable. Bones: No acute fracture. Upper abdomen: Normal. IMPRESSION: Left basilar opacity may represent atelectasis. Infectious/inflammatory process is not excluded. Electronically signed by: Mark Douglas M.D. 04/11/25 21:16 PM
[2025-04-11] MEDS: VANCOMYCIN HCL 2,250 MG in SODIUM CHLORIDE 0.9% 500 ML IV ONE (21:25)
[2025-04-11] MEDS: CLINDAMYCIN/D5W 900 MG/50 ML BAG IV ONE (21:28)
[2025-04-11] MEDS: PLASMA-LYTE A 1,000 ML IV ONE ×2 (21:34→22:53)
--- NOTE | 2025-04-11 22:51 | History & Physical Report ---
Date of Service April 11, 2025 Assessment & Plan (1) Cellulitis: (2) Sepsis: (3) Elevated troponin: (4) Hyponatremia: Plan 65-year-old male PMHx CAD s/p CHELSEY Majanojefry 2015), HLD, angina, T2DM, HTN, GERD, and prior duodenal ulcer with hemorrhage with most recent hospital admission 02/05/2025 until 02/06/2025 for NSTEMI who is presenting now for concerns of infection and altered mental status. Evaluation does reveal leukocytosis of 14.76, platelets 119. Sodium is 131 and anion gap of 17 with elevated glucose of 196. Bilirubin is 1.3 and a direct bilirubin of 0.4. Lactate was 2.3 and then 1.5 on repeat following 1L of Plasma-Lyte. MRSA screen is positive. Procalcitonin 11.2. Imaging of LLE/foot suggestive of soft tissue swelling. #Cellulitis/Sepsis/? Gout L foot edema/pain, history of T2DM, no open wounds. Meeting criteria for sepsis at admission, (HR, RR, fever, WBC). IVF for IBW goal 1,936mL, received 2L IVF. Seen by ortho, ? gout, provided with boot. Uric acid at that time was WNL. He has no prior history of gout. Admission for IV abx and management of sepsis. - CBC leukocytosis 14,76; AG 17; lactate 2.3 -> 1.5 on repeat; procal 11.20; CRP, uric acid pending - CBC am - MRSA (+) - Blood cultures pending - L foot/LLE CT no OM, soft tissue swelling, no abscess or gas - Acetaminophen prn fever/pain - IVF LR @ 100 mL/hr - Colchicine BID - Zosyn + Vanco IV - continue #Elevated troponin No chest pain, has been tachycardic in setting of sepsis. Telemetry appears to be sinus tachycardia, but ? flutter. Will continue to monitor. - Trop 36.7, 40.8 on repeat - repeat am - EKG sinus tachycardia @ 149, ??? atrial rhythm -- monitor on tele - Likely 2/2 demand #Hyponatremia Received IVF in ED. - Na 131, glucose 196; corrected 133 - BMP am - IVF as above #T2DM H/o T2DM; At home regimen includes Jardiance. - Glucose on arrival 196; Most recent A1c 01/2025 @ 8.4% - Hold Jardiance - SSI with target BSG range 110-140mg/dL, CF 30, carb ratio 15 - BSG ACHS - Adjust regimen as needed #HLD- Atorvastatin - continue #CAD- Plavix - continue #HTN- Lisinopril, metoprolol - Hold at time of admission in presence of sepsis, add back once VS stabilize #GERD- Pantoprazole - continue Dispo: Admit, PCU VTE prophylaxis: SCDs This document was dictated utilizing Timescape. Please excuse any grammatical errors that may be secondary to use of this software. Admission and Anticipated Discharge Date Admission Date: 04/11/2025 History of Present Illness Chief Complaint: Infection Primary Care Provider: Rock Fairchild 65-year-old male PMHx CAD s/p CHELSEY (2016), HLD, angina, T2DM, HTN, GERD, and prior duodenal ulcer with hemorrhage with most recent hospital admission 02/05/2025 until 02/06/2025 for NSTEMI who is presenting now for concerns of infection and altered mental status. Patient states he is "feeling better" than he did whenever he first arrived. His , Ngoc, helps to provide a history. States that overall the patient is very active, walking 2 to 3 miles a day and playing pickle ball routinely. Approximately 3 days [employer]ET[employer] at 0300 the patient awoke with complaints that his left foot was bothering him. 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 1 day [employer] MARKETING ANALYST the foot became edematous and more painful, and the patient was unable to bear weight on the foot. He was seen by [facility] and the provider thought that patient was potentially suffering from gout, so he put him in a boot which did help some. His pain did get better, has he been utilizing Tylenol. Patient's states that at 1230 she came home for lunch and noticed that the patient was more worn out in his appearance. When the patient's got home from work at 1600, she remembers asking the patient what kind of tea he wanted and he was unable to respond to this question because he has seemed confused at that point. Patient states that he is feeling better, states that the pain is rather significant even with light sensation to the foot. Denies chest pain, SOB, palpitations, abdominal pain, N/V/D/C, numbness/tingling, chills, URI symptoms, LUTS, syncope, or falls. He has no prior history of gout. No family history of gout. No open wounds, no known tick bites. ED evaluation reveals CBC with leukocytosis 14.76, stable H&H, platelets 119; CMP sodium 131, chloride 97, CO2 17, AG 17, BUN 29, ratio 28.7, glucose 196, bilirubin 1.3, direct 0.4; lactate 2.3, 1.5 on repeat; procalcitonin 11.2; MRSA positive; CXR L basilar opacity may represent atelectasis; L foot/LLE CT not suggestive of OM, soft tissue swelling and fat stranding throughout visualized L ankle and foot, no abscess or soft tissue gas; EKG sinus tachycardia at 149 bpm.; Provided with Zosyn 4.5 g IV, acetaminophen 1 g IV, vancomycin 2250 mg IV, clindamycin 900 mg IV, and Plasma-Lyte 1L in ED. Please see Dr. Salazar's attestation for adjustments/additions to treatment plan. Allergies Allergy/AdvReac Type Severity Reaction Status Date / Time metformin Allergy Intermediate Rash Verified 04/11/25 22:13 ether Allergy Unknown Unknown Verified 04/11/25 22:13 NSAIDS (Non-Steroidal AdvReac Intermediate Gastrointestinal Verified 04/11/25 22:13 Anti-Inflamma Upset Home Medications Medication Instructions Recorded Confirmed Type cyanocobalamin (vitamin B-12) 1,000 mcg PO QAM 03/27/23 04/11/25 History 1,000 mcg tablet (Vitamin B-12) empagliflozin 25 mg tablet 25 mg PO QPM 03/27/23 04/11/25 History (Jardiance) multivitamin with minerals-folic 1 tab PO DAILY 04/03/23 04/11/25 History acid 0.4 mg tablet (Adult One Daily Multivitamin) clopidogrel 75 mg tablet 75 mg PO DAILY #90 tabs 02/12/25 04/11/25 Rx metoprolol tartrate 25 mg tablet 25 mg PO BID #180 tabs 02/12/25 04/11/25 Rx atorvastatin 80 mg tablet 80 mg PO HS #90 tabs 03/12/25 04/11/25 Rx lisinopril 20 mg tablet 20 mg PO DAILY #90 tabs 03/12/25 04/11/25 Rx nitroglycerin 0.4 mg sublingual 0.4 mg sublingual Q5M PRN chest 03/12/25 04/11/25 Rx tablet pain #25 tabs pantoprazole 40 mg tablet,delayed 40 mg PO DAILY 90 days #90 tabs 03/12/25 04/11/25 Rx release lactobacillus comb no.10 20 20,000 mmu cells PO DAILY 04/11/25 04/11/25 History billion cell capsule (Probiotic) magnesium citrate,mag oxide 250 mg 250 mg PO DAILY 04/11/25 04/11/25 History capsule zinc acetate 50 mg (zinc) capsule 50 mg PO DAILY 04/11/25 04/11/25 History Past Med/Surg History Problem List (Updated 04/12/25 @ 13:12 by Jose Jiménez MD) Bacteremia Hyponatremia Sepsis Cellulitis Diabetes mellitus, type 2 NIDDM Duodenal ulcer Renal cyst Acute blood loss anemia ESTRADA (acute kidney injury) Lactic acidosis Uncontrolled diabetes mellitus with hyperglycemia Duodenal ulcer with hemorrhage Tachycardia (Acute) Acute GI bleeding (Acute) GI bleed Aspiration pneumonia Convulsive syncope CAD (coronary artery disease) (Acute) 2005- x1 stent 2009- x1 stent 2016- CABG x3 Follows with Dr. Frances/ELIZABETH Bagley Hyperkalemia Upper GI bleed Obesity Ex-smoker Multiple pulmonary nodules Bradycardia Hypertension controlled, stable per pt Bradycardia, sinus (Acute) Arthritis of right knee Encounter for pre-operative examination Medical History NSTEMI (non-ST elevated myocardial infarction) Substernal precordial chest pain Unstable angina Chest pain Elevated troponin Pulmonary nodule GERD (gastroesophageal reflux disease) rare Witnessed apneic spells per patient's , denies previous sleep apnea study Snoring History of airway aspiration per pt, joshua-operatively for renal stone procedure in past Hx of renal calculi last episode several months ago Hyperactive gag reflex "please do not intubate due to overactive/hyperactive gag reflex" History of cancer Age 7, 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 No other treatments/no current issues Surgical History Hx of CABG Family history of adverse reaction to anesthesia Grandmother in 1934- from the ether given to her by anesthesia S/P cystoscopy with ureteral stent placement w/laser lithotripsy History of anesthesia complications pt stated he should not be intubated unless it's a dire emergency due to his overactive/hyperactive gag reflex; did aspirate once when going under for kidney stones" Hx of left knee surgery age 7, cancerous tumor removed Hx of right knee surgery 1970s-"total reconstruction" Hx laparoscopic cholecystectomy History of esophagogastroduodenoscopy (EGD) Hx of colonoscopy Dr. Benigno Bryson 10/13/2014 Hx of nasal septoplasty Hx of tonsillectomy History of cardiac cath 2005- x1 stent 2009- x1 stent 2016- CABG x3 Hx of CABG CABG x3 (2016) Social History Smoking Status: Never smoker Age Started Using Tobacco: 24; Age Quit Using Tobacco: 34; packs per day: 1; Second Hand Exposure: No; Do You Dip or Chew Tobacco: No; Hx Alcohol Use: No Hx Substance Use: No Preferred Language: Czech Communication Ability: Effective Behavioral Interventionist Required: No Beliefs That Will Affect Care: None Current Living Situation: Spouse Current Living Situation Comment: lives at home with Feels Safe at Home: Yes Assistive Devices: Glasses Review of Systems 2 Review of Systems: All systems reviewed & are unremarkable except as noted in Subjective Physical Exam 2 Physical Exam: General: No acute distress Skin: Warm and dry; no streaking or open wounds, L foot edematous and erythematous, no open wounds, healed excoriation LLE anterior aspect of calf not erythematous or edematous (see image) Head: Normocephalic, atraumatic Eyes: PERRL, conjunctivae clear, sclera non-icteric ENT: External ear and ear canal without swelling; nose atraumatic; good dentition, tongue normal appearance, pharynx normal Neck: Supple, no LAD Cardio: Tachycardic, regular rhythm, no M/G/R, S1 and S2 normal Resp: No respiratory distress, Lungs CTA in all lobes bilaterally, no wheezes, rales, or rhonchi Abdomen: Soft, symmetric, nontender; No masses or hepatosplenomegaly; Bowel sounds normoactive MSK: No deformities; pulses palpable and equal; Edema and erythema LLE top of foot to ankle, no edema elsewhere. Neuro: Awake, alert; Sensation intact bilaterally; CN grossly intact Psych: Appropriate mood and affect; good judgement and insight; Where "[facility]", when "April 11, 2025... ", President "Ashkan". , Ngoc, present in room at time of visit. Results & Data Results & Data Vital Signs (Past 12 Hours) Vital Signs Temp Pulse Pulse Resp BP BP Pulse Ox 04/11/25 22:27 126 H 30 H 130/98 98 04/11/25 21:06 37.9 C H 144 H 30 H 130/98 95 04/11/25 19:51 149 H 04/11/25 19:32 36.9 C 163 H 20 142/81 H 93 O2 Del Method 04/11/25 22:27 04/11/25 21:06 Room Air 04/11/25 19:51 04/11/25 19:32 Room Air Laboratory Results 04/11/25 20:00 Aerobic Blood Culture - Pending Blood Anaerobic Blood Culture - Pending 04/11/25 19:50 Aerobic Blood Culture - Pending Blood Anaerobic Blood Culture - Pending 04/11/25 04/11/25 04/11/25 22:21 21:15 19:59 WBC RBC Hgb Hct MCV MCH MCHC RDW Std Deviation RDW Coeff of [place] Plt Count MPV Immature Gran % (Auto) Neut % (Auto) Lymph % (Auto) Peach % (Auto) Eos % (Auto) Baso % (Auto) Neut # (Auto) Lymph # (Auto) Peach # (Auto) Eos # (Auto) Baso # (Auto) Immature Gran # (Auto) Sodium Potassium Chloride Carbon Dioxide Anion Gap BUN Creatinine Est Cr Clr Drug Dosing eGFR BUN/Creatinine Ratio Glucose Lactate 1.5 2.3 H* Calcium Magnesium Total Bilirubin Direct Bilirubin AST ALT Alkaline Phosphatase Troponin I High Sens Total Protein Albumin Procalcitonin Nasal Screen MRSA (PCR) Positive A 04/11/25 19:50 WBC 14.76 H RBC 5.54 Hgb 16.1 Hct 46.8 MCV 84.5 MCH 29.1 MCHC 34.4 RDW Std Deviation 46.1 RDW Coeff of [place] 15.9 H Plt Count 119 L MPV 9.7 Immature Gran % (Auto) 3.7 Neut % (Auto) 83.6 Lymph % (Auto) 2.2 Peach % (Auto) 10.3 Eos % (Auto) 0.0 Baso % (Auto) 0.2 Neut # (Auto) 12.34 H Lymph # (Auto) 0.32 L Peach # (Auto) 1.52 H Eos # (Auto) 0.00 Baso # (Auto) 0.03 Immature Gran # (Auto) 0.55 H Sodium 131 L Potassium 4.3 Chloride 97 L Carbon Dioxide 17 L Anion Gap 17 H BUN 29 H Creatinine 1.01 Est Cr Clr Drug Dosing 74.8 eGFR 82.53 BUN/Creatinine Ratio 28.7 H Glucose 196 H Lactate Calcium 10.2 Magnesium 2.2 Total Bilirubin 1.3 H Direct Bilirubin 0.4 H AST 24 ALT 22 Alkaline Phosphatase 96 Troponin I High Sens 36.7 H Total Protein 8.1 Albumin 4.2 Procalcitonin 11.20 H Nasal Screen MRSA (PCR) Diagnostic Findings Chest X-Ray 04/11/25 19:40 Exam(s): XR CXR 1 VIEW EXAM: XR Chest, 1 View CLINICAL HISTORY: Reason for exam: Sepsis. TECHNIQUE: Frontal view of the chest. COMPARISON: Chest radiograph on 02/05/2025 FINDINGS: Hardware: None. Lungs/pleura: Left basilar opacity. No pleural effusion or pneumothorax. Heart/mediastinum: Normal. No cardiomegaly. Soft tissues: Unremarkable. Bones: No acute fracture. Upper abdomen: Normal. IMPRESSION: Left basilar opacity may represent atelectasis. Infectious/inflammatory process is not excluded. Electronically signed by: Mark Douglas M.D. 04/11/25 21:[address] 04/11/25 20:04 Exam(s): CT LEFT FOOT With Contrast EXAM: CT Left Lower Extremity With Intravenous Contrast, Foot CLINICAL HISTORY: Reason for exam: eval fo nec fasc. TECHNIQUE: Axial computed tomography images of the left foot with intravenous contrast. CTDI is 6.6 mGy and DLP is 379.19 mGy-cm. Automated exposure control was utilized for the study. A dose lowering technique was utilized adhering to the principles of ALARA. COMPARISON: None FINDINGS: Bones/joints: Plantar calcaneal spur. No acute fracture. No dislocation. No bony lesion to suggest osteomyelitis. Soft tissues: Soft tissue swelling and fat stranding throughout the visualized left ankle and foot. No discrete abscess or soft tissue gas. No radiopaque foreign body. IMPRESSION: 1. No bony lesion to suggest osteomyelitis. 2. Soft tissue swelling and fat stranding throughout the visualized left ankle and foot. No discrete abscess or soft tissue gas. Electronically signed by: Mark Douglas M.D. 04/11/25 20:[address] 04/11/25 20:04 Exam(s): CT EXTREMITY LEFT LOWER With Contrast IV Amt: 90ml [id number] EXAM: CT Left Lower Extremity With Intravenous Contrast CLINICAL HISTORY: Reason for exam: eval for nec fasc. TECHNIQUE: Axial computed tomography images of the left lower extremity with intravenous contrast. CTDI is 6.6 mGy and DLP is 379.19 mGy-cm. Automated exposure control was utilized for the study. A dose lowering technique was utilized adhering to the principles of ALARA. CONTRAST: Patient received 90ml [id number] of IV contrast COMPARISON: None FINDINGS: Bones/joints: Mild chondrocalcinosis in the medial and lateral compartments of the left knee. Small bone island in the lateral femoral condyle. No bony lesion to suggest osteomyelitis. No acute fracture or dislocation. Soft tissues: Soft tissue swelling and fat stranding in the distal left lower leg and ankle. No abscess or soft tissue gas identified. IMPRESSION: 1. No bony lesion to suggest osteomyelitis. 2. Soft tissue swelling and fat stranding in the distal left lower leg and ankle. No abscess or soft tissue gas identified. Electronically signed by: Mark Douglas M.D. 04/11/25 21:12 PM Medications Administered Zosyn 4.5 g IV Acetaminophen 1 g IV Vancomycin 2250 mg IV Clindamycin 900 mg IV Plasma-Lyte 1L ECG Additional Comments: Sinus tachycardia 149 bpm, NC 138, QRS 74, QT/QTc 240/370, PRT 53/40/54 Code Status & VTE Plan Code Status Full Supervising Physician Co-Signing Physician Notes Attending addendum: I have physically seen this patient, have supervised the RAOUL's activities, and agree with the H&P unless as otherwise noted. Assessment and Plan: The patient is a 65-year-old male with a past medical history including CAD status post CHELSEY 2015, hyperlipidemia, angina, diabetes mellitus type 2, hypertension, GERD, prior duodenal Ulcer with hemorrhage. Most recent hospitalization from 02/05-02/06 for NSTEMI. He presents to the emergency department due to altered mental status, and concerns regarding left foot and ankle pain and redness and swelling. Sepsis due to cellulitis/and gout- Patient is MRSA positive Blood cultures are pending Left lower extremity CT with no signs of osteomyelitis, abscess or gas. There is soft tissue swelling. Patient with severe pain with light touch, suggestive of underlying gout process. LR at 100 mL/h Colchicine 0.6 mg p.o. twice daily Vancomycin IV per pharmacokinetic monitoring Zosyn 4.5 g IV every 8 hours Elevated troponin/CAD/history of NSTEMI/hypertension- Initial troponin of 36.7 with follow-up 40.8, likely supply/demand mismatch/secondary to increased heart rate Most recent echo on 02/06/2025 with EF 65-70% Tachycardia likely secondary to sepsis and dehydration Continue metoprolol tartrate, Plavix, Hold lisinopril due to borderline low blood pressure Continue IV fluid resuscitation, as increased heart rate is likely in part secondary to volume depletion and sepsis Diabetes mellitus type 2- Hold Jardiance A1c on 02/03 was 8.4 Accu-Cheks with sliding scale noted Hyperlipidemia- Continue atorvastatin Check a fasting lipid panel GERD- Continue pantoprazole Remaining orders and notations as noted PG Care Time/CCT Total # of Minutes Spent Total Time Spent with Patient: Total time spent is greater than 50% in coordination of care (as documented) at patient's floor/unit and/or counseling patient: Coding Level of Care Code 58371 INT INP/OBS CARE 3/75MIN Diagnoses Cellulitis L03.90 Sepsis A41.9 Elevated troponin R79.89 Hyponatremia E87.1
[2025-04-12 00:13] LABS: Uric Acid 6.4 mg/dl (2.6-7.2)
[2025-04-12] MEDS ORDERED: GLUCOSE 10 TAB/TUBE PO PRN (01:20)
[2025-04-12] MEDS ORDERED: POLYETHYLENE (MIRALAX) 17 GM PACK PO PRN (01:20)
[2025-04-12] MEDS ORDERED: CARBOHYDRATES FOR HYPOGLYCEMIA PO PRN (01:20)
[2025-04-12] MEDS ORDERED: ONDANSETRON INJ 2 MG/ML 2 ML VIAL IV PRN (01:20)
[2025-04-12] MEDS ORDERED: GLUCAGON FOR INJ 1 MG VIAL SQ PRN (01:20)
[2025-04-12] MEDS ORDERED: GLUCOSE 40% GEL 15 GM TUBE PO PRN (01:20)
[2025-04-12] MEDS ORDERED: DEXTROSE 50% 50 ML SYRINGE IV PRN (01:20)
--- NOTE | 2025-04-12 01:44 | Pharmacy Report ---
Pharmacy PK ABX Note - Date of Service April 12, 2025 - Assessment and Plan Assessment 65 year old M receiving vancomycin/Zosyn for treatment of left foot edema/pain (cellulitis vs gout) and sepsis. Pertinent microbiologic data includes: Positive MRSA Nasal Swab, blood cultures pending. WBC, lactate, procal, and CRP elevated. Uric acid WNL. Day # 1 of antimicrobial therapy. Plan Vancomycin * Loading dose: 2250 mg IV x 1 * Maintenance dose: 1000 mg IV every 12 hours * Regimen is predicted to achieve target AUC/VALERIE of 400-600 mg/L.hr * Random level ordered for: 04/12/25 with AM labs Pharmacy will continue to follow and will adjust dose/frequency as necessary. Thank you. Pharmacy has transitioned to AUC monitoring for vancomycin. AUC/VALERIE is the preferred PK/PD target and is associated with decreased risk of nephrotoxicity compared to traditional trough targets.
[2025-04-12] MEDS: COLCHICINE 0.6 MG TAB PO SCH (02:15)
[2025-04-12] MEDS: PIPERACILLIN/TAZOBACTAM 4.5 GM/100 ML BAG IV SCH (02:15)
[2025-04-12] MEDS: LACTATED RINGER'S 1,000 ML IV SCH (02:15)
[2025-04-12] MEDS: METOPROLOL TARTRATE 25 MG TAB PO STA (03:42)
[2025-04-12 06:15] LABS: A calco-baum cmplx NotReported Not Detected (NotDetected); Bact fragilis Not Reported Not Detected (NotDetected); Blood Culture Id Panel See PCR Comment (NotDetected); C auris Not Reported Not Detected (NotDetected); Calbicans Not Reported Not Detected (NotDetected); Candida glabrata Not Reported Not Detected (NotDetected); Candida krusei Not Reported Not Detected (NotDetected); Cneoformans/gatti Not Reported Not Detected (NotDetected); Cparapsilosis Not Reported Not Detected (NotDetected); Ctropicalis Not Reported Not Detected (NotDetected); E cloacae compx Not Reported Not Detected (NotDetected); Efaecalis Not Reported Not Detected (NotDetected); Efaecium Not Reported Not Detected (NotDetected); Enterobacterales Not Reported Not Detected (NotDetected); Escherichia coli Not Reported Not Detected (NotDetected); H influenzae Not Reported Not Detected (NotDetected); K aerogenes Not Reported Not Detected (NotDetected); Koxytoca Not Reported Not Detected (NotDetected); Kpneumoniae grp Not Reported Not Detected (NotDetected); Lmonocyt Not Reported Not Detected (NotDetected); N meningitidis Not Reported Not Detected (NotDetected); P aeruginosa Not Reported Not Detected (NotDetected); Proteus spp Not Reported Not Detected (NotDetected); Salmonella spp Not Reported Not Detected (NotDetected); Staph lugdunensis Not Reported Not Detected (NotDetected); Staph spp. Not Reported DETECTED (NotDetected); Staphaureus Not Reported DETECTED (NotDetected); Staphepi Not Reported Not Detected (NotDetected); Staphylococcus spp. DETECTED (NotDetected); Stenmaltophilia Not Reported Not Detected (NotDetected); Strep agal(GrpB) Not Reported Not Detected (NotDetected); Strep pneum Not Reported Not Detected (NotDetected); Strep pyog (GrpA) Not Reported Not Detected (NotDetected); Strep spp Not Reported Not Detected (NotDetected)
[2025-04-12 06:25] LABS: mecAC+MREJ Resistant Gene MRSA DETECTED (NotDetected)
[2025-04-12] MEDS: SODIUM BICARB 8.4% INJ 50 MEQ/50 ML SYR IV STA (06:29)
[2025-04-12] MEDS: LACTATED RINGER'S 1,000 ML IV ONE (06:30)
[2025-04-12 06:38] LABS: Hematocrit (blood only) 40.6 % (42.0-52.0); Hemoglobin 14.3 g/dl (14.0-18.0); Mean Corpuscular Hemoglobin 29.5 pg (25.0-34.0); Mean Corpuscular Volume 83.7 fL (80.0-100.0); Platelet Count 103 K/uL (130-400); RDW Standard Deviation 45.4 fL (36.4-46.3); Red Blood Count 4.85 M/uL (4.70-6.10); White Blood Count 12.71 K/ul (4.8-10.8)
[2025-04-12 07:23] LABS: Anion Gap 13.0 (3-11); Blood Urea Nitrogen 22.0 mg/dl (6-23); Calcium 9.0 mg/dl (8.6-10.3); Carbon Dioxide 20.0 mmol/L (21-32); Chloride 102.0 mmol/L (98-107); Creatinine Clr Calc Pharmacy 102.9 ml/min; Glucose 174.0 mg/dl (70-99(Fasting)); Potassium 4.0 mmol/L (3.5-5.1); Sodium 135.0 mmol/L (136-145)
[2025-04-12] MEDS: METOPROLOL TARTRATE 1 MG/ML VIAL IV STA (08:19)
[2025-04-12] MEDS: VANCOMYCIN HCL / NSS 1,000 MG/270 ML BAG IV SCH (08:55)
[2025-04-12] MEDS: INSULIN ASPART PER UNIT CHARGE SC SCH (08:56)
[2025-04-12] MEDS: CLOPIDOGREL BISULFATE 75 MG TAB PO SCH (08:56)
[2025-04-12] MEDS ORDERED: METOPROLOL TARTRATE 25 MG TAB PO SCH (09:00)
[2025-04-12] MEDS: METOPROLOL TARTRATE 50 MG TAB PO SCH (09:31)
[2025-04-12] MEDS: ACETAMINOPHEN 325 MG TAB PO PRN (10:47)
[2025-04-12] MEDS: PSYLLIUM HUSK 4GM PACKET PO SCH (13:00)
--- NOTE | 2025-04-12 13:14 | Hospitalist Progress Note ---
Date of Service April 12, 2025 Assessment & Plan (1) Cellulitis: Plan: Left foot. Currently on intravenous Zosyn and vancomycin, day 2. Improving according to the patient (2) Bacteremia: Plan: Gram-positive cocci isolated. Uncertain if this is pathogen or contaminant. Await sensitivities and identification. Continue intravenous Zosyn and vancomycin for now. (3) Sepsis: Plan: Present on admission. Fortunately he did not require vasopressor support (4) Elevated troponin: Plan: Along with sinus tachycardia. No evidence of acute coronary syndrome. No chest pain. Metoprolol dosage has been uptitrated today, April 12 (5) Hyponatremia: Plan: Mild on admission. Will follow Plan To be determined by blood culture results. Hopefully he can return home soon Admission and Anticipated Discharge Date Admission Date: April 11, 2025 Subjective The patient states the pain in his left foot has diminished since admission. is at the bedside. Clinical condition appears to be cellulitis. No evidence of acute gout. Colchicine has been discontinued. Blood cultures are positive for gram-positive cocci. Awaiting final identification to do to determine if this is a contaminant or actual pathogen. He remains on intravenous Zosyn and vancomycin for now, day 2. Blood pressure and heart rate remain elevated. Intravenous metoprolol administered this morning and oral metoprolol dosage uptitrated. He is having some loose stools which will be treated with Metamucil. Probably antibiotic related diarrhea. If loose stools persist, then stool BioFire will be obtained. Review of Systems 2 Review of Systems: Constitutionalno fever or chills ENTno blurred vision, no double vision, no epistaxis, no sore throat Respiratoryno cough, no wheezing, no shortness of breath Cardiacno palpitations, no chest pain, no syncope Delon nausea, vomiting, melena, hematochezia. He does have loose stools GUno urinary retention, no urinary incontinence, no dysuria, no hematuria Musculoskeletalleft foot discomfort, erythema, tenderness have diminished since admission according to the patient. No joint pain, no muscle tenderness Skinno bruising, no rashes, no pruritus Neurono isolated weakness, no paresthesia, no weakness Psychno depression, no anxiety Physical Exam 2 Physical Exam: General-alert and oriented x3, no fever, no chills HEENT-head atraumatic and normocephalic, pupils equal and reactive to light, extraocular muscles intact Neck-no lymphadenopathy or thyromegaly, trachea midline Chest-clear to auscultation. No rales, wheezing or rhonchi Cardiac-regular rate and rhythm, normal S1 and S2 Abdomen-normal bowel sounds, no hepatosplenomegaly Extremities-left foot dorsal erythema and tenderness. No evidence of podagra Neuro-cranial nerves II through XII intact, motor and sensory function within normal limits, strength symmetrical, no focal deficits Psych-flat affect Results & Data Results & Data Vital Signs (Past 12 Hours) Vital Signs Temp Pulse Pulse Resp BP Pulse Ox O2 Del Method 04/12/25 10:40 38.1 C H 110 H 19 129/77 93 Room Air 04/12/25 08:33 118 H 04/12/25 08:19 132 H 04/12/25 07:54 36.9 C 125 H 20 159/41 H 98 Room Air 04/12/25 07:00 132 H 04/12/25 02:24 144 H 138/82 04/12/25 01:15 139 H 04/12/25 01:10 37.7 C H 132 H 19 129/81 96 Room Air Laboratory Results 04/12/25 05:45 04/12/25 05:45 PG Care Time/CCT Total # of Minutes Spent Total Time Spent with Patient: Total time spent is greater than 50% in coordination of care (as documented) at patient's floor/unit and/or counseling patient: Coding Level of Care Code 61961 SUB INP/OBS CARE 3/50MIN Diagnoses Cellulitis L03.90 Bacteremia R78.81 Sepsis A41.9 Elevated troponin R79.89 Hyponatremia E87.1
[2025-04-12] MEDS: VANCOMYCIN HCL 1,250 MG in SODIUM CHLORIDE 0.9% 250 ML IV SCH (21:00)
[2025-04-12] MEDS: ATORVASTATIN 40 MG TAB PO SCH (21:01)
--- NOTE | 2025-04-12 22:36 | Electrocardiogram Report ---
Test Reason : Blood Pressure : */* mmHG Vent. Rate : 149 BPM Atrial Rate : 149 BPM P-R Int : 138 ms QRS Dur : 74 ms QT Int : 240 ms P-R-T Axes : 53 40 54 degrees QTcB Int : 378 ms Sinus tachycardia Otherwise normal ECG When compared with ECG of 05-Feb-2025 23:58, Vent. rate has increased by 88 bpm Confirmed by Saud Huber ([id number]) on 04/12/2025 10:35:56 PM Referred By: REFERRED SELF Confirmed By: Saud Huber
[2025-04-13 06:05] LABS: Anion Gap 7.0 (3-11); Blood Urea Nitrogen 19.0 mg/dl (6-23); Calcium 8.1 mg/dl (8.6-10.3); Carbon Dioxide 23.0 mmol/L (21-32); Chloride 99.0 mmol/L (98-107); Creatinine Clr Calc Pharmacy 123.4 ml/min; Glucose 168.0 mg/dl (70-99(Fasting)); Potassium 3.4 mmol/L (3.5-5.1); Sodium 129.0 mmol/L (136-145)
[2025-04-13 06:18] LABS: Hematocrit (blood only) 35.1 % (42.0-52.0); Hemoglobin 12.3 g/dl (14.0-18.0); Mean Corpuscular Hemoglobin 29.6 pg (25.0-34.0); Mean Corpuscular Volume 84.4 fL (80.0-100.0); Platelet Count 88 K/uL (130-400); RDW Standard Deviation 43.8 fL (36.4-46.3); Red Blood Count 4.16 M/uL (4.70-6.10); White Blood Count 9.27 K/ul (4.8-10.8)
[2025-04-13 06:20] LABS: Dohle Bodies 1+; Immature Granulocytes # (auto) 0.04 K/uL (0.01-0.20); Immature Granulocytes % (auto) 0.4 %; Polychromasia 1+; Toxic Granulation 1+
[2025-04-13] MEDS: VANCOMYCIN LEVEL ONE (08:44)
--- NOTE | 2025-04-13 11:35 | Pharmacy Report ---
Pharmacy PK ABX Note - Date of Service April 13, 2025 - Assessment and Plan Assessment * 65 year old M receiving vancomycin for treatment of sepsis and MRSA bacteremia likely 2nd cellulitis. * Pertinent microbiologic data includes: blood cultures 2/2 positive for GPC, BCID2 positive for MRSA * Random vancomycin level this AM significantly subtherapeutic with estimated AUC in 24-48 hours of 296 mg/L.hr. * Questionable etiology of this low level as estimation of AUC in 24-48 hours via Bayesian software yesterday at the current dose was 538 mg/L.hr w steady state AUC of 572 mg/L.hr. * SCr decrease not likely significant enough to have likely been the cause. * Possible altered patient specific pharmacokinetics and/or hypermetabolic state. * Error (compounding or administration) less likely but can't be excluded. * Will significantly increase vancomycin and continue to use Bayesian software as a dose guide. However, given poor prior anticipation and intermediate fit, will only give two additional doses prior to rechecking a level. Ongoing, frequent level checks will likely be indicated to help balance ensuring therapeutic levels given bacteremia but also avoiding supratherapeutic levels given significant dose increase and concern for an intermediate fit. Plan Vancomycin * Target AUC/VALERIE of 400-600 mg/L.hr * Increase vancomycin to 1500 mg IV every 8 hours. AUC at 24-48 hours anticipated to be 495 mg/L.hr with steady state AUC of 542 mg/L.hr. * Random level ordered for: 04/14/25 @ 0630 Pharmacy will continue to follow and will adjust dose/frequency as necessary. Thank you. Pharmacy has transitioned to AUC monitoring for vancomycin. AUC/VALERIE is the preferred PK/PD target and is associated with decreased risk of nephrotoxicity compared to traditional trough targets.
[2025-04-13] MEDS: NSS + 20MEQ KCL 20 MEQ/1,000 ML BAG IV SCH (11:50)
--- NOTE | 2025-04-13 12:47 | Hospitalist Progress Note ---
Date of Service April 13, 2025 Assessment & Plan (1) Cellulitis: Plan: Left foot. Probably has staph infection. Continue vancomycin, day 3. Zosyn has been discontinued. Improving according to the patient (2) Bacteremia: Plan: Staph aureus isolated. Sensitivities are pending. Continue vancomycin. Discontinue Zosyn. Will consult infectious disease. Repeat blood cultures and DANIELLE DANIELLE ordered. (3) Sepsis: Plan: Present on admission. Fortunately he did not require vasopressor support. Now resolved (4) Elevated troponin: Plan: Along with sinus tachycardia. No evidence of acute coronary syndrome. No chest pain. Metoprolol dosage has been started. (5) Hyponatremia: Plan: Mild on admission. Serum osmolality ordered and pending. Will follow Plan Eventual discharge to home. Anticipate probability of PICC line placement and ongoing IV antibiotic therapy. Will await infectious disease recommendations. Admission and Anticipated Discharge Date Admission Date: April 11, 2025 Subjective Alert and oriented. No distress. is at the bedside. Gram-positive coccus in the blood has been identified as staph RES. Sensitivities are pending. Zosyn discontinued. Continue vancomycin for now. TTE ordered along with infectious disease consult. IV fluids switched to normal saline with potassium at a lower rate. Platelet count has dropped slightly due to sepsis. Will follow Review of Systems 2 Review of Systems: Constitutionalno fever or chills ENTno blurred vision, no double vision, no epistaxis, no sore throat Respiratoryno cough, no wheezing, no shortness of breath Cardiacno palpitations, no chest pain, no syncope Delon nausea, vomiting, melena, hematochezia. He does have loose stools GUno urinary retention, no urinary incontinence, no dysuria, no hematuria Musculoskeletalleft foot discomfort has improved, erythema has improved, tenderness has improved since admission according to the patient. No joint pain, no muscle tenderness Skinno bruising, no rashes, no pruritus Neurono isolated weakness, no paresthesia, no weakness Psychno depression, no anxiety Physical Exam 2 Physical Exam: General-alert and oriented x3, no fever, no chills HEENT-head atraumatic and normocephalic, pupils equal and reactive to light, extraocular muscles intact Neck-no lymphadenopathy or thyromegaly, trachea midline Chest-clear to auscultation. No rales, wheezing or rhonchi Cardiac-regular rate and rhythm, normal S1 and S2 Abdomen-normal bowel sounds, no hepatosplenomegaly Extremities-left foot dorsal erythema and mild tenderness. No evidence of podagra Neuro-cranial nerves II through XII intact, motor and sensory function within normal limits, strength symmetrical, no focal deficits Psych-flat affect Results & Data Results & Data Vital Signs (Past 12 Hours) Vital Signs Temp Pulse Resp BP Pulse Ox O2 Del Method 04/13/25 11:58 37.0 C 85 17 135/81 95 Room Air 04/13/25 07:47 36.9 C 109 H 19 129/76 93 Room Air 04/13/25 02:30 36.8 C 108 H 18 128/71 96 Room Air Laboratory Results 04/13/25 05:26 04/13/25 05:26 PG Care Time/CCT Total # of Minutes Spent Total Time Spent with Patient: Total time spent is greater than 50% in coordination of care (as documented) at patient's floor/unit and/or counseling patient: Coding Level of Care Code 54153 SUB INP/OBS CARE 3/50MIN Diagnoses Cellulitis L03.90 Bacteremia R78.81 Sepsis A41.9 Elevated troponin R79.89 Hyponatremia E87.1
[2025-04-13] MEDS: VANCOMYCIN HCL 1,500 MG in SODIUM CHLORIDE 0.9% 500 ML IV SCH (16:22)
--- NOTE | 2025-04-13 16:47 | XCELERA ---
[id number]
[2025-04-14 07:28] LABS: Hematocrit (blood only) 35.9 % (42.0-52.0); Hemoglobin 12.5 g/dl (14.0-18.0); Mean Corpuscular Hemoglobin 29.5 pg (25.0-34.0); Mean Corpuscular Volume 84.7 fL (80.0-100.0); RDW Standard Deviation 42.5 fL (36.4-46.3); Red Blood Count 4.24 M/uL (4.70-6.10); White Blood Count 7.75 K/ul (4.8-10.8)
[2025-04-14 07:41] LABS: Anion Gap 4.0 (3-11); Blood Urea Nitrogen 17.0 mg/dl (6-23); Calcium 7.8 mg/dl (8.6-10.3); Carbon Dioxide 25.0 mmol/L (21-32); Chloride 102.0 mmol/L (98-107); Creatinine Clr Calc Pharmacy 152.6 ml/min; Glucose 165.0 mg/dl (70-99(Fasting)); Potassium 4.0 mmol/L (3.5-5.1); Sodium 131.0 mmol/L (136-145)
[2025-04-14 07:51] LABS: Platelet Count 70 K/uL (130-400)
[2025-04-14] MEDS ORDERED: VANCOMYCIN LEVEL ONE (08:00)
[2025-04-14 08:04] LABS: ALC (manual) 0.16 K/uL (1.2-3.4); ANC (manual) 6.90 K/uL (1.4-6.5); Acanthocytes 1+; Dohle Bodies 1+; Polychromasia 1+; Toxic Granulation 2+; Toxic Vacuolation 2+
[2025-04-14] MEDS: VANCOMYCIN HCL 1,750 MG in SODIUM CHLORIDE 0.9% 500 ML IV SCH (08:28)
--- NOTE | 2025-04-14 08:46 | Hospitalist Progress Note ---
"Date of Service April 14, 2025 Assessment & Plan (1) Cellulitis: (2) Sepsis: (3) Bacteremia: (4) Elevated troponin: (5) Hyponatremia: (6) Diarrhea: (7) Diabetes mellitus, type 2: (8) CAD (coronary artery disease): (9) Hypertension: (10) GERD (gastroesophageal reflux disease): Plan 65-year-old male PMHx CAD s/p CHELSEY 2016, HLD, angina, T2DM, HTN, GERD, and prior duodenal ulcer with hemorrhage with most recent hospital admission 02/05/2025 until 02/06/2025 for NSTEMI who is presenting now for concerns of infection and altered mental status. #Cellulitis of L foot | Bacteremia | Sepsis - Hx of Bilat TKA - no additional hardware; MRSA (+) in ED; BC on 04/11 (+) for MRSA; CT on 04/11 negative for osteomyelitis, demonstrated soft tissue swelling and fat stranding throughout the left ankle and foot. No discrete abscesses or soft tissue gas. Echo 04/13 - WNL LV size & systolic function w/ EF 60-65%; no regional wall abnormalities. Abnormal septal motion consistent with prior cardiac surgery. Borderline dilated RV w/ mildly reduced systolic function. Mild Lt atrial dilation. Sclerotic aortic valve w/out significant stenosis. Probable mitral valve annuloplasty ring w/out significant regurgitation. Moderate pulmonary hypertension. No visualized valvular vegetations - technically difficult study. RVSP no moderately elevated compared to study done 02/06/25. -Consult ID -Repeat BC 04/13 - preliminary results: (+) gram pos cocci clusters -Additional Repeat BC 04/14 - pending -Continue IV Vancomycin -- Pharmacy following dosing; pt clearing Vacno quickly; frequent repeats of Vacno levels -Acetaminophen prn fever/pain -CBC, BMP in am -PT/OT eval and treat #Elevated Troponin - RESOLVED; was 36.7 initially in ED, most likely d/t tachycardia/cardiac demand #Hyponatremia | Hypocalcemia - Vit D on 04/13 24.6 -Discontinue IV fluids -Trend Serum Sodium -Start Vitamin D #Diarrhea - [id number], per pt -Continue Metamucil; consider Cdiff if continued/worsening sx #T2DM - no acute concerns; HbA1c 01/2025 8.4% -HOLD Jardiance -SSI with target BSG range 110-140mg/dL, CF 30, carb ratio 15 #CAD - no acute concerns -Continue Plavix #HTN - no acute concerns -HOLD Lisinopril -Continue metoprolol #GERD - no acute concerns -Continue pantoprazole Dispo: Continue PCU - awaiting cultures + ID consult VTE Proph: Sameer Mckeon Admission and Anticipated Discharge Date Admission Date: April 11, 2025 Subjective Pt was sitting in chair at bedside in [facility]. Pt notes that he's feeling less 'sick' than he was before but notes that he feels the redness on his foot looks worse than before. He notes that its become extremely difficult to ambulate around the room and that he needs great support from nursing staff; this was confirmed by his nurse. Pt denies any pain extending up into his rosa or in surrounding joints. Pt states that he is now able to bend his L knee which was extremely difficult for him before. He admits to having a decreased appetite over the past week. Pt states that he doesn't recall any recent injuries/falls/scrapes recently in the affected area. Pt denies: chills, sore thoat, CP, SOB, abd pain, nausea, joint pain, changes in bladder habits. Pt notes that he has additionally been having some diarrhea; he notes that he has a BM EOD and that they are 'messy'. He denies frequent, voluminous BMs. Cardiac Telemetry: Sinus Tach Review of Systems 2 Review of Systems: All systems reviewed & are unremarkable except as noted in Subjective Physical Exam 2 Physical Exam: General: Pt is a 65 y/o obese male in NAD in bed. VS: reviewed as above Skin: Erythema surrounding L ankle that extends circumferentially towards toes, no lesions/breaks in skin seen; skin is otherwise warm and dry; no lesions or ulcerations Respiratory: CTA bilat, no adventitious sounds noted. Chest expansion is full and symmetrical Cardio: RRR no murmurs Abdomen: Round, normoactive BS x4, nontender to palpation MSK: Pain with light pressure of L foot; no pain when palpating anterior LLE; Reduced ROM L knee, improving from admission - per pt; Pt struggles to bear weight, unable to ambulate on his own. FROM of extremities otherwise, no deformities noted Extremities: +3 pitting edema of LLE that extends up to just below the knee; RLE w/out edema; no clubbing/cyanosis bilat Neuro: A&Ox3, cooperative Results & Data Results & Data Vital Signs (Past 12 Hours) Vital Signs Temp Pulse Pulse Resp BP Pulse Ox O2 Del Method 04/14/25 07:45 98.1 F 88 20 138/77 95 Room Air 04/14/25 07:00 91 H 04/14/25 03:15 98.6 F 86 24 127/83 93 Room Air 04/14/25 00:14 85 138/87 94 Room Air 04/13/25 21:41 100 H Laboratory Results Reviewed: CBC, BMP Diagnostic Findings Reviewed: Echo PG Care Time/CCT Total # of Minutes Spent Total Time Spent with Patient: Total time spent is greater than 50% in coordination of care (as documented) at patient's floor/unit and/or counseling patient: Coding Level of Care Code 59798 SUB INP/OBS CARE 3/50MIN Diagnoses Cellulitis L03.90 Sepsis A41.9 Bacteremia R78.81 Elevated troponin R79.89 Hyponatremia E87.1 Diarrhea R19.7 Diabetes mellitus, type 2 E11.9 CAD (coronary artery disease) I25.10 Hypertension I10 GERD (gastroesophageal reflux disease) K21.9"
--- NOTE | 2025-04-14 09:06 | Pharmacy Report ---
Pharmacy PK ABX Note - Date of Service April 14, 2025 - Assessment and Plan Assessment 04/14 * Random vancomycin level this AM was ~10.9 mcg/ml - appears patient is clearing vancomycin very quickly based upon levels obtained. Repeat blood cultures now with GM+ cocci. Will increase to 1750 mg iv q 8 hours to maintain AUC/VALERIE 400- 600. Will continue closer monitoring and obtain another level tomorrow AM to ensure regimen is appropriate. 04/13 * 65 year old M receiving vancomycin for treatment of sepsis and MRSA bacteremia likely 2nd cellulitis. * Pertinent microbiologic data includes: blood cultures 07/14 positive for GPC, BCID2 positive for MRSA * Random vancomycin level this AM significantly subtherapeutic with estimated AUC in 24-48 hours of 296 mg/L.hr. * Questionable etiology of this low level as estimation of AUC in 24-48 hours via Bayesian software yesterday at the current dose was 538 mg/L.hr w steady state AUC of 572 mg/L.hr. * SCr decrease not likely significant enough to have likely been the cause. * Possible altered patient specific pharmacokinetics and/or hypermetabolic state. * Error (compounding or administration) less likely but can't be excluded. * Will significantly increase vancomycin and continue to use Bayesian software as a dose guide. However, given poor prior anticipation and intermediate fit, will only give two additional doses prior to rechecking a level. Ongoing, frequent level checks will likely be indicated to help balance ensuring therapeutic levels given bacteremia but also avoiding supratherapeutic levels given significant dose increase and concern for an intermediate fit. Plan Vancomycin * Increase to 1750 mg iv q 8 hours * Will plan to collect another level tomorrow AM to ensure regimen appropriate Pharmacy will continue to follow and will adjust dose/frequency as necessary. Thank you. Pharmacy has transitioned to AUC monitoring for vancomycin. AUC/VALERIE is the preferred PK/PD target and is associated with decreased risk of nephrotoxicity compared to traditional trough targets.
--- NOTE | 2025-04-14 13:57 | Infectious Disease Consult ---
Date of Consultation April 14, 2025 Assessment & Plan (1) Cellulitis: (2) Bacteremia: (3) Sepsis: Plan This is a 65-year-old man with a past medical history of CAD status post stents, HLD, DM2, GERD, duodenal ulcer with hemorrhage, recently admitted 02/05/2025 - 02/06/2025 for NSTEMI presented to the ED on 04/11 with worsening left foot edema, erythema and pain. also endorsed he had some confusion. Approximately 4 days prior to admission he woke up with acute onset of left foot swelling and pain. Denied any known trauma to the foot or wounds. He was evaluated by orthopedics outpatient at [facility]. Placed in a walking boot. He continued to have left foot pain with associated chills,shakes and subjective fevers. No nausea, vomiting, shortness of breath, chest pain. He had difficulty placing pressure on the foot. His pain worsened prompting evaluation in the ED. He has a right knee TKA but no issues at that site. Admission temperature 37.9. Tmax 39.2. Labs: WBC 14.76, platelets 119-->70, BUN 29, creatinine 1.01, CRP 38.84, ESR 36. Blood cultures grew MRSA in 3/4 bottles on 04/11. Repeat Blood culture on 04/13 grew GPC in 2/4 bottles pending identification. Chest x-ray demonstrated a left basilar opacity which may represent atelectasis. Left lower extremity and foot CT showed no bony lesions to suggest osteomyelitis. Soft tissue swelling and fat stranding throughout the visualized left ankle and foot. No discrete abscess or soft tissue gas. TTE shows sclerotic aortic valve without significant stenosis. Probable mitral valve annuloplasty ring without significant regurgitation. Moderate pulmonary hypertension. No old visualized valvular vegetations but cannot exclude on transthoracic study. He is on Cefazolin. ID consulted for MRSA bacteremia. Microbiology 04/11 blood culture MRSA 3/4 bottles 04/13 blood culture GPC 2/4 bottles 04/14 blood culture pending Antibiotics Vancomycin resent Clindamycin 04/11 piperacillin/tazobactam # High-grade MRSA bacteremia # sepsis # Left foot skin and soft tissue infection # Right knee TKA # Probable mitral Valve annuloplasty ring on TTE # Thrombocytopenia Discussion- He presents with worsening left foot skin and soft tissue infection (without abscess or osteomyelitis) and associated high-grade MRSA bacteremia. He reports has a right knee TKA but there is no obvious issues on exam at that site. He denies any other hardware however a TTE shows a probable annuloplasty ring of the mitral valve. He remains bacteremic as of 04/13. Source of bacteremia may be the left foot infection, however will need to rule out endocarditis especially in the setting of MVannuloplasty ring seen on TTE. No signs of deep space infection of the left foot. Recommendations -Continue vancomycin per pharmacy protocol for MRSA bacteremia -Repeat blood cultures ordered for today 04/14 -Would pursue a DANIELLE in the setting of annuloplasty ring and high-grade MRSA bacteremia -Monitor for metastatic disease to spine, joints,MANAGER RFID, etc - Will follow for regression or progression of foot erythema. Area marked by telepresenter during our exam. Thank you for this consult. ID will continue to follow. Neto Edwards MD, MPH Infectious Disease [facility] Call [phone] with questions Consultation Information Consultation was provided via telemedicine using two-way real-time interactive telecommunication between the patient and the telemedicine provider. For the duration of the visit, the provider was performing the assessment from a different facility than the patient. This includesuse of bluetooth stethoscope forauscultationperformed by the telepresenter that the telemedicine provider can hear if described in the physical exam. [employer] contact information: Please call [facility] Call Center [phone]. (Phone Number For Physician Use Only) After establishing a telemedicine visit, patient was: Patient was verified with two unique identifiers and Gave permission to continue telehealth session Time Spent with Patient: Initial => 75 min History of Present Illness Reason for Consultation: MRSA bacteremia Requesting Physician: Jose Jiménez MD Attending Physician: Asif Argueta History of Present Illness This is a 65-year-old man with a past medical history of CAD status post stents, HLD, DM2, GERD, duodenal ulcer with hemorrhage, recently admitted 02/05/2025 - 02/06/2025 for NSTEMI presented to the ED on 04/11 with worsening left foot edema, erythema and pain. also endorsed he had some confusion. Approximately 4 days prior to admission he woke up with acute onset of left foot swelling and pain. Denied any known trauma to the foot or wounds. He was evaluated by orthopedics outpatient at [place]. Placed in a walking boot. He continued to have left foot pain with associated chills,shakes and subjective fevers. No nausea, vomiting, shortness of breath, chest pain. He had difficulty placing pressure on the foot. His pain worsened prompting evaluation in the ED. He has a right knee TKA but no issues at that site. Admission temperature 37.9. Tmax 39.2. Labs: WBC 14.76, platelets 119-->70, BUN 29, creatinine 1.01, CRP 38.84, ESR 36. Blood cultures grew MRSA in 3/4 bottles on 04/11. Repeat Blood culture on 04/13 grew GPC in 2/4 bottles pending identification. Chest x-ray demonstrated a left basilar opacity which may represent atelectasis. Left lower extremity and foot CT showed no bony lesions to suggest osteomyelitis. Soft tissue swelling and fat stranding throughout the visualized left ankle and foot. No discrete abscess or soft tissue gas. TTE shows sclerotic aortic valve without significant stenosis. Probable mitral valve annuloplasty ring without significant regurgitation. Moderate pulmonary hypertension. No old visualized valvular vegetations but cannot exclude on transthoracic study. He is on Cefazolin. ID consulted for MRSA bacteremia. Allergies Allergy/AdvReac Type Severity Reaction Status Date / Time metformin Allergy Intermediate Rash Verified 04/11/25 22:13 ether Allergy Unknown Unknown Verified 04/11/25 22:13 NSAIDS (Non-Steroidal AdvReac Intermediate Gastrointestinal Verified 04/11/25 22:13 Anti-Inflamma Upset Home Medications Medication Instructions Recorded Confirmed Type cyanocobalamin (vitamin B-12) 1,000 mcg PO QAM 03/27/23 04/11/25 History 1,000 mcg tablet (Vitamin B-12) empagliflozin 25 mg tablet 25 mg PO QPM 03/27/23 04/11/25 History (Jardiance) multivitamin with minerals-folic 1 tab PO DAILY 04/03/23 04/11/25 History acid 0.4 mg tablet (Adult One Daily Multivitamin) clopidogrel 75 mg tablet 75 mg PO DAILY #90 tabs 02/12/25 04/11/25 Rx metoprolol tartrate 25 mg tablet 25 mg PO BID #180 tabs 02/12/25 04/11/25 Rx atorvastatin 80 mg tablet 80 mg PO HS #90 tabs 03/12/25 04/11/25 Rx lisinopril 20 mg tablet 20 mg PO DAILY #90 tabs 03/12/25 04/11/25 Rx nitroglycerin 0.4 mg sublingual 0.4 mg sublingual Q5M PRN chest 03/12/25 04/11/25 Rx tablet pain #25 tabs pantoprazole 40 mg tablet,delayed 40 mg PO DAILY 90 days #90 tabs 03/12/25 04/11/25 Rx release lactobacillus comb no.10 20 20,000 mmu cells PO DAILY 04/11/25 04/11/25 History billion cell capsule (Probiotic) magnesium citrate,mag oxide 250 mg 250 mg PO DAILY 04/11/25 04/11/25 History capsule zinc acetate 50 mg (zinc) capsule 50 mg PO DAILY 04/11/25 04/11/25 History Patient History Medical History NSTEMI (non-ST elevated myocardial infarction) Substernal precordial chest pain Unstable angina Chest pain Elevated troponin Pulmonary nodule GERD (gastroesophageal reflux disease) rare Witnessed apneic spells per patient's , denies previous sleep apnea study Snoring History of airway aspiration per pt, joshua-operatively for renal stone procedure in past Hx of renal calculi last episode several months ago Hyperactive gag reflex "please do not intubate due to overactive/hyperactive gag reflex" History of cancer Age 7, 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 No other treatments/no current issues Surgical History Hx of CABG Family history of adverse reaction to anesthesia Grandmother in 1934- from the ether given to her by anesthesia S/P cystoscopy with ureteral stent placement w/laser lithotripsy History of anesthesia complications pt stated he should not be intubated unless it's a dire emergency due to his overactive/hyperactive gag reflex; did aspirate once when going under for kidney stones" Hx of left knee surgery age 7, cancerous tumor removed Hx of right knee surgery 1970s-"total reconstruction" Hx laparoscopic cholecystectomy History of esophagogastroduodenoscopy (EGD) Hx of colonoscopy Dr. Benigno Bryson 10/13/2014 Hx of nasal septoplasty Hx of tonsillectomy History of cardiac cath 2005- x1 stent 2009- x1 stent 2016- CABG x3 Hx of CABG CABG x3 (2016) Social History Smoking Status: Never smoker Age Started Using Tobacco: 24; Age Quit Using Tobacco: 34; packs per day: 1; Second Hand Exposure: No; Do You Dip or Chew Tobacco: No; Hx Alcohol Use: No Hx Substance Use: No Preferred Language: Hungarian Communication Ability: Effective Heater Installer Required: No Beliefs That Will Affect Care: None Current Living Situation: Spouse Current Living Situation Comment: lives at home with Feels Safe at Home: Yes Assistive Devices: None Review of System A 10 point ROS obtained. Pertinent positives as per hpi. Physical Exam Physical Exam: Gen-NAD,sitting in chair. Neck- supple HEENT- Anicteric sclera, EOMI Lung- Non labored breathing, On RA Abdomen- Soft, NT, ND Extremities- R knee incision, No effusion or s/o infection. Left foot edema, tenderness, warmth, erythema. Erythema marked. Calf edema Neuro- AAO times 3 Psych- Cooperative, Normal mood Results & Data Vital Signs (Past 12 Hours) Vital Signs Temp Pulse Pulse Resp BP Pulse Ox O2 Del Method 04/14/25 11:09 37.1 C 79 19 128/76 96 Room Air 04/14/25 07:45 36.7 C 88 20 138/77 95 Room Air 04/14/25 07:00 91 H 04/14/25 03:15 37.0 C 86 24 127/83 93 Room Air Laboratory Results Laboratory Results - last 48 hr 04/12/25 04/12/25 04/13/25 16:55 20:00 05:26 WBC 9.27 RBC 4.16 L Hgb 12.3 L Hct 35.1 L MCV 84.4 MCH 29.6 MCHC 35.0 RDW Std Deviation 43.8 RDW Coeff of [place] 15.4 H Plt Count 88 L MPV 9.9 Immature Gran % (Auto) 0.4 Neut % (Auto) 88.3 Lymph % (Auto) 3.3 [place] % (Auto) 7.7 Eos % (Auto) 0.1 Baso % (Auto) 0.2 Neut # (Auto) 8.18 H Lymph # (Auto) 0.31 L [place] # (Auto) 0.71 H Eos # (Auto) 0.01 Baso # (Auto) 0.02 Immature Gran # (Auto) 0.04 Neutrophils % (Manual) Lymphocytes % (Manual) Monocytes % (Manual) Neutrophils # (Manual) Total Absolute Neuts Lymphocytes # (Manual) Total Abs Lymphocytes Monocytes # (Manual) Blood Smear Review Toxic Granulation 1+ Toxic Vacuolation Dohle Bodies 1+ Platelet Estimate Decreased L Polychromasia 1+ Acanthocytes (Spur) Sodium 129 L Potassium 3.4 L Chloride 99 Carbon Dioxide 23 Anion Gap 7 BUN 19 Creatinine 0.63 Est Cr Clr Drug Dosing 123.4 eGFR 105.56 BUN/Creatinine Ratio 30.2 H Glucose 168 H POC Glucose 272 H 223 H Osmolality Calcium 8.1 L 25-OH Vitamin D Total Random Vancomycin 4.5 L 04/13/25 04/13/25 04/13/25 07:49 11:14 11:53 WBC RBC Hgb Hct MCV MCH MCHC RDW Std Deviation RDW Coeff of [place] Plt Count MPV Immature Gran % (Auto) Neut % (Auto) Lymph % (Auto) [place] % (Auto) Eos % (Auto) Baso % (Auto) Neut # (Auto) Lymph # (Auto) [place] # (Auto) Eos # (Auto) Baso # (Auto) Immature Gran # (Auto) Neutrophils % (Manual) Lymphocytes % (Manual) Monocytes % (Manual) Neutrophils # (Manual) Total Absolute Neuts Lymphocytes # (Manual) Total Abs Lymphocytes Monocytes # (Manual) Blood Smear Review Toxic Granulation Toxic Vacuolation Dohle Bodies Platelet Estimate Polychromasia Acanthocytes (Spur) Sodium Potassium Chloride Carbon Dioxide Anion Gap BUN Creatinine Est Cr Clr Drug Dosing eGFR BUN/Creatinine Ratio Glucose POC Glucose 188 H 205 H Osmolality 279 L Calcium 25-OH Vitamin D Total 24.6 L Random Vancomycin 04/13/25 04/13/25 04/14/25 16:57 20:46 06:53 WBC 7.75 RBC 4.24 L Hgb 12.5 L Hct 35.9 L MCV 84.7 MCH 29.5 MCHC 34.8 RDW Std Deviation 42.5 RDW Coeff of [place] 14.9 H Plt Count 70 L MPV 10.5 Immature Gran % (Auto) Neut % (Auto) Lymph % (Auto) [place] % (Auto) Eos % (Auto) Baso % (Auto) Neut # (Auto) Lymph # (Auto) [place] # (Auto) Eos # (Auto) Baso # (Auto) Immature Gran # (Auto) Neutrophils % (Manual) 89 Lymphocytes % (Manual) 2 Monocytes % (Manual) 9 Neutrophils # (Manual) 6.90 H Total Absolute Neuts 6.90 H Lymphocytes # (Manual) 0.16 L Total Abs Lymphocytes 0.16 L Monocytes # (Manual) 0.70 H Blood Smear Review Toxic Granulation 2+ Toxic Vacuolation 2+ Dohle Bodies 1+ Platelet Estimate Decreased L Polychromasia 1+ Acanthocytes (Spur) 1+ Sodium 131 L Potassium 4.0 Chloride 102 Carbon Dioxide 25 Anion Gap 4 BUN 17 Creatinine 0.51 L Est Cr Clr Drug Dosing 152.6 eGFR 112.52 BUN/Creatinine Ratio 33.3 H Glucose 165 H POC Glucose 187 H 188 H Osmolality Calcium 7.8 L 25-OH Vitamin D Total Random Vancomycin 04/14/25 04/14/25 04/14/25 07:00 08:04 11:41 WBC RBC Hgb Hct MCV MCH MCHC RDW Std Deviation RDW Coeff of [place] Plt Count MPV Immature Gran % (Auto) Neut % (Auto) Lymph % (Auto) [place] % (Auto) Eos % (Auto) Baso % (Auto) Neut # (Auto) Lymph # (Auto) [place] # (Auto) Eos # (Auto) Baso # (Auto) Immature Gran # (Auto) Neutrophils % (Manual) Lymphocytes % (Manual) Monocytes % (Manual) Neutrophils # (Manual) Total Absolute Neuts Lymphocytes # (Manual) Total Abs Lymphocytes Monocytes # (Manual) Blood Smear Review Toxic Granulation Toxic Vacuolation Dohle Bodies Platelet Estimate Polychromasia Acanthocytes (Spur) Sodium Potassium Chloride Carbon Dioxide Anion Gap BUN Creatinine Est Cr Clr Drug Dosing eGFR BUN/Creatinine Ratio Glucose POC Glucose 151 H 262 H Osmolality Calcium 25-OH Vitamin D Total Random Vancomycin 10.9 Microbiology 04/13/25 09:47 Blood Aerobic Blood Culture - Preliminary Gram positive cocci clusters 04/13/25 09:47 Blood Anaerobic Blood Culture - Preliminary No growth in Anaerobic bottle after 24 hours. 04/11/25 20:00 Blood Aerobic Blood Culture - Final Staph aureus MRSA 04/11/25 20:00 Blood Anaerobic Blood Culture - Final Staph aureus MRSA 04/11/25 19:50 Blood Aerobic Blood Culture - Preliminary Staph aureus MRSA 04/11/25 19:50 Blood Anaerobic Blood Culture - Final 04/13/25 09:44 Blood Aerobic Blood Culture - Preliminary Gram positive cocci clusters Diagnostic Findings Chest X-Ray 04/11/25 19:40 Exam(s): XR CXR 1 VIEW EXAM: XR Chest, 1 View CLINICAL HISTORY: Reason for exam: Sepsis. TECHNIQUE: Frontal view of the chest. COMPARISON: Chest radiograph on 02/05/2025 FINDINGS: Hardware: None. Lungs/pleura: Left basilar opacity. No pleural effusion or pneumothorax. Heart/mediastinum: Normal. No cardiomegaly. Soft tissues: Unremarkable. Bones: No acute fracture. Upper abdomen: Normal. IMPRESSION: Left basilar opacity may represent atelectasis. Infectious/inflammatory process is not excluded. Electronically signed by: Mark Douglas M.D. 04/11/25 21:[address] 04/11/25 20:04 Exam(s): CT LEFT FOOT With Contrast EXAM: CT Left Lower Extremity With Intravenous Contrast, Foot CLINICAL HISTORY: Reason for exam: eval fo nec fasc. TECHNIQUE: Axial computed tomography images of the left foot with intravenous contrast. CTDI is 6.6 mGy and DLP is 379.19 mGy-cm. Automated exposure control was utilized for the study. A dose lowering technique was utilized adhering to the principles of ALARA. COMPARISON: None FINDINGS: Bones/joints: Plantar calcaneal spur. No acute fracture. No dislocation. No bony lesion to suggest osteomyelitis. Soft tissues: Soft tissue swelling and fat stranding throughout the visualized left ankle and foot. No discrete abscess or soft tissue gas. No radiopaque foreign body. IMPRESSION: 1. No bony lesion to suggest osteomyelitis. 2. Soft tissue swelling and fat stranding throughout the visualized left ankle and foot. No discrete abscess or soft tissue gas. Electronically signed by: Mark Douglas M.D. 04/11/25 20:[address] 04/11/25 20:04 Exam(s): CT EXTREMITY LEFT LOWER With Contrast IV Amt: 90ml [id number] EXAM: CT Left Lower Extremity With Intravenous Contrast CLINICAL HISTORY: Reason for exam: eval for nec fasc. TECHNIQUE: Axial computed tomography images of the left lower extremity with intravenous contrast. CTDI is 6.6 mGy and DLP is 379.19 mGy-cm. Automated exposure control was utilized for the study. A dose lowering technique was utilized adhering to the principles of ALARA. CONTRAST: Patient received 90ml [id number] of IV contrast COMPARISON: None FINDINGS: Bones/joints: Mild chondrocalcinosis in the medial and lateral compartments of the left knee. Small bone island in the lateral femoral condyle. No bony lesion to suggest osteomyelitis. No acute fracture or dislocation. Soft tissues: Soft tissue swelling and fat stranding in the distal left lower leg and ankle. No abscess or soft tissue gas identified. IMPRESSION: 1. No bony lesion to suggest osteomyelitis. 2. Soft tissue swelling and fat stranding in the distal left lower leg and ankle. No abscess or soft tissue gas identified. Electronically signed by: Mark Douglas M.D. 04/11/25 21:12 PM Medications Administered Home Medications Medication Instructions Recorded Confirmed Last Taken cyanocobalamin (vitamin B-12) 1,000 mcg PO QAM 03/27/23 04/11/25 04/10/25 1,000 mcg tablet (Vitamin B-12) empagliflozin 25 mg tablet 25 mg PO QPM 03/27/23 04/11/25 04/10/25 (Jardiance) multivitamin with minerals-folic 1 tab PO DAILY 04/03/23 04/11/25 04/10/25 acid 0.4 mg tablet (Adult One Daily Multivitamin) clopidogrel 75 mg tablet 75 mg PO DAILY #90 tabs 02/12/25 04/11/25 04/10/25 metoprolol tartrate 25 mg tablet 25 mg PO BID #180 tabs 02/12/25 04/11/25 04/10/25 atorvastatin 80 mg tablet 80 mg PO HS #90 tabs 03/12/25 04/11/25 04/10/25 lisinopril 20 mg tablet 20 mg PO DAILY #90 tabs 03/12/25 04/11/25 04/10/25 nitroglycerin 0.4 mg sublingual 0.4 mg sublingual Q5M PRN chest 03/12/25 04/11/25 Unknown tablet pain #25 tabs pantoprazole 40 mg tablet,delayed 40 mg PO DAILY 90 days #90 tabs 03/12/25 04/11/25 04/10/25 release lactobacillus comb no.10 20 20,000 mmu cells PO DAILY 04/11/25 04/11/25 04/10/25 billion cell capsule (Probiotic) magnesium citrate,mag oxide 250 mg 250 mg PO DAILY 04/11/25 04/11/25 04/10/25 capsule zinc acetate 50 mg (zinc) capsule 50 mg PO DAILY 04/11/25 04/11/25 04/10/25 Active Medications Generic Name Dose Route Start Last Admin Trade Name Freq PRN Reason Stop Dose Admin Acetaminophen 650 mg 04/12/25 01:20 04/12/25 18:33 Acetaminophen 325 Mg Tab PO 05/12/25 01:19 650 mg Q4H PRN Administration Pain or Fever Atorvastatin Calcium 80 mg 04/12/25 21:00 04/13/25 20:56 Atorvastatin 40 Mg Tab PO 05/12/25 20:59 80 mg HS ONOFRE Administration Clopidogrel Bisulfate 75 mg 04/12/25 09:00 04/14/25 08:28 Clopidogrel Bisulfate 75 Mg Tab PO 05/12/25 08:59 75 mg DAILY ONOFRE Administration Vancomycin HCl 1,750 mg/ 535 mls @ 200 mls/hr 04/14/25 08:00 04/14/25 11:09 Sodium Chloride IV 04/28/25 07:59 Infused Q8H ONOFRE Infusion Insulin Aspart 0 units 04/12/25 07:30 04/14/25 12:03 Insulin Aspart Per Unit Charge SC 05/12/25 07:29 9 units ACHS ONOFRE Administration Metoprolol Tartrate 50 mg 04/12/25 09:00 04/14/25 08:28 Metoprolol Tartrate 50 Mg Tab PO 05/12/25 08:59 50 mg BID ONOFRE Administration Pantoprazole Sodium 40 mg 04/12/25 09:00 04/14/25 08:28 Pantoprazole 40 Mg Tab PO 05/12/25 08:59 40 mg DAILY ONOFRE Administration Psyllium Hydrophilic Mucilloid 4 gm 04/12/25 12:45 04/14/25 08:28 Psyllium Husk 4gm Packet PO 05/12/25 12:44 4 gm BID ONOFRE Administration
[2025-04-15 07:38] LABS: Hematocrit (blood only) 36.5 % (42.0-52.0); Hemoglobin 12.2 g/dl (14.0-18.0); Mean Corpuscular Hemoglobin 28.6 pg (25.0-34.0); Mean Corpuscular Volume 85.5 fL (80.0-100.0); Platelet Count 88 K/uL (130-400); RDW Standard Deviation 42.4 fL (36.4-46.3); Red Blood Count 4.27 M/uL (4.70-6.10); White Blood Count 6.26 K/ul (4.8-10.8)
[2025-04-15 07:48] LABS: Anion Gap 5.0 (3-11); Calcium 7.8 mg/dl (8.6-10.3); Carbon Dioxide 28.0 mmol/L (21-32); Chloride 100.0 mmol/L (98-107); Potassium 3.8 mmol/L (3.5-5.1); Sodium 133.0 mmol/L (136-145)
[2025-04-15 07:53] LABS: Blood Urea Nitrogen 12.0 mg/dl (6-23); Creatinine Clr Calc Pharmacy 161.0 ml/min; Glucose 161.0 mg/dl (70-99(Fasting))
[2025-04-15 08:01] LABS: Acanthocytes 1+; Dohle Bodies 1+; Immature Granulocytes # (auto) 0.06 K/uL (0.01-0.20); Immature Granulocytes % (auto) 1.0 %; Polychromasia 1+; Toxic Granulation 1+; Toxic Vacuolation 1+
[2025-04-15] MEDS: CHOLECALCIFEROL 125 MCG (5,000 UNITS) TAB PO SCH (08:16)
[2025-04-15] MEDS: ENOXAPARIN INJ 40 MG/0.4 ML SYR SQ SCH (08:19)
[2025-04-15] MEDS: VANCOMYCIN LEVEL ONE (08:20)
--- NOTE | 2025-04-15 11:27 | Hospitalist Progress Note ---
"Date of Service April 15, 2025 Assessment & Plan (1) Cellulitis: (2) Sepsis: (3) Bacteremia: (4) Hyponatremia: (5) Diarrhea: (6) Diabetes mellitus, type 2: (7) CAD (coronary artery disease): (8) Hypertension: (9) GERD (gastroesophageal reflux disease): Plan 65-year-old male PMHx CAD s/p CHELSEY 2016, HLD, angina, T2DM, HTN, GERD, and prior duodenal ulcer with hemorrhage with most recent hospital admission 02/05/2025 until 02/06/2025 for NSTEMI who is presenting now for concerns of infection and altered mental status. #Cellulitis of L foot | Bacteremia | Sepsis - Hx of Right TKA - no additional hardware; MRSA (+) in ED; BC on 04/11 (+) for MRSA; CT on 04/11 negative for osteomyelitis, demonstrated soft tissue swelling and fat stranding throughout the left ankle and foot. No discrete abscesses or soft tissue gas. Echo 04/13 - WNL LV size & systolic function w/ EF 60-65%; no regional wall abnormalities. Abnormal septal motion consistent with prior cardiac surgery. Borderline dilated RV w/ mildly reduced systolic function. Mild Lt atrial dilation. Sclerotic aortic valve w/out significant stenosis. Probable mitral valve annuloplasty ring w/out significant regurgitation. Moderate pulmonary hypertension. No visualized valvular vegetations - technically difficult study. RVSP no moderately elevated compared to study done 02/06/25. -Consulted ID; defer DANIELLE in presence of negative repeat BCx - final duration of tx dependent on repeat cx -Continue IV Vancomycin - Pharmacy following dosing -Blood Cultures: 04/13 - preliminary, Staph Aureus 04/14 - preliminary, no growth -Acetaminophen prn fever/pain -CBC, BMP in am -PT/OT eval and treat #Hyponatremia | Hypocalcemia - Vit D on 04/13 - 24.6; -Trend Serum Sodium -Continue Vitamin D #Diarrhea - Improving, per pt -Continue Metamucil; consider Cdiff if continued/worsening sx #T2DM - no acute concerns; HbA1c 01/2025 8.4% -HOLD Jardiance -SSI with target BSG range 110-140mg/dL, CF 30, carb ratio 15 #CAD - no acute concerns -Continue Plavix #HTN - no acute concerns -HOLD Lisinopril -Continue metoprolol #GERD - no acute concerns -Continue pantoprazole #Elevated Troponin - RESOLVED; was 36.7 initially in ED, most likely d/t tachycardia/cardiac demand Dispo: Continue PCU - awaiting cultures VTE Proph: Mike, SCDs Admission and Anticipated Discharge Date Admission Date: April 11, 2025 Subjective Pt was sitting in chair at bedside in [facility]. Pt states that he feels better than yesterday but continues to feel exhausted. He states that he was able to walk around the room with the help of PT/OT today and that it was less painful to ambulate than it was previously. Pt notes that he feels that his foot is beginning to look better than it was before. He notes that he was able to walk around with the help of PT/OT, but notes that it is still uncomfortable to put any weight on his foot. Pt notes that his bowels have improved and he had a solid bowel movement this AM. Pt denies sore thoat, congestion, chills, CP, SOB, palpitations, abd pain/discomfort, N/V, and changes in bladder habits. Review of Systems 2 Review of Systems: All systems reviewed & are unremarkable except as noted in Subjective Physical Exam 2 Physical Exam: General: Pt is a 65 y/o obese male in NAD in bed. VS: reviewed - unremarkable Skin: Erythema surrounding L ankle that extends circumferentially towards toes with some intermittent areas of clearing - redness improved from 04/14 (See image below); no lesions/breaks seen in skin surrounding area of erythema; skin is otherwise warm and dry; no lesions or ulcerations Respiratory: CTA bilat, no adventitious sounds noted. Chest expansion is full and symmetrical Cardio: RRR no murmurs Abdomen: Round, normoactive BS x4, nontender to palpation MSK: Little pain w/ palpation of L foot - pt states less painful than yesterday; no pain when palpating anterior LLE; Pt struggles to bear weight, unable to ambulate on his own. FROM extremities, no deformities noted Extremities: +2 pitting edema of LLE that extends up to just below the knee; RLE w/out edema; no clubbing/cyanosis bilat Neuro: A&Ox4, cooperative Results & Data Results & Data Vital Signs (Past 12 Hours) Vital Signs Temp Pulse Pulse Resp BP Pulse Ox O2 Del Method 04/15/25 11:11 98.2 F 79 22 135/81 96 Room Air 04/15/25 08:00 79 04/15/25 07:37 98.1 F 83 20 125/81 95 Room Air 04/15/25 03:31 97.5 F L 85 18 129/75 94 Room Air Laboratory Results Reviewed: CBC, BMP, Random Vanco PG Care Time/CCT Total # of Minutes Spent Total Time Spent with Patient: Total time spent is greater than 50% in coordination of care (as documented) at patient's floor/unit and/or counseling patient: Coding Level of Care Code 71964 SUB INP/OBS CARE 3/50MIN Diagnoses Cellulitis L03.90 Sepsis A41.9 Bacteremia R78.81 Hyponatremia E87.1 Diarrhea R19.7 Diabetes mellitus, type 2 E11.9 CAD (coronary artery disease) I25.10 Hypertension I10 GERD (gastroesophageal reflux disease) K21.9"
--- NOTE | 2025-04-15 13:24 | Infectious Disease Progress Nt ---
Date of Service April 15, 2025 Assessment & Plan (1) Cellulitis: (2) Bacteremia: (3) Sepsis: Plan This is a 65-year-old man with a past medical history of CAD status post stents, HLD, DM2, GERD, duodenal ulcer with hemorrhage, recently admitted 02/05/2025 - 02/06/2025 for NSTEMI presented to the ED on 04/11 with worsening left foot edema, erythema and pain. also endorsed he had some confusion. Approximately 4 days prior to admission he woke up with acute onset of left foot swelling and pain. Denied any known trauma to the foot or wounds. He was evaluated by orthopedics outpatient at [place]. Placed in a walking boot. He continued to have left foot pain with associated chills,shakes and subjective fevers. No nausea, vomiting, shortness of breath, chest pain. He had difficulty placing pressure on the foot. His pain worsened prompting evaluation in the ED. He has a right knee TKA but no issues at that site. Admission temperature 37.9. Tmax 39.2. Labs: WBC 14.76, platelets 119-->70, BUN 29, creatinine 1.01, CRP 38.84, ESR 36. Blood cultures grew MRSA in 3/4 bottles on 04/11. Repeat Blood culture on 04/13 grew GPC in 2/4 bottles pending identification. Chest x-ray demonstrated a left basilar opacity which may represent atelectasis. Left lower extremity and foot CT showed no bony lesions to suggest osteomyelitis. Soft tissue swelling and fat stranding throughout the visualized left ankle and foot. No discrete abscess or soft tissue gas. TTE shows sclerotic aortic valve without significant stenosis. Probable mitral valve annuloplasty ring without significant regurgitation. Moderate pulmonary hypertension. No old visualized valvular vegetations but cannot exclude on transthoracic study. He is on Cefazolin. ID consulted for MRSA bacteremia. Microbiology 04/11 blood culture MRSA 3/4 bottles 04/13 blood culture Staph aureus 2/4 bottles 04/14 blood culture NGTD Antibiotics Vancomycin resent Clindamycin 04/11 piperacillin/tazobactam # High-grade MRSA bacteremia # sepsis # Left foot skin and soft tissue infection # Right knee TKA # Probable mitral Valve annuloplasty ring on TTE # Thrombocytopenia Discussion- He presents with worsening left foot skin and soft tissue infection (without ab scess or osteomyelitis) and associated high-grade MRSA bacteremia. He reports has a right knee TKA but there is no obvious issues on exam at that site. He denies any other hardware however a TTE shows a probable annuloplasty ring of the mitral valve. He remains bacteremic as of 04/13. Source of bacteremia may be the left foot infection, however will need to rule out endocarditis especially in the setting of MVannuloplasty ring seen on TTE. No signs of deep space infection of the left foot. Recommendations -Continue vancomycin per pharmacy protocol for MRSA bacteremia -Follow up repeat blood cultures from 04/14 -Would pursue a DANIELLE in the setting of annuloplasty ring ( prosthetic) and high- grade MRSA bacteremia, dg if repeat Bcx 04/14 + -Monitor for metastatic disease to spine, joints,[employer], etc - Will follow for regression or progression of foot erythema. Communicated with PA ID will continue to follow. Neto Edwards MD, MPH Infectious Disease [facility], ID Division Call [phone] with questions Admission and Anticipated Discharge Date Admission Date: April 11, 2025 Subjective This patient recommendation is based on a telemedicine consult request which was completed asynchronously through chart review and information provided by the primary physician. The patient was not seen or examined today. The evaluation is consultative in nature and all patient care and treatment decisions can either be accepted or rejected by the patient's primary hospital-based treating physician using their own independent medical judgment for their patient. Time Spent Reviewing Chart: 21 - 30 minutes Repeat Bcx 04/14 NGTD Bcx 04/13 + staph aureus Afebrile WBC 6.26 Results & Data Vital Signs (Past 12 Hours) Vital Signs Temp Pulse Pulse Resp BP Pulse Ox O2 Del Method 04/15/25 11:11 36.8 C 79 22 135/81 96 Room Air 04/15/25 08:00 79 04/15/25 07:37 36.7 C 83 20 125/81 95 Room Air 04/15/25 03:31 36.4 C L 85 18 129/75 94 Room Air Laboratory Results 04/13/25 09:47 Aerobic Blood Culture - Preliminary Blood Staphylococcus aureus Anaerobic Blood Culture - Preliminary No growth in Anaerobic bottle after 48 hours. 04/13/25 09:44 Aerobic Blood Culture - Preliminary Blood Staphylococcus aureus Anaerobic Blood Culture - Final 04/14/25 14:33 Aerobic Blood Culture - Pending Blood Anaerobic Blood Culture - Pending 04/14/25 14:25 Aerobic Blood Culture - Pending Blood Anaerobic Blood Culture - Pending 04/11/25 20:00 Aerobic Blood Culture - Final Blood Staph aureus MRSA Anaerobic Blood Culture - Final Staph aureus MRSA 04/15/25 04/15/25 04/15/25 11:39 08:02 06:50 WBC 6.26 RBC 4.27 L Hgb 12.2 L Hct 36.5 L MCV 85.5 MCH 28.6 MCHC 33.4 RDW Std Deviation 42.4 RDW Coeff of [place] 14.8 H Plt Count 88 L MPV 10.0 Immature Gran % (Auto) 1.0 Neut % (Auto) 74.7 Lymph % (Auto) 8.0 [place] % (Auto) 13.1 Eos % (Auto) 2.9 Baso % (Auto) 0.3 Neut # (Auto) 4.68 Lymph # (Auto) 0.50 L [place] # (Auto) 0.82 H Eos # (Auto) 0.18 Baso # (Auto) 0.02 Immature Gran # (Auto) 0.06 Toxic Granulation 1+ Toxic Vacuolation 1+ Dohle Bodies 1+ Polychromasia 1+ Acanthocytes (Spur) 1+ Sodium 133 L Potassium 3.8 Chloride 100 Carbon Dioxide 28 Anion Gap 5 BUN 12 Creatinine 0.49 L Est Cr Clr Drug Dosing 161.0 eGFR 113.88 BUN/Creatinine Ratio 24.5 H Glucose 161 H POC Glucose 228 H 151 H Calcium 7.8 L Random Vancomycin 12.9 04/14/25 04/14/25 20:38 16:18 WBC RBC Hgb Hct MCV MCH MCHC RDW Std Deviation RDW Coeff of [place] Plt Count MPV Immature Gran % (Auto) Neut % (Auto) Lymph % (Auto) [place] % (Auto) Eos % (Auto) Baso % (Auto) Neut # (Auto) Lymph # (Auto) [place] # (Auto) Eos # (Auto) Baso # (Auto) Immature Gran # (Auto) Toxic Granulation Toxic Vacuolation Dohle Bodies Polychromasia Acanthocytes (Spur) Sodium Potassium Chloride Carbon Dioxide Anion Gap BUN Creatinine Est Cr Clr Drug Dosing eGFR BUN/Creatinine Ratio Glucose POC Glucose 173 H 150 H Calcium Random Vancomycin Microbiology 04/13/25 09:47 Blood Aerobic Blood Culture - Preliminary Staphylococcus aureus 04/13/25 09:47 Blood Anaerobic Blood Culture - Preliminary No growth in Anaerobic bottle after 48 hours. 04/13/25 09:44 Blood Aerobic Blood Culture - Preliminary Staphylococcus aureus 04/13/25 09:44 Blood Anaerobic Blood Culture - Final 04/11/25 20:00 Blood Aerobic Blood Culture - Final Staph aureus MRSA 04/11/25 20:00 Blood Anaerobic Blood Culture - Final Staph aureus MRSA 04/11/25 19:50 Blood Aerobic Blood Culture - Preliminary Staph aureus MRSA 04/11/25 19:50 Blood Anaerobic Blood Culture - Final Medications Administered Home Medications Medication Instructions Recorded Confirmed Last Taken cyanocobalamin (vitamin B-12) 1,000 mcg PO QAM 03/27/23 04/11/25 04/10/25 1,000 mcg tablet (Vitamin B-12) empagliflozin 25 mg tablet 25 mg PO QPM 03/27/23 04/11/25 04/10/25 (Jardiance) multivitamin with minerals-folic 1 tab PO DAILY 04/03/23 04/11/25 04/10/25 acid 0.4 mg tablet (Adult One Daily Multivitamin) clopidogrel 75 mg tablet 75 mg PO DAILY #90 tabs 02/12/25 04/11/25 04/10/25 metoprolol tartrate 25 mg tablet 25 mg PO BID #180 tabs 02/12/25 04/11/25 04/10/25 atorvastatin 80 mg tablet 80 mg PO HS #90 tabs 03/12/25 04/11/25 04/10/25 lisinopril 20 mg tablet 20 mg PO DAILY #90 tabs 03/12/25 04/11/25 04/10/25 nitroglycerin 0.4 mg sublingual 0.4 mg sublingual Q5M PRN chest 03/12/25 04/11/25 Unknown tablet pain #25 tabs pantoprazole 40 mg tablet,delayed 40 mg PO DAILY 90 days #90 tabs 03/12/25 04/11/25 04/10/25 release lactobacillus comb no.10 20 20,000 mmu cells PO DAILY 04/11/25 04/11/25 04/10/25 billion cell capsule (Probiotic) magnesium citrate,mag oxide 250 mg 250 mg PO DAILY 04/11/25 04/11/25 04/10/25 capsule zinc acetate 50 mg (zinc) capsule 50 mg PO DAILY 04/11/25 04/11/25 04/10/25 Active Medications Generic Name Dose Route Start Last Admin Trade Name Freq PRN Reason Stop Dose Admin Acetaminophen 650 mg 04/12/25 01:20 04/12/25 18:33 Acetaminophen 325 Mg Tab PO 05/12/25 01:19 650 mg Q4H PRN Administration Pain or Fever Atorvastatin Calcium 80 mg 04/12/25 21:00 04/14/25 20:57 Atorvastatin 40 Mg Tab PO 05/12/25 20:59 80 mg HS ONOFRE Administration Clopidogrel Bisulfate 75 mg 04/12/25 09:00 04/15/25 08:15 Clopidogrel Bisulfate 75 Mg Tab PO 05/12/25 08:59 75 mg DAILY ONOFRE Administration Enoxaparin Sodium 40 mg 04/15/25 09:00 04/15/25 08:19 Enoxaparin Inj 40 Mg/0.4 Ml Syr SQ 05/15/25 08:59 40 mg QAM ONOFRE Administration Vancomycin HCl 1,750 mg/ 535 mls @ 200 mls/hr 04/14/25 08:00 04/15/25 11:07 Sodium Chloride IV 04/28/25 07:59 Infused Q8H ONOFRE Infusion Insulin Aspart 0 units 04/12/25 07:30 04/15/25 12:48 Insulin Aspart Per Unit Charge SC 05/12/25 07:29 6 units ACHS ONOFRE Administration Metoprolol Tartrate 50 mg 04/12/25 09:00 04/15/25 08:15 Metoprolol Tartrate 50 Mg Tab PO 05/12/25 08:59 50 mg BID ONOFRE Administration Pantoprazole Sodium 40 mg 04/12/25 09:00 04/15/25 08:15 Pantoprazole 40 Mg Tab PO 05/12/25 08:59 40 mg DAILY ONOFRE Administration Psyllium Hydrophilic Mucilloid 4 gm 04/12/25 12:45 04/15/25 08:16 Psyllium Husk 4gm Packet PO 05/12/25 12:44 4 gm BID ONOFRE Administration Vitamin D 125 mcg 04/15/25 09:00 04/15/25 08:16 Cholecalciferol 125 Mcg (5,000 Units) Tab PO 05/15/25 08:59 125 mcg QAM ONOFRE Administration
--- NOTE | 2025-04-15 13:55 | Pharmacy Report ---
Pharmacy PK ABX Note - Date of Service April 15, 2025 - Assessment and Plan Assessment 04/15 * Random vancomycin level drawn 04/15 @ 0650 resulted as 12.9 mcg/mL with predicted steady state AUC/VALERIE 462. Continue current dose/frequency. * Repeat BC from 04/13 show persistent bacteremia (2 of 4 bottles positive). BC from 04/14 pending. 04/14 * Random vancomycin level this AM was ~10.9 mcg/ml - appears patient is clearing vancomycin very quickly based upon levels obtained. Repeat blood cultures now with GM+ cocci. Will increase to 1750 mg iv q 8 hours to maintain AUC/VALERIE 400- 600. Will continue closer monitoring and obtain another level tomorrow AM to ensure regimen is appropriate. 04/13 * 65 year old M receiving vancomycin for treatment of sepsis and MRSA bacteremia likely 2nd cellulitis. * Pertinent microbiologic data includes: blood cultures 07/14 positive for GPC, BCID2 positive for MRSA * Random vancomycin level this AM significantly subtherapeutic with estimated AUC in 24-48 hours of 296 mg/L.hr. * Questionable etiology of this low level as estimation of AUC in 24-48 hours via Bayesian software yesterday at the current dose was 538 mg/L.hr w steady state AUC of 572 mg/L.hr. * SCr decrease not likely significant enough to have likely been the cause. * Possible altered patient specific pharmacokinetics and/or hypermetabolic state. * Error (compounding or administration) less likely but can't be excluded. * Will significantly increase vancomycin and continue to use Bayesian software as a dose guide. However, given poor prior anticipation and intermediate fit, will only give two additional doses prior to rechecking a level. Ongoing, frequent level checks will likely be indicated to help balance ensuring therapeutic levels given bacteremia but also avoiding supratherapeutic levels given significant dose increase and concern for an intermediate fit. Plan Vancomycin * Continue 1750 mg IV q 8 hours * Will repeat vanco level in the next 48-72 hours or sooner if clinically warranted Pharmacy will continue to follow and will adjust dose/frequency as necessary. Thank you. Pharmacy has transitioned to AUC monitoring for vancomycin. AUC/VALERIE is the preferred PK/PD target and is associated with decreased risk of nephrotoxicity compared to traditional trough targets.
[2025-04-16 06:11] LABS: Creatinine Clr Calc Pharmacy 133.7 ml/min
--- NOTE | 2025-04-16 09:32 | Hospitalist Progress Note ---
"Date of Service April 16, 2025 Assessment & Plan (1) Cellulitis: (2) Sepsis: (3) Bacteremia: (4) Hyponatremia: (5) Diarrhea: Plan 65-year-old male PMHx CAD s/p CHELSEY 2016, HLD, angina, T2DM, HTN, GERD, and prior duodenal ulcer with hemorrhage with most recent hospital admission 02/05/2025 until 02/06/2025 for NSTEMI who is presenting now for concerns of infection and altered mental status. #Cellulitis of L foot | Bacteremia | Sepsis - Hx of Right TKA - no additional hardware; MRSA (+) in ED; BC on 04/11 (+) for MRSA; CT on 04/11 negative for osteomyelitis, demonstrated soft tissue swelling and fat stranding throughout the left ankle and foot. No discrete abscesses or soft tissue gas. TTE 04/13 - WNL LV size & systolic function w/ EF 60-65%; no regional wall abnormalities. Abnormal septal motion consistent with prior cardiac surgery. Borderline dilated RV w/ mildly reduced systolic function. Mild Lt atrial dilation. Sclerotic aortic valve w/out significant stenosis. Probable mitral valve annuloplasty ring w/out significant regurgitation. Moderate pulmonary hypertension. No visualized valvular vegetations - technically difficult study. RVSP no moderately elevated compared to study done 02/06/25. -Consulted ID; recommends pursuing DANIELLE in setting of persistent high-grade MRSA bacteremia; if progression continues pursue repeat LLE CT -Discontinue IV Vancomycin, per ID -START IV Daptomycin 10mg, per ID - dosing was discussed with pharm -DANIELLE ordered in presence of persistently + BCx -- discussed with cards, doesn't feel that presence of annuloplasty + DANIELLE will alter abx course -Blood Cultures: 04/11 - final, MRSA + 04/13 - preliminary, Staph Aureus 04/14 - preliminary, Staph Aureus 04/16 - pending -Acetaminophen prn fever/pain -CBC, BMP, CPK in am -PT/OT eval and treat #Hyponatremia | Hypocalcemia - Vit D on 04/13 - 24.6; -Trend Serum Sodium -Continue Vitamin D #Diarrhea - Improving, per pt -Continue Metamucil; consider Cdiff if continued/worsening sx #T2DM - no acute concerns; HbA1c 01/2025 8.4% -HOLD Jardiance -SSI with target BSG range 110-140mg/dL, CF 30, carb ratio 15 #CAD - no acute concerns -Continue Plavix #HTN - no acute concerns -HOLD Lisinopril -Continue metoprolol #GERD - no acute concerns -Continue pantoprazole #Elevated Troponin - RESOLVED; was 36.7 initially in ED, most likely d/t tachycardia/cardiac demand Dispo: Continue PCU - awaiting cultures VTE Proph: Lovenox, SCDs Admission and Anticipated Discharge Date Admission Date: April 11, 2025 Supervising Physician Co-Signing Physician Notes PA Supervision Note: I did not personally see or examine the patient today, but I verified all rebolledo points of MORRIS Nascimento's assessment and plan with the following exceptions/additions: Cardiology does not think the patient had a valvuloplasty ring as was possibly noted on echo. Need to determine if DANIELLE would change the course of management with ID if found to be positive. Otherwise, cardiology does not feel strongly about performing the DANIELLE. Subjective Pt was laying in bed today in NAD. Pt states that he's feeling much more tired than yesterday despite feeling like the pain in his leg has decreased overall. He notes that pain specifically in his foot has increased and that he has experienced some chills. Pt notes that this am he feels too weak to walk around the room. Discussed persistently positive BCx w/ pt and the benefit of DANIELLE. Pt called his - both expressed interest in having the DANIELLE done. Pt is unsure if he had a valvuloplasty in the past but notes that he has had a CABG; TTE on 04/13 indicates the presence of valvular hardware. Pt denies sore thoat, congestion, cough, CP, SOB, palpitations, arthralgias, GI upset/discomfort, and N/V/D. Review of Systems 2 Review of Systems: All systems reviewed & are unremarkable except as noted in Subjective Physical Exam 2 Physical Exam: General: Pt is a 65 y/o obese male in NAD in bed. VS: reviewed - remarkable Skin: Erythema surrounding L ankle that extends circumferentially towards toes with some intermittent areas of clearing. Redness darkened on dorsum of foot compared to yesterday w/ erythema beginning climb proximally - past barrier drawn by ID; no lesions/breaks seen in skin surrounding area of erythema (See image below) ; no subungual hemorrhages or Osler nodes noted on hands or feet; skin is otherwise warm and dry; no rashes, lesions or ulcerations Respiratory: CTA bilat, no adventitious sounds noted. Chest expansion is full and symmetrical Cardio: RRR no murmurs Abdomen: Round, normoactive BS x4, nontender to palpation MSK: Little pain w/ palpation of L foot - pt states less painful than admission but more painful than yesterday; no pain when palpating anterior LLE; Pt struggles to bear weight, unable to ambulate on his own. FROM extremities, no deformities noted Extremities: +2 pitting edema of LLE that extends up to just below the knee; No erythema noted over R knee, pt able to bed knee w/out pain; RLE w/out edema; no clubbing/cyanosis bilat Neuro: A&Ox4, cooperative Results & Data Results & Data Vital Signs (Past 12 Hours) Vital Signs Temp Pulse Pulse Resp BP Pulse Ox O2 Del Method 04/16/25 07:36 97.9 F 86 20 147/90 H 95 Room Air 04/16/25 03:24 97.3 F L 83 18 147/79 H 97 Room Air 04/15/25 23:14 98.2 F 78 18 138/83 96 Room Air 04/15/25 21:55 89 Laboratory Results Reviewed CBC, BMP, Blood Cultures PG Care Time/CCT Total # of Minutes Spent Total Time Spent with Patient: Total time spent is greater than 50% in coordination of care (as documented) at patient's floor/unit and/or counseling patient: Coding Level of Care Code 06932 SUB INP/OBS CARE 3/50MIN Diagnoses Cellulitis L03.90 Sepsis A41.9 Bacteremia R78.81 Hyponatremia E87.1 Diarrhea R19.7"
[2025-04-16 10:17] LABS: Hematocrit (blood only) 35.4 % (42.0-52.0); Hemoglobin 12.4 g/dl (14.0-18.0); Mean Corpuscular Hemoglobin 29.8 pg (25.0-34.0); Mean Corpuscular Volume 85.1 fL (80.0-100.0); Platelet Count 122 K/uL (130-400); RDW Standard Deviation 42.4 fL (36.4-46.3); Red Blood Count 4.16 M/uL (4.70-6.10); White Blood Count 6.21 K/ul (4.8-10.8)
[2025-04-16 10:28] LABS: Anion Gap 6.0 (3-11); Blood Urea Nitrogen 10.0 mg/dl (6-23); Calcium 7.9 mg/dl (8.6-10.3); Carbon Dioxide 26.0 mmol/L (21-32); Chloride 102.0 mmol/L (98-107); Creatinine Clr Calc Pharmacy 164.5 ml/min; Glucose 203.0 mg/dl (70-99(Fasting)); Potassium 3.5 mmol/L (3.5-5.1); Sodium 134.0 mmol/L (136-145)
[2025-04-16 10:38] LABS: Dohle Bodies 1+; Immature Granulocytes # (auto) 0.08 K/uL (0.01-0.20); Immature Granulocytes % (auto) 1.3 %; Toxic Granulation 3+
--- NOTE | 2025-04-16 11:12 | Infectious Disease Progress Nt ---
Date of Service April 16, 2025 Assessment & Plan (1) Cellulitis: (2) Bacteremia: (3) Sepsis: Plan This is a 65-year-old man with a past medical history of CAD status post stents, HLD, DM2, GERD, duodenal ulcer with hemorrhage, recently admitted 02/05/2025 - 02/06/2025 for NSTEMI presented to the ED on 04/11 with worsening left foot edema, erythema and pain. also endorsed he had some confusion. Approximately 4 days prior to admission he woke up with acute onset of left foot swelling and pain. Denied any known trauma to the foot or wounds. He was evaluated by orthopedics outpatient at [facility]. Placed in a walking boot. He continued to have left foot pain with associated chills,shakes and subjective fevers. No nausea, vomiting, shortness of breath, chest pain. He had difficulty placing pressure on the foot. His pain worsened prompting evaluation in the ED. He has a right knee TKA but no issues at that site. Admission temperature 37.9. Tmax 39.2. Labs: WBC 14.76, platelets 119-->70, BUN 29, creatinine 1.01, CRP 38.84, ESR 36. Blood cultures grew MRSA in 3/4 bottles on 04/11. Repeat Blood culture on 04/13 grew GPC in 2/4 bottles pending identification. Chest x-ray demonstrated a left basilar opacity which may represent atelectasis. Left lower extremity and foot CT showed no bony lesions to suggest osteomyelitis. Soft tissue swelling and fat stranding throughout the visualized left ankle and foot. No discrete abscess or soft tissue gas. TTE shows sclerotic aortic valve without significant stenosis. Probable mitral valve annuloplasty ring without significant regurgitation. Moderate pulmonary hypertension. No old visualized valvular vegetations but cannot exclude on transthoracic study. He is on Cefazolin. ID consulted for MRSA bacteremia. Microbiology 04/11 blood culture MRSA 3/4 bottles 04/13 blood culture Staph aureus 2/4 bottles ( prelim) 04/14 blood culture Staph aureus 2/4 bottles ( prelim) 04/16 blood culture pending Antibiotics Vancomycin resent Clindamycin 04/11 piperacillin/tazobactam # High-grade MRSA bacteremia # Sepsis # Left foot skin and soft tissue infection # Right knee TKA # Probable mitral Valve annuloplasty ring on TTE # Thrombocytopenia,improving Discussion- He presents with worsening left foot skin and soft tissue infection (without abscess or osteomyelitis) and associated high-grade MRSA bacteremia. He reports has a right knee TKA but there is no obvious issues on exam at that site. He denies any other hardware however a TTE shows a probable annuloplasty ring of the mitral valve. He remains bacteremic as of 04/13. Source of bacteremia may be the left foot infection, however will need to rule out endocarditis especially in the setting of MV annuloplasty ring seen on TTE and persistent bacteremia despite appropriate abx ( on vanco managed by pharm) . No signs of deep space infection of the left foot. 04/16- Remains bacteremic. LLE has less edema and TTP, but some spread of erythema. Recommendations -Discontinued Vancomycin -Started Daptomycin 10 mg /kg IV daily ( discussed dosing with ID pharm) .Ordered CPK for am -Follow up repeat blood cultures from 04/16 -Would pursue a DANIELLE in the setting of annuloplasty ring ( prosthetic) and persistent MRSA bacteremia -Monitor for metastatic disease to spine, joints,[employer]TER, etc - Will continue to follow for regression or progression of foot erythema. If progresses more, will consider repeat CT LE. Communicated with PA. Per pt request, I updated who was on phone during the video visitof plan . ID will continue to follow. Neto Edwards MD, MPH Infectious Disease [facility], [facility] Call [phone] with questions Admission and Anticipated Discharge Date Admission Date: April 11, 2025 Subjective Subsequent visit was provided via telemedicine using two-way real-time interactive telecommunication between the patient and the telemedicine provider. For the duration of the visit, the provider was performing the assessment from a different facility than the patient. This includesuse of bluetooth stethoscope forauscultationperformed by the telepresenter that the telemedicine provider can hear if described in the physical exam. [employer] contact information: Please call [facility] Call Center [phone]. (Phone Number For Physician Use Only) After establishing a telemedicine visit, patient was: Patient was verified with two unique identifiers and Gave permission to continue telehealth session Time Spent with Patient: Subsequent => 25 min BCX 04/14 now positiv for staph aureus Continued LLE pain . Erythema progressed past pen markingd Afebrile WBC 6.21 Physical Exam Physical Exam: Gen-NAD Neck- supple HEENT- Anicteric sclera, EOMI Lung- Non labored breathing, On RA Abdomen- Soft, NT, ND Extremities- R knee incision, No effusion or s/o infection. Left foot edema ( slightly less today), tenderness ( less today) warmth, erythema progressed past marking. Calf edema Neuro- AAO times 3 Psych- Cooperative, Normal mood Results & Data Vital Signs (Past 12 Hours) Vital Signs Temp Pulse Resp BP Pulse Ox O2 Del Method 04/16/25 07:36 36.6 C 86 20 147/90 H 95 Room Air 04/16/25 03:24 36.3 C L 83 18 147/79 H 97 Room Air 04/15/25 23:14 36.8 C 78 18 138/83 96 Room Air Laboratory Results Laboratory Results - last 48 hr 04/14/25 04/14/25 04/15/25 16:18 20:38 06:50 WBC 6.26 RBC 4.27 L Hgb 12.2 L Hct 36.5 L MCV 85.5 MCH 28.6 MCHC 33.4 RDW Std Deviation 42.4 RDW Coeff of [place] 14.8 H Plt Count 88 L MPV 10.0 Immature Gran % (Auto) 1.0 Neut % (Auto) 74.7 Lymph % (Auto) 8.0 [place] % (Auto) 13.1 Eos % (Auto) 2.9 Baso % (Auto) 0.3 Neut # (Auto) 4.68 Lymph # (Auto) 0.50 L [place] # (Auto) 0.82 H Eos # (Auto) 0.18 Baso # (Auto) 0.02 Immature Gran # (Auto) 0.06 Toxic Granulation 1+ Toxic Vacuolation 1+ Dohle Bodies 1+ Polychromasia 1+ Acanthocytes (Spur) 1+ Sodium 133 L Potassium 3.8 Chloride 100 Carbon Dioxide 28 Anion Gap 5 BUN 12 Creatinine 0.49 L Est Cr Clr Drug Dosing 161.0 eGFR 113.88 BUN/Creatinine Ratio 24.5 H Glucose 161 H POC Glucose 150 H 173 H Calcium 7.8 L Random Vancomycin 12.9 04/15/25 04/15/25 04/15/25 08:02 11:39 16:17 WBC RBC Hgb Hct MCV MCH MCHC RDW Std Deviation RDW Coeff of [place] Plt Count MPV Immature Gran % (Auto) Neut % (Auto) Lymph % (Auto) [place] % (Auto) Eos % (Auto) Baso % (Auto) Neut # (Auto) Lymph # (Auto) [place] # (Auto) Eos # (Auto) Baso # (Auto) Immature Gran # (Auto) Toxic Granulation Toxic Vacuolation Dohle Bodies Polychromasia Acanthocytes (Spur) Sodium Potassium Chloride Carbon Dioxide Anion Gap BUN Creatinine Est Cr Clr Drug Dosing eGFR BUN/Creatinine Ratio Glucose POC Glucose 151 H 228 H 170 H Calcium Random Vancomycin 04/15/25 04/16/25 04/16/25 20:11 05:12 07:48 WBC RBC Hgb Hct MCV MCH MCHC RDW Std Deviation RDW Coeff of [place] Plt Count MPV Immature Gran % (Auto) Neut % (Auto) Lymph % (Auto) [place] % (Auto) Eos % (Auto) Baso % (Auto) Neut # (Auto) Lymph # (Auto) [place] # (Auto) Eos # (Auto) Baso # (Auto) Immature Gran # (Auto) Toxic Granulation Toxic Vacuolation Dohle Bodies Polychromasia Acanthocytes (Spur) Sodium Potassium Chloride Carbon Dioxide Anion Gap BUN Creatinine 0.59 L Est Cr Clr Drug Dosing 133.7 eGFR 107.67 BUN/Creatinine Ratio Glucose POC Glucose 172 H 156 H Calcium Random Vancomycin 04/16/25 04/16/25 09:44 11:44 WBC 6.21 RBC 4.16 L Hgb 12.4 L Hct 35.4 L MCV 85.1 MCH 29.8 MCHC 35.0 RDW Std Deviation 42.4 RDW Coeff of [place] 14.3 Plt Count 122 L MPV 9.6 Immature Gran % (Auto) 1.3 Neut % (Auto) 74.7 Lymph % (Auto) 11.0 [place] % (Auto) 10.0 Eos % (Auto) 2.7 Baso % (Auto) 0.3 Neut # (Auto) 4.64 Lymph # (Auto) 0.68 L [place] # (Auto) 0.62 H Eos # (Auto) 0.17 Baso # (Auto) 0.02 Immature Gran # (Auto) 0.08 Toxic Granulation 3+ Toxic Vacuolation Dohle Bodies 1+ Polychromasia Acanthocytes (Spur) Sodium 134 L Potassium 3.5 Chloride 102 Carbon Dioxide 26 Anion Gap 6 BUN 10 Creatinine 0.48 L Est Cr Clr Drug Dosing 164.5 eGFR 114.60 BUN/Creatinine Ratio 20.8 H Glucose 203 H POC Glucose 242 H Calcium 7.9 L Random Vancomycin Medications Administered Home Medications Medication Instructions Recorded Confirmed Last Taken cyanocobalamin (vitamin B-12) 1,000 mcg PO QAM 03/27/23 04/11/25 04/10/25 1,000 mcg tablet (Vitamin B-12) empagliflozin 25 mg tablet 25 mg PO QPM 03/27/23 04/11/25 04/10/25 (Jardiance) multivitamin with minerals-folic 1 tab PO DAILY 04/03/23 04/11/25 04/10/25 acid 0.4 mg tablet (Adult One Daily Multivitamin) clopidogrel 75 mg tablet 75 mg PO DAILY #90 tabs 02/12/25 04/11/25 04/10/25 metoprolol tartrate 25 mg tablet 25 mg PO BID #180 tabs 02/12/25 04/11/25 04/10/25 atorvastatin 80 mg tablet 80 mg PO HS #90 tabs 03/12/25 04/11/25 04/10/25 lisinopril 20 mg tablet 20 mg PO DAILY #90 tabs 03/12/25 04/11/25 04/10/25 nitroglycerin 0.4 mg sublingual 0.4 mg sublingual Q5M PRN chest 03/12/25 04/11/25 Unknown tablet pain #25 tabs pantoprazole 40 mg tablet,delayed 40 mg PO DAILY 90 days #90 tabs 03/12/25 04/11/25 04/10/25 release lactobacillus comb no.10 20 20,000 mmu cells PO DAILY 04/11/25 04/11/25 04/10/25 billion cell capsule (Probiotic) magnesium citrate,mag oxide 250 mg 250 mg PO DAILY 04/11/25 04/11/25 04/10/25 capsule zinc acetate 50 mg (zinc) capsule 50 mg PO DAILY 04/11/25 04/11/25 04/10/25 Active Medications Generic Name Dose Route Start Last Admin Trade Name Freq PRN Reason Stop Dose Admin Acetaminophen 650 mg 04/12/25 01:20 04/12/25 18:33 Acetaminophen 325 Mg Tab PO 05/12/25 01:19 650 mg Q4H PRN Administration Pain or Fever Atorvastatin Calcium 80 mg 04/12/25 21:00 04/15/25 21:05 Atorvastatin 40 Mg Tab PO 05/12/25 20:59 80 mg HS ONOFRE Administration Clopidogrel Bisulfate 75 mg 04/12/25 09:00 04/16/25 08:12 Clopidogrel Bisulfate 75 Mg Tab PO 05/12/25 08:59 75 mg DAILY ONOFRE Administration Enoxaparin Sodium 40 mg 04/15/25 09:00 04/16/25 08:12 Enoxaparin Inj 40 Mg/0.4 Ml Syr SQ 05/15/25 08:59 40 mg QAM ONOFRE Administration Vancomycin HCl 1,750 mg/ 535 mls @ 200 mls/hr 04/14/25 08:00 04/16/25 12:01 Sodium Chloride IV 04/28/25 07:59 Infused Q8H ONOFRE Infusion Insulin Aspart 0 units 04/12/25 07:30 04/16/25 12:38 Insulin Aspart Per Unit Charge SC 05/12/25 07:29 4 units ACHS ONOFRE Administration Metoprolol Tartrate 50 mg 04/12/25 09:00 04/16/25 08:12 Metoprolol Tartrate 50 Mg Tab PO 05/12/25 08:59 50 mg BID ONOFRE Administration Pantoprazole Sodium 40 mg 04/12/25 09:00 04/16/25 08:12 Pantoprazole 40 Mg Tab PO 05/12/25 08:59 40 mg DAILY ONOFRE Administration Psyllium Hydrophilic Mucilloid 4 gm 04/12/25 12:45 04/16/25 08:11 Psyllium Husk 4gm Packet PO 05/12/25 12:44 4 gm BID ONOFRE Administration Vitamin D 125 mcg 04/15/25 09:00 04/16/25 08:12 Cholecalciferol 125 Mcg (5,000 Units) Tab PO 05/15/25 08:59 125 mcg QAM ONOFRE Administration
[2025-04-16] MEDS: DAPTOmycin 950 MG in SYRINGE 0 ML IV SCH (14:30)
[2025-04-16] MEDS: MELATONIN 3 MG TAB PO PRN (20:55)
[2025-04-17 06:26] LABS: Hematocrit (blood only) 34.7 % (42.0-52.0); Hemoglobin 12.1 g/dl (14.0-18.0); Mean Corpuscular Hemoglobin 29.7 pg (25.0-34.0); Mean Corpuscular Volume 85.3 fL (80.0-100.0); Platelet Count 165 K/uL (130-400); RDW Standard Deviation 42.2 fL (36.4-46.3); Red Blood Count 4.07 M/uL (4.70-6.10); White Blood Count 6.22 K/ul (4.8-10.8)
[2025-04-17 07:11] LABS: Anion Gap 6.0 (3-11); Blood Urea Nitrogen 10.0 mg/dl (6-23); Calcium 7.9 mg/dl (8.6-10.3); Carbon Dioxide 30.0 mmol/L (21-32); Chloride 100.0 mmol/L (98-107); Creatinine Clr Calc Pharmacy 138.7 ml/min; Glucose 196.0 mg/dl (70-99(Fasting)); Potassium 3.9 mmol/L (3.5-5.1); Sodium 136.0 mmol/L (136-145)
[2025-04-17 07:23] LABS: Dohle Bodies 1+; Immature Granulocytes # (auto) 0.12 K/uL (0.01-0.20); Immature Granulocytes % (auto) 1.9 %; Polychromasia 1+; Toxic Granulation 2+
--- NOTE | 2025-04-17 08:00 | Hospitalist Progress Note ---
"Date of Service April 17, 2025 Assessment & Plan (1) Cellulitis: (2) Sepsis: (3) Bacteremia: (4) Hyponatremia: (5) Diarrhea: Plan 65-year-old male PMHx CAD s/p CHELSEY 2016, HLD, angina, T2DM, HTN, GERD, and prior duodenal ulcer with hemorrhage with most recent hospital admission 02/05/2025 until 02/06/2025 for NSTEMI who is presenting now for concerns of infection and altered mental status. #Cellulitis of L foot | MRSA bacteremia | Sepsis - Hx of Right TKA - no additional hardware; MRSA (+) in ED; BC on 04/11 (+) for MRSA; CT on 04/11 negative for osteomyelitis, demonstrated soft tissue swelling and fat stranding throughout the left ankle and foot. No discrete abscesses or soft tissue gas. TTE 04/13 - WNL LV size & systolic function w/ EF 60-65%; no regional wall abnormalities. Abnormal septal motion consistent with prior cardiac surgery. Borderline dilated RV w/ mildly reduced systolic function. Mild Lt atrial dilation. Sclerotic aortic valve w/out significant stenosis. Probable mitral valve annuloplasty ring w/out significant regurgitation. Moderate pulmonary hypertension. No visualized valvular vegetations - technically difficult study. RVSP no moderately elevated compared to study done 02/06/25. Repeat CT of Lt foot 04/17 demonstrated interval plantar soft tissue abscess w/ progressive edema vs early abscess of dorsal soft tissues of the foot. No evidence of OM. Repeat CT of LLE 04/17 demonstrates increasing LLE subcutaneous edema and skin thickening suggestive of cellulitis. Interval development of long segment superficial thrombophlebitis within the left lower leg which extends for at least 15cm. There is no fluid collection within the calf or evidence of OM. -Consulted ID; recommends re-pursuing DANIELLE in setting of persistent high-grade MRSA bacteremia -Consult Podiatry -START IV Daptomycin 10mg/kg, per ID - dosing was discussed with pharm -DANIELLE ordered 04/17 in presence of persistently + BCx -- discussed with cards, doesn't feel that presence of annuloplasty + DANIELLE will alter abx course -LLE Venous Doppler -Blood Cultures: 04/11 - final, MRSA + 04/13 - preliminary, Staph Aureus 04/14 - preliminary, Staph Aureus 04/16 - pending -Acetaminophen prn fever/pain -CBC, BMP in AM -PT/OT eval and treat #Hyponatremia | Hypocalcemia - Vit D on 04/13 - 24.6; Ca correction for hypoalbuminemia 9.4 mg/dL -Continue Vitamin D #Diarrhea - Improving, per pt -Continue Metamucil; consider Cdiff if continued/worsening sx #T2DM - no acute concerns; HbA1c 01/2025 8.4% -HOLD Jardiance -START Lantus 9 units QAM -SSI with target BSG range 110-140mg/dL, CF 20, carb ratio 15 -HbA1c in AM #CAD - no acute concerns -Continue Plavix #HTN - no acute concerns -HOLD Lisinopril -Continue metoprolol #Hyperlipidemia - No acute concerns -HOLD Lipitor - in consideration of IV dapto #GERD - no acute concerns -Continue pantoprazole #Elevated Troponin - RESOLVED; was 36.7 initially in ED, most likely d/t tachycardia/cardiac demand Dispo: Continue PCU - awaiting cultures VTE Proph: Lovenox, SCDs Admission and Anticipated Discharge Date Admission Date: April 11, 2025 Supervising Physician Co-Signing Physician Notes PA Supervision Note: I did not personally see or examine the patient today, but I verified all rebolledo points of MORRIS Nascimento's assessment and plan with the following exceptions/additions: Lower extremity CT normal with evidence of abscess forming in the foot and superficial thrombophlebitis. Will consult podiatry for possible washout for source control. Continue IV daptomycin. Make n.p.o. after midnight. Check left lower extremity venous Doppler for DVT given superficial venous thrombus. Can likely restart home lisinopril tomorrow Subjective Pt was laying in bed today in NAD, family at bedside. Pt states that he's feeling a bit better day. He notes that he's had a bit easier of a time getting around today when compared to yesterday. He does note that when he's walking around he's developed on the anterior aspect of his leg - he denies feeling any pain at rest. Pt's at bedside would like confirmation as to wether or not the pt had a valve replacement. Discussed all medication changes and decision to CT with pt, which pt was agreeable to. Pt denies sore throat, congestion, cough, CP, SOB, Palpitations, abd pain/discomfort, and N/V/D. Telemetry: Brief episode of Sinus tach (06s bpm) overnight, otherwise sinus 80s; Sinus 72 this AM Review of Systems Review of Systems: All systems reviewed & are unremarkable except as noted in Subjective Physical Exam Physical Exam: General: Pt is a 65 y/o obese male in NAD in bed. VS: reviewed - remarkable Skin: Erythema surrounding L ankle that extends circumferentially towards toes with some intermittent areas of clearing. Redness darkened on dorsum of foot compared to 04/17 w/ erythema beginning climb proximally - past barrier drawn by ID; no lesions/breaks seen in skin surrounding area of erythema; no subungual hemorrhages or Osler nodes noted on hands or feet; skin is otherwise warm and dry; no rashes, lesions or ulcerations Respiratory: CTA bilat, no adventitious sounds noted. Chest expansion is full and symmetrical Cardio: RRR no murmurs Abdomen: Round, normoactive BS x4, nontender to palpation MSK: Little pain w/ palpation of L foot; new pain to palpation of anterior LLE; Pt struggles to bear weight, but notes it's getting easier for him to move. FROM extremities, no deformities noted Extremities: +2 pitting edema of LLE that extends just past mid-rosa; No erythema noted over R knee, pt able to bed knee w/out pain; RLE w/out edema; no clubbing/cyanosis bilat Neuro: A&Ox4, cooperative Results & Data Results & Data Vital Signs (Past 12 Hours) Vital Signs Temp Pulse Pulse Resp BP Pulse Ox O2 Del Method 04/17/25 07:45 97.9 F 74 20 135/79 94 Room Air 04/17/25 04:00 98.2 F 79 18 137/81 94 Room Air 04/16/25 23:16 98.2 F 97 H 18 145/78 H 94 Room Air 04/16/25 21:54 102 H 04/16/25 20:27 98.2 F 101 H 18 159/89 H 94 Room Air Laboratory Results Reviewed: CBC, BMP, Albumin, CPK, BCx Diagnostic Findings Reviewed: CT LLE + Lt foot PG Care Time/CCT Total # of Minutes Spent Total Time Spent with Patient: Total time spent is greater than 50% in coordination of care (as documented) at patient's floor/unit and/or counseling patient: Coding Level of Care Code 45674 SUB INP/OBS CARE MIN Diagnoses Cellulitis L03.90 Sepsis A41.9 Bacteremia R78.81 Hyponatremia E87.1 Diarrhea R19.7"
[2025-04-17 11:35] LABS: Albumin Level 2.4 gm/dl (3.4-5.0); Creatine Kinase 30.0 U/L (30-223)
--- NOTE | 2025-04-17 12:19 | Infectious Disease Progress Nt ---
Date of Service April 17, 2025 Assessment & Plan (1) Cellulitis: (2) Bacteremia: (3) Sepsis: Plan This is a 65-year-old man with a past medical history of CAD status post stents, HLD, DM2, GERD, duodenal ulcer with hemorrhage, recently admitted 02/05/2025 - 02/06/2025 for NSTEMI presented to the ED on 04/11 with worsening left foot edema, erythema and pain. also endorsed he had some confusion. Approximately 4 days prior to admission he woke up with acute onset of left foot swelling and pain. Denied any known trauma to the foot or wounds. He was evaluated by orthopedics outpatient at [place]. Placed in a walking boot. He continued to have left foot pain with associated chills,shakes and subjective fevers. No nausea, vomiting, shortness of breath, chest pain. He had difficulty placing pressure on the foot. His pain worsened prompting evaluation in the ED. He has a right knee TKA but no issues at that site. Admission temperature 37.9. Tmax 39.2. Labs: WBC 14.76, platelets 119-->70, BUN 29, creatinine 1.01, CRP 38.84, ESR 36. Blood cultures grew MRSA in 3/4 bottles on 04/11. Repeat Blood culture on 04/13 grew GPC in 2/4 bottles pending identification. Chest x-ray demonstrated a left basilar opacity which may represent atelectasis. Left lower extremity and foot CT showed no bony lesions to suggest osteomyelitis. Soft tissue swelling and fat stranding throughout the visualized left ankle and foot. No discrete abscess or soft tissue gas. TTE shows sclerotic aortic valve without significant stenosis. Probable mitral valve annuloplasty ring without significant regurgitation. Moderate pulmonary hypertension. No old visualized valvular vegetations but cannot exclude on transthoracic study. He is on Cefazolin. ID consulted for MRSA bacteremia. Microbiology 04/11 blood culture MRSA 3/4 bottles 04/13 blood culture Staph aureus 2/4 bottles 04/14 blood culture Staph aureus 2/4 bottles 04/16 blood culture NGTD Antibiotics Vancomycin Clindamycin 04/11 piperacillin/tazobactam # High-grade MRSA bacteremia # Sepsis # Left foot skin and soft tissue infection wit abscess # left leg superficial thrombophlebitis. # Right knee TKA # Probable mitral Valve annuloplasty ring on TTE # Thrombocytopenia,improving Discussion- He presents with worsening left foot skin and soft tissue infection (without abscess or osteomyelitis) and associated high-grade MRSA bacteremia. He reports has a right knee TKA but there is no obvious issues on exam at that site. He denies any other hardware however a TTE shows a probable annuloplasty ring of the mitral valve. He remains bacteremic as of 04/14. Repeat Bcx 04/16 NGTD. Source of bacteremia may be the left foot infection, however will need to rule out endocarditis especially in the setting of MV annuloplasty ring seen on TTE and persistent bacteremia despite appropriate abx ( initally on vanco --- switched to dapto given high doses of Vanco needed to maintain appropriate level) . Cardiology declined to pursue DANIELLE. No signs of deep space infection of the left foot on initial CT foot however repeat CT foot shows ? abscess and doppler shows Left leg superficial venous thrombosis 04/16- Remains bacteremic. LLE has less edema and TTP, but some spread of erythema. 04/[address] foot shows abscess and Doppler shows thrombophlebitis . Cardiology declined DANIELLE as pt has had esophageal issues in past with intubation. BCx 03/16 NGTD. CK 30 Recommendations -Continue Daptomycin 10 mg /kg IV daily ( discussed dosing with ID pharm) . Since he has had prior CV events and has normal renal fxn, can COntinue Statin and will monitor CK weekly -Follow up repeat blood cultures from 04/16 -Agree with Podiatry eval for I and D -Monitor for metastatic disease to spine, joints,[employer], etc . Discussed with PA and hospitalist . ID will continue to follow. Neto Edwards MD, MPH Infectious Disease [facility], [facility] Call [phone] with questions Admission and Anticipated Discharge Date Admission Date: April 11, 2025 Subjective This patient recommendation is based on a telemedicine consult request which was completed asynchronously through chart review and information provided by the primary physician. The patient was not seen or examined today. The evaluation is consultative in nature and all patient care and treatment decisions can either be accepted or rejected by the patient's primary hospital-based treating physician using their own independent medical judgment for their patient. Time Spent Reviewing Chart: 21 - 30 minutes BCX 04/16 NGTD cardiology declined to pursue DANIELLE CT RLE was completed in afternoon as LE erythema showed progression CT shows possible foot abscess. Doppler shows superficial thrombophlebitis WBC 6.22 Results & Data Vital Signs (Past 12 Hours) Vital Signs Temp Pulse Resp BP Pulse Ox O2 Del Method 04/17/25 11:56 36.5 C 69 19 138/80 96 Room Air 04/17/25 07:45 36.6 C 74 20 135/79 94 Room Air 04/17/25 04:00 36.8 C 79 18 137/81 94 Room Air Laboratory Results 04/17/25 04/17/25 04/17/25 11:52 10:50 07:48 WBC RBC Hgb Hct MCV MCH MCHC RDW Std Deviation RDW Coeff of [place] Plt Count MPV Immature Gran % (Auto) Neut % (Auto) Lymph % (Auto) [place] % (Auto) Eos % (Auto) Baso % (Auto) Neut # (Auto) Lymph # (Auto) [place] # (Auto) Eos # (Auto) Baso # (Auto) Immature Gran # (Auto) Toxic Granulation Dohle Bodies Polychromasia Sodium Potassium Chloride Carbon Dioxide Anion Gap BUN Creatinine Est Cr Clr Drug Dosing eGFR BUN/Creatinine Ratio Glucose POC Glucose 231 H 180 H Calcium Total Creatine Kinase 30 Albumin 2.4 L 04/17/25 04/16/25 04/16/25 06:00 20:23 16:31 WBC 6.22 RBC 4.07 L Hgb 12.1 L Hct 34.7 L MCV 85.3 MCH 29.7 MCHC 34.9 RDW Std Deviation 42.2 RDW Coeff of [place] 14.4 Plt Count 165 MPV 9.7 Immature Gran % (Auto) 1.9 Neut % (Auto) 70.3 Lymph % (Auto) 13.2 [place] % (Auto) 11.6 Eos % (Auto) 2.4 Baso % (Auto) 0.6 Neut # (Auto) 4.37 Lymph # (Auto) 0.82 L [place] # (Auto) 0.72 H Eos # (Auto) 0.15 Baso # (Auto) 0.04 Immature Gran # (Auto) 0.12 Toxic Granulation 2+ Dohle Bodies 1+ Polychromasia 1+ Sodium 136 Potassium 3.9 Chloride 100 Carbon Dioxide 30 Anion Gap 6 BUN 10 Creatinine 0.57 L Est Cr Clr Drug Dosing 138.7 eGFR 108.80 BUN/Creatinine Ratio 17.5 Glucose 196 H POC Glucose 260 H 152 H Calcium 7.9 L Total Creatine Kinase Albumin Microbiology 04/16/25 09:44 Blood Aerobic Blood Culture - Preliminary No growth in Aerobic bottle after 24 hours. 04/16/25 09:44 Blood Anaerobic Blood Culture - Preliminary No growth in Anaerobic bottle after 24 hours. 04/16/25 09:44 Blood Aerobic Blood Culture - Preliminary No growth in Aerobic bottle after 24 hours. 04/16/25 09:44 Blood Anaerobic Blood Culture - Preliminary No growth in Anaerobic bottle after 24 hours. 04/14/25 14:33 Blood Aerobic Blood Culture - Preliminary Staph aureus MRSA 04/14/25 14:33 Blood Anaerobic Blood Culture - Preliminary No growth in Anaerobic bottle after 48 hours. 04/14/25 14:25 Blood Aerobic Blood Culture - Preliminary Staph aureus MRSA 04/14/25 14:25 Blood Anaerobic Blood Culture - Preliminary No growth in Anaerobic bottle after 48 hours. 04/13/25 09:47 Blood Aerobic Blood Culture - Preliminary Staphylococcus aureus 04/13/25 09:47 Blood Anaerobic Blood Culture - Preliminary No growth in Anaerobic bottle after 48 hours. 04/13/25 09:44 Blood Aerobic Blood Culture - Preliminary Staphylococcus aureus 04/13/25 09:44 Blood Anaerobic Blood Culture - Final 04/11/25 20:00 Blood Aerobic Blood Culture - Final Staph aureus MRSA 04/11/25 20:00 Blood Anaerobic Blood Culture - Final Staph aureus MRSA 04/11/25 19:50 Blood Aerobic Blood Culture - Preliminary Staph aureus MRSA 04/11/25 19:50 Blood Anaerobic Blood Culture - Final Diagnostic Findings Foot CT 04/17/25 12:03 CT foot LT w con CLINICAL HISTORY: r/o OM COMPARISON STUDY: 04/11/2025 FINDINGS: Lower extremity thrombophlebitis described on the tibia and fibula CT earlier today is better seen on that exam. There is progressive diffuse cellulitis at the left foot. There is an interval lobulated branching fluid collection within the plantar muscles of the left foot extending from the anterior lower calcaneus to below the first and second metatarsals. It measures approximately 6 cm greatest AP dimension by 1 cm transverse by 1 cm craniocaudad. It has morphology consistent with soft tissue abscess. There is progressive edema versus diffuse early abscess in the dorsal soft tissues over the midfoot.. No evidence of osteomyelitis seen at the left foot. No fracture or dislocation seen. IMPRESSION: 1. No evidence of osteomyelitis. 2. Interval plantar soft tissue abscess. Progressive edema versus early abscess dorsal soft tissues. ACT 112: Negative or not required by law. Electronically signed by: Niko Sauceda M.D. 04/17/2025 3:[address] 04/17/25 12:03 CT tib/fib LT w con CLINICAL HISTORY: Left lower extremity pain, swelling and erythema. Evaluate for osteomyelitis. COMPARISON STUDY: Left tibia and fibula CT April 11, 2025. TECHNIQUE: Axial images of the left tibia and fibula/lower leg were obtained fo llowing intravenous injection of 93 cc of Optiray 320 IV. Sagittal and coronal reformats were viewed. A dose lowering technique was utilized adhering to the principles of ALARA. FINDINGS: There are no fractures within the left tibia or fibula. No foci of bony erosion are identified. There are no osseous lesions. There is no soft tissue gas within the left lower leg. The left foot CT will be reported separately. Extensive subcutaneous edema of the left lower leg has progressed since CT of April 11, 2025. Skin thickening has also increased. No intramuscular fluid collection is present. No fluid along the fascia is noted. There has been interval development of long segment thrombus within a superficial vein of the anterior medial left lower leg. This extends for at least [address] evidence for deep venous involvement. IMPRESSION: 1. Increasing left lower leg subcutaneous edema and skin thickening suggestive of cellulitis. No evidence for acute osteomyelitis. No soft tissue gas. No fluid collection within the left calf. Please note that the left foot CT will be reported separately. 2. Interval development of long segment superficial thrombophlebitis within the left lower leg which extends for at least 15 cm. No extension into the deep system. This can be assessed with a left lower extremity venous Doppler ultrasound. ACT 112: Negative or not required by law. Electronically signed by: Tony Villavicencio M.D. 04/17/2025 2:53 PM Venous Doppler Study 04/17/25 16:27 Technique: Venous ultrasound evaluation was performed utilizing grayscale, color Doppler and wave form evaluation. Images were also obtained with and without compression Findings: There is thrombus in the greater saphenous vein, extending approximately 6.6 cm in length and 1.2 cm from the junction with the common femoral vein. There is also some thrombus in the gastrocnemius vein, extending approximately 2.9 cm The left common femoral, superficial femoral, popliteal, and visualized calf veins demonstrate normal anechoic lumens with full compressibility. Normal flow is seen on color Doppler images. Expected waveforms were produced with augmentation maneuvers There is a 2 x 0.7 cm left inguinal lymph node Impression: 1. No evidence of left leg deep venous thrombosis 2. Left leg superficial venous thrombosis ACT 112: Positive. There are findings on this exam that require communication between the performing entity and the patient following Patient Test Result Information Act ([place] ACT 112) guidelines. Electronically signed by Nicho Avila 04-17-2025 6:07 PM Medications Administered Home Medications Medication Instructions Recorded Confirmed Last Taken cyanocobalamin (vitamin B-12) 1,000 mcg PO QAM 03/27/23 04/11/25 04/10/25 1,000 mcg tablet (Vitamin B-12) empagliflozin 25 mg tablet 25 mg PO QPM 03/27/23 04/11/25 04/10/25 (Jardiance) multivitamin with minerals-folic 1 tab PO DAILY 04/03/23 04/11/25 04/10/25 acid 0.4 mg tablet (Adult One Daily Multivitamin) clopidogrel 75 mg tablet 75 mg PO DAILY #90 tabs 02/12/25 04/11/25 04/10/25 metoprolol tartrate 25 mg tablet 25 mg PO BID #180 tabs 02/12/25 04/11/25 04/10/25 atorvastatin 80 mg tablet 80 mg PO HS #90 tabs 03/12/25 04/11/25 04/10/25 lisinopril 20 mg tablet 20 mg PO DAILY #90 tabs 03/12/25 04/11/25 04/10/25 nitroglycerin 0.4 mg sublingual 0.4 mg sublingual Q5M PRN chest 03/12/25 04/11/25 Unknown tablet pain #25 tabs pantoprazole 40 mg tablet,delayed 40 mg PO DAILY 90 days #90 tabs 03/12/25 04/11/25 04/10/25 release lactobacillus comb no.10 20 20,000 mmu cells PO DAILY 04/11/25 04/11/25 04/10/25 billion cell capsule (Probiotic) magnesium citrate,mag oxide 250 mg 250 mg PO DAILY 04/11/25 04/11/25 04/10/25 capsule zinc acetate 50 mg (zinc) capsule 50 mg PO DAILY 04/11/25 04/11/25 04/10/25 Active Medications Generic Name Dose Route Start Last Admin Trade Name Osmany PRN Reason Stop Dose Admin Acetaminophen 650 mg 04/12/25 01:20 04/12/25 18:33 Acetaminophen 325 Mg Tab PO 05/12/25 01:19 650 mg Q4H PRN Administration Pain or Fever Atorvastatin Calcium 80 mg 04/12/25 21:00 04/16/25 20:56 Atorvastatin 40 Mg Tab PO 05/12/25 20:59 80 mg HS ONOFRE Administration Clopidogrel Bisulfate 75 mg 04/12/25 09:00 04/17/25 08:07 Clopidogrel Bisulfate 75 Mg Tab PO 05/12/25 08:59 75 mg DAILY ONOFRE Administration Enoxaparin Sodium 40 mg 04/15/25 09:00 04/17/25 08:07 Enoxaparin Inj 40 Mg/0.4 Ml Syr SQ 05/15/25 08:59 40 mg QAM ONOFRE Administration Daptomycin 950 mg/ Syringe 19 mls @ 9.5 mls/min 04/16/25 14:00 04/16/25 14:30 IV 04/30/25 13:59 9.5 mls/min Q24H ONOFRE Administration Protocol Insulin Aspart 0 units 04/12/25 07:30 04/17/25 08:52 Insulin Aspart Per Unit Charge SC 05/12/25 07:29 5 units ACHS ONOFRE Administration Melatonin 3 mg 04/12/25 01:20 04/16/25 20:55 Melatonin 3 Mg Tab PO 05/12/25 01:19 3 mg HS PRN Administration Sleep Metoprolol Tartrate 50 mg 04/12/25 09:00 04/17/25 08:07 Metoprolol Tartrate 50 Mg Tab PO 05/12/25 08:59 50 mg BID ONOFRE Administration Pantoprazole Sodium 40 mg 04/12/25 09:00 04/17/25 08:07 Pantoprazole 40 Mg Tab PO 05/12/25 08:59 40 mg DAILY ONOFRE Administration Psyllium Hydrophilic Mucilloid 4 gm 04/12/25 12:45 04/17/25 08:07 Psyllium Husk 4gm Packet PO 05/12/25 12:44 4 gm BID ONOFRE Administration Vitamin D 125 mcg 04/15/25 09:00 04/17/25 08:07 Cholecalciferol 125 Mcg (5,000 Units) Tab PO 05/15/25 08:59 125 mcg QAM ONOFRE Administration
[2025-04-17] MEDS: LANTUS PER UNIT CHARGE SQ SCH (12:21)
[2025-04-17] MEDS: OPTIRAY 320 100ml IV ONE (14:35)
--- NOTE | 2025-04-17 14:55 | CT Scan Report ---
CT tib/fib LT w con CLINICAL HISTORY: Left lower extremity pain, swelling and erythema. Evaluate for osteomyelitis. COMPARISON STUDY: Left tibia and fibula CT April 11, 2025. TECHNIQUE: Axial images of the left tibia and fibula/lower leg were obtained following intravenous in jection of 93 cc of Optiray 320 IV. Sagittal and coronal reformats were viewed. A dose lowering techn ique was utilized adhering to the principles of ALARA. FINDINGS: There are no fractures within the left tibia or fibula. No foci of bony erosion are identif ied. There are no osseous lesions. There is no soft tissue gas within the left lower leg. The left fo ot CT will be reported separately. Extensive subcutaneous edema of the left lower leg has progressed since CT of April 11, 2025. Skin thickening has also increased. No intramuscular fluid collection i s present. No fluid along the fascia is noted. There has been interval development of long segment th rombus within a superficial vein of the anterior medial left lower leg. This extends for at least [address] evidence for deep venous involvement. IMPRESSION: 1. Increasing left lower leg subcutaneous edema and skin thickening suggestive of cellulitis. No radha dence for acute osteomyelitis. No soft tissue gas. No fluid collection within the left calf. Please n ote that the left foot CT will be reported separately. 2. Interval development of long segment superficial thrombophlebitis within the left lower leg which extends for at least 15 cm. No extension into the deep system. This can be assessed with a left lower extremity venous Doppler ultrasound. ACT 112: Negative or not required by law. Electronically signed by: Tony Villavicencio M.D. 04/17/2025 2:53 PM
--- NOTE | 2025-04-17 15:19 | CT Scan Report ---
CT foot LT w con CLINICAL HISTORY: r/o OM COMPARISON STUDY: 04/11/2025 FINDINGS: Lower extremity thrombophlebitis described on the tibia and fibula CT earlier today is bett er seen on that exam. There is progressive diffuse cellulitis at the left foot. There is an interval lobulated branching fluid collection within the plantar muscles of the left foot extending from the a nterior lower calcaneus to below the first and second metatarsals. It measures approximately 6 cm gre atest AP dimension by 1 cm transverse by 1 cm craniocaudad. It has morphology consistent with soft ti ssue abscess. There is progressive edema versus diffuse early abscess in the dorsal soft tissues over the midfoot.. No evidence of osteomyelitis seen at the left foot. No fracture or dislocation seen. IMPRESSION: 1. No evidence of osteomyelitis. 2. Interval plantar soft tissue abscess. Progressive edema versus early abscess dorsal soft tissues. ACT 112: Negative or not required by law. Electronically signed by: Niko Sauceda M.D. 04/17/2025 3:16 PM
--- NOTE | 2025-04-17 18:07 | Ultrasound Report ---
Technique: Venous ultrasound evaluation was performed utilizing grayscale, color Doppler and wave form evaluation. Images were also obtained with and without compression Findings: There is thrombus in the greater saphenous vein, extending approximately 6.6 cm in length and 1.2 cm from the junction with the common femoral vein. There is also some thrombus in the gastrocnemius vein, extending approximately 2.9 cm The left common femoral, superficial femoral, popliteal, and visualized calf veins demonstrate normal anechoic lumens with full compressibility. Normal flow is seen on color Doppler images. Expected waveforms were produced with augmentation maneuvers There is a 2 x 0.7 cm left inguinal lymph node Impression: 1. No evidence of left leg deep venous thrombosis 2. Left leg superficial venous thrombosis ACT 112: Positive. There are findings on this exam that require communication between the performing entity and the patient following Patient Test Result Information Act ([place] ACT 112) guidelines. Electronically signed by Nicho Avila 04-17-2025 6:07 PM
[2025-04-17 21:20] LABS: Uric Acid 1.9 mg/dl (2.6-7.2)
--- NOTE | 2025-04-17 21:45 | Podiatry Consultation ---
Date of Consultation April 17, 2025 Assessment & Plan (1) Cellulitis: Site of cellulitis: extremity Site of cellulitis of extremity: lower extremity Laterality: left Qualified Code(s): L03.116 - Cellulitis of left lower limb (2) Sepsis: Sepsis type: methicillin resistant Staphylococcus aureus Sepsis a cute organ dysfunction status: without acute organ dysfunction Qualified Code(s): A41.02 - Sepsis due to Methicillin resistant Staphylococcus aureus (3) Diabetes mellitus, type 2: Diabetes mellitus prison insulin use: without prison use Diabetes mellitus complication status: with neurologic complications Diabetes mellitus complication detail: with polyneuropathy Qualified Code(s): E11.42 - Type 2 diabetes mellitus with diabetic polyneuropathy Plan Patient was examined and evaluated. CT of foot and ankle reviewed from today and last week. Labs and chart reviewed extensively. We discussed that this lower extremity is an atypical infection. It does appear clinically consistent with cellulitis, though there is no portal of entry or local cause for this. The erythema and calor are consistent with an infectious process, though after CT review, nothing on this imaging correlates with his pain. An MRI would be more beneficial, though with the pain extending from the malleoli of the ankle to the dorsal foot and the clinical symptoms this broad, as well, an MRI of the foot and ankle were both ordered. Further, without improvement on antibiotics, this could still be a significant gout attack of the ankle joint. This is espcially true given his lack of systemic response to any infectious process, other than the prior positive blood cultures. He has no personal history of gout and recent uric acid levels have been within normal limits, but uric acid is an imperfect test; it can more conclusively rule in gout than rule it out. New uric acid levels will be checked. If MRI reveals any abscess or infection, this could be improved surgically at this point. If it is more gouty in nature, oral steroids, i.e. a medrol dosepak and close glucose monitoring, would be most beneficial. We will check back in the morning on these results to plan further intervention. Thank you for the consult. We are happy to help however we can. History of Present Illness Reason for Consultation: Left foot/ankle infection Attending Physician: Steph Matthews MD History of Present Illness Patient seen at bedside this evening. He states that he presented to the ED last week with severe pain, swelling, and redness to the left foot. He is a diabetic and was concerned for this acute change to his foot. He has not had similar concerns in the past but does have some underlying level of neuropathy/numbness. He denies any injury or trauma. He denies any history of gout. We were consulted after CT scan revealed potential for anscess formation, notably after prior CT scan on this admission was negative for any specific findings. Now, he has not improved much in the last few days with IV antibiotics and ID input. His main concern is the severe pain, with the point of maximal tenderness noted to the dorsal midfoot but most specifically to the medial ankle joint. He denies any systemic symptoms of infection. Allergies Allergy/AdvReac Type Severity Reaction Status Date / Time metformin Allergy Intermediate Rash Verified 04/11/25 22:13 ether Allergy Unknown Unknown Verified 04/11/25 22:13 NSAIDS (Non-Steroidal AdvReac Intermediate Gastrointestinal Verified 04/11/25 22:13 Anti-Inflamma Upset Home Medications Medication Instructions Recorded Confirmed Type cyanocobalamin (vitamin B-12) 1,000 mcg PO QAM 03/27/23 04/11/25 History 1,000 mcg tablet (Vitamin B-12) empagliflozin 25 mg tablet 25 mg PO QPM 03/27/23 04/11/25 History (Jardiance) multivitamin with minerals-folic 1 tab PO DAILY 04/03/23 04/11/25 History acid 0.4 mg tablet (Adult One Daily Multivitamin) clopidogrel 75 mg tablet 75 mg PO DAILY #90 tabs 02/12/25 04/11/25 Rx metoprolol tartrate 25 mg tablet 25 mg PO BID #180 tabs 02/12/25 04/11/25 Rx atorvastatin 80 mg tablet 80 mg PO HS #90 tabs 03/12/25 04/11/25 Rx lisinopril 20 mg tablet 20 mg PO DAILY #90 tabs 03/12/25 04/11/25 Rx nitroglycerin 0.4 mg sublingual 0.4 mg sublingual Q5M PRN chest 03/12/25 04/11/25 Rx tablet pain #25 tabs pantoprazole 40 mg tablet,delayed 40 mg PO DAILY 90 days #90 tabs 03/12/25 04/11/25 Rx release lactobacillus comb no.10 20 20,000 mmu cells PO DAILY 04/11/25 04/11/25 History billion cell capsule (Probiotic) magnesium citrate,mag oxide 250 mg 250 mg PO DAILY 04/11/25 04/11/25 History capsule zinc acetate 50 mg (zinc) capsule 50 mg PO DAILY 04/11/25 04/11/25 History Patient History Medical History NSTEMI (non-ST elevated myocardial infarction) Substernal precordial chest pain Unstable angina Chest pain Elevated troponin Pulmonary nodule GERD (gastroesophageal reflux disease) rare Witnessed apneic spells per patient's , denies previous sleep apnea study Snoring History of airway aspiration per pt, joshua-operatively for renal stone procedure in past Hx of renal calculi last episode several months ago Hyperactive gag reflex "please do not intubate due to overactive/hyperactive gag reflex" History of cancer Age 7, 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 No other treatments/no current issues Surgical History Hx of CABG Family history of adverse reaction to anesthesia Grandmother in 1934- from the ether given to her by anesthesia S/P cystoscopy with ureteral stent placement w/laser lithotripsy History of anesthesia complications pt stated he should not be intubated unless it's a dire emergency due to his overactive/hyperactive gag reflex; did aspirate once when going under for kidney stones" Hx of left knee surgery age 7, cancerous tumor removed Hx of right knee surgery -"total reconstruction" Hx laparoscopic cholecystectomy History of esophagogastroduodenoscopy (EGD) Hx of colonoscopy Dr. Benigno Bryson 10/13/2014 Hx of nasal septoplasty Hx of tonsillectomy History of cardiac cath 2005- x1 stent 2009- x1 stent 2016- CABG x3 Hx of CABG CABG x3 (2016) Social History Smoking Status: Never smoker Age Started Using Tobacco: 24; Age Quit Using Tobacco: 34; packs per day: 1; Second Hand Exposure: No; Do You Dip or Chew Tobacco: No; Hx Alcohol Use: No Hx Substance Use: No Preferred Language: Macanese Communication Ability: Effective Retail Agent Required: No Beliefs That Will Affect Care: None Current Living Situation: Spouse Current Living Situation Comment: lives at home with Feels Safe at Home: Yes Assistive Devices: None Review of Systems Review of Systems: All systems reviewed & are unremarkable except as noted in HPI & below Constitutional: no fever, no chills and no fatigue Eyes: no problem reported Ear, Nose, Mouth, Throat: no problem reported Respiratory: no problem reported Cardiovascular: + edema; no chest pain and no problem re ported Gastrointestinal: no nausea, no vomiting and no problem reported Genitourinary: no problem reported Musculoskeletal: + joint pain and + swelling; no problem reported Integumentary: + erythema; no skin ulcer and no wounds Neurologic: + numbness; no localized weakness and no generalized weakness Psychiatric: no problem reported Physical Exam Physical Exam: Left lower extremity focused exam: DP/PT pulses palpable 2/4 b/l. CFT brisk to digits. ROM is decreased to ankle due to guarding. No crepitus on ROM. No evidence of necrotic/non-viable tissue. Point of maximal tenderness, including pain out of proportion to stimulus, noted over the medial malleolus of the right ankle. No open wounds or abrasions noted. No palpable fluctuance noted. Erythema is noted globally to the foot and ankle, within the proximal marker lines from earlier today. Per nursing, this line was previously more distal, but remarked earlier today, with no further proximal extension. CT is suggestive of plantar heel abscess formation with more diffuse cellulitis otherwise. No obvious bone involvement appreciated. Specifically, very minimal change between imaging on 04/11 and today. Uric acid recently measuring just over 6. Constitutional: WD/WN, vitals as above + obese; no acute distress Eyes: PERRL, conjunctivae normal, anicteric sclerae ENMT: external ear and nose normal, oropharynx normal Neck: trachea midline, no thyromegaly normal visual inspection Respiratory: normal respiratory effort; no respiratory distress Cardiovascular: Rate/Rhythm: regular rate and regular rhythm Vessels: posterior tibial pulses present and dorsalis pedis pulses present Chest (Breasts): Chest: normal inspection of chest Gastrointestinal (Abdomen): Inspection/Auscultation: abdomen normal to inspection Percussion/Palpation: + abdomen tender and abdomen soft Musculoskeletal: no cyanosis or clubbing, extremities motor strength 5/5 Head/Neck/Chest: normocephalic and head atraumatic Extremities: extremities normal to inspection Ankle: + skin erythema and + limited ROM of ankle; no deformity and no ecchymosis Skin: + skin tightening and + erythema; no ulc ers, no wound, no skin atrophy and no fluctulance Neurologic: normal sensation to monofilament and awake; no focal motor deficits Psychiatric: A+Ox3, euthymic affect Results & Data Vital Signs (Past 12 Hours) Vital Signs Temp Pulse Resp BP BP Pulse Ox O2 Del Method 04/17/25 19:33 36.6 C 90 18 151/82 H 95 Room Air 04/17/25 15:35 36.9 C 80 19 148/77 H 96 Room Air 04/17/25 11:56 36.5 C 69 19 138/80 96 Room Air
--- NOTE | 2025-04-17 22:23 | Magnetic Resonance Report ---
Exam(s): MRI LEFT ANKLE Without Contrast EXAM: MR Left Lower Extremity Without Intravenous Contrast, Ankle CLINICAL HISTORY: Reason for exam: left foot/ankle cellulitis, ?abscess. OTHER: Other Notes: LEFT FOOT/ANKLE SWELLING AND REDNESS X 10-15 DAYS CELLULITIS POSSIBLE OR TECHNIQUE: Multiplanar magnetic resonance images of the left ankle without intravenous contrast. COMPARISON: CT 04/11/2025. FINDINGS: Circumferential subcutaneous soft tissue edema. No abscess. No soft tissue gas. No acute fracture. No osteomyelitis. Small amount of fluid within the posterior joint space of the tibiotalar and subtalar joints. No full-thickness or high-grade partial cartilage loss. Achilles, peroneal, medial flexor tendons, and anterior extensor tendons are intact. No acute ligamentous abnormality. Chronically torn anterior talofibular ligament. Thickened plantar fascia up to 7 mm. IMPRESSION: 1. Diffuse soft tissue edema at the ankle. No septic arthritis or osteomyelitis. Electronically signed by: Mike Singh MD 04/17/25 22:21 PM
--- NOTE | 2025-04-17 23:05 | Magnetic Resonance Report ---
Exam(s): MRI LEFT FOOT Without Contrast EXAM: MR Left Lower Extremity Without Intravenous Contrast, Foot CLINICAL HISTORY: Reason for exam: foot/ankle cellulitis, ?abscess on ct. OTHER: Other Notes: LEFT FOOT/ANKLE SWELLING AND REDNESS X 10-15 DAYS CELLULITIS POSSIBLE OR TECHNIQUE: Multiplanar magnetic resonance images of left foot without intravenous contrast. COMPARISON: CT 04/11/2025 FINDINGS: Diffuse subcutaneous soft tissue edema. Fluid collection along the dorsal aspect of midfoot and forefoot measuring 7.6 x 4.7 x 1.0 cm. No evidence of acute osteomyelitis. No acute fracture. Fluid collection adjacent to the flexor digitorum longus tendon measuring 6.2 x 1.0 x 1.0 cm. IMPRESSION: 1. Dorsal fluid collection measuring up to 7.6 cm. The appearance is more suggestive of ganglion than abscess. 2. Fluid collection adjacent to the flexor digitorum longus measuring up to 6.2 cm. Differential of ganglion versus tenosynovitis. 3. Diffuse subcutaneous soft tissue edema. 4. No evidence of osteomyelitis. Electronically signed by: Mike Singh MD 04/17/25 23:04 PM
[2025-04-18] MEDS ORDERED: VANCOMYCIN LEVEL ONE (06:00)
[2025-04-18 06:18] LABS: Hematocrit (blood only) 33.2 % (42.0-52.0); Hemoglobin 12.0 g/dl (14.0-18.0); Immature Granulocytes # (auto) 0.13 K/uL (0.01-0.20); Immature Granulocytes % (auto) 2.0 %; Mean Corpuscular Hemoglobin 31.0 pg (25.0-34.0); Mean Corpuscular Volume 85.8 fL (80.0-100.0); Platelet Count 218 K/uL (130-400); RDW Standard Deviation 40.7 fL (36.4-46.3); Red Blood Count 3.87 M/uL (4.70-6.10); White Blood Count 6.42 K/ul (4.8-10.8)
[2025-04-18 06:54] LABS: Anion Gap 8.0 (3-11); Blood Urea Nitrogen 11.0 mg/dl (6-23); Calcium 8.1 mg/dl (8.6-10.3); Carbon Dioxide 26.0 mmol/L (21-32); Chloride 101.0 mmol/L (98-107); Creatinine Clr Calc Pharmacy 155.0 ml/min; Glucose 159.0 mg/dl (70-99(Fasting)); Potassium 3.9 mmol/L (3.5-5.1); Sodium 135.0 mmol/L (136-145)
[2025-04-18 07:05] LABS: Hemoglobin A1C 8.2 % (4.5-5.6)
[2025-04-18] MEDS ORDERED: ENOXAPARIN INJ 40 MG/0.4 ML SYR SQ ONE (09:00)
--- NOTE | 2025-04-18 09:20 | Infectious Disease Progress Nt ---
Date of Service April 18, 2025 Assessment & Plan (1) Cellulitis: (2) Bacteremia: (3) Sepsis: Plan This is a 65-year-old man with a past medical history of CAD status post stents, HLD, DM2, GERD, duodenal ulcer with hemorrhage, recently admitted 02/05/2025 - 02/06/2025 for NSTEMI presented to the ED on 04/11 with worsening left foot edema, erythema and pain. also endorsed he had some confusion. Approximately 4 days prior to admission he woke up with acute onset of left foot swelling and pain. Denied any known trauma to the foot or wounds. He was evaluated by orthopedics outpatient at [facility] who gave him a walking boot. He continued to have left foot pain with associated chills,shakes and subjective fevers. No nausea, vomiting, shortness of breath, chest pain. He had difficulty placing pressure on the foot. His pain worsened prompting evaluation in the ED. He has a right knee TKA but no issues at that site. Admission temperature 37.9. Tmax 39.2. Labs: WBC 14.76, platelets 119, BUN 29, creatinine 1.01, CRP 38.84, ESR 36. Blood cultures grew MRSA in 3/4 bottles on 04/11. Repeat Blood culture on 04/13 and 04/14 grew MRSA in 2/4. Chest x-ray demonstrated a left basilar opacity which may represent atelectasis. Left lower extremity and foot CT showed soft tissue swelling and fat stranding throughout the visualized left ankle and foot. No discrete abscess or soft tissue gas.No bony lesions to suggest osteomyelitis. TTE showed a sclerotic aortic valve without significant stenosis. Probable mitral valve annuloplasty ring without significant regurgitation. Moderate pulmonary hypertension. No visualized valvular vegetations but cannot exclude on transthoracic study. He was started on IV Vancomycin. ID consulted for MRSA bacteremia. Microbiology 04/11 blood culture MRSA 3/4 bottles 04/13 blood culture MRSA 2/4 bottles 04/14 blood culture MRSA 2/4 bottles 04/16 blood culture NGTD Antibiotics Vancomycin Clindamycin 04/11 piperacillin/tazobactam Daptomcyin 04/16- present # High-grade MRSA bacteremia # Sepsis # Left foot skin and soft tissue infection with ? abscess vs tenosynovitis vs septic ankle arthritis # Left leg superficial thrombophlebitis. # Right knee TKA # Probable mitral Valve annuloplasty ring on TTE # Thrombocytopenia,resolved Discussion- He presents with worsening left foot skin and soft tissue infection (without osteomyelitis) and associated high-grade MRSA bacteremia. He reports has a right knee TKA but there is no obvious issues on exam at that site. He denies any other hardware however a TTE shows a probable annuloplasty ring of the mitral valve ( he and do not think he had annuloplasty. . Repeat Bcx 04/16 NGTD after being bacteremic since 04/13. Source of bacteremia may be the left foot infection, however attempted to rule out endocarditis especially in the setting of MV annuloplasty ring seen on TTE and bacteremia despite appropriate abx ( initially on vanco --- switched to dapto given high doses of Vanco needed to maintain appropriate levels) . Cardiology declined to pursue DANIELLE. Initial imaging showed no signs of deep space infection of the left foot, however repeat CT foot 04/17 showed ? foot abscess and LLE Doppler showed Left leg superficial venous thrombosis. He was evaluated by podiatry. MRI LE showed dorsal fluid collection measuring up to 7.6 cm suggesting of ganglion than abscess, as well as 6.2 cm fluid collection adjacent to the flexor digitorum c/f ganglion vs tenosynovitis. No evidence of OM. He is pending fluid aspiration . 04/16- Remains bacteremic. LLE has less edema and TTP, but some spread of erythema. 04/[address] foot shows abscess and Doppler shows thrombophlebitis . Cardiology declined DANIELLE as pt has had esophageal issues in past with intubation. BCx 03/16 NGTD. CK 30 04/18 Foot pain is less. MRI shows fluid collection and findings c/f ganglion or tenosynovitis. He is pending synovial fluid aspiration vs I and d. Podiatry has c/f gotl Recommendations -Continue Daptomycin 10 mg /kg IV daily ( discussed dosing with ID pharm) . Since he has had prior CV events and has normal renal fxn, can Continue Statin and will monitor CK weekly -Follow up repeat blood cultures from 04/16 -Appreciate podiatry input - follow up Synovial fluid studies and cx vs I and D cx -Monitor for metastatic disease to spine, joints,BUREAU DIRECTOR, etc . Anticipate fci antibiotics. Final plan depends on BCX clearance, Fluid cx findings and need for further surgical intervention. Discussed with MORRIS . ID will continue to follow, but [facility] will not round or review the chart over the weekend. Call covering provider at [facility] at [phone] with questions. ID will resume coverage on Saturday 04/21 Neto Edwards MD, MPH Infectious Disease [facility], [facility] Admission and Anticipated Discharge Date Admission Date: April 11, 2025 Subjective Subsequent visit was provided via telemedicine using two-way real-time interactive telecommunication between the patient and the telemedicine provider. For the duration of the visit, the provider was performing the assessment from a different facility than the patient. This includesuse of bluetooth stethoscope forauscultationperformed by the telepresenter that the telemedicine provider can hear if described in the physical exam. [employer] contact information: Please call [facility] Call Center . (Phone Number For Physician Use Only) After establishing a telemedicine visit, patient was: Patient was verified with two unique identifiers and Gave permission to continue telehealth session Time Spent with Patient: Subsequent => 35 min -BCX 04/16 NGTD - He has Left foot and ankle pain but less. -Evaluated by Podiatry who recommended MRI LLE shows Dorsal fluid collection measuring up to 7.6 cm ? ganglion and fluid collection adjacent to the flexor digitorum longus measuring up to 6.2 cm. Differential of ganglion versus tenosynovitis. No evidence of osteomyelitis. - He is pending joint aspiration vs I and D Physical Exam Physical Exam: Gen-NAD Neck- supple HEENT- Anicteric sclera, EOMI Lung- Non labored breathing, On RA Abdomen- Soft, NT, ND Extremities- R knee incision, No effusion or s/o infection. Left foot edema ( decreased), tenderness ( less ) warmth ( less) , erythema less intense. Calf edema Neuro- AAO times 3 Psych- Cooperative, Normal mood Results & Data Vital Signs (Past 12 Hours) Vital Signs Temp Pulse Pulse Resp BP BP Pulse Ox 04/18/25 07:35 36.5 C 77 20 155/80 H 97 04/18/25 02:43 37.0 C 82 18 125/69 95 04/17/25 23:04 87 04/17/25 23:01 37.1 C 73 18 126/71 96 O2 Del Method 04/18/25 07:35 Room Air 04/18/25 02:43 Room Air 04/17/25 23:04 04/17/25 23:01 Room Air Laboratory Results Short CBC 04/18/25 Range/Units 05:49 WBC 6.42 (4.8-10.8) K/ul Hgb 12.0 L (14.0-18.0) g/dl Hct 33.2 L (42.0-52.0) % Plt Count 218 (130-400) K/uL BMP 04/18/25 05:49 Sodium 135 L Potassium 3.9 Chloride 101 Carbon Dioxide 26 BUN 11 Creatinine 0.51 L Glucose 159 H Calcium 8.1 L Microbiology 04/16/25 09:44 Blood Aerobic Blood Culture - Preliminary No growth in Aerobic bottle after 48 hours. 04/16/25 09:44 Blood Anaerobic Blood Culture - Preliminary No growth in Anaerobic bottle after 48 hours. 04/16/25 09:44 Blood Aerobic Blood Culture - Preliminary No growth in Aerobic bottle after 48 hours. 04/16/25 09:44 Blood Anaerobic Blood Culture - Preliminary No growth in Anaerobic bottle after 48 hours. 04/13/25 09:47 Blood Aerobic Blood Culture - Preliminary Staphylococcus aureus 04/13/25 09:47 Blood Anaerobic Blood Culture - Final No growth in Anaerobic bottle after 5 days. 04/11/25 19:50 Blood Aerobic Blood Culture - Final Staph aureus MRSA 04/11/25 19:50 Blood Anaerobic Blood Culture - Final 04/14/25 14:33 Blood Aerobic Blood Culture - Preliminary Staph aureus MRSA 04/14/25 14:33 Blood Anaerobic Blood Culture - Preliminary No growth in Anaerobic bottle after 48 hours. 04/14/25 14:25 Blood Aerobic Blood Culture - Preliminary Staph aureus MRSA 04/14/25 14:25 Blood Anaerobic Blood Culture - Preliminary No growth in Anaerobic bottle after 48 hours. 04/13/25 09:44 Blood Aerobic Blood Culture - Preliminary Staphylococcus aureus 04/13/25 09:44 Blood Anaerobic Blood Culture - Final 04/11/25 20:00 Blood Aerobic Blood Culture - Final Staph aureus MRSA 04/11/25 20:00 Blood Anaerobic Blood Culture - Final Staph aureus MRSA Diagnostic Findings Foot CT 04/17/25 12:03 CT foot LT w con CLINICAL HISTORY: r/o OM COMPARISON STUDY: 04/11/2025 FINDINGS: Lower extremity thrombophlebitis described on the tibia and fibula CT earlier today is better seen on that exam. There is progressive diffuse cellulitis at the left foot. There is an interval lobulated branching fluid collection within the plantar muscles of the left foot extending from the ante rior lower calcaneus to below the first and second metatarsals. It measures approximately 6 cm greatest AP dimension by 1 cm transverse by 1 cm craniocaudad. It has morphology consistent with soft tissue abscess. There is progressive edema versus diffuse early abscess in the dorsal soft tissues over the midfoot.. No evidence of osteomyelitis seen at the left foot. No fracture or dislocation seen. IMPRESSION: 1. No evidence of osteomyelitis. 2. Interval plantar soft tissue abscess. Progressive edema versus early abscess dorsal soft tissues. ACT 112: Negative or not required by law. Electronically signed by: Niko Sauceda M.D. 04/17/2025 3:[address] 04/17/25 12:03 CT tib/fib LT w con CLINICAL HISTORY: Left lower extremity pain, swelling and erythema. Evaluate for osteomyelitis. COMPARISON STUDY: Left tibia and fibula CT April 11, 2025. TECHNIQUE: Axial images of the left tibia and fibula/lower leg were obtained following intravenous injection of 93 cc of Optiray 320 IV. Sagittal and coronal reformats were viewed. A dose lowering technique was utilized adhering to the principles of ALARA. FINDINGS: There are no fractures within the left tibia or fibula. No foci of bony erosion are identified. There are no osseous lesions. There is no soft tissue gas within the left lower leg. The left foot CT will be reported separately. Extensive subcutaneous edema of the left lower leg has progressed since CT of April 11, 2025. Skin thickening has also increased. No intramuscular fluid collection is present. No fluid along the fascia is noted. There has been interval development of long segment thrombus within a superficial vein of the anterior medial left lower leg. This extends for at l east [address] evidence for deep venous involvement. IMPRESSION: 1. Increasing left lower leg subcutaneous edema and skin thickening suggestive of cellulitis. No evidence for acute osteomyelitis. No soft tissue gas. No fluid collection within the left calf. Please note that the left foot CT will be reported separately. 2. Interval development of long segment superficial thrombophlebitis within the left lower leg which extends for at least 15 cm. No extension into the deep system. This can be assessed with a left lower extremity venous Doppler ultrasound. ACT 112: Negative or not required by law. Electronically signed by: Tony Vlilavicencio M.D. 04/17/2025 2:53 PM Venous Doppler Study 04/17/25 16:27 Technique: Venous ultrasound evaluation was performed utilizing grayscale, color Doppler and wave form evaluation. Images were also obtained with and without compression Findings: There is thrombus in the greater saphenous vein, extending approximately 6.6 cm in length and 1.2 cm from the junction with the common femoral vein. There is also some thrombus in the gastrocnemius vein, extending approximately 2.9 cm The left common femoral, superficial femoral, popliteal, and visualized calf veins demonstrate normal anechoic lumens with full compressibility. Normal flow is seen on color Doppler images. Expected waveforms were produced with augmentation maneuvers There is a 2 x 0.7 cm left inguinal lymph node Impression: 1. No evidence of left leg deep venous thrombosis 2. Left leg superficial venous thrombosis ACT 112: Positive. There are findings on this exam that require communication between the performing entity and the patient following Patient Test Result Information Act ([place] ACT 112) guidelines. Electronically signed by Nicho Avila 04-17-2025 6:07 PM Ankle MRI 04/17/25 18:09 Exam(s): MRI LEFT ANKLE Without Contrast EXAM: MR Left Lower Extremity Without Intravenous Contrast, Ankle CLINICAL HISTORY: Reason for exam: left foot/ankle cellulitis, ?abscess. OTHER: Other Notes: LEFT FOOT/ANKLE SWELLING AND REDNESS X 10-15 DAYS CELLULITIS POSSIBLE OR TECHNIQUE: Multiplanar magnetic resonance images of the left ankle without intravenous contrast. COMPARISON: CT 04/11/2025. FINDINGS: Circumferential subcutaneous soft tissue edema. No abscess. No soft tissue gas. No acute fracture. No osteomyelitis. Small amount of fluid within the posterior joint space of the tibiotalar and subtalar joints. No full-thickness or high-grade partial cartilage loss. Achilles, peroneal, medial flexor tendons, and anterior extensor tendons are intact. No acute ligamentous abnormality. Chronically torn anterior talofibular ligament. Thickened plantar fascia up to 7 mm. IMPRESSION: 1. Diffuse soft tissue edema at the ankle. No septic arthritis or osteomyelitis. Electronically signed by: Mike Singh MD 04/17/25 22:21 PM Foot MRI 04/17/25 18:09 Exam(s): MRI LEFT FOOT Without Contrast EXAM: MR Left Lower Extremity Without Intravenous Contrast, Foot CLINICAL HISTORY: Reason for exam: foot/ankle cellulitis, ?abscess on ct. OTHER: Other Notes: LEFT FOOT/ANKLE SWELLING AND REDNESS X 10-15 DAYS CELLULITIS POSSIBLE OR TECHNIQUE: Multiplanar magnetic resonance images of left foot without intravenous contrast. COMPARISON: CT 04/11/2025 FINDINGS: Diffuse subcutaneous soft tissue edema. Fluid collection along the dorsal aspect of midfoot and forefoot measuring 7.6 x 4.7 x 1.0 cm. No evidence of acute osteomyelitis. No acute fracture. Fluid collection adjacent to the flexor digitorum longus tendon measuring 6.2 x 1.0 x 1.0 cm. IMPRESSION: 1. Dorsal fluid collection measuring up to 7.6 cm. The appearance is more suggestive of ganglion than abscess. 2. Fluid collection adjacent to the flexor digitorum longus measuring up to 6.2 cm. Differential of ganglion versus tenosynovitis. 3. Diffuse subcutaneous soft tissue edema. 4. No evidence of osteomyelitis. Electronically signed by: Mike Singh MD 04/17/25 23:04 PM Medications Administered Home Medications Medication Instructions Recorded Confirmed Last Taken cyanocobalamin (vitamin B-12) 1,000 mcg PO QAM 03/27/23 04/11/25 04/10/25 1,000 mcg tablet (Vitamin B-12) empagliflozin 25 mg tablet 25 mg PO QPM 03/27/23 04/11/25 04/10/25 (Jardiance) multivitamin with minerals-folic 1 tab PO DAILY 04/03/23 04/11/25 04/10/25 acid 0.4 mg tablet (Adult One Daily Multivitamin) clopidogrel 75 mg tablet 75 mg PO DAILY #90 tabs 02/12/25 04/11/25 04/10/25 metoprolol tartrate 25 mg tablet 25 mg PO BID #180 tabs 02/12/25 04/11/25 atorvastatin 80 mg tablet 80 mg PO HS #90 tabs 03/12/25 04/11/25 04/10/25 lisinopril 20 mg tablet 20 mg PO DAILY #90 tabs 03/12/25 04/11/25 04/10/25 nitroglycerin 0.4 mg sublingual 0.4 mg sublingual Q5M PRN chest 03/12/25 04/11/25 Unknown tablet pain #25 tabs pantoprazole 40 mg tablet,delayed 40 mg PO DAILY 90 days #90 tabs 03/12/25 04/11/25 04/10/25 release lactobacillus comb no.10 20 20,000 mmu cells PO DAILY 04/11/25 04/11/25 04/10/25 billion cell capsule (Probiotic) magnesium citrate,mag oxide 250 mg 250 mg PO DAILY 04/11/25 04/11/25 04/10/25 capsule zinc acetate 50 mg (zinc) capsule 50 mg PO DAILY 04/11/25 04/11/25 04/10/25 Active Medications Generic Name Dose Route Start Last Admin Trade Name Freq PRN Reason Stop Dose Admin Atorvastatin Calcium 80 mg 04/12/25 21:00 04/16/25 20:56 Atorvastatin 40 Mg Tab PO 05/12/25 20:59 80 mg HS ONOFRE Administration Clopidogrel Bisulfate 75 mg 04/12/25 09:00 04/18/25 08:35 Clopidogrel Bisulfate 75 Mg Tab PO 05/12/25 08:59 75 mg DAILY ONOFRE Administration Daptomycin 950 mg/ Syringe 19 mls @ 9.5 mls/min 04/16/25 14:00 04/17/25 14:15 IV 04/30/25 13:59 9.5 mls/min Q24H ONOFRE Administration Protocol Insulin Aspart 0 units 04/12/25 07:30 04/18/25 12:56 Insulin Aspart Per Unit Charge SC 05/12/25 07:29 6 units ACHS ONOFRE Administration Insulin Glargine 9 units 04/17/25 10:45 04/18/25 08:34 Lantus Per Unit Charge SQ 05/17/25 10:44 9 units QAM NOOFRE Administration Lisinopril 20 mg 04/18/25 09:30 04/18/25 09:35 Lisinopril 20 Mg Tab PO 05/18/25 09:29 20 mg QAM ONOFRE Administration Melatonin 3 mg 04/12/25 01:20 04/16/25 20:55 Melatonin 3 Mg Tab PO 05/12/25 01:19 3 mg HS PRN Administration Sleep Metoprolol Tartrate 50 mg 04/12/25 09:00 04/18/25 08:35 Metoprolol Tartrate 50 Mg Tab PO 05/12/25 08:59 50 mg BID ONOFRE Administration Pantoprazole Sodium 40 mg 04/12/25 09:00 04/18/25 08:35 Pantoprazole 40 Mg Tab PO 05/12/25 08:59 40 mg DAILY ONOFRE Administration Psyllium Hydrophilic Mucilloid 4 gm 04/12/25 12:45 04/18/25 08:34 Psyllium Husk 4gm Packet PO 05/12/25 12:44 4 gm BID ONOFRE Administration Vitamin D 125 mcg 04/15/25 09:00 04/18/25 08:35 Cholecalciferol 125 Mcg (5,000 Units) Tab PO 05/15/25 08:59 125 mcg QAM ONOFRE Administration (1) Cellulitis Laterality: left Site of cellulitis: extremity Site of cellulitis of extremity: lower extremity Qualified Code(s): L03.116 - Cellulitis of left lower limb (3) Sepsis Sepsis acute organ dysfunction status: without acute organ dysfunction Sepsis type: methicillin resistant Staphylococcus aureus Qualified Code(s): A41.02 - Sepsis due to Methicillin resistant Staphylococcus aureus
[2025-04-18] MEDS: ENOXAPARIN INJ 60 MG/0.6 ML SYR SQ ONE (09:35)
--- NOTE | 2025-04-18 11:04 | Hospitalist Progress Note ---
Date of Service April 18, 2025 Assessment & Plan (1) Cellulitis: (2) Sepsis: (3) Bacteremia: (4) Acute superficial venous thrombosis of left lower extremity: (5) Hyponatremia: Plan 65-year-old male PMHx CAD s/p CHELSEY 2016, HLD, angina, T2DM, HTN, GERD, and prior duodenal ulcer with hemorrhage with most recent hospital admission 02/05/2025 until 02/06/2025 for NSTEMI who is presenting now for concerns of infection and altered mental status. #Cellulitis of L foot | MRSA bacteremia | Sepsis - Hx of Right TKA - no additional hardware; MRSA (+) in ED; BC on 04/11 (+) for MRSA; CT 04/11 neg for OM, abscess, and tissue gas - indicated cellulitis; DANIELLE 04/13 Possible MV annuloplasty ring; No visualized valvular vegetations; CT 04/17 Possible plantar soft tissue abscess w/ continued edema - indicating cont cellulitis; neg OM; MRI 04/17 dorsal aspect of foot, more suggestive of ganglion cyst, no evidence of OM or septic arthritis -Consulted ID; recs re-pursuing DANIELLE in setting of persistent high-grade MRSA bacteremia --- Initial DANIELLE ordered 04/17; cards didn't feel that this would alter the course of abx -Consulted Podiatry; recs joint aspiration to r/o gout, does not feel that surgical intervention is necessary at this point -Blood Cultures: 04/11 - final, MRSA + 04/13 - final, S. Aureus 04/14 - preliminary, Staph Aureus 04/16 - pending; NGTD -Continue IV Daptomycin 10mg/kg - switched from IV Vanco d/t persistently positive BCx -Acetaminophen prn fever/pain -CBC, BMP in AM Current plan: If BCx negative at 72hrs + Joint aspirate neg for bacteria, PICC line to be placed w/ planned course if IV daptomycin x6 wks #Superficial Venous Thrombosis - CT 04/17 w/ long segment of superficial thrombophlebitis, no extension into deep veins; Venous Doppler 04/17 thrombus in greater saphenous, approx 6.6 cm long and 1.2 cm from junction w/ common femoral -Increase Lovenox to 1mg/kg - d/t size of thrombus and proximity to deep vein #Hyponatremia | Hypocalcemia - Vit D on 04/13 - 24.6; Ca correction for hypoalbuminemia 9.4 mg/dL -Trend BMP -Continue Vitamin D #T2DM - no acute concerns; HbA1c 04/18 8.2 -HOLD Jardiance -START Lantus 9 units QAM -SSI with target BSG range 110-140mg/dL, CF 20, carb ratio 15 #CAD - no acute concerns -Continue Plavix #HTN - no acute concerns -Start Lisinopril -Continue metoprolol #Hyperlipidemia - No acute concerns -HOLD Lipitor - in consideration of IV dapto #GERD - no acute concerns -Continue pantoprazole #Elevated Troponin - RESOLVED; peaked at 40.8; DANIELLE 04/13 was w/out regional wall abnormalities; most likely d/t tachycardia/cardiac demand. #Diarrhea - RESOLVED, per pt -Continue Metamucil; consider Cdiff if continued/worsening sx Dispo: Continue PCU; PT/OT involved; awaiting BCx + joint aspirate analysis VTE Proph: Lovenox, SCDs Admission and Anticipated Discharge Date Admission Date: April 11, 2025 Supervising Physician Co-Signing Physician Notes PA Supervision Note: I did not personally see or examine the patient today, but I verified all [place]olled[place] points of MORRIS Nascimento's assessment and plan with the following exceptions/additions: none Subjective Pt was sitting in bed this AM in NAD. Pt states that he continues to feel tired, but that the level of fatigue has decreased. He notes that his pain has improved significantly in his foot and he only feels pain "occasionally", he also notes that every once in a while, he'll feel a bit of numbness over the top of his foot. We discussed that the numbness is most-likely d/t prolonged inflammation. Pt states that he is hopeful to go home soon and that he's been working on trying to bear weight on his leg. Discussed need for long-term IV abx d/t complexity of infection, pt understood and was agreeable to this. Pt states that his bowel movements have returned to baseline and he is no longer having any episodes of diarrhea. Pt denies cough, sore throat, congestion, CP, SOB, palpitations, N/V/D, abd pain/discomfort, pain/weakness in legs, and paresthesias. Telemetry: Sinus 60s over night; Sinus 70s-80s this AM Review of Systems 2 Review of Systems: All systems reviewed & are unremarkable except as noted in Subjective Physical Exam 2 Physical Exam: General: Pt is a 65 y/o obese male in NAD in bed. VS: reviewed - remarkable Skin: Erythema surrounding L ankle that extends circumferentially towards toes with some intermittent areas of clearing. Redness improving from 04/17 (see image below); entry point for joint aspiration dressed on L lateral ankle, not directly visualized; no lesions/breaks seen in skin surrounding area of erythema; no subungual hemorrhages or Osler nodes noted on hands or feet; skin is otherwise warm and dry; no rashes, lesions or ulcerations Respiratory: CTA bilat, no adventitious sounds noted. Chest expansion is full and symmetrical Cardio: RRR no murmurs Abdomen: Round, normoactive BS x4, nontender to palpation MSK: Little pain w/ palpation of L foot; pain to palpation of anterior LLE; Pt states he is able to bear reduced weight, notes that it's still painful but improving. FROM extremities otherwise, no deformities noted Extremities: +2 pitting edema of LLE that extends just past mid-rosa; No erythema noted over R knee, pt able to bed knee w/out pain; RLE w/out edema; no clubbing/cyanosis bilat Neuro: A&Ox4, cooperative Results & Data Results & Data Vital Signs (Past 12 Hours) Vital Signs Temp Pulse Pulse Resp BP BP Pulse Ox 04/18/25 08:00 70 04/18/25 07:35 97.7 F 77 20 155/80 H 97 04/18/25 02:43 98.6 F 82 18 125/69 95 04/17/25 23:04 87 04/17/25 23:01 98.8 F 73 18 126/71 96 O2 Del Method 04/18/25 08:00 04/18/25 07:35 Room Air 04/18/25 02:43 Room Air 04/17/25 23:04 04/17/25 23:01 Room Air Laboratory Results Reviewed: CBC, BMP, HbA1C, Uric Acid Diagnostic Findings Reviewed: MRI, Venous Doppler PG Care Time/CCT Total # of Minutes Spent Total Time Spent with Patient: Total time spent is greater than 50% in coordination of care (as documented) at patient's floor/unit and/or counseling patient: Coding Level of Care Code 52483 SUB INP/OBS CARE 50MIN Diagnoses Cellulitis of left lower extremity L03.116 Laterality: left Site of cellulitis: extremity Site of cellulitis of extremity: lower extremity Sepsis due to methicillin resistant Staphylococcus aureus (MRSA) without acute organ dysfunction A41.02 Sepsis acute organ dysfunction status: without acute organ dysfunction Sepsis type: methicillin resistant Staphylococcus aureus Bacteremia R78.81 Acute superficial venous thrombosis of left lower extremity I82.812 Hyponatremia E87.1 (1) Cellulitis Laterality: left Site of cellulitis: extremity Site of cellulitis of extremity: lower extremity Qualified Code(s): L03.116 - Cellulitis of left lower limb (2) Sepsis Sepsis acute organ dysfunction status: without acute organ dysfunction Sepsis type: methicillin resistant Staphylococcus aureus Qualified Code(s): A41.02 - Sepsis due to Methicillin resistant Staphylococcus aureus
[2025-04-18] MEDS: ENOXAPARIN 100 MG/1ML SYR SQ SCH (20:46)
[2025-04-18] MEDS ORDERED: ENOXAPARIN 1 MG/KG SQ SCH (21:00)
--- NOTE | 2025-04-18 22:20 | Podiatry Progress Note ---
Date of Service April 18, 2025 Assessment & Plan (1) Cellulitis: (2) Sepsis: (3) Diabetes mellitus, type 2: Plan Patient was examined and evaluated. CT/MRI/Labs reviewed. - Discussed that there is still no indication for surgery in the short term. It could benefit from removal of the cyst and visualization of the affected tendon intermission coordinator, if local pain/disability remain or develop. - For more definitive potential diagnosis, ankle joint aspiration was performed at bedside. Scant bloody/serous ankle joint fluid was obtained. No evidence of purulent joint fluid, so still no suspicion of ankle septic joint. - Sent this aspirate for further pathology assessment. - If he continues to improve, can d/c home when stable per other specialties. IV abx from ID will cover any infection of the foot and ankle as well. - Will continue to follow, though no surgical intervention currently planned. Admission and Anticipated Discharge Date Admission Date: April 11, 2025 Subjective Patient seen at bedside at lunch time. Denies any new concerns. Believes he is currently improving, with decreased pain and swelling, improved ROM. Had MRI and is interested in results. Review of Systems Constitutional: no fever, no chills and no fatigue Eyes: no problem reported Ear, Nose, Mouth, Throat: no problem reported Respiratory: no problem reported Cardiovascular: + edema; no chest pain and no problem re ported Gastrointestinal: no nausea, no vomiting and no problem reported Genitourinary: no problem reported Musculoskeletal: + joint pain and + swelling; no problem reported Integumentary: + erythema; no skin ulcer and no wounds Neurologic: + numbness; no localized weakness and no generalized weakness Psychiatric: no problem reported Physical Exam Physical Exam: Left lower extremity focused exam: DP/PT pulses palpable 2/4 b/l. CFT brisk to digits. ROM is decreased to ankle due to guarding. No crepitus on ROM. No evidence of necrotic/non-viable tissue. Point of maximal tenderness, including pain out of proportion to stimulus, noted over the medial malleolus of the right ankle. No open wounds or abrasions noted. No palpable fluctuance noted. Erythema is noted globally to the foot and ankle, within the proximal marker lines from earlier today. Per nursing, this line was previously more distal, but remarked earlier today, with no further proximal extension. CT is suggestive of plantar heel abscess formation with more diffuse cellulitis otherwise. No obvious bone involvement appreciated. Specifically, very minimal change between imaging on 04/11 and today. Uric acid recently measuring just over 6. MRI reveals dorsal ganglion cyst and chronic/longstanding tenosynovitis. There is no evidence of acute infectious process, other than the cellulitis noted on CT. Uric acid is now acutely low, measuring under 2. Constitutional: WD/WN, vitals as above + ill appearing and + obese; no acute distress Eyes: PERRL, conjunctivae normal, anicteric sclerae ENMT: external ear and nose normal, oropharynx normal Neck: trachea midline, no thyromegaly normal visual inspection Respiratory: normal respiratory effort; no respiratory distress Cardiovascular: Rate/Rhythm: regular rate and regular rhythm Vessels: posterior tibial pulses present and dorsalis pedis pulses present Chest (Breasts): Chest: normal inspection of chest Gastrointestinal (Abdomen): Inspection/Auscultation: abdomen normal to inspection Percussion/Palpation: + abdomen tender and abdomen soft Musculoskeletal: no cyanosis or clubbing, extremities motor strength 5/5 Head/Neck/Chest: normocephalic and head atraumatic Extremities: extremities normal to inspection Ankle: + skin erythema and + limited ROM of ankle; no deformity and no ecchymosis Skin: + skin tightening and + erythema; no ulc ers, no wound, no skin atrophy and no fluctulance Neurologic: normal sensation to monofilament and awake; no focal motor deficits Psychiatric: A+Ox3, euthymic affect Results & Data Results & Data Vital Signs (Past 12 Hours) Vital Signs Temp Pulse Pulse Resp BP BP Pulse Ox 04/18/25 19:42 36.9 C 95 H 18 151/75 H 93 04/18/25 16:00 78 04/18/25 15:55 36.9 C 78 20 163/84 H 94 04/18/25 11:40 36.8 C 71 19 143/79 H 95 O2 Del Method 04/18/25 19:42 Room Air 04/18/25 16:00 04/18/25 15:55 Room Air 04/18/25 11:40 Room Air (1) Cellulitis Laterality: left Site of cellulitis: extremity Site of cellulitis of extremity: lower extremity Qualified Code(s): L03.116 - Cellulitis of left lower limb (2) Sepsis Sepsis type: methicillin resistant Staphylococcus aureus Sepsis acute organ dysfunction status: without acute organ dysfunction Qualified Code(s): A41.02 - Sepsis due to Methicillin resistant Staphylococcus aureus (3) Diabetes mellitus, type 2 Diabetes mellitus intermission coordinator insulin use: without intermission coordinator use Diabetes mellitus complication status: with neurologic complications Diabetes mellitus complication detail: with polyneuropathy Qualified Code(s): E11.42 - Type 2 diabetes mellitus with diabetic polyneuropathy
[2025-04-19 06:31] LABS: Hematocrit (blood only) 34.2 % (42.0-52.0); Hemoglobin 12.0 g/dl (14.0-18.0); Immature Granulocytes # (auto) 0.16 K/uL (0.01-0.20); Immature Granulocytes % (auto) 2.1 %; Mean Corpuscular Hemoglobin 30.5 pg (25.0-34.0); Mean Corpuscular Volume 86.8 fL (80.0-100.0); Platelet Count 254 K/uL (130-400); RDW Standard Deviation 41.3 fL (36.4-46.3); Red Blood Count 3.94 M/uL (4.70-6.10); White Blood Count 7.69 K/ul (4.8-10.8)
[2025-04-19 06:52] LABS: Anion Gap 7.0 (3-11); Blood Urea Nitrogen 12.0 mg/dl (6-23); Calcium 8.1 mg/dl (8.6-10.3); Carbon Dioxide 27.0 mmol/L (21-32); Chloride 100.0 mmol/L (98-107); Creatinine Clr Calc Pharmacy 130.2 ml/min; Glucose 147.0 mg/dl (70-99(Fasting)); Potassium 4.0 mmol/L (3.5-5.1); Sodium 134.0 mmol/L (136-145)
--- NOTE | 2025-04-19 11:16 | Hospitalist Progress Note ---
Date of Service April 19, 2025 Assessment & Plan (1) Cellulitis: (2) Sepsis: (3) Bacteremia: (4) Acute superficial venous thrombosis of left lower extremity: Plan This patient is a 65-year-old male with a history of CAD s/p CABG 2015, HLD, T2DM, HTN, GERD, PUD with massive hemorrhage in 06/2024 secondary to excessive NSAID use, pulmonary nodules, former smoker who presented with confusion and severe left foot and ankle pain and erythema-he was found to have sepsis secondary to MRSA bacteremia and left lower extremity cellulitis, possibly with initiating factor of acute gout attack. #Sepsis/MRSA bacteremia/left lower extremity cellulitis/acute gout-with fever, tachycardia, leukocytosis, elevated lactate, elevated procalcitonin on admission. CT of the left foot and leg on admission without acute OM, gas, or fluid collection and was consistent with cellulitis. Blood cultures persistently positive for MRSA on 04/11, 04/13, and 04/14. TTE on 04/13 without valvular vegetations but showed probable MV annuloplasty ring. He has a right prosthetic TKA in place. He was initially treated with IV vancomycin and then switched to high dose IV daptomycin due to persistently positive cultures- infectious disease consultation appreciated. DANIELLE recommended by ID but cardiology did not feel it would change the course of management and this was not performed Due to persistent erythema and swelling of the left leg and foot, a repeat CT of foot and LLE on 04/17 showed interval plantar soft tissue abscess w/ progressive edema, but no OM or soft tissue gas. MRI left foot and ankle recommended by podiatry-showed dorsal fluid collection 7.6 cm more suggestive of ganglion than abscess, and 6.2 cm fluid collection adjacent to flexor digitorum longus suggestive of ganglion versus tenosynovitis, no OM, and with diffuse edema Podiatry aspirated the ankle joint-negative for crystals, culture pending Left foot with ongoing swelling, severe pain, and erythema seems consistent with acute gout underlying as well - Continue IV Daptomycin 10mg/kg - Continue acetaminophen prn fever/pain - Check CBC, CMP, magnesium, procalcitonin, ESR, CRP in AM - Plan to place PICC line on 04/20 if remains afebrile, blood cultures from 04/16 remain no growth-consent already obtained and placed on the chart - Give colchicine 1.2 mg p.o. x 1 now and then 0.6 mg p.o. x 1 this evening- assess response on 04/20 - If foot pain, swelling, and erythema not improving, podiatry may take for surgery early next week to rule out foot abscess #Superficial Venous Thrombosis - CT LLE on 04/17 w/ long segment of superficial thrombophlebitis, no extension into deep veins; Venous Doppler 04/17 showed thrombus in greater saphenous, approx 6.6 cm long and 1.2 cm from junction w/ common femoral. This is a high risk SVT and should be anticoagulated x 3 months as per recommended guidelines - Continue Lovenox 90 mg SQ every 12 and eventually convert to Eliquis once deemed no surgical intervention necessary by podiatry - Monitor for bleeding as he had a life-threatening GI bleed earlier this year from excessive NSAID use and peptic ulcer disease #Hyponatremia-mild at 134, likely due to acute infection and illness, hypovolemi a - Follow BMP #T2DM - HbA1c here is 8.2% and blood sugars are fairly well-controlled - Holding home Jardiance - Continue Lantus 9 units QAM - Continue SSI #CAD s/p CABG/elevated troponin-was admitted in 01/2025 with chest pain and NSTEMI, had repeat cardiac catheterization with patent grafts but was thought to perhaps have vasospasm and was started on Imdur. Patient only took Imdur for 30 days and thought he was done with the course of treatment. There is no mention in any of his outside cardiology records about a mitral valve repair/annuloplasty as possibly seen on echocardiogram. Patient had mildly elevated troponin here at 40.8. Echo without WMAs, ECG with sinus tachycardia, no acute ischemic changes. Likely myocardial demand ischemia from sepsis - Recommend obtaining operative report on Monday from [place] cardiology -Continue Plavix - Restart Imdur 30 mg p.o. daily-he will need a new prescription on discharge - Continue atorvastatin-it is okay to remain on this and follow CPK closely while on daptomycin as per ID - Continue lisinopril, metoprolol #HTN -BPs are controlled to mildly elevated - Continue lisinopril, metoprolol, and adding Imdur #GERD - no acute concerns -Continue pantoprazole #Diarrhea -now resolved -Continue Metamucil DVT prophylaxis-has acute SVT-continue therapeutic Lovenox and eventually switch to Eliquis Disposition-continued stay in PCU Admission and Anticipated Discharge Date Admission Date: April 11, 2025 Subjective Patient reports ongoing significant pain and swelling in his left foot and ankle especially with trying to bear weight on it. He otherwise is feeling well. No other complaints. I discussed his care with podiatry at the bedside. The patient was also consented for PICC line Telemetry with normal sinus rhythm with rates in the 70s to 90s Physical Exam Constitutional: WD/WN, vitals as above Respiratory: normal respiratory effort, lungs clear to auscultation Cardiovascular: RRR, no murmur, no edema Gastrointestinal (Abdomen): normal bowel sounds, soft, nontender, no hepatosplenomegaly Musculoskeletal: Left foot with significant edema, positive tenderness to palpation throughout dorsal midfoot With significant erythema of the entire dorsal left foot spreading up the left leg but receding from superior margin of demarcated line Psychiatric: A+Ox3, euthymic affect Results & Data Results & Data Vital Signs (Past 12 Hours) Vital Signs Temp Pulse Pulse Resp BP Pulse Ox O2 Del Method 04/19/25 09:58 Room Air 04/19/25 08:00 91 H 04/19/25 07:59 36.3 C L 75 20 149/78 H 94 Room Air 04/19/25 02:43 36.9 C 73 18 157/84 H 94 Room Air Laboratory Results CBC, BMP, joint aspirate culture, blood cultures reviewed PG Care Time/CCT Total # of Minutes Spent Total Time Spent with Patient: Total time spent is greater than 50% in coordination of care (as documented) at patient's floor/unit and/or counseling patient: Coding Level of Care Code 49776 SUB INP/OBS CARE 3/50MIN Diagnoses Cellulitis of left lower extremity L03.116 Laterality: left Site of cellulitis: extremity Site of cellulitis of extremity: lower extremity Sepsis due to methicillin resistant Staphylococcus aureus (MRSA) without acute organ dysfunction A41.02 Sepsis acute organ dysfunction status: without acute organ dysfunction Sepsis type: methicillin resistant Staphylococcus aureus Bacteremia R78.81 Acute superficial venous thrombosis of left lower extremity I82.812 (1) Cellulitis Laterality: left Site of cellulitis: extremity Site of cellulitis of extremity: lower extremity Qualified Code(s): L03.116 - Cellulitis of left lower limb (2) Sepsis Sepsis acute organ dysfunction status: without acute organ dysfunction Sepsis type: methicillin resistant Staphylococcus aureus Qualified Code(s): A41.02 - Sepsis due to Methicillin resistant Staphylococcus aureus
--- NOTE | 2025-04-19 11:26 | Podiatry Progress Note ---
Date of Service April 19, 2025 Assessment & Plan (1) Cellulitis: (2) Sepsis: (3) Diabetes mellitus, type 2: Plan Patient was examined and evaluated. CT/MRI/Labs reviewed. - Aspirate of ankle reveals no crystals and no bacterial growth. - Discussed he could consider surgical intervention to excise the dorsal foot cyst. This could definitively prove whether this is a cyst or abscess. - With continued though mild improvement, he can continue with antibiotics conservatively. - Further discussed his pain is still more consistent with gout; after discussion with Dr. Matthews, he will begin oral colchicine today. - Will continue to follow. Admission and Anticipated Discharge Date Admission Date: April 11, 2025 Subjective Patient seen at bedside with Dr. Matthews. Still believes he is improving, but is curious how this got so bad so quickly. Specifically, he was playing pickleball and enjoying his usual activity level then within hours had this severe pain and swelling develop. Now, denies any further systemic symptoms of infection with improving pain to the foot. Review of Systems Constitutional: no fever, no chills and no fatigue Eyes: no problem reported Ear, Nose, Mouth, Throat: no problem reported Respiratory: no problem reported Cardiovascular: + edema; no chest pain and no problem re ported Gastrointestinal: no nausea, no vomiting and no problem reported Genitourinary: no problem reported Musculoskeletal: + joint pain and + swelling; no problem reported Integumentary: + erythema; no skin ulcer and no wounds Neurologic: + numbness; no localized weakness and no generalized weakness Psychiatric: no problem reported Physical Exam Physical Exam: Left lower extremity focused exam: DP/PT pulses palpable 2/4 b/l. CFT brisk to digits. ROM is decreased to ankle due to guarding. No crepitus on ROM. No evidence of necrotic/non-viable tissue. Point of maximal tenderness, including pain out of proportion to stimulus, noted over the medial malleolus of the right ankle. No open wounds or abrasions noted. No palpable fluctuance noted. Erythema is noted globally to the foot and ankle, within the proximal marker lines from earlier today. Per nursing, this line was previously more distal, but remarked earlier today, with no further proximal extension. CT is suggestive of plantar heel abscess formation with more diffuse cellulitis otherwise. No obvious bone involvement appreciated. Specifically, very minimal change between imaging on 04/11 and today. Uric acid recently measuring just over 6. MRI reveals dorsal ganglion cyst and chronic/longstanding tenosynovitis. There is no evidence of acute infectious process, other than the cellulitis noted on CT. Uric acid is now acutely low, measuring under 2. Constitutional: WD/WN, vitals as above + ill appearing and + obese; no acute distress Eyes: PERRL, conjunctivae normal, anicteric sclerae ENMT: external ear and nose normal, oropharynx normal Neck: trachea midline, no thyromegaly normal visual inspection Respiratory: normal respiratory effort; no respiratory distress Cardiovascular: Rate/Rhythm: regular rate and regular rhythm Vessels: posterior tibial pulses present and dorsalis pedis pulses present Chest (Breasts): Chest: normal inspection of chest Gastrointestinal (Abdomen): Inspection/Auscultation: abdomen normal to inspection Percussion/Palpation: + abdomen tender and abdomen soft Musculoskeletal: no cyanosis or clubbing, extremities motor strength 5/5 Head/Neck/Chest: normocephalic and head atraumatic Extremities: extremities normal to inspection Ankle: + skin erythema and + limited ROM of ankle; no deformity and no ecchymosis Skin: + skin tightening and + erythema; no ulc ers, no wound, no skin atrophy and no fluctulance Neurologic: normal sensation to monofilament and awake; no focal motor deficits Psychiatric: A+Ox3, euthymic affect Results & Data Results & Data Vital Signs (Past 12 Hours) Vital Signs Temp Pulse Pulse Resp BP Pulse Ox O2 Del Method 04/19/25 09:58 Room Air 04/19/25 08:00 91 H 04/19/25 07:59 36.3 C L 75 20 149/78 H 94 Room Air 04/19/25 02:43 36.9 C 73 18 157/84 H 94 Room Air (1) Cellulitis Laterality: left Site of cellulitis: extremity Site of cellulitis of ext remity: lower extremity Qualified Code(s): L03.116 - Cellulitis of left lower limb (2) Sepsis Sepsis acute organ dysfunction status: without acute organ dysfunction Sepsis type: methicillin resistant Staphylococcus aureus Qualified Code(s): A41.02 - Sepsis due to Methicillin resistant Staphylococcus aureus (3) Diabetes mellitus, type 2 Diabetes mellitus complication detail: with polyneuropathy Diabetes mellitus complication status: with neurologic complications Diabetes mellitus termite helper insulin use: without fdc use Qualified Code(s): E11.42 - Type 2 diabetes mellitus with diabetic polyneuropathy
[2025-04-19] MEDS: COLCHICINE 0.6 MG TAB PO ONE ×2 (13:12→20:30)
[2025-04-19] MEDS: ISOSORBIDE MONO EXTENDED REL 30 MG TABCR PO SCH (13:39)
[2025-04-19] MEDS: ACETAMINOPHEN 325 MG TAB PO PRN (20:57)
[2025-04-20 06:30] LABS: Hematocrit (blood only) 33.5 % (42.0-52.0); Hemoglobin 11.3 g/dl (14.0-18.0); Immature Granulocytes # (auto) 0.13 K/uL (0.01-0.20); Immature Granulocytes % (auto) 1.6 %; Mean Corpuscular Hemoglobin 30.1 pg (25.0-34.0); Mean Corpuscular Volume 89.1 fL (80.0-100.0); Platelet Count 269 K/uL (130-400); RDW Standard Deviation 42.8 fL (36.4-46.3); Red Blood Count 3.76 M/uL (4.70-6.10); White Blood Count 8.04 K/ul (4.8-10.8)
[2025-04-20 06:46] LABS: Alanine Aminotransferase 142.0 U/L (7-52); Albumin Globulin Ratio 0.7 (0.9-2); Albumin Level 2.4 gm/dl (3.4-5.0); Alkaline Phosphatase 204.0 U/L (34-104); Anion Gap 4.0 (3-11); Bilirubin,Total 0.7 mg/dl (0.2-1.0); Blood Urea Nitrogen 11.0 mg/dl (6-23); Calcium 8.3 mg/dl (8.6-10.3); Carbon Dioxide 30.0 mmol/L (21-32); Chloride 101.0 mmol/L (98-107); Creatinine Clr Calc Pharmacy 134.7 ml/min; Globulin 3.4 gm/dl (2.5-4.0); Glucose 139.0 mg/dl (70-99(Fasting)); Magnesium 2.1 mg/dl (1.7-2.4); Potassium 4.3 mmol/L (3.5-5.1); Sodium 135.0 mmol/L (136-145); Total Protein 5.8 gm/dl (6.0-8.3)
--- NOTE | 2025-04-20 11:32 | Hospitalist Progress Note ---
"Date of Service April 20, 2025 Assessment & Plan (1) Cellulitis: (2) Sepsis: (3) Bacteremia: (4) Acute superficial venous thrombosis of left lower extremity: Plan This patient is a 65-year-old male with a history of CAD s/p CABG 2015, HLD, T2DM, HTN, GERD, PUD with massive hemorrhage in 06/2024 secondary to excessive NSAID use, pulmonary nodules, former smoker who presented with confusion and severe left foot and ankle pain and erythema-he was found to have sepsis secondary to MRSA bacteremia and left lower extremity cellulitis, possibly with initiating factor of acute gout attack. #Sepsis/MRSA bacteremia/left lower extremity cellulitis/acute gout-with fever, tachycardia, leukocytosis, elevated lactate, elevated procalcitonin on admission. CT of the left foot and leg on admission without acute OM, gas, or fluid collection and was consistent with cellulitis. Blood cultures persistently positive for MRSA on 04/11, 04/13, and 04/14. TTE on 04/13 without valvular vegetations but showed probable MV annuloplasty ring. He has a right prosthetic TKA in place. He was initially treated with IV vancomycin and then switched to high dose IV daptomycin due to persistently positive cultures- infectious disease consultation appreciated. DANIELLE recommended by ID but cardiology did not feel it would change the course of management and this was not performed Due to persistent erythema and swelling of the left leg and foot, a repeat CT of foot and LLE on 04/17 showed interval plantar soft tissue abscess w/ progressive edema, but no OM or soft tissue gas. MRI left foot and ankle recommended by podiatry-showed dorsal fluid collection 7.6 cm more suggestive of ganglion than abscess, and 6.2 cm fluid collection adjacent to flexor digitorum longus suggestive of ganglion versus tenosynovitis, no OM, and with diffuse edema. Podiatry aspirated the ankle joint-negative for crystals, culture pending - Continue IV Daptomycin 10mg/kg - Continue acetaminophen prn fever/pain - elevation in LFTs 04/20 - will hold statin, continue dapto and check CK in morning, and trend LFTS - Picc ordered 04/20 - Patient reported improvement with colchinine therapy - 0.6mg BID ordered - If foot pain, swelling, and erythema not improving, podiatry may take for surgery early next week to rule out foot abscess #Superficial Venous Thrombosis - CT LLE on 04/17 w/ long segment of superficial thrombophlebitis, no extension into deep veins; Venous Doppler 04/17 showed thrombus in greater saphenous, approx 6.6 cm long and 1.2 cm from junction w/ common femoral. This is a high risk SVT and should be anticoagulated x 3 months as per recommended guidelines - Continue Lovenox 90 mg SQ every 12 and eventually convert to Eliquis once deemed no surgical intervention necessary by podiatry - Monitor for bleeding as he had a life-threatening GI bleed earlier this year from excessive NSAID use and peptic ulcer disease #Hyponatremia-mild at 134, likely due to acute infection and illness, hypovol emia - Improved to 135, Follow BMP #T2DM - HbA1c here is 8.2% - Holding home Jardiance - Continue Lantus 9 units QAM - Continue SSI - elevated meal time sugars,decrease CF 20 --> 15 #CAD s/p CABG| HTN /elevated troponin-was admitted in 01/2025 with chest pain and NSTEMI, had repeat cardiac catheterization with patent grafts but was thought to perhaps have vasospasm and was started on Imdur. Patient only took Imdur for 30 days and thought he was done with the course of treatment. There is no mention in any of his outside cardiology records about a mitral valve repair/annuloplasty as possibly seen on echocardiogram. Patient had mildly elevated troponin here at 40.8. Echo without WMAs, ECG with sinus tachycardia, no acute ischemic changes. Likely myocardial demand ischemia from sepsis - Recommend obtaining operative report on Monday from [place] [facility]ology - Continue Plavix - Restart Imdur 30 mg p.o. daily-he will need a new prescription on discharge - Atorvastatin held 04/20 as above - per ID it is okay to remain on this and follow CPK closely while on daptomycin - Continue lisinopril, metoprolol #GERD - no acute concerns -Continue pantoprazole #Diarrhea -now resolved -Continue Metamucil DVT prophylaxis-has acute SVT-continue therapeutic Lovenox and eventually switch to Eliquis Disposition-continued stay in PCU, PICC placed today, ID follow up tomorrow, following foot cultures Admission and Anticipated Discharge Date Admission Date: April 11, 2025 Subjective patient seen resting in bed, does feel like the pain in his foot improved after gout treatment yesterday does still have signficant tenderness over medial malleolous area otherwise he feels well Tele - SR 80s Review of Systems Review of Systems: All systems reviewed & are unremarkable except as noted in Subjective Physical Exam Physical Exam: General: NAD, vitals as above,lying in bed Pulm: breathing unlabored CV: well perfused extremities: moves all extremities, left foot with edema, ertyhema and warmth. Pain worst over medial malleolus, pain is only with palpation. Red is receding from demarcated line Results & Data Results & Data Vital Signs (Past 12 Hours) Vital Signs Temp Pulse Pulse Resp BP Pulse Ox O2 Del Method 04/20/25 10:51 98.1 F 79 18 139/71 93 Room Air 04/20/25 08:00 82 04/20/25 07:26 97.9 F 77 18 143/72 H 97 Room Air 04/20/25 03:50 98.2 F 72 18 139/68 94 Room Air Laboratory Results cbc, chemistry, LFTs reviewed procal and CRP reviewed PG Care Time/CCT Total # of Minutes Spent Total Time Spent with Patient: Total time spent is greater than 50% in coordination of care (as documented) at patient's floor/unit and/or counseling patient: Coding Level of Care Code 88534 SUB INP/OBS CARE 3/50MIN Diagnoses Cellulitis of left lower extremity L03.116 Laterality: left Site of cellulitis: extremity Site of cellulitis of extremity: lower extremity Sepsis due to methicillin resistant Staphylococcus aureus (MRSA) without acute organ dysfunction A41.02 Sepsis type: methicillin resistant Staphylococcus aureus Sepsis acute organ dysfunction status: without acute organ dysfunction Bacteremia R78.81 Acute superficial venous thrombosis of left lower extremity I82.812 (1) Cellulitis Laterality: left Site of cellulitis: extremity Site of cellulitis of extremity: lower extremity Qualified Code(s): L03.116 - Cellulitis of left lower limb (2) Sepsis Sepsis type: methicillin resistant Staphylococcus aureus Sepsis acute organ dysfunction status: without acute organ dysfunction Qualified Code(s): A41.02 - Sepsis due to Methicillin resistant Staphylococcus aureus"
[2025-04-20] MEDS: COLCHICINE 0.6 MG TAB PO SCH (11:59)
[2025-04-21 06:14] LABS: Hematocrit (blood only) 34.9 % (42.0-52.0); Hemoglobin 11.7 g/dl (14.0-18.0); Mean Corpuscular Hemoglobin 29.7 pg (25.0-34.0); Mean Corpuscular Volume 88.6 fL (80.0-100.0); Platelet Count 297 K/uL (130-400); RDW Standard Deviation 41.9 fL (36.4-46.3); Red Blood Count 3.94 M/uL (4.70-6.10); White Blood Count 6.82 K/ul (4.8-10.8)
[2025-04-21 06:33] LABS: Alanine Aminotransferase 127.0 U/L (7-52); Albumin Globulin Ratio 0.8 (0.9-2); Albumin Level 2.7 gm/dl (3.4-5.0); Alkaline Phosphatase 211.0 U/L (34-104); Anion Gap 5.0 (3-11); Bilirubin,Total 0.6 mg/dl (0.2-1.0); Blood Urea Nitrogen 14.0 mg/dl (6-23); Calcium 8.6 mg/dl (8.6-10.3); Carbon Dioxide 29.0 mmol/L (21-32); Chloride 102.0 mmol/L (98-107); Creatine Kinase 32.0 U/L (30-223); Creatinine Clr Calc Pharmacy 127.0 ml/min; Globulin 3.6 gm/dl (2.5-4.0); Glucose 154.0 mg/dl (70-99(Fasting)); Potassium 4.3 mmol/L (3.5-5.1); Sodium 136.0 mmol/L (136-145); Total Protein 6.3 gm/dl (6.0-8.3)
--- NOTE | 2025-04-21 10:26 | Infectious Disease Progress Nt ---
Date of Service April 21, 2025 Assessment & Plan (1) Cellulitis: (2) Bacteremia: (3) Sepsis: Plan This is a 65-year-old man with a past medical history of CAD status post stents, HLD, DM2, GERD, duodenal ulcer with hemorrhage, recently admitted 02/05/2025 - 02/06/2025 for NSTEMI presented to the ED on 04/11 with worsening left foot edema, erythema and pain, found to have MRSA bacteremia and concern for LLE infection. also endorsed he had some confusion. Approximately 4 days prior to admission he woke up with acute onset of left foot swelling and pain. Denied any known trauma to the foot or wounds. He was evaluated by orthopedics outpatient at [facility] who gave him a walking boot. He continued to have left foot pain with associated chills, shakes and subjective fevers. No nausea, vomiting, shortness of breath, chest pain. He had difficulty placing pressure on the foot. His pain worsened prompting evaluation in the ED. He has a right knee TKA but no issues at that site. Admission temperature 37.9. Tmax 39.2. Labs: WBC 14.76, platelets 119, BUN 29, creatinine 1.01, CRP 38.84, ESR 36. Blood cultures grew MRSA in 3/4 bottles on 04/11. Repeat blood cultures on 04/13 and 04/14 grew MRSA in 2/4. Chest x-ray demonstrated a left basilar opacity which may represent atelectasis. Left lower extremity and foot CT showed soft tissue swelling and fat stranding throughout the visualized left ankle and foot. No discrete abscess or soft tissue gas. No bony lesions to suggest osteomyelitis. TTE showed a sclerotic aortic valve without significant stenosis. Probable mitral valve annuloplasty ring without significant regurgitation. Moderate pulmonary hypertension. No visualized valvular vegetations but cannot exclude on transthoracic study. He was started on IV Vancomycin. ID consulted for MRSA bacteremia. Microbiology 04/11 blood culture MRSA 3/4 bottles 04/13 blood culture MRSA 2/4 bottles 04/14 blood culture MRSA 2/4 bottles 04/16 blood culture NGTD 04/18 L ankle fluid cx: NGTD. GS no org Antibiotics Vancomycin Clindamycin 04/11 piperacillin/tazobactam Daptomcyin 04/16- present # High-grade MRSA bacteremia # Sepsis # Left foot skin and soft tissue infection with ? abscess vs tenosynovitis vs s eptic ankle arthritis # Left leg superficial thrombophlebitis # Right knee TKA # ? Mitral Valve annuloplasty ring on TTE: however not mentioned in cardiology notes and prior TTE, and pt does not think he has had this procedure # Thrombocytopenia, resolved Discussion- He presents with worsening left foot skin and soft tissue infection (without osteomyelitis) and associated high-grade MRSA bacteremia. Was bacteremic 04/11 - 04/14. He reports has a right knee TKA but there is no obvious issues on exam at that site. He denies any other hardware however a TTE shows a probable annuloplasty ring of the mitral valve (he and do not think he had annuloplasty). 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 Source of bacteremia may be the left foot infection, however attempted to rule out endocarditis especially in the ?MV annuloplasty ring seen on TTE, and persistent bacteremia despite appropriate abx (initially on vanco --- switched to dapto given high doses of vanco needed to maintain appropriate levels). Cardiology declined to pursue DANIELLE. Initial imaging showed no signs of deep space infection of the left foot, however repeat CT foot 04/17 showed ? foot abscess and LLE Doppler showed Left leg superficial venous thrombosis. He was evaluated by podiatry. MRI LE showed dorsal fluid collection measuring up to 7.6 cm suggestive of ganglion rather than abscess, as well as 6.2 cm fluid collection adjacent to the flexor digitorum c/f ganglion vs tenosynovitis. No evidence of OM. Podiatry performed bedside ankle joint aspiration on 04/18, with no evidence of purulent fluid and no suspicion for septic joint. It appears that no cell counts were sent, but was negative for crystals, and gram stain ne gative, culture NGTD. 04/16- Remains bacteremic. LLE has less edema and TTP, but some spread of erythema. 04/[address] foot shows abscess and Doppler shows thrombophlebitis . Cardiology declined DANIELLE as pt has had esophageal issues in past with intubation. BCx 03/16 NGTD. CK 30 04/18 Foot pain is less. MRI shows fluid collection and findings c/f ganglion or tenosynovitis. L ankle aspiration performed, no crystals, cx NGTD 04/21: erythema receding from marked borders. Recommendations -Continue Daptomycin 10 mg/kg IV daily (discussed dosing with ID pharm). Since he has had prior CV events and has normal renal function, can continue statin and will monitor CK weekly. CK 32 on 04/21/25 -Follow-up podiatry recs on whether pt needs surgical intervention -Anticipate a 6 week course of IV antibiotics given the persistent MRSA bacteremia and inability to perform DANIELLE to rule out endocarditis Discussed with primary team. Will continue to follow Admission and Anticipated Discharge Date Admission Date: April 11, 2025 Subjective Subsequent visit was provided via telemedicine using two-way real-time interactive telecommunication between the patient and the telemedicine provider. For the duration of the visit, the provider was performing the assessment from a different facility than the patient. This includesuse of bluetooth stethoscope forauscultationperformed by the telepresenter that the telemedicine provider can hear if described in the physical exam. Vehicle Controls Engineer contact information: Please call [facility] . (Phone Number For Physician Use Only) After establishing a telemedicine visit, patient was: Patient was verified with two unique identifiers, Patient/authorized rep acknowledged consent and understanding and Gave permission to continue telehealth session Time Spent with Patient: Subsequent => 35 min Afebrile Continues on daptomycin CK 32 AST 69 --> 50 ALT 142 --> 127 Pt feels the LLE swelling has decreased Review of System A complete ROS was performed and is negative except as mentioned in the HPI. Physical Exam Physical Exam: GEN: Well-appearing, in NAD. HEENT: Normocephalic, atraumatic. RESP: No increased work of breathing EXT: LLE edema, tender to palpation SKIN: LLE erythema improved, receding from marked borders. Continues with erythema particularly over dorsal L foot NEURO: Alert and oriented. Answers all questions appropriately. Speech not slurr ed. PSYCH: Normal mood, affect appropriate. Results & Data Vital Signs (Past 12 Hours) Vital Signs Temp Pulse Pulse Resp BP BP Pulse Ox 04/21/25 07:47 36.2 C L 73 21 153/78 H 97 04/21/25 03:05 36.7 C 67 18 157/78 H 95 04/21/25 00:00 66 04/20/25 23:26 36.9 C 66 18 153/74 H 94 O2 Del Method 04/21/25 07:47 Room Air 04/21/25 03:05 Room Air 04/21/25 00:00 04/20/25 23:26 Room Air Laboratory Results Short CBC 04/21/25 Range/Units 05:20 WBC 6.82 (4.8-10.8) K/ul Hgb 11.7 L (14.0-18.0) g/dl Hct 34.9 L (42.0-52.0) % Plt Count 297 (130-400) K/uL BMP 04/21/25 05:20 Sodium 136 Potassium 4.3 Chloride 102 Carbon Dioxide 29 BUN 14 Creatinine 0.61 Glucose 154 H Calcium 8.6 Cardiac Enzymes 04/21/25 Range/Units 05:20 Total Creatine Kinase 32 (30-223) U/L Liver Function 04/21/25 Range/Units 05:20 Total Bilirubin 0.6 (0.2-1.0) mg/dl AST 50 H (13-39) U/L ALT 127 H (7-52) U/L Alkaline Phosphatase 211 H (34-104) U/L Albumin 2.7 L (3.4-5.0) gm/dl Medications Administered Current Inpatient Medications Acetaminophen (Acetaminophen 325 Mg Tab) 650 mg PO Q4H PRN PRN Reason: Pain or Fever Stop: 05/17/25 16:57 Last Admin: 04/20/25 22:57 Dose: 650 mg Atorvastatin Calcium (Atorvastatin 40 Mg Tab) 80 mg PO HS ONOFRE Stop: 05/12/25 20:59 Last Admin: 04/19/25 20:30 Dose: 80 mg Clopidogrel Bisulfate (Clopidogrel Bisulfate 75 Mg Tab) 75 mg PO DAILY ONOFRE Stop: 05/12/25 08:59 Last Admin: 04/21/25 08:47 Dose: 75 mg Colchicine (Colchicine 0.6 Mg Tab) 0.6 mg PO BID ONOFRE Stop: 05/20/25 11:29 Last Admin: 04/21/25 08:47 Dose: 0.6 mg Dextrose (Dextrose 50% 50 Ml Syringe) 25 - 50 ml IV UD PRN; Protocol PRN Reason: Hypoglycemia Protocol Stop: 05/12/25 01:19 Enoxaparin Sodium (Enoxaparin 100 Mg/1ml Syr) 90 mg SQ Q12 ONOFRE Stop: 05/18/25 20:59 Last Admin: 04/21/25 08:47 Dose: 90 mg Glucagon (Glucagon For Inj 1 Mg Vial) 1 mg SQ UD PRN; Protocol PRN Reason: Hypoglycemia Protocol Stop: 05/12/25 01:19 Glucose (Glucose 40% Gel 15 Gm Tube) 15 - 30 gm PO UD PRN; Protocol PRN Reason: Hypoglycemia Protocol Stop: 05/12/25 01:19 Glucose (Glucose 10 Tab/Tube) 4 - 8 tab PO UD PRN; Protocol PRN Reason: Hypoglycemia Protocol Stop: 05/12/25 01:19 Daptomycin 950 mg/ Syringe 19 mls @ 9.5 mls/min IV Q24H ONOFRE; Protocol Stop: 04/30/25 13:59 Last Admin: 04/20/25 14:09 Dose: 9.5 mls/min Insulin Aspart (Insulin Aspart Per Unit Charge) 0 units SC ACHS [facility] Stop: 05/12/25 07:29 Last Admin: 04/21/25 08:46 Dose: 6 units Insulin Glargine (Lantus Per Unit Charge) 9 units SQ QAM [facility] Stop: 05/17/25 10:44 Last Admin: 04/21/25 08:47 Dose: 9 units Isosorbide Mononitrate (Isosorbide [place] Extended Rel 30 Mg Tabcr) 30 mg PO QAM [facility] Stop: 05/19/25 11:44 Last Admin: 04/21/25 08:47 Dose: 30 mg Lisinopril (Lisinopril 20 Mg Tab) 20 mg PO QAM [facility] Stop: 05/18/25 09:29 Last Admin: 04/21/25 08:47 Dose: 20 mg Melatonin (Melatonin 3 Mg Tab) 3 mg PO HS PRN PRN Reason: Sleep Stop: 05/12/25 01:19 Last Admin: 04/16/25 20:55 Dose: 3 mg Metoprolol Tartrate (Metoprolol Tartrate 50 Mg Tab) 50 mg PO BID [facility] Stop: 05/12/25 08:59 Last Admin: 04/21/25 08:47 Dose: 50 mg Miscellaneous (Carbohydrates For Hypoglycemia ) 15 - 30 gm PO UD PRN PRN Reason: Hypoglycemia Protocol Stop: 05/12/25 01:19 Ondansetron HCl (Ondansetron Inj 2 Mg/Ml 2 Ml Vial) 4 mg IV Q6H PRN PRN Reason: Nausea Stop: 05/12/25 01:19 Pantoprazole Sodium (Pantoprazole 40 Mg Tab) 40 mg PO DAILY ONOFRE Stop: 05/12/25 08:59 Last Admin: 04/21/25 08:47 Dose: 40 mg Polyethylene Glycol (Polyethylene (Miralax) 17 Gm Pack) 17 gm PO DAILY PRN PRN Reason: Constipation Stop: 05/12/25 01:19 Psyllium Hydrophilic Mucilloid (Psyllium Husk 4gm Packet) 4 gm PO BID ONOFRE Stop: 05/12/25 12:44 Last Admin: 04/21/25 08:47 Dose: 4 gm Vitamin D (Cholecalciferol 125 Mcg (5,000 Units) Tab) 125 mcg PO QAM ONOFRE Stop: 05/15/25 08:59 Last Admin: 04/21/25 08:47 Dose: 125 mcg (1) Cellulitis Laterality: left Site of cellulitis: extremity Site of cellulitis of extremity: lower extremity Qualified Code(s): L03.116 - Cellulitis of left lower limb (3) Sepsis Sepsis acute organ dysfunction status: without acute organ dysfunction Sepsis type: methicillin resistant Staphylococcus aureus Qualified Code(s): A41.02 - Sepsis due to Methicillin resistant Staphylococcus aureus
--- NOTE | 2025-04-21 20:03 | Hospitalist Progress Note ---
"Date of Service April 21, 2025 Assessment & Plan (1) Cellulitis: (2) Sepsis: (3) Bacteremia: (4) Acute superficial venous thrombosis of left lower extremity: Plan This patient is a 65-year-old male with a history of CAD s/p CABG 2015, HLD, T2DM, HTN, GERD, PUD with massive hemorrhage in 06/2024 secondary to excessive NSAID use, pulmonary nodules, former smoker who presented with confusion and severe left foot and ankle pain and erythema-he was found to have sepsis secondary to MRSA bacteremia and left lower extremity cellulitis, possibly with initiating factor of acute gout attack. #Sepsis/MRSA bacteremia/left lower extremity cellulitis/acute gout-with fever, tachycardia, leukocytosis, elevated lactate, elevated procalcitonin on admission. CT of the left foot and leg on admission without acute OM, gas, or fluid collection and was consistent with cellulitis. Blood cultures persistently positive for MRSA on 04/11, 04/13, and 04/14. TTE on 04/13 without valvular vegetations but showed probable MV annuloplasty ring. He has a right prosthetic TKA in place. He was initially treated with IV vancomycin and then switched to high dose IV daptomycin due to persistently positive cultures- infectious disease consultation appreciated. DANIELLE recommended by ID but cardiology did not feel it would change the course of management and this was not performed Due to persistent erythema and swelling of the left leg and foot, a repeat CT of foot and LLE on 04/17 showed interval plantar soft tissue abscess w/ progressive edema, but no OM or soft tissue gas. MRI left foot and ankle recommended by podiatry-showed dorsal fluid collection 7.6 cm more suggestive of ganglion than abscess, and 6.2 cm fluid collection adjacent to flexor digitorum longus suggestive of ganglion versus tenosynovitis, no OM, and with diffuse edema. Podiatry aspirated the ankle joint-negative for crystals, culture negative. Pt was seen by podiatry on 04/21 and surgical intervention will not be pursued. - Continue IV Daptomycin 10mg/kg - Continue acetaminophen prn fever/pain - elevation in LFTs 04/20 - will hold statin, continue dapto and check CK in morning, and trend LFTS - Picc ordered 04/20 - pt notes PICC not placed d/t IV teams concern w/ possible podiatry surgical intervention - Re-order PICC - Continue colchicine therapy - 0.6mg BID ordered #Superficial Venous Thrombosis - CT LLE on 04/17 w/ long segment of superficial thrombophlebitis, no extension into deep veins; Venous Doppler 04/17 showed thrombus in greater saphenous, approx 6.6 cm long and 1.2 cm from junction w/ common femoral. This is a high risk SVT and should be anticoagulated x 3 months as per recommended guidelines - Continue Lovenox 90 mg SQ every 12 and eventually convert to Eliquis once deemed no surgical intervention necessary by podiatry - Monitor for bleeding as he had a life-threatening GI bleed earlier this year from excessive NSAID use and peptic ulcer disease #Hyponatremia-mild at 134, likely due to acute infection and illness, hypovolemia - Improved to 135, Follow BMP #T2DM - HbA1c here is 8.2% - Holding home Jardiance - Continue Lantus 9 units QAM - Continue SSI - elevated meal time sugars,decrease CF 20 --> 15 #CAD s/p CABG| HTN /elevated troponin-was admitted in 01/2025 with chest pain and NSTEMI, had repeat cardiac catheterization with patent grafts but was thought to perhaps have vasospasm and was started on Imdur. Patient only took Imdur for 30 days and thought he was done with the course of treatment. There is no mention in any of his outside cardiology records about a mitral valve repair/annuloplasty as possibly seen on echocardiogram. Patient had mildly elevated troponin here at 40.8. Echo without WMAs, ECG with sinus tachycardia, no acute ischemic changes. Likely myocardial demand ischemia from sepsis - Re-follow up on Cardio report - Continue Plavix - Continue Imdur 30 mg p.o. daily-he will need a new prescription on discharge - Atorvastatin held 04/20 as above - per ID it is okay to remain on this and follow CPK closely while on daptomycin - Continue lisinopril, metoprolol #GERD - no acute concerns -Continue pantoprazole #Diarrhea -now resolved -Continue Metamucil Disposition-continued stay in PCU - awaiting PICC DVT prophylaxis-has acute SVT-continue therapeutic Lovenox and eventually switch to Eliquis Admission and Anticipated Discharge Date Admission Date: April 11, 2025 Subjective Pt was laying in bed today in NAD. Pt states that he is eager to be discharges so that he may begin physical therapy and improve his ability to walk for the upcoming holiday season. Pt notes that he is still waiting for PICC line and is unsure why he has not received it yet. He is feeling much better than he had previously and states that he no longer is feeling run-down. Pt denies sore throat, congestion, cough, CP, SOB, palpitations, abd pain/discomfot, and N/V/D. Pt notes that surgical intervention will not be pursued w/ podiatry Telemetry: Sinus 50s - 80s overnight; Sinus 90s in AM Review of Systems 2 Review of Systems: All systems reviewed & are unremarkable except as noted in Subjective Physical Exam 2 Physical Exam: General: Pt is a 65 y/o obese male in NAD in bed. VS: reviewed - remarkable Skin: Erythema surrounding L ankle greately improved. Redness has greatly decreased across leg and foot (see image below); entry point for joint aspiration dressed on L lateral ankle, not directly visualized; no lesions/breaks seen in skin surrounding area of erythema; skin is otherwise warm and dry; no rashes, lesions or ulcerations Respiratory: CTA bilat, no adventitious sounds noted. Chest expansion is full and symmetrical Cardio: RRR no murmurs Abdomen: Round, normoactive BS x4, nontender to palpation MSK: No longer experiences pain w/ palpation of foot and has improved ROM. Pt states he is able to bear reduced weight, and notes that he is afraid to bear weight on his foot. FROM extremities otherwise, no deformities noted Extremities: +2 pitting edema of LLE that extends just past mid-rosa; No erythema noted over R knee, pt able to bed knee w/out pain; RLE w/out edema; no clubbing/cyanosis bilat Neuro: A&Ox4, cooperative Results & Data Results & Data Vital Signs (Past 12 Hours) Vital Signs Temp Pulse Pulse Resp BP Pulse Ox O2 Del Method 04/21/25 16:00 66 04/21/25 11:23 98.1 F 70 20 130/72 94 Room Air 04/21/25 10:38 Room Air 04/21/25 08:00 66 Laboratory Results Reviewed: CBC, Chemistry PG Care Time/CCT Total # of Minutes Spent Total Time Spent with Patient: Total time spent is greater than 50% in coordination of care (as documented) at patient's floor/unit and/or counseling patient: Coding Level of Care Code 82655 SUB INP/OBS CARE MIN Diagnoses Cellulitis of left lower extremity L03.116 Laterality: left Site of cellulitis: extremity Site of cellulitis of extremity: lower extremity Sepsis due to methicillin resistant Staphylococcus aureus (MRSA) without acute organ dysfunction A41.02 Sepsis acute organ dysfunction status: without acute organ dysfunction Sepsis type: methicillin resistant Staphylococcus aureus Bacteremia R78.81 Acute superficial venous thrombosis of left lower extremity I82.812 (1) Cellulitis Laterality: left Site of cellulitis: extremity Site of cellulitis of extremity: lower extremity Qualified Code(s): L03.116 - Cellulitis of left lower limb (2) Sepsis Sepsis acute organ dysfunction status: without acute organ dysfunction Sepsis type: methicillin resistant Staphylococcus aureus Qualified Code(s): A41.02 - Sepsis due to Methicillin resistant Staphylococcus aureus"
--- NOTE | 2025-04-21 21:20 | Podiatry Progress Note ---
Date of Service April 21, 2025 Assessment & Plan (1) Cellulitis: (2) Sepsis: (3) Diabetes mellitus, type 2: Plan Patient was examined and evaluated. CT/MRI/Labs reviewed. - He is doing well today and can likely d/c home or to rehab when stable per other specialties. - We will keep a close eye on him outpatient and if he develops any new infection symptoms, will reconsider surgery - Surgery would be aimed at excising dorsal foot ganglion under the assumption that it is contributing to infection. - For now, the drastic increase in pain is likely associated with underlying gout, given the improvement on colchicine. - Will sign off for now with anticipated discharge soon and no further intervention planned. Admission and Anticipated Discharge Date Admission Date: April 11, 2025 Subjective Patient seen at bedside at lunchtime. Admits to significant improvement in pain and swelling yesterday with colchicine. Has been working with PT to help get up and walking on this admission. Denies any new concerns. Physical Exam Physical Exam: Left lower extremity focused exam: DP/PT pulses palpable 2/4 b/l. CFT brisk to digits. ROM is decreased to ankle due to guarding. No crepitus on ROM. No evidence of necrotic/non-viable tissue. Point of maximal tenderness, including pain out of proportion to stimulus, noted over the medial malleolus of the right ankle. ROM is improved and edema/erythema are significantly diminished from Monday. MRI reveals dorsal ganglion cyst and chronic/longstanding tenosynovitis. There is no evidence of acute infectious process, other than the cellulitis noted on CT. Uric acid is now acutely low, measuring under 2. Constitutional: WD/WN, vitals as above + ill appearing and + obese; no acute distress Eyes: PERRL, conjunctivae normal, anicteric sclerae ENMT: external ear and nose normal, oropharynx normal Neck: trachea midline, no thyromegaly normal visual inspection Respiratory: normal respiratory effort; no respiratory distress Cardiovascular: Rate/Rhythm: regular rate and regular rhythm Vessels: posterior tibial pulses present and dorsalis pedis pulses present Chest (Breasts): Chest: normal inspection of chest Gastrointestinal (Abdomen): Inspection/Auscultation: abdomen normal to inspection Percussion/Palpation: + abdomen tender and abdomen soft Musculoskeletal: no cyanosis or clubbing, extremities motor strength 5/5 Head/Neck/Chest: normocephalic and head atraumatic Extremities: extremities normal to inspection Ankle: + skin erythema and + limited ROM of ankle; no deformity and no ecchymosis Skin: + skin tightening and + erythema; no ulc ers, no wound, no skin atrophy and no fluctulance Neurologic: normal sensation to monofilament and awake; no focal motor deficits Psychiatric: A+Ox3, euthymic affect Results & Data Results & Data Vital Signs (Past 12 Hours) Vital Signs Temp Pulse Pulse Resp BP Pulse Ox O2 Del Method 04/21/25 19:55 36.9 C 74 18 136/65 95 Room Air 04/21/25 16:00 66 04/21/25 11:23 36.7 C 70 20 130/72 94 Room Air 04/21/25 10:38 Room Air (1) Cellulitis Laterality: left Site of cellulitis: extremity Site of cellulitis of extremity: lower extremity Qualified Code(s): L03.116 - Cellulitis of left lower limb (2) Sepsis Sepsis type: methicillin resistant Staphylococcus aureus Sepsis acute organ dysfunction status: without acute organ dysfunction Qualified Code(s): A41.02 - Sepsis due to Methicillin resistant Staphylococcus aureus (3) Diabetes mellitus, type 2 Diabetes mellitus penitentiary insulin use: without intermediate designer use Diabetes mellitus complication status: with neurologic complications Diabetes mellitus complication detail: with polyneuropathy Qualified Code(s): E11.42 - Type 2 diabetes mellitus with diabetic polyneuropathy
--- NOTE | 2025-04-22 07:46 | Infectious Disease Progress Nt ---
Date of Service April 22, 2025 Assessment & Plan (1) Cellulitis: (2) Bacteremia: (3) Sepsis: Plan This is a 65-year-old man with a past medical history of CAD status post stents, HLD, DM2, GERD, duodenal ulcer with hemorrhage, recently admitted 02/05/2025 - 02/06/2025 for NSTEMI presented to the ED on 04/11 with worsening left foot edema, erythema and pain, found to have MRSA bacteremia and concern for LLE infection. also endorsed he had some confusion. Approximately 4 days prior to admission he woke up with acute onset of left foot swelling and pain. Denied any known trauma to the foot or wounds. He was evaluated by orthopedics outpatient at [facility] who gave him a walking boot. He continued to have left foot pain with associated chills, shakes and subjective fevers. No nausea, vomiting, shortness of breath, chest pain. He had difficulty placing pressure on the foot. His pain worsened prompting evaluation in the ED. He has a right knee TKA but no issues at that site. Admission temperature 37.9. Tmax 39.2. Labs: WBC 14.76, platelets 119, BUN 29, creatinine 1.01, CRP 38.84, ESR 36. Blood cultures grew MRSA in 3/4 bottles on 04/11. Repeat blood cultures on 04/13 and 04/14 grew MRSA in 2/4. Chest x-ray demonstrated a left basilar opacity which may represent atelectasis. Left lower extremity and foot CT showed soft tissue swelling and fat stranding throughout the visualized left ankle and foot. No discrete abscess or soft tissue gas. No bony lesions to suggest osteomyelitis. TTE showed a sclerotic aortic valve without significant stenosis. Probable mitral valve annuloplasty ring without significant regurgitation. Moderate pulmonary hypertension. No visualized valvular vegetations but cannot exclude on transthoracic study. He was started on IV Vancomycin. ID consulted for MRSA bacteremia. Microbiology 04/11 blood culture MRSA 3/4 bottles 04/13 blood culture MRSA 2/4 bottles 04/14 blood culture MRSA 2/4 bottles 04/16 blood culture NG 04/18 L ankle fluid cx: NGTD. GS no org Antibiotics Vancomycin Clindamycin 04/11 piperacillin/tazobactam Daptomcyin 04/16- present # High-grade MRSA bacteremia # Sepsis # Left foot skin and soft tissue infection with ? abscess vs tenosynovitis vs septic ankle arthritis # Left leg superficial thrombophlebitis # Right knee TKA # Thrombocytopenia, resolved Discussion- He presents with worsening left foot skin and soft tissue infection (without ost eomyelitis) and associated high-grade MRSA bacteremia. Was bacteremic 04/11 - 04/14. He reports has a right knee TKA but there is no obvious issues on exam at that site. He denies any other hardware however a TTE shows a probable annuloplasty ring of the mitral valve (he and do not think he had annuloplasty). Notes from his bleach packer also do not mention a history of annuloplasty, and 02/06 TTE does not mention an annuloplasty ring. Source of bacteremia may be the left foot infection, however attempted to rule out endocarditis especially in the ?MV annuloplasty ring seen on TTE, and per sistent bacteremia despite appropriate abx (initially on vanco --- switched to dapto given high doses of vanco needed to maintain appropriate levels). Cardiology declined to pursue DANIELLE. Initial imaging showed no signs of deep space infection of the left foot, however repeat CT foot 04/17 showed ? foot abscess and LLE Doppler showed Left leg superficial venous thrombosis. He was evaluated by podiatry. MRI LE showed dorsal fluid collection measuring up to 7.6 cm suggestive of ganglion rather than abscess, as well as 6.2 cm fluid collection adjacent to the flexor digitorum c/f ganglion vs tenosynovitis. No evidence of OM. Podiatry performed bedside ankle joint aspiration on 04/18, with no evidence of purulent fluid and no suspicion for septic joint. It appears that no cell counts were sent, but was negative for crystals, and gram stain negative, culture NGTD. 04/16- Remains bacteremic. LLE has less edema and TTP, but some spread of erythema. 04/[address] foot shows abscess and Doppler shows thrombophlebitis . Cardiology declined DANIELLE as pt has had esophageal issues in past with intubation. BCx 03/16 NGTD. CK 30 04/18 Foot pain is less. MRI shows fluid collection and findings c/f ganglion or tenosynovitis. L ankle aspiration performed, no crystals, cx NGTD 04/21: erythema receding from marked borders. Recommendations: - Reduced daptomycin dose to 600 mg IV q24h (~ 8 mg/kg by ABW) to complete a 6 week course through 05/27/25, given persistent MRSA bacteremia 04/11-04/14 and inability to perform DANIELLE to rule out endocarditis. Since he has had prior recent CV events and has normal renal function, can continue statin and will monitor CK weekly. CK 32 on 04/21/25 - Will need PICC line - Check weekly CBC with diff, CMP, CK while on daptomycin to monitor for toxicity - Close follow-up with podiatry - I will arrange for follow-up in telemedicine OPAT clinic - See below antibiotic discharge summary Will sign off. Infectious Diseases OPAT Antibiotic Discharge Plan: Diagnosis: MRSA bacteremia, LLE infection Organism: MRSA Antibiotic: (dose and frequency) daptomycin 600 mg IV q24h Start of therapy: 04/16/25 End of therapy: 05/27/25 Labs should be faxed to:[facility] office attention [facility] [phone] Labs needed and frequency: CBC with diff, CMP, CK weekly [facility] Address [address] [place] [address] Office (P) [phone] Appointment-time frame ~4 weeks Admission and Anticipated Discharge Date Admission Date: April 11, 2025 Subjective This patient recommendation is based on a telemedicine consult request which was completed asynchronously through chart review and information provided by the primary physician. The patient was not seen or examined today. The evaluation is consultative in nature and all patient care and treatment decisions can either be accepted or rejected by the patient's primary hospital-based treating physician using their own independent medical judgment for their patient. Time Spent Reviewing Chart: 11 - 20 minutes Afebrile no acute events Podiatry without plans for surgical intervention LFTs slowly downtrending. Statin currently on hold Results & Data Vital Signs (Past 12 Hours) Vital Signs Temp Pulse Resp BP BP Pulse Ox O2 Del Method 04/22/25 04:35 36.8 C 64 17 156/85 H 95 Room Air 04/22/25 00:56 37.0 C 72 18 166/80 H 94 Room Air 04/21/25 19:55 36.9 C 74 18 136/65 95 Room Air (1) Cellulitis Laterality: left Site of cellulitis: extremity Site of cellulitis of extremity: lower extremity Qualified Code(s): L03.116 - Cellulitis of left lower limb (3) Sepsis Sepsis acute organ dysfunction status: without acute organ dysfunction Sepsis type: methicillin resistant Staphylococcus aureus Qualified Code(s): A41.02 - Sepsis due to Methicillin resistant Staphylococcus aureus
--- NOTE | 2025-04-22 08:23 | Hospitalist Progress Note ---
"Date of Service April 22, 2025 Assessment & Plan (1) Cellulitis: (2) Sepsis: (3) Bacteremia: (4) Acute superficial venous thrombosis of left lower extremity: Plan This patient is a 65-year-old male with a history of CAD s/p CABG 2015, HLD, T2DM, HTN, GERD, PUD w/ Hx hemorrhage (06/2024) d/t excessive NSAID use, pulmonary nodules, former smoker who presented w/ confusion and severe left foot and ankle pain. Pt was found to have sepsis secondary to MRSA bacteremia and LLE cellulitis, w/ concurrent acute gout of Lt ankle. In ED pt had fever, tachycardia, leukocytosis, elevated lactate, and elevated procalcitonin. CT of LLE on 04/11 was negative for acute OM, gas, or fluid collection and was consistent with cellulitis. Blood cultures persistently positive for MRSA on 04/11, 04/13, and 04/14. TTE on 04/13 without valvular vegetations but showed probable MV annuloplasty ring. A repeat CT on 04/17 showed interval plantar soft tissue abscess w/ progressive edema, but no OM or soft tissue gas. #MRSA bacteremia/left lower extremity cellulitis/acute gout/Sepsis - Sepsis Resolved; 04/16 BCx Cleared; Failed initial IV Vancomycin, switched to IV Dapto d/t persistent (+) BCx; Repeat LLE CT 04/17 showed possible soft tissue abscess w/ progressive edema, but no OM or soft tissue gas; Per-podiatry and MRI LLE 04/17 revealed dorsal fluid collection 7.6 cm more suggestive of ganglion vs abscess, and 6.2 cm fluid collection adjacent to flexor digitorum longus suggestive of ganglion versus tenosynovitis, no OM, and with diffuse edema; Podiatry aspiration of ankle was negative for crystals + bacteria. - Podiatry: Seen pt 04/21; will not be pursuing surgical intervention - Adjust IV Daptomycin to 600mg/day; per ID - Continue acetaminophen prn fever/pain - LFT elevation 04/20 - hold statin, trend CK + LFTs - PICC - initial order 04/20, was not placed. Reordered 04/21, PICC still not placed. - Continue colchicine 0.6mg BID #Superficial Venous Thrombosis - CT LLE 04/17 w/ long segment of superficial thrombophlebitis, no extension into deep veins; Venous Doppler 04/17 showed thrombus in greater saphenous, approx 6.6 cm long and 1.2 cm from junction w/ common femoral; High-risk SVT, plan to anticoagulate x3 mos - Continue Lovenox 90 mg SQ every 12 - Monitor for bleeding - Pt had life-threatening GI bleed from PUD Jun 2024 Consider transitioning to oral Eliquis #T2DM - HbA1c here is 8.2% - Holding home Jardiance - Adjust Lantus to 6 units BID - Adjust SSI: BSG 110-140; CF 20; CR 15 #CAD s/p CABG| HTN - Mildly elevated Trop at 40.8, likely d/t demand ischemia secondary to Sepsis; Recent (01/2025) admission for CP and NSTEMI, repeat cardiac cath w/ patent grafts, thought be result of vasospasm and initiated on Imdur; DANIELLE on 04/13 w/ no WMAs but demonstrated questionable mitral annuloplasty - no other mention of this on earlier echos or cardiology records. - Continue Plavix - Continue Imdur 30 mg p.o. daily - new rx upon d/c - Atorvastatin held 04/20 as above - Continue lisinopril, metoprolol If LFT's continue to improve --> Restart Statin at 40mg daily w/ monitoring of LFTs and CPK 2x per wk. #GERD - no acute concerns -Continue pantoprazole #Diarrhea -now resolved -Continue Metamucil #Hyponatremia - Resolved; Trend BMP Disposition - transfer to med/surg - awaiting PICC DVT prophylaxis - has acute SVT-continue therapeutic Lovenox and eventually switch to Eliquis Admission and Anticipated Discharge Date Admission Date: April 11, 2025 Subjective Pt was laying in bed today in NAD, pt's on phone. Pt states notes that he is experiencing some L ankle pain today. Pt notes that he overall feels fantastic and is looking forward to d/c. Pt & his are agreeable to a local SNF in the event that they are unable to get a skilled facility closer to home. Pt states that he is able to walk around with a walker, but feels quite anxious bearing weight on his foot. Pt denies cough, congestion, H/A, chills, SOB, CP, palpitations, abd pain, and N/V/D. IV team was contacted directly for PICC placement. Pt states that he was told they didn't want to place it d/t uncertainty of podiatry's surgical intervention for doral L foot ganglion cyst - surgical intervention is not taking place. IV team stated that they did not want to place the PICC until pt had a d/c date. IV team was encouraged to place PICC d/t prolonged IV abx therapy. Review of Systems Review of Systems: All systems reviewed & are unremarkable except as noted in Subjective Physical Exam Physical Exam: General: Pt is a 65 y/o obese male in NAD in bed. VS: reviewed - remarkable Skin: Erythema surrounding L ankle greatly improved. Redness continuing to decrease across leg/foot; entry point for joint aspiration appeared non- infectious; no other lesions/breaks seen in skin surrounding area of erythema; skin is otherwise warm and dry; no rashes, lesions or ulcerations Respiratory: CTA bilat, no adventitious sounds noted. Chest expansion is full and symmetrical Cardio: RRR no murmurs Abdomen: Round, normoactive BS x4, nontender to palpation MSK: No longer experiences pain w/ palpation of foot and has improved ROM. Pt states he is able to bear reduced weight. FROM extremities otherwise, no deformities noted Extremities: +2 pitting edema of LLE that extends to mid-rosa, improving; No erythema noted over R knee, pt able to bed knee w/out pain; RLE w/out edema; no clubbing/cyanosis bilat Neuro: A&Ox4, cooperative Results & Data Results & Data Vital Signs (Past 12 Hours) Vital Signs Temp Pulse Resp BP BP Pulse Ox O2 Del Method 04/22/25 07:55 98.1 F 70 20 153/82 H 92 Room Air 04/22/25 04:35 98.2 F 64 17 156/85 H 95 Room Air 04/22/25 00:56 98.6 F 72 18 166/80 H 94 Room Air Laboratory Results Reviewed: CMP, CPK PG Care Time/CCT Total # of Minutes Spent Total Time Spent with Patient: Total time spent is greater than 50% in coordination of care (as documented) at patient's floor/unit and/or counseling patient: >30 minutes were spent counceling Pt + who was present on phone. An additional 35 minutes was spent reviewing the chart and coordinating with case management for pt's d/c plans. Coding Level of Care Code 93393 SUB INP/OBS CARE 50MIN Diagnoses Cellulitis of left lower extremity L03.116 Laterality: left Site of cellulitis: extremity Site of cellulitis of extremity: lower extremity Sepsis due to methicillin resistant Staphylococcus aureus (MRSA) without acute organ dysfunction A41.02 Sepsis acute organ dysfunction status: without acute organ dysfunction Sepsis type: methicillin resistant Staphylococcus aureus Bacteremia R78.81 Acute superficial venous thrombosis of left lower extremity I82.812 (1) Cellulitis Laterality: left Site of cellulitis: extremity Site of cellulitis of extremity: lower extremity Qualified Code(s): L03.116 - Cellulitis of left lower limb (2) Sepsis Sepsis acute organ dysfunction status: without acute organ dysfunction Sepsis type: methicillin resistant Staphylococcus aureus Qualified Code(s): A41.02 - Sepsis due to Methicillin resistant Staphylococcus aureus"
[2025-04-22 09:24] LABS: Alanine Aminotransferase 117.0 U/L (7-52); Albumin Globulin Ratio 0.7 (0.9-2); Albumin Level 2.8 gm/dl (3.4-5.0); Alkaline Phosphatase 208.0 U/L (34-104); Anion Gap 5.0 (3-11); Bilirubin,Total 0.6 mg/dl (0.2-1.0); Blood Urea Nitrogen 13.0 mg/dl (6-23); Calcium 8.9 mg/dl (8.6-10.3); Carbon Dioxide 30.0 mmol/L (21-32); Chloride 100.0 mmol/L (98-107); Creatine Kinase 39.0 U/L (30-223); Creatinine Clr Calc Pharmacy 140.0 ml/min; Globulin 3.8 gm/dl (2.5-4.0); Glucose 190.0 mg/dl (70-99(Fasting)); Potassium 4.2 mmol/L (3.5-5.1); Sodium 135.0 mmol/L (136-145); Total Protein 6.6 gm/dl (6.0-8.3)
[2025-04-22] MEDS: DAPTOmycin 600 MG in SYRINGE 0 ML IV SCH (13:00)
[2025-04-22] MEDS: LANTUS PER UNIT CHARGE SQ SCH (20:28)
--- NOTE | 2025-04-23 07:38 | Hospitalist Progress Note ---
"Date of Service April 23, 2025 Assessment & Plan (1) Cellulitis: (2) Sepsis: (3) Bacteremia: (4) Acute superficial venous thrombosis of left lower extremity: Plan This patient is a 65-year-old male with a history of CAD s/p CABG 2015, HLD, T2DM, HTN, GERD, PUD w/ Hx hemorrhage (06/2024) d/t excessive NSAID use, pulmonary nodules, former smoker who presented w/ confusion and severe left foot and ankle pain. Pt was found to have sepsis secondary to MRSA bacteremia and LLE cellulitis, w/ concurrent acute gout of Lt ankle. In ED pt had fever, tachycardia, leukocytosis, elevated lactate, and elevated procalcitonin. CT of LLE on 04/11 was negative for acute OM, gas, or fluid collection and was consistent with cellulitis. Blood cultures persistently positive for MRSA on 04/11, 04/13, and 04/14. TTE on 04/13 without valvular vegetations but showed probable MV annuloplasty ring. A repeat CT on 04/17 showed interval plantar soft tissue abscess w/ progressive edema, but no OM or soft tissue gas. #MRSA bacteremia/left lower extremity cellulitis/acute gout/Sepsis - Sepsis Resolved; 04/16 BCx Cleared; Failed initial IV Vancomycin, switched to IV Dapto d/t persistent (+) BCx; Repeat LLE CT 04/17 showed possible soft tissue abscess w/ progressive edema, but no OM or soft tissue gas; Per-podiatry and MRI LLE 04/17 revealed dorsal fluid collection 7.6 cm more suggestive of ganglion vs abscess, and 6.2 cm fluid collection adjacent to flexor digitorum longus suggestive of ganglion versus tenosynovitis, no OM, and with diffuse edema; Podiatry aspiration of ankle was negative for crystals + bacteria. PICC line is in place - Podiatry: Seen 04/23 - will be pursuing surgical intervenion 04/24 d/t worsening of sx - Adjust IV Daptomycin to 750mg/day; per ID - Continue acetaminophen prn fever/pain - LFT elevation 04/20 - hold statin, trend CK + LFTs - Continue colchicine 0.6mg BID With consideration to pt developing bacteremia and unclear hx of annuloplasty, the pt should pursue dental prophylaxis #Superficial Venous Thrombosis - CT LLE 04/17 w/ long segment of superficial thrombophlebitis, no extension into deep veins; Venous Doppler 04/17 showed thrombus in greater saphenous, approx 6.6 cm long and 1.2 cm from junction w/ common femoral; High-risk SVT, plan to anticoagulate x3 mos - HOLD Lovenox 90 mg SQ every 12 w/ consideration to surgical intervention - Monitor for bleeding - Pt had life-threatening GI bleed from PUD Jun 2024 Consider transitioning to oral Eliquis #T2DM - HbA1c here is 8.2% - Holding home Jardiance - Adjust Lantus to 6 units BID - Adjust SSI: BSG 110-140; CF 20; CR 15 - Continue SSI - CF 15 #CAD s/p CABG| HTN - Mildly elevated Trop at 40.8, likely d/t demand ischemia secondary to Sepsis; Recent (01/2025) admission for CP and NSTEMI, repeat cardiac cath w/ patent grafts, thought be result of vasospasm and initiated on Imdur; DANIELLE on 04/13 w/ no WMAs but demonstrated questionable mitral annuloplasty - no other mention of this on earlier echos or cardiology records. - Continue Plavix - Continue Imdur 30 mg p.o. daily - new rx upon d/c - Atorvastatin held 04/20 as above - Continue lisinopril, metoprolol Pt should hold statin upon d/c until course of IV abx is complete #GERD - no acute concerns -Continue pantoprazole #Diarrhea -now resolved -Continue Metamucil #Hyponatremia - Resolved; Trend BMP Disposition - transfer to med/surg - awaiting PICC DVT prophylaxis - has acute SVT-continue therapeutic Lovenox and eventually switch to Eliquis Admission and Anticipated Discharge Date Admission Date: April 11, 2025 Subjective Pt was sitting in chair at bedside today in NAD, foot elevated. Pt notes that he feels that his foot looks worse and that he is experiencing an increasing amount of pain. Pt states that yesterday he was able to walk around with the aid of a walker with minimal pain but today he has had increasing pain and is unable to bear weight on the foot. Pt denies cough, congestion, sore throat, SOB, CP, palpitations, GI upset, and N/V/D. A later conversation was held with Dr Avila, Myself, the Pt, his , and his MIL. It was discussed that the current plan is to increase IV dapto up to previous dose and that he would be going into the OR tomorrow. Discussed staying off of Atorvastatin until pt completes IV abx. Pt and his were agreeable to this. Review of Systems 2 Review of Systems: All systems reviewed & are unremarkable except as noted in Subjective Physical Exam 2 Physical Exam: General: Pt is a 65 y/o obese male in NAD in bed. VS: reviewed - remarkable Skin: Erythema surrounding L ankle slightly worsened (see image below); entry point for joint aspiration appeared non-infectious; no other lesions/breaks seen in skin surrounding area of erythema; skin is otherwise warm and dry; no rashes, lesions or ulcerations Respiratory: CTA bilat, no adventitious sounds noted. Chest expansion is full and symmetrical Cardio: RRR no murmurs Abdomen: Round, normoactive BS x4, nontender to palpation MSK: Pt states that it is too painful for him to bear weight on his foot today; he has reduced ROM of L ankle when compared to 04/22; FROM extremities otherwise, no deformities noted Extremities: +2 pitting edema of LLE that extends to mid-rosa, worse than 04/22; No erythema noted over R knee, pt able to bed knee w/out pain; RLE w/out edema; no clubbing/cyanosis bilat Neuro: A&Ox4, cooperative Results & Data Results & Data Vital Signs (Past 12 Hours) Vital Signs Temp Pulse Pulse Resp BP Pulse Ox O2 Del Method 04/23/25 07:24 98.1 F 80 18 149/89 H 96 Room Air 04/23/25 00:45 98.8 F 73 16 150/74 H 95 Room Air 04/22/25 19:51 98.4 F 78 18 137/68 93 Room Air Laboratory Results Reviewed: CBC, CMP, ESR, Calcium, Mg, CRP, Procal PG Care Time/CCT Total # of Minutes Spent Total Time Spent with Patient: Total time spent is greater than 50% in coordination of care (as documented) at patient's floor/unit and/or counseling patient: Initial conversation w/ pt 20 mins w/ additional conversation w/ dr avila present for an additional 25. An additional 15 minutes was spent coordinating care with infectious disease and podiatry. 30 minutes were spent reviewing the patient chart. thank you Coding Level of Care Code 89978 SUB INP/OBS CARE 3/50MIN Diagnoses Cellulitis of left lower extremity L03.116 Laterality: left Site of cellulitis: extremity Site of cellulitis of extremity: lower extremity Sepsis due to methicillin resistant Staphylococcus aureus (MRSA) without acute organ dysfunction A41.02 Sepsis acute organ dysfunction status: without acute organ dysfunction Sepsis type: methicillin resistant Staphylococcus aureus Bacteremia R78.81 Acute superficial venous thrombosis of left lower extremity I82.812 (1) Cellulitis Laterality: left Site of cellulitis: extremity Site of cellulitis of extremity: lower extremity Qualified Code(s): L03.116 - Cellulitis of left lower limb (2) Sepsis Sepsis acute organ dysfunction status: without acute organ dysfunction Sepsis type: methicillin resistant Staphylococcus aureus Qualified Code(s): A41.02 - Sepsis due to Methicillin resistant Staphylococcus aureus"
--- NOTE | 2025-04-23 15:02 | Infectious Disease Progress Nt ---
Date of Service April 23, 2025 Assessment & Plan (1) Cellulitis: (2) Bacteremia: (3) Sepsis: Plan This is a 65-year-old man with a past medical history of CAD status post stents, HLD, DM2, GERD, duodenal ulcer with hemorrhage, recently admitted 02/05/2025 - 02/06/2025 for NSTEMI presented to the ED on 04/11 with worsening left foot edema, erythema and pain, found to have MRSA bacteremia and concern for LLE infection. also endorsed he had some confusion. Approximately 4 days prior to admission he woke up with acute onset of left foot swelling and pain. Denied any known trauma to the foot or wounds. He was evaluated by orthopedics outpatient at [facility] who gave him a walking boot. He continued to have left foot pain with associated chills, shakes and subjective fevers. No nausea, vomiting, shortness of breath, chest pain. He had difficulty placing pressure on the foot. His pain worsened prompting evaluation in the ED. He has a right knee TKA but no issues at that site. Admission temperature 37.9. Tmax 39.2. Labs: WBC 14.76, platelets 119, BUN 29, creatinine 1.01, CRP 38.84, ESR 36. Blood cultures grew MRSA in 3/4 bottles on 04/11. Repeat blood cultures on 04/13 and 04/14 grew MRSA in 2/4. Chest x-ray demonstrated a left basilar opacity which may represent atelectasis. Left lower extremity and foot CT showed soft tissue swelling and fat stranding throughout the visualized left ankle and foot. No discrete abscess or soft tissue gas. No bony lesions to suggest osteomyelitis. TTE showed a sclerotic aortic valve without significant stenosis. Probable mitral valve annuloplasty ring without significant regurgitation. Moderate pulmonary hypertension. No visualized valvular vegetations but cannot exclude on transthoracic study. He was started on IV Vancomycin. ID consulted for MRSA bacteremia. Microbiology 04/11 blood culture MRSA 3/4 bottles 04/13 blood culture MRSA 2/4 bottles 04/14 blood culture MRSA 2/4 bottles 04/16 blood culture NG 04/18 L ankle fluid cx: NGTD. GS no org Antibiotics Vancomycin Clindamycin 04/11 piperacillin/tazobactam Daptomcyin 04/16- present # High-grade MRSA bacteremia # Sepsis # Left foot skin and soft tissue infection with ? abscess vs tenosynovitis vs septic ankle arthritis # Left leg superficial thrombophlebitis # Right knee TKA # Thrombocytopenia, resolved Discussion- He presents with worsening left foot skin and soft tissue infection (without ost eomyelitis) and associated high-grade MRSA bacteremia. Was bacteremic 04/11 - 04/14. He reports has a right knee TKA but there is no obvious issues on exam at that site. He denies any other hardware however a TTE shows a probable annuloplasty ring of the mitral valve (he and do not think he had annuloplasty). Notes from his machine tailer also do not mention a history of annuloplasty, and 02/06 TTE does not mention an annuloplasty ring. Source of bacteremia may be the left foot infection, however attempted to rule out endocarditis especially in the ?MV annuloplasty ring seen on TTE, and per sistent bacteremia despite appropriate abx (initially on vanco --- switched to dapto given high doses of vanco needed to maintain appropriate levels). Cardiology declined to pursue DANIELLE. Initial imaging showed no signs of deep space infection of the left foot, however repeat CT foot 04/17 showed ? foot abscess and LLE Doppler showed Left leg superficial venous thrombosis. He was evaluated by podiatry. MRI LE showed dorsal fluid collection measuring up to 7.6 cm suggestive of ganglion rather than abscess, as well as 6.2 cm fluid collection adjacent to the flexor digitorum c/f ganglion vs tenosynovitis. No evidence of OM. Podiatry performed bedside ankle joint aspiration on 04/18, with no evidence of purulent fluid and no suspicion for septic joint. It appears that no cell counts were sent, but was negative for crystals, and gram stain negative, culture NGTD. 04/16- Remains bacteremic. LLE has less edema and TTP, but some spread of erythema. 04/[address] foot shows abscess and Doppler shows thrombophlebitis . Cardiology declined DANIELLE as pt has had esophageal issues in past with intubation. BCx 03/16 NGTD. CK 30 04/18 Foot pain is less. MRI shows fluid collection and findings c/f ganglion or tenosynovitis. L ankle aspiration performed, no crystals, cx NGTD 04/21: erythema receding from marked borders. Recommendations: - Adjusted daptomycin dose to 7500 mg IV q24h (~ 8.7 mg/kg by actual body weight, per discussion with ID pharmacist given concern that pt was clearing vancomycin much faster than expected, potentially hypermetabolic) to complete a 6 week course through 05/27/25, given persistent MRSA bacteremia 04/11-04/14 and inability to perform DANIELLE to rule out endocarditis. Since he has had prior recent CV events and has normal renal function, can continue statin and will monitor CK weekly. CK 32 on 04/21/25 - Will need PICC line - Check weekly CBC with diff, CMP, CK while on daptomycin to monitor for toxicity - Close follow-up with podiatry - I will arrange for follow-up in telemedicine OPAT clinic - See below antibiotic discharge summary Infectious Diseases OPAT Antibiotic Discharge Plan: Diagnosis: MRSA bacteremia, LLE infection Organism: MRSA Antibiotic: (dose and frequency) daptomycin 750 mg IV q24h Start of therapy: 04/16/25 End of therapy: 05/27/25 Labs should be faxed to:[facility] office attention [facility] [phone] Labs needed and frequency: CBC with diff, CMP, CK weekly [facility] with [facility] Clinic Address [address] [place] [address] Office (P) [phone] Appointment-time frame ~4 weeks Admission and Anticipated Discharge Date Admission Date: April 11, 2025 Subjective This patient recommendation is based on a telemedicine consult request which was completed asynchronously through chart review and information provided by the primary physician. The patient was not seen or examined today. The evaluation is consultative in nature and all patient care and treatment decisions can either be accepted or rejected by the patient's primary hospital-based treating physician using their own independent medical judgment for their patient. Time Spent Reviewing Chart: 11 - 20 minutes Pt reporting increased foot pain Results & Data Vital Signs (Past 12 Hours) Vital Signs Temp Pulse Resp BP Pulse Ox O2 Del Method 04/23/25 07:24 36.7 C 80 18 149/89 H 96 Room Air (1) Cellulitis Laterality: left Site of cellulitis: extremity Site of cellulitis of extremity: lower extremity Qualified Code(s): L03.116 - Cellulitis of left lower limb (3) Sepsis Sepsis acute organ dysfunction status: without acute organ dysfunction Sepsis type: methicillin resistant Staphylococcus aureus Qualified Code(s): A41.02 - Sepsis due to Methicillin resistant Staphylococcus aureus
[2025-04-23 16:12] LABS: Hematocrit (blood only) 32.8 % (42.0-52.0); Hemoglobin 11.2 g/dL (14.0-18.0); Immature Granulocytes # (auto) 0.03 K/uL (0.01-0.20); Immature Granulocytes % (auto) 0.4 %; Mean Corpuscular Hemoglobin 30.4 pg (25.0-34.0); Mean Corpuscular Volume 88.9 fL (80.0-100.0); Platelet Count 322 K/uL (130-400); RDW Standard Deviation 41.7 fL (36.4-46.3); Red Blood Count 3.69 M/uL (4.70-6.10); White Blood Count 6.90 K/ul (4.8-10.8)
[2025-04-23 16:29] LABS: Alanine Aminotransferase 113.0 U/L (7-52); Albumin Globulin Ratio 0.8 (0.9-2); Albumin Level 2.8 gm/dl (3.4-5.0); Alkaline Phosphatase 212.0 U/L (34-104); Anion Gap 6.0 (3-11); Bilirubin,Total 0.4 mg/dl (0.2-1.0); Blood Urea Nitrogen 17.0 mg/dl (6-23); Calcium 8.7 mg/dl (8.6-10.3); Carbon Dioxide 27.0 mmol/L (21-32); Chloride 103.0 mmol/L (98-107); Creatinine Clr Calc Pharmacy 135.0 ml/min; Globulin 3.5 gm/dl (2.5-4.0); Glucose 201.0 mg/dl (70-99(Fasting)); Potassium 4.1 mmol/L (3.5-5.1); Sodium 136.0 mmol/L (136-145); Total Protein 6.3 gm/dl (6.0-8.3)
--- NOTE | 2025-04-23 19:03 | Podiatry Progress Note ---
Date of Service April 23, 2025 Assessment & Plan (1) Cellulitis: (2) Sepsis: (3) Diabetes mellitus, type 2: Plan Patient was examined and evaluated. CT/MRI/Labs reviewed. Prior notes reviewed. - With continued waxing and waning of symptoms, we did discuss he could benefit from surgical I&D of the left ankle and left dorsal foot. - We discussed relative risks and benefits, most notably that the surgery may prove to be extraneous; if there is no deeper infection or involvement, at least deep culture can be obtained for more crystal and microbiology assessment. - Is scheduled for tentatively noon on 04/24 for this I&D. Can still plan on d/c to rehab on Monday. - Patient is amenable to this and will obtain written consent preoperatively. Admission and Anticipated Discharge Date Admission Date: April 11, 2025 Subjective Called patient on the phone. He believes he has improved throughout today, but that overall he is worse today than yesterday. He had his PICC line placed and is tentatively ready for discharge on Monday. Results & Data Results & Data Vital Signs (Past 12 Hours) Vital Signs Temp Pulse Resp BP Pulse Ox O2 Del Method 04/23/25 15:26 36.6 C 77 18 129/77 94 Room Air 04/23/25 07:24 36.7 C 80 18 149/89 H 96 Room Air (1) Cellulitis Laterality: left Site of cellulitis: extremity Site of cellulitis of extremity: lower extremity Qualified Code(s): L03.116 - Cellulitis of left lower limb (2) Sepsis Sepsis type: methicillin resistant Staphylococcus aureus Sepsis acute organ dysfunction status: without acute organ dysfunction Qualified Code(s): A41.02 - Sepsis due to Methicillin resistant Staphylococcus aureus (3) Diabetes mellitus, type 2 Diabetes mellitus terminal operations manager insulin use: without correction use Diabetes mellitus complication status: with neurologic complications Diabetes mellitus complication detail: with polyneuropathy Qualified Code(s): E11.42 - Type 2 diabetes mellitus with diabetic polyneuropathy
[2025-04-24 06:53] LABS: Hematocrit (blood only) 33.5 % (42.0-52.0); Hemoglobin 11.1 g/dL (14.0-18.0); Mean Corpuscular Hemoglobin 29.4 pg (25.0-34.0); Mean Corpuscular Volume 88.9 fL (80.0-100.0); Platelet Count 288 K/uL (130-400); RDW Standard Deviation 42.0 fL (36.4-46.3); Red Blood Count 3.77 M/uL (4.70-6.10); White Blood Count 6.64 K/ul (4.8-10.8)
[2025-04-24 07:12] LABS: Alanine Aminotransferase 93.0 U/L (7-52); Albumin Globulin Ratio 0.8 (0.9-2); Albumin Level 2.8 gm/dl (3.4-5.0); Alkaline Phosphatase 196.0 U/L (34-104); Anion Gap 4.0 (3-11); Bilirubin,Total 0.5 mg/dl (0.2-1.0); Blood Urea Nitrogen 16.0 mg/dl (6-23); Calcium 8.7 mg/dl (8.6-10.3); Carbon Dioxide 30.0 mmol/L (21-32); Chloride 103.0 mmol/L (98-107); Creatinine Clr Calc Pharmacy 137.5 ml/min; Globulin 3.6 gm/dl (2.5-4.0); Glucose 151.0 mg/dl (70-99(Fasting)); Potassium 4.3 mmol/L (3.5-5.1); Sodium 137.0 mmol/L (136-145); Total Protein 6.4 gm/dl (6.0-8.3)
[2025-04-24] MEDS ORDERED: Nursing to Pharmacy Communication SCH ×2 (07:15→17:15)
[2025-04-24] MEDS: INSULIN ASPART PER UNIT CHARGE SC SCH ×2 (09:17→21:38)
--- NOTE | 2025-04-24 09:28 | History & Physical Bridge Note ---
Date of Service April 24, 2025 History & Physical Bridge Note I have examined the patient, reviewed the History & Physical and in the interval since the performance of the History & Physical I have noted the following changes of clinical significance: erythema and edema globally to the foot and ankle remain persistent. Pain is still significant, mostly over the medial malleolus with some discomfort overlying the dorsal foot. Preoperative instructions, postoperative's, relative risks, and outcomes were all discussed at length. All questions were answered. Consent was obtained for this left foot and ankle incision and drainage.
--- NOTE | 2025-04-24 09:40 | Hospitalist Progress Note ---
"Date of Service April 24, 2025 Assessment & Plan (1) Cellulitis: (2) Sepsis: (3) Bacteremia: (4) Acute superficial venous thrombosis of left lower extremity: Plan This patient is a 65-year-old male with a history of CAD s/p CABG 2015, HLD, T2DM, HTN, GERD, PUD w/ Hx hemorrhage (06/2024) d/t excessive NSAID use, pulmonary nodules, former smoker who presented w/ confusion and severe left foot and ankle pain. Pt was found to have sepsis secondary to MRSA bacteremia and LLE cellulitis, w/ concurrent acute gout of Lt ankle. In ED pt had fever, tachycardia, leukocytosis, elevated lactate, and elevated procalcitonin. CT of LLE on 04/11 was negative for acute OM, gas, or fluid collection and was consistent with cellulitis. Blood cultures persistently positive for MRSA on 04/11, 04/13, and 04/14. TTE on 04/13 without valvular vegetations but showed probable MV annuloplasty ring. A repeat CT on 04/17 showed interval plantar soft tissue abscess w/ progressive edema, but no OM or soft tissue gas. #MRSA bacteremia/left lower extremity cellulitis/acute gout/Sepsis - Sepsis Resolved; 04/16 BCx Cleared; Failed initial IV Vancomycin, switched to IV Dapto d/t persistent (+) BCx; Repeat LLE CT 04/17 showed possible soft tissue abscess w/ progressive edema, but no OM or soft tissue gas; Per-podiatry and MRI LLE 04/17 revealed dorsal fluid collection 7.6 cm more suggestive of ganglion vs abscess, and 6.2 cm fluid collection adjacent to flexor digitorum longus suggestive of ganglion versus tenosynovitis, no OM, and with diffuse edema; Podiatry aspiration of ankle was negative for crystals + bacteria. PICC line is in place - Podiatry: Seen 04/23 - pursuing surgical intervention 04/24 d/t worsening of sx - Continue IV Daptomycin to 750mg/day; per ID - Continue acetaminophen prn for mild/moderate pain, oxycodone for severe pain - LFT elevation 04/20 - hold statin, LFT's improving, continue to trend - Continue colchicine 0.6mg BID With consideration to pt developing bacteremia and unclear hx of annuloplasty, the pt should pursue dental prophylaxis in future #Superficial Venous Thrombosis - CT LLE 04/17 w/ long segment of superficial thrombophlebitis, no extension into deep veins; Venous Doppler 04/17 showed thrombus in greater saphenous, approx 6.6 cm long and 1.2 cm from junction w/ common femoral; High-risk SVT, plan to anticoagulate x3 mos - HOLD Lovenox 90 mg SQ every 12 w/ consideration to surgical intervention - Monitor for bleeding - Pt had life-threatening GI bleed from PUD Jun 2024 Consider transitioning to oral Eliquis #T2DM - HbA1c here is 8.2% - Holding home Jardiance - Adjust Lantus to 6 units BID - AM dose while NPO 04/24 3units - Adjust SSI: BSG 110-140; CF 20; CR 15 #CAD s/p CABG| HTN - Mildly elevated Trop at 40.8, likely d/t demand ischemia secondary to Sepsis; Recent (01/2025) admission for CP and NSTEMI, repeat cardiac cath w/ patent grafts, thought be result of vasospasm and initiated on Imdur; DANIELLE on 04/13 w/ no WMAs but demonstrated questionable mitral annuloplasty - no other mention of this on earlier echos or cardiology records. - Continue Plavix - Continue Imdur 30 mg p.o. daily - new rx upon d/c - Atorvastatin held 04/20 as above - Continue lisinopril, metoprolol Pt should hold statin upon d/c until course of IV abx is complete #GERD - no acute concerns -Continue pantoprazole #Diarrhea -now resolved -Continue Metamucil #Hyponatremia - Resolved; Trend BMP Disposition - transfer to med/surg - awaiting podiatry intervention DVT prophylaxis - Lovenox held d/t surgical intervention Admission and Anticipated Discharge Date Admission Date: April 11, 2025 Subjective Pt is laying in bed today in NAD. Pt states that he talked to Dr Ennis this morning and discussed going down to the OR around 11:30 today; Pt states that he is looking forward to having the cyst removed. Pt states that his foot feels better than it did on 04/23, but still not as well as it did on 04/22. Pt did not want physical therapy this morning and states that it is because he was feeling exhausted this morning. Pt denies cough, congestion, sore throat, SOB, CP, Palpitations, abdominal pain, and N/V/D. Review of Systems Review of Systems: All systems reviewed & are unremarkable except as noted in Subjective Physical Exam Physical Exam: General: Pt is a 65 y/o obese male in NAD in bed. VS: reviewed - remarkable Skin: Erythema surrounding L ankle slightly improved from 04/23; entry point for joint aspiration appeared non-infectious; no other lesions/breaks seen in skin surrounding area of erythema; skin is otherwise warm and dry; no rashes, lesions or ulcerations Respiratory: CTA bilat, no adventitious sounds noted. Chest expansion is full and symmetrical Cardio: RRR no murmurs Abdomen: Round, normoactive BS x4, nontender to palpation MSK: Pt states that it is too painful for him to bear weight on his foot today; he has reduced ROM of L ankle when compared to 04/22; FROM extremities otherwise, no deformities noted Extremities: +2 pitting edema of LLE that extends to mid-rosa, worse than 04/22; No erythema noted over R knee, pt able to bed knee w/out pain; RLE w/out edema; no clubbing/cyanosis bilat Neuro: A&Ox4, cooperative Results & Data Results & Data Vital Signs (Past 12 Hours) Vital Signs Temp Pulse Resp BP Pulse Ox O2 Del Method 04/24/25 07:33 97.3 F L 62 18 141/78 H 96 Room Air 04/23/25 23:57 98.4 F 87 14 131/74 95 Room Air Laboratory Results Reviewed: CBC, CMP PG Care Time/CCT Total # of Minutes Spent Total Time Spent with Patient: Total time spent is greater than 50% in coordination of care (as documented) at patient's floor/unit and/or counseling patient: Coding Level of Care Code 80772 SUB INP/OBS CARE 2/35MIN Diagnoses Cellulitis of left lower extremity L03.116 Laterality: left Site of cellulitis: extremity Site of cellulitis of extremity: lower extremity Sepsis due to methicillin resistant Staphylococcus aureus (MRSA) without acute organ dysfunction A41.02 Sepsis acute organ dysfunction status: without acute organ dysfunction Sepsis type: methicillin resistant Staphylococcus aureus Bacteremia R78.81 Acute superficial venous thrombosis of left lower extremity I82.812 (1) Cellulitis Laterality: left Site of cellulitis: extremity Site of cellulitis of extremity: lower extremity Qualified Code(s): L03.116 - Cellulitis of left lower limb (2) Sepsis Sepsis acute organ dysfunction status: without acute organ dysfunction Sepsis type: methicillin resistant Staphylococcus aureus Qualified Code(s): A41.02 - Sepsis due to Methicillin resistant Staphylococcus aureus"
[2025-04-24] MEDS ORDERED: PROPOFOL IV EMULSION 10 MG/ML 20 ML VIAL IV ONE (10:16)
[2025-04-24] MEDS ORDERED: ONDANSETRON INJ 2 MG/ML 2 ML VIAL ONE (10:16)
[2025-04-24] MEDS: LACTATED RINGER'S 1,000 ML IV SCH (11:23)
[2025-04-24] MEDS ORDERED: ONDANSETRON INJ 2 MG/ML 2 ML VIAL IV PRN (12:47)
[2025-04-24] MEDS ORDERED: ATROPINE SULFATE 0.1 MG/ML 10ML SYR IV PRN (12:47)
[2025-04-24] MEDS ORDERED: HYDROmorphone INJ 1 MG/ML SYRINGE IV PRN (12:47)
[2025-04-24] MEDS ORDERED: PROMETHAZINE HCL 6.25 MG in SODIUM CHLORIDE 0.9% 50 ML IV PRN (12:47)
--- NOTE | 2025-04-24 12:47 | Anesthesiology Consultation ---
Date of Service April 24, 2025 Assessment & Plan ASA ASA3 Proposed Anesthesia Anesthesia Type: General Risk / Benefits Reviewed With: PT / POA / Parent / Guardian, Accepts Plan and Informed Consent Obtained History Surgery Operation Date: 04/24/25 11:35 Proposed Procedures p Left Foot Incision and Drainage - Demetri Ennis DPM Height/Weight Height: 5 ft 6 in Weight: 85.8 kg Allergies Allergy/AdvReac Type Severity Reaction Status Date / Time metformin Allergy Intermediate Rash Verified 04/11/25 22:13 ether Allergy Unknown Unknown Verified 04/11/25 22:13 NSAIDS (Non-Steroidal AdvReac Intermediate Gastrointestinal Verified 04/11/25 22:13 Anti-Inflamma Upset Medications Home Medications Medication Instructions Recorded Confirmed Last Taken cyanocobalamin (vitamin B-12) 1,000 mcg PO QAM 03/27/23 04/11/25 04/10/25 1,000 mcg tablet (Vitamin B-12) empagliflozin 25 mg tablet 25 mg PO QPM 03/27/23 04/11/25 04/10/25 (Jardiance) multivitamin with minerals-folic 1 tab PO DAILY 04/03/23 04/11/25 04/10/25 acid 0.4 mg tablet (Adult One Daily Multivitamin) clopidogrel 75 mg tablet 75 mg PO DAILY #90 tabs 02/12/25 04/11/25 04/10/25 metoprolol tartrate 25 mg tablet 25 mg PO BID #180 tabs 02/12/25 04/11/25 04/10/25 atorvastatin 80 mg tablet 80 mg PO HS #90 tabs 03/12/25 04/11/25 04/10/25 lisinopril 20 mg tablet 20 mg PO DAILY #90 tabs 03/12/25 04/11/25 04/10/25 nitroglycerin 0.4 mg sublingual 0.4 mg sublingual Q5M PRN chest 03/12/25 04/11/25 Unknown tablet pain #25 tabs pantoprazole 40 mg tablet,delayed 40 mg PO DAILY 90 days #90 tabs 03/12/25 04/11/25 04/10/25 release lactobacillus comb no.10 20 20,000 mmu cells PO DAILY 04/11/25 04/11/25 04/10/25 billion cell capsule (Probiotic) magnesium citrate,mag oxide 250 mg 250 mg PO DAILY 04/11/25 04/11/25 04/10/25 capsule zinc acetate 50 mg (zinc) capsule 50 mg PO DAILY 04/11/25 04/11/25 04/10/25 Active Medications Generic Name Dose Route Start Last Admin Trade Name Freq PRN Reason Stop Dose Admin Acetaminophen 650 mg 04/17/25 16:58 04/23/25 21:18 Acetaminophen 325 Mg Tab PO 05/17/25 16:57 650 mg Q4H PRN Administration Pain or Fever Clopidogrel Bisulfate 75 mg 04/12/25 09:00 04/23/25 08:32 Clopidogrel Bisulfate 75 Mg Tab PO 05/12/25 08:59 75 mg DAILY ONOFRE Administration Colchicine 0.6 mg 04/20/25 11:30 04/23/25 21:08 Colchicine 0.6 Mg Tab PO 05/20/25 11:29 0.6 mg BID ONOFRE Administration Enoxaparin Sodium 90 mg 04/18/25 21:00 04/23/25 08:29 Enoxaparin 100 Mg/1ml Syr SQ 05/18/25 20:59 90 mg Q12 ONOFRE Administration Heparin Sodium (Beef Lung) 5 ml 04/24/25 06:39 04/24/25 06:45 Heparin 10 Unit/Ml 5 Ml Flush FLUSH 05/24/25 06:38 5 ml PRN PRN Administration Flush Lactated Ringer's 1,000 mls @ 15 mls/hr 04/24/25 11:30 04/24/25 11:23 Lr IV 04/27/25 11:29 15 mls/hr .Q24H ONOFRE Administration Insulin Aspart 0 units 04/24/25 07:15 04/24/25 09:17 Insulin Aspart Per Unit Charge SC 05/24/25 07:14 Not Given Q6 [facility] Insulin Glargine 6 units 04/22/25 21:00 04/24/25 10:40 Lantus Per Unit Charge SQ 05/22/25 20:59 3 units BID ONOFRE Administration Isosorbide Mononitrate 30 mg 04/19/25 11:45 04/23/25 08:32 Isosorbide [place] Extended Rel 30 Mg Tabcr PO 05/19/25 11:44 30 mg QAM ONOFRE Administration Lisinopril 20 mg 04/18/25 09:30 04/23/25 08:32 Lisinopril 20 Mg Tab PO 05/18/25 09:29 20 mg QAM ONOFRE Administration Melatonin 3 mg 04/12/25 01:20 04/16/25 20:55 Melatonin 3 Mg Tab PO 05/12/25 01:19 3 mg HS PRN Administration Sleep Metoprolol Tartrate 50 mg 04/12/25 09:00 04/23/25 21:08 Metoprolol Tartrate 50 Mg Tab PO 05/12/25 08:59 50 mg BID ONOFRE Administration Oxycodone HCl 5 mg 04/23/25 12:42 04/24/25 00:03 Oxycodone Hcl Ir 5 Mg Tab (Immediate Release) PO 05/07/25 12:41 5 mg Q4H PRN Administration Pain Pantoprazole Sodium 40 mg 04/12/25 09:00 04/23/25 08:33 Pantoprazole 40 Mg Tab PO 05/12/25 08:59 40 mg DAILY ONOFRE Administration Psyllium Hydrophilic Mucilloid 4 gm 04/12/25 12:45 04/23/25 21:07 Psyllium Husk 4gm Packet PO 05/12/25 12:44 4 gm BID ONOFRE Administration Vitamin D 125 mcg 04/15/25 09:00 04/23/25 08:33 Cholecalciferol 125 Mcg (5,000 Units) Tab PO 05/15/25 08:59 125 mcg QAM ONOFRE Administration NPO Date Last Intake of Fluids: 04/23/25 Time Last Intake of Fluids: 17:30 Date Last Intake of Solids: 04/23/25 Time Last Intake of Solids: 17:30 Past Medical History Medical History NSTEMI (non-ST elevated myocardial infarction) Substernal precordial chest pain Unstable angina Chest pain Elevated troponin Pulmonary nodule GERD (gastroesophageal reflux disease) rare Witnessed apneic spells per patient's , denies previous sleep apnea study Snoring History of airway aspiration per pt, joshua-operatively for renal stone procedure in past Hx of renal calculi last episode several months ago Hyperactive gag reflex "please do not intubate due to overactive/hyperactive gag reflex" History of cancer Age 7, 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 No other treatments/no current issues Exercise / Class Metabolic Activity II 4-5 Yardwork/Stairs/Walk up hill Past Surgical History Surgical History Hx of CABG Family history of adverse reaction to anesthesia Grandmother in 1934- from the ether given to her by anesthesia S/P cystoscopy with ureteral stent placement w/laser lithotripsy History of anesthesia complications pt stated he should not be intubated unless it's a dire emergency due to his overactive/hyperactive gag reflex; did aspirate once when going under for kidney stones" Hx of left knee surgery age 7, cancerous tumor removed Hx of right knee surgery 1970s-"total reconstruction" Hx laparoscopic cholecystectomy History of esophagogastroduodenoscopy (EGD) Hx of colonoscopy Dr. Benigno Bryson 10/13/2014 Hx of nasal septoplasty Hx of tonsillectomy History of cardiac cath 2005- x1 stent 2009- x1 stent 2016- CABG x3 Hx of CABG CABG x3 (2016) Past Anesthesia History No Hx of Anesthesia Complications and No Family Hx of Anesthesia Complications History of PONV No Hx of PONV and No Hx of Motion Sickness Social History Smoking Status: Never smoker Do You Dip or Chew Tobacco: No Hx Alcohol Use: No Alcohol type: beer alcohol intake frequency: holidays/special occasions only Hx Substance Use: No substance use type: does not use Review of Systems denies fever/cough/ colds/ chest pain/ SOB/ ADRIAN denies ADRIAN Physical Exam Vital Signs Last Vital Signs Temp 36.7 C 04/24/25 11:14 Pulse 60 04/24/25 11:14 Resp 18 04/24/25 11:14 BP 150/78 H 04/24/25 11:14 Pulse Ox 96 04/24/25 11:14 O2 Del Method Room Air 04/24/25 11:14 ENMT Mouth: no TMJ abnormality and no dentition abnormality Thyromental Distance: > or= 3.5 Finger Breadths Mallampati Class: II Neck + facial hair; neck extension not limited Respiratory normal respiratory effort; no respiratory distress Auscultation: lungs clear to auscultation bilaterally Cardiovascular Rate/Rhythm: regular rate and regular rhythm Neurologic moves all extremities Psychiatric Orientation: alert and oriented x 3 Testing Laboratory Results 04/24/25 06:37 04/24/25 06:37 Hemoglobin A1c 8.2 % (4.5-5.6) H 04/18/25 05:49 04/18/25 12:00 Gram Stain - Final Ankle,Left Aerobic and Anaerobic Culture - Final No growth 04/16/25 09:44 Aerobic Blood Culture - Final Blood No growth in Aerobic bottle after 5 days. Anaerobic Blood Culture - Final No growth in Anaerobic bottle after 5 days. 04/16/25 09:44 Aerobic Blood Culture - Final Blood No growth in Aerobic bottle after 5 days. Anaerobic Blood Culture - Final No growth in Anaerobic bottle after 5 days. 04/14/25 14:33 Aerobic Blood Culture - Final Blood Staph aureus MRSA Anaerobic Blood Culture - Final No growth in Anaerobic bottle after 5 days. 04/14/25 14:25 Aerobic Blood Culture - Final Blood Staph aureus MRSA Anaerobic Blood Culture - Final No growth in Anaerobic bottle after 5 days. 04/13/25 09:44 Aerobic Blood Culture - Final Blood Staphylococcus aureus Anaerobic Blood Culture - Final 04/13/25 09:47 Aerobic Blood Culture - Final Blood Staphylococcus aureus Anaerobic Blood Culture - Final No growth in Anaerobic bottle after 5 days. 04/11/25 19:50 Aerobic Blood Culture - Final Blood Staph aureus MRSA Anaerobic Blood Culture - Final 04/11/25 20:00 Aerobic Blood Culture - Final Blood Staph aureus MRSA Anaerobic Blood Culture - Final Staph aureus MRSA 04/24/25 04/24/25 11:16 07:02 POC Glucose 111 H 121 H
[2025-04-24] MEDS ORDERED: ePHEDrine sulfate 50 MG/5 ML SYR ONE (13:03)
[2025-04-24] MEDS: BUPIVACAINE 0.5 % 5 MG/1 ML MPF 30ML VIAL ONE (13:24)
--- NOTE | 2025-04-24 13:37 | Post Operative Brief Note ---
Immediate Post Op Note Date of Surgery April 24, 2025 Pre & Post Diagnosis Preoperative diagnosis: Left ankle pain and cellulitis; left foot dorsal soft tissue mass Postoperative diagnosis same I identified the patient and participated in the time-out.: Yes Procedure 1. Left ankle incision and drainage 2. Excision of left foot dorsal soft tissue mass Surgeon Demetri Ennis, DPM Junior Art Director None Estimated Blood Loss 25 Findings Consistent with Post-Op Diagnosis Dorsal foot soft tissue mass was most consistent with a traumatized ganglion cyst, with no mary purulence and no malodor noted. The actual encapsulation was minimal and the contents of it were able to be expressed, as a thick diffuse liquid interspersed with soft tissue. Home Visitor samples were sent for pathology testing. These could be immature gouty tophi or a traumatized ganglion cyst. Cultures were obtained as well to ensure no infectious etiology is present. Specimens Left foot dorsal soft tissue mass contents for pathology Left ankle swab culture Left foot dorsal soft tissue mass culture for quant culture Anesthesia Type General Complications none Disposition Accompanied Patient To Recovery: Yes Disposition: Recovery Room
--- NOTE | 2025-04-24 15:09 | Anesthesiology Progress Note ---
Date of Service April 24, 2025 Anesthesia Post Procedure Vital Signs Vital Signs: Temp Pulse Pulse Resp BP Pulse Ox O2 Del Method 04/24/25 14:59 36.8 C 77 14 149/78 H 94 Room Air 04/24/25 14:20 36.5 C 76 14 153/78 H 95 Room Air 04/24/25 14:10 36.5 C 78 20 146/79 H 92 Room Air 04/24/25 14:00 76 19 146/78 H 93 Room Air 04/24/25 13:50 74 15 133/72 92 Room Air 04/24/25 13:40 36.2 C L 73 20 138/78 97 Room Air 04/24/25 11:14 36.7 C 60 18 150/78 H 96 Room Air 04/24/25 07:33 36.3 C L 62 18 141/78 H 96 Room Air 04/23/25 23:57 36.9 C 87 14 131/74 95 Room Air 04/23/25 21:04 37 C 90 16 169/81 H 95 Room Air 04/23/25 15:26 36.6 C 77 18 129/77 94 Room Air Pain Intensity Left Leg: Pain Intensity: 5 Transfer of Care Handoff Completed per policy Notes Mental Status: alert / awake / arousable and participated in evaluation Patient Amnestic to Procedure: Yes Nausea / Vomiting: adequately controlled Pain: adequately controlled Airway Patency, RR, SpO2: stable & adequate BP & HR: stable & adequate Hydration State: stable & adequate Anesthetic Complications: no major complications apparent and Pt Satisfied with anesthetic care
[2025-04-24] MEDS: DAPTOmycin 750 MG in SYRINGE 0 ML IV SCH (15:16)
--- NOTE | 2025-04-24 21:59 | Operative Report ---
Post Operative Report Pre & Post Diagnosis Operation Date: 04/24/25 11:35 Pre-Op Diagnosis: (1) Cellulitis: (2) Sepsis: Post-Op Diagnosis: (1) Cellulitis: (2) Sepsis: I identified the patient and participated in the time-out.: Yes Procedure Operation Date: 04/24/25 11:35 Actual Procedures p Left Ankle Incision and Drainage, Left Foot Dorsal Cyst Excision(Left) - Demetri Ennis DPM Surgeon Demetri Ennis DPM Hammerer Helper None Estimated Blood Loss 25 Findings Consistent with Post-Op Diagnosis No evidence for infection or crystalline deposition at the ankle joint; there w as relatively minimal ankle joint fluid noted with joint effusion appreciated; the ankle joint drainage was sanguinous. The dorsal foot mass had no significant encapsulation but the exudate expressed was not typical for any specific pathology. It was too thick and solid to be purulent drainage, too solid and pale colored to be a typical ganglion cyst, and too thin to be mature crystal deposits or tophi. Painter Decorator samples were obtained and sent for culture and pathology. No acute infection identified. No indication to delay discharge tomorrow. Specimens Soft tissue excised from dorsal foot sent for pathology and culture testing. Anesthesia Type General Complications none Disposition Accompanied Patient To Recovery: Yes Disposition: Recovery Room Indications Mr. Osullivan is a recent hospital consult of ours who presented to the ED with severe left foot and ankle pain of no known origin. He denies any injury or trauma and denies any similar pain in the past. 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 Since admission almost two weeks ago, he has had IV antibiotics with minimal success in treating the suspected infection. He did have blood cultures earlier though these have cleared. More recently, over the weekend, he improved with oral colchicine after the assumption that this was more of an ankle gout attack; he had CT and MR imaging which revealed no significant evidence for infection as well. The MRI did reveal a more chronic appearing fluid collection to the dorsal foot. We attempted ankle arthrocentesis at bedside, where his point of maximal tenderness was, with no crystals identified and no bacterial growth noted. Now, with worsening symptoms of pain and swelling over the last two to three days, he would like surgical intervention. We discussed that this surgery would be aimed at identifying any potential pathology and treating it as definitive as possible. For this, an ankle I&D and excision of the dorsal foot mass was planned. Preoperative instructions, postoperative instructions, relative risks, and outcomes were all discussed. Consent was obtained for these procedures. Description of Procedure The patient was brought to the operating room and left on his preoperative litter bed for the duration of the procedure. No pneumatic tourniquet was utilized due to his potential for infection. After administration of general anesthesia, local analgesia was obtained utilizing 20 cc of 0.5% marcaine plain in an ankle and local block fashion. The left lower extremity was scrubbed, prespped, and draped in the usual aseptic manner. Attention was directed to the medial anterior aspect of the ankle joint where a standard 3cm ankle arthrotomy incision was performed with a 15 blade, just medial to the tibialis anterior tendon at the level of the ankle joint. The joint was opened in this manner and drained of any effusion. The joint was notably full of sanguinous fluid with no purulence or straw colored fluid noted. The bone was viable and healthy with no evidence of infection appreciated. This was flushed with copious amounts of sterile saline followed by closure with 4-0 monocryl in the subcuticular skin and 4-0 nylon in the skin. Attention was then directed to the dorsal midfoot, overlying the third metatarsal from the TMTJ distally. A 6 cm incision was made here and taken to the level of the intrinsic muscles of the foot with a 15 blade, taking care to cauterize and ligate any superificial bleeding vessels and retract any vital neurovascular structures. The extensor digitorum brevis muscle belly was identified and transected to dissect to the level of the bone, where drainage consistent with a thick mucus was identified. This was not flowable and was not well circumscribed, with no significant membrane surrounding. No tracking noted proximally along the tendons of the foot and ankle. All of this tissue was able to be excised through a combination of curette, rongeur, and manual milking of the foot with manual pressure. Painter Decorator samples of this material was sent in for culture and pathology testing. This was then flushed with copious amounts of sterile saline and closure was performed with 4-0 monocryl in the subcuticular skin and 4-0 nylon in the skin in a simple interrupted suture. All surgical sites were dressed with xeroform gauze, 4x4 gauze, kerlix, and an zaki wrap. The patient tolerated the procedure well and was transferred to the re covery room with vital signs stable and vascular status intact to the feet. Following postoperative monitoring, the patient will be transported back to the floor for further monitoring and likely discharge to rehab tomorrow. I attest to the content of the Intraoperative Record and any orders documented therein. Any exceptions are noted below.
[2025-04-25 07:06] VITALS: RESP 16
--- NOTE | 2025-04-25 08:53 | Infectious Disease Progress Nt ---
Date of Service April 25, 2025 Assessment & Plan (1) Cellulitis: (2) Bacteremia: (3) Sepsis: Plan This is a 65-year-old man with a past medical history of CAD status post stents, HLD, DM2, GERD, duodenal ulcer with hemorrhage, recently admitted 02/05/2025 - 02/06/2025 for NSTEMI presented to the ED on 04/11 with worsening left foot edema, erythema and pain, found to have MRSA bacteremia and concern for LLE infection. also endorsed he had some confusion. Approximately 4 days prior to admission he woke up with acute onset of left foot swelling and pain. Denied any known trauma to the foot or wounds. He was evaluated by orthopedics outpatient at [facility] who gave him a walking boot. He continued to have left foot pain with associated chills, shakes and subjective fevers. No nausea, vomiting, shortness of breath, chest pain. He had difficulty placing pressure on the foot. His pain worsened prompting evaluation in the ED. He has a right knee TKA but no issues at that site. Admission temperature 37.9. Tmax 39.2. Labs: WBC 14.76, platelets 119, BUN 29, creatinine 1.01, CRP 38.84, ESR 36. Blood cultures grew MRSA in 3/4 bottles on 04/11. Repeat blood cultures on 04/13 and 04/14 grew MRSA in 2/. Chest x-ray demonstrated a left basilar opacity which may represent atelectasis. Left lower extremity and foot CT showed soft tissue swelling and fat stranding throughout the visualized left ankle and foot. No discrete abscess or soft tissue gas. No bony lesions to suggest osteomyelitis. TTE showed a sclerotic aortic valve without significant stenosis; probable mitral valve annuloplasty ring without significant regurgitation. Moderate pulmonary hypertension. No visualized valvular vegetations but cannot exclude on transthoracic study. He was started on IV Vancomycin. ID consulted for MRSA bacteremia. Microbiology 04/11 blood culture MRSA 3/ bottles 04/13 blood culture MRSA 2/4 bottles 04/14 blood culture MRSA 2/4 bottles 04/16 blood culture NG 04/18 L ankle fluid cx: NG. GS no org 04/24 OR Soft tissue L foot cx: Staph aureus 04/24 OR L ankle joint cx: pending Antibiotics Vancomycin Clindamycin 04/11 piperacillin/tazobactam Daptomycin 04/16- present # High-grade MRSA bacteremia # Left foot infection: MRI with dorsal fluid collection, no signs of OM. S/p I&D 04/24, with dissection down to level of bone # Left leg superficial thrombophlebitis # Right knee TKA Discussion- He presents with worsening left foot infection and associated high-grade MRSA bacteremia. Was bacteremic 04/11 - 04/14. He reports has a right knee TKA but there is no obvious issues on exam at that site. He denies any other hardware. A TTE mentions a probable annuloplasty ring of the mitral valve, however he and do not think he had annuloplasty. Notes from his obstetric assistant also do not mention a history of annuloplasty, and 02/06 TTE does not mention an annuloplasty ring. Source of bacteremia may be the left foot infection, however attempted to rule out endocarditis especially with the ?MV annuloplasty ring seen on TTE, and persistent bacteremia despite appropriate abx (initially on vanco --- switched to dapto given high doses of vanco needed to maintain appropriate levels). Cardiology declined to pursue DANIELLE. Initial imaging showed no signs of deep space infection of the left foot, however repeat CT foot 04/17 showed ? foot abscess and LLE Doppler showed Left leg superficial venous thrombosis. He was evaluated by podiatry. MRI LE showed dorsal fluid collection measuring up to 7.6 cm suggestive of ganglion rather than abscess, as well as 6.2 cm fluid collection adjacent to the flexor digitorum c/f ganglion vs tenosynovitis. No evidence of OM. Podiatry performed bedside ankle joint aspiration on 04/18, with no evidence of purulent fluid and no suspicion for septic joint. It appears that no cell counts were sent, but was negative for crystals, and gram stain negative, culture NG. Pt developed increased L foot pain. Pt was taken to the OR on 04/24 for I&D of foot and ankle. Ankle joint had sanguinous fluid, bone appeared healthy, no evidence of infection. Dorsal midfoot was dissected to level of bone where drainage consistent with a thick mucus was identified. Sample from the foot sent for culture is growing Staph aureus. Recommendations: - Adjusted end date of antibiotics to 06/04/25, with start date when pt was taken to the OR 04/24/25 since OR cx growing Staph aureus. Continue daptomycin 750 mg IV q24h (~ 8.7 mg/kg by actual body weight, per discussion with ID pharmacist given concern that pt was clearing vancomycin much faster than expected, potentially hypermetabolic) to complete a 6 week course through 06/04/25, given persistent MRSA bacteremia 04/11-04/14 and inability to perform DANIELLE to rule out endocarditis, as well as I&D with drainage down to level of bone in the OR. Since he has had prior recent CV events and has normal renal function, can continue statin and will monitor CK weekly. CK 32 on 04/21/25 - Check weekly CBC with diff, CMP, CK while on daptomycin to monitor for toxicity - I will arrange for follow-up in telemedicine [facility] clinic - See below antibiotic discharge summary Will sign off. Outpatient Discharge summary, Discharging Physician please order the following on discharge: Diagnosis: MRSA bacteremia, LLE infection Organism: MRSA Antibiotic: (dose and frequency) daptomycin 750 mg IV q24h Start of therapy: 04/24/25 End of therapy: 06/04/25 Labs should be faxedto [facility] [phone] Labs needed and frequency CBC with diff, CMP, CK weekly The Infectious Disease (ID) clinic will contact the patient to schedule a follow-up appointment. If you have not heard from the clinic within one week of discharge, please call the ID clinic at [phone] ask for [facility] Address [address] [place] [address] Office (P) [phone] Appointment-time frame~4 weeks Admission and Anticipated Discharge Date Admission Date: April 11, 2025 Subjective This patient recommendation is based on a telemedicine consult request which was completed asynchronously through chart review and information provided by the primary physician. The patient was not seen or examined today. The evaluation is consultative in nature and all patient care and treatment decisions can either be accepted or rejected by the patient's primary hospital-based treating physician using their own independent medical judgment for their patient. Time Spent Reviewing Chart: 11 - 20 minutes Taken to OR yesterday for I&D OR culture growing Staph aureus Results & Data Vital Signs (Past 12 Hours) Vital Signs Temp Pulse Resp BP Pulse Ox O2 Del Method 04/25/25 07:05 37.2 C 69 16 158/81 H 95 Room Air 04/25/25 03:55 36.8 C 66 18 133/72 94 Room Air 04/24/25 23:03 37.0 C 78 17 144/80 H 94 Room Air 04/24/25 20:52 37.0 C 86 17 127/73 93 Room Air (1) Cellulitis Laterality: left Site of cellulitis: extremity Site of cellulitis of extremity: lower extremity Qualified Code(s): L03.116 - Cellulitis of left lower limb (3) Sepsis Sepsis type: methicillin resistant Staphylococcus aureus Sepsis acute organ dysfunction status: without acute organ dysfunction Qualified Code(s): A41.02 - Sepsis due to Methicillin resistant Staphylococcus aureus
--- NOTE | 2025-04-25 10:17 | Discharge Summary ---
Discharge Summary Date of Service April 25, 2025 Principal Dx & Hospital Course #1 = Principal Diagnosis (1) Cellulitis: (2) Sepsis: (3) Bacteremia: (4) Acute superficial venous thrombosis of left lower extremity: Plan #MRSA bacteremia/left lower extremity cellulitis/acute gout/Sepsis 65-year-old w/ PMHx CAD s/p CABG 2015, HLD, T2DM, HTN, GERD, PUD w/ Hx hemorrhage (06/2024) d/t excessive NSAID use, pulmonary nodules, former smoker who presented w/ confusion and severe left foot and ankle pain. Pt was found to have sepsis secondary to MRSA bacteremia and LLE cellulitis, w/ concurrent acute gout of Lt ankle. In ED pt had fever, tachycardia, leukocytosis, elevated lactate, and elevated procalcitonin. CT of LLE on 04/11 was negative for acute OM, gas, or fluid collection and was consistent with cellulitis. Blood cultures persistently positive for MRSA on 04/11, 04/13, and 04/14. TTE on 04/13 without valvular vegetations but showed probable MV annuloplasty ring. A repeat CT on 04/17 showed interval plantar soft tissue abscess w/ progressive edema, but no OM or soft tissue gas. Pt was initially started on IV Vancomycin, but was not progressing positively and was switched to IV Daptomycin. Repeat BCx on 04/16 were negative for any bacteria. Although bactaremia cleared, pt continued to have pain so a repeat LLE CT was performed on 04/17 which demonstrated possible soft tissue abscess w/ progressive edema, but no OM of soft tissue gas. At this point, podiatry was consulted and recommended an MRI of the LLE on 04/17 which demonstrated dorsal fluid collection 7.6cm that was more suggestive of a ganglion cyst vs abscess and a 6.2cm fluid collection adjacent to flexor digitorum longus suggestive of ganglion vs tenosynovitis. OM was not indicated on any repeat imaging. Because pain in the Lt ankle continued to persist, podiatry was additionally concerned for a concurrent gouty attack; possibility of this was demonstrated by a sudden decrease in uric acid. A joint aspiration was performed and was negative for any crystals. Pt was initiated on colchicine therapy. Infectious disease recommended a 6 week course of antibiotic via PICC; and a PICC was placed on 04/22 and IV Daptomycin was titrated from 750mg to 600mg. On 04/23, pts pain had worsened and he was no longer able to bear weight on his foot. #MRSA bacteremia/left lower extremity cellulitis/acute gout/Sepsis - Sepsis Resolved; 04/16 BCx Cleared; Failed initial IV Vancomycin, switched to IV Dapto d/t persistent (+) BCx; Repeat LLE CT 04/17 showed possible soft tissue abscess w/ progressive edema, but no OM or soft tissue gas; Per-podiatry and MRI LLE 04/17 revealed dorsal fluid collection 7.6 cm more suggestive of ganglion vs abscess, and 6.2 cm fluid collection adjacent to flexor digitorum longus suggestive of ganglion versus tenosynovitis, no OM, and with diffuse edema; Podiatry aspiration of ankle was negative for crystals + bacteria. PICC line is in place - Podiatry: Seen 04/23 - pursuing surgical intervention 04/24 d/t worsening of sx - Continue IV Daptomycin to 750mg/day; per ID - Continue acetaminophen prn for mild/moderate pain, oxycodone for severe pain - LFT elevation 04/20 - hold statin, LFT's improving, continue to trend - Continue colchicine 0.6mg BID With consideration to pt developing bacteremia and unclear hx of annuloplasty, the pt should pursue dental prophylaxis in future #Superficial Venous Thrombosis - CT LLE 04/17 w/ long segment of superficial thrombophlebitis, no extension into deep veins; Venous Doppler 04/17 showed thrombus in greater saphenous, approx 6.6 cm long and 1.2 cm from junction w/ common femoral; High-risk SVT, plan to anticoagulate x3 mos - HOLD Lovenox 90 mg SQ every 12 w/ consideration to surgical intervention - Monitor for bleeding - Pt had life-threatening GI bleed from PUD Jun 2024 Consider transitioning to oral Eliquis #T2DM - HbA1c here is 8.2% - Holding home Jardiance - Adjust Lantus to 6 units BID - AM dose while NPO 04/24 3units - Adjust SSI: BSG 110-140; CF 20; CR 15 #CAD s/p CABG| HTN - Mildly elevated Trop at 40.8, likely d/t demand ischemia secondary to Sepsis; Recent (01/2025) admission for CP and NSTEMI, repeat cardiac cath w/ patent grafts, thought be result of vasospasm and initiated on Imdur; DANIELLE on 04/13 w/ no WMAs but demonstrated questionable mitral annuloplasty - no other mention of this on earlier echos or cardiology records. - Continue Plavix - Continue Imdur 30 mg p.o. daily - new rx upon d/c - Atorvastatin held 04/20 as above - Continue lisinopril, metoprolol Pt should hold statin upon d/c until course of IV abx is complete #GERD - no acute concerns -Continue pantoprazole #Diarrhea -now resolved -Continue Metamucil #Hyponatremia - Resolved; Trend BMP Disposition - transfer to med/surg - awaiting podiatry intervention DVT prophylaxis - Lovenox held d/t surgical intervention Admission HPI Per Admitting Provider 65-year-old male PMHx CAD s/p CHELSEY (2016), HLD, angina, T2DM, HTN, GERD, and prior duodenal ulcer with hemorrhage with most recent hospital admission 02/05/2025 until 02/06/2025 for NSTEMI who is presenting now for concerns of infection and altered mental status. Patient states he is "feeling better" than he did whenever he first arrived. His , Ngoc, helps to provide a history. States that overall the patient is very active, walking 2 to 3 miles a day and playing Phloronol ball routinely. Approximately 3 days [employer]NAL E[employer]MENT MECH[employer]IC at 0300 the patient awo ke with complaints that his left foot was bothering him. 2 days CANAL EQUIPMENT MECH[employer]IC in the morning, his noted that the foot felt warm to touch but did not notice any other changes. 1 day [employer]NAL EQUIPMENT MECH[employer]IC the foot became edematous and more painful, and the patient was unable to bear weight on the foot. [facility] and the provider thought that patient was potentially suffering from gout, so he put him in a boot which did help some. His pain did get better, has he been utilizing Tylenol. Patient's states that at 1230 she came home for lunch and noticed that the patient was more worn out in his appearance. When the patient's got home from work at 1600, she remembers asking the patient what kind of tea he wanted and he was unable to respond to this question because he has seemed confused at that point. Patient states that he is feeling better, states that the pain is rather significant even with light sensation to the foot. Denies chest pain, SOB, palpitations, abdominal pain, N/V/D/C, numbness/tingling, chills, URI symptoms, LUTS, syncope, or falls. He has no prior history of gout. No family history of gout. No open wounds, no known tick bites. ED evaluation reveals CBC with leukocytosis 14.76, stable H&H, platelets 119; CMP sodium 131, chloride 97, CO2 17, AG 17, BUN 29, ratio 28.7, glucose 196, bilirubin 1.3, direct 0.4; lactate 2.3, 1.5 on repeat; procalcit onin 11.2; MRSA positive; CXR L basilar opacity may represent atelectasis; L foot/LLE CT not suggestive of OM, soft tissue swelling and fat stranding throughout visualized L ankle and foot, no abscess or soft tissue gas; EKG sinus tachycardia at 149 bpm.; Provided with Zosyn 4.5 g IV, acetaminophen 1 g IV, vancomycin 2250 mg IV, clindamycin 900 mg IV, and Plasma-Lyte 1L in ED. Please see Dr. Salazar's attestation for adjustments/additions to treatment plan. Discharge Exam General: Pt is a 65 y/o obese male in NAD in bed. VS: reviewed - remarkable Skin: Erythema surrounding L ankle slightly improved from 04/23; entry point for joint aspiration appeared non-infectious; no other lesions/breaks seen in skin surrounding area of erythema; skin is otherwise warm and dry; no rashes, lesions or ulcerations Respiratory: CTA bilat, no adventitious sounds noted. Chest expansion is full and symmetrical Cardio: RRR no murmurs Abdomen: Round, normoactive BS x4, nontender to palpation MSK: Pt states that it is too painful for him to bear weight on his foot today; he has reduced ROM of L ankle when compared to 04/22; FROM extremities otherwise, no deformities noted Extremities: +2 pitting edema of LLE that extends to mid-rosa, worse than 04/22; No erythema noted over R knee, pt able to bed knee w/out pain; RLE w/out edema; no clubbing/cyanosis bilat Neuro: A&Ox4, cooperative Discharge Plan Discharge Items Reason For Visit: SEPSIS, CELLULITIS, ? GOUT Condition on Discharge: Serious Follow-up/Referrals: Rock Fairchild MD [Primary Care Provider] - Medications and DC Order Prescriptions: No Action pantoprazole 40 mg tablet,delayed release (DR/EC) 40 mg PO DAILY 90 Days Qty: 90 3RF atorvastatin 80 mg tablet 80 mg PO HS Qty: 90 3RF lisinopril 20 mg tablet 20 mg PO DAILY Qty: 90 3RF Hold Instructions: hold for now nitroglycerin 0.4 mg tablet, sublingual 0.4 mg sublingual Q5M PRN (Reason: chest pain) Qty: 25 3RF Patient Comments: 02/05- no fill history unable to verify clopidogrel 75 mg tablet 75 mg PO DAILY Qty: 90 3RF Hold Instructions: hold due to GI bleeding metoprolol tartrate 25 mg tablet 25 mg PO BID Qty: 180 3RF Hold Instructions: hold for now cyanocobalamin (vitamin B-12) [Vitamin B-12] 1,000 mcg Tablet 1,000 mcg PO QAM Hold Instructions: hold for now Patient Comments: 02/05- otc unable to verify Jardiance 25 mg Tablet 25 mg PO QPM Hold Instructions: hold for now Rx Instructions: after evening meal multivit with min-folic acid [Adult One Daily Multivitamin] 0.4 mg Tablet 1 tab PO DAILY Hold Instructions: hold for now Patient Comments: 02/05- otc unable to verify zinc acetate 50 mg (zinc) Capsule 50 mg PO DAILY Probiotic 20 billion cell Capsule 20,000 mmu cells PO DAILY Rx Instructions: administer with a meal magnesium citrate,mag oxide 250 mg Capsule 250 mg PO DAILY Krames/Other Patient Handouts: Managing Type 1 Diabetes Admission Data Admit Date/Time: 04/11/25 23:19 Attending Provider: Austyn Avila Admit Provider: Carloz Salazar Primary Care Provider: Rock Fairchild Other Providers: [facility]; [facility],Fax; [place],[facility]; [facility]; [facility] Stay Data Consultations 04/13/25 10:56 Consult Infectious Diseases Routine 04/17/25 16:27 Consult Podiatry Routine Procedures Performed Operation Date: 04/24/25 11:35 Actual Procedures p Left Foot Incision and Drainage, Left Foot Dorsal Cyst Excision(Left) - Demetri Ennis DPM Diagnostic Imagining Performed 04/11/25 20:04 CT foot LT w con Stat CT tib/fib LT w con Stat 04/17/25 12:03 CT foot LT w con Urgent CT leg [CT tib/fib LT w con] Urgent 04/17/25 16:27 US venous doppler LE LT Urgent 04/17/25 18:09 MR ankle LT wo con Routine MR foot LT w/o con Routine Coding Diagnoses Cellulitis of left lower extremity L03.116 Laterality: left Site of cellulitis: extremity Site of cellulitis of extremity: lower extremity Sepsis due to methicillin resistant Staphylococcus aureus (MRSA) without acute organ dysfunction A41.02 Sepsis type: methicillin resistant Staphylococcus aureus Sepsis acute organ dysfunction status: without acute organ dysfunction Bacteremia R78.81 Acute superficial venous thrombosis of left lower extremity I82.812
[2025-04-25] MEDS: DAPTOmycin 750 MG in SYRINGE 0 ML IV SCH (14:50)
--- NOTE | 2025-04-25 17:25 | Hospitalist Progress Note ---
"Date of Service April 25, 2025 Assessment & Plan (1) Cellulitis: (2) Sepsis: (3) Bacteremia: (4) Acute superficial venous thrombosis of left lower extremity: Plan This patient is a 65-year-old male with a history of CAD s/p CABG 2015, HLD, T2DM, HTN, GERD, PUD w/ Hx hemorrhage (06/2024) d/t excessive NSAID use, pulmonary nodules, former smoker who presented w/ confusion and severe left foot and ankle pain. Pt was found to have sepsis secondary to MRSA bacteremia and LLE cellulitis, w/ concurrent acute gout of Lt ankle. In ED pt had fever, tachycardia, leukocytosis, elevated lactate, and elevated procalcitonin. CT of LLE on 04/11 was negative for acute OM, gas, or fluid collection and was consistent with cellulitis. Blood cultures persistently positive for MRSA on 04/11, 04/13, and 04/14. TTE on 04/13 without valvular vegetations but showed probable MV annuloplasty ring. A repeat CT on 04/17 showed interval plantar soft tissue abscess w/ progressive edema, but no OM or soft tissue gas. #MRSA bacteremia/left lower extremity cellulitis/acute gout/Sepsis - Sepsis Resolved; 04/16 BCx Cleared; Failed initial IV Vancomycin, switched to IV Dapto d/t persistent (+) BCx; Repeat LLE CT 04/17 showed possible soft tissue abscess w/ progressive edema, but no OM or soft tissue gas; Per-podiatry and MRI LLE 04/17 revealed dorsal fluid collection 7.6 cm more suggestive of ganglion vs abscess, and 6.2 cm fluid collection adjacent to flexor digitorum longus suggestive of ganglion versus tenosynovitis, no OM, and with diffuse edema; Podiatry aspiration of ankle was negative for crystals + bacteria. PICC line is in place - Podiatry: Seen 04/23 - pursuing surgical intervention 04/24 d/t worsening of sx - Continue IV Daptomycin to 750mg/day; per ID - Restart 6wk IV abx from 04/24 w/ end goal of 06/04 - Continue acetaminophen prn for mild/moderate pain, oxycodone for severe pain - LFT elevation 04/20 - hold statin, LFT's improving, continue to trend - Continue colchicine 0.6mg BID With consideration to pt developing bacteremia and unclear hx of annuloplasty, the pt should pursue dental prophylaxis in future #Superficial Venous Thrombosis - CT LLE 04/17 w/ long segment of superficial thrombophlebitis, no extension into deep veins; Venous Doppler 04/17 showed thrombus in greater saphenous, approx 6.6 cm long and 1.2 cm from junction w/ common femoral; High-risk SVT, plan to anticoagulate x3 mos - START 10mg BID x7 days then decrease to 5mg BID for 3mos - Monitor for bleeding - Pt had life-threatening GI bleed from PUD Early 2024 #T2DM - HbA1c here is 8.2% - Holding home Jardiance - Adjust Lantus to 6 units BID - Adjust SSI: BSG 110-140; CF 20; CR 15 #CAD s/p CABG| HTN - Mildly elevated Trop at 40.8, likely d/t demand ischemia secondary to Sepsis; Recent (01/2025) admission for CP and NSTEMI, repeat cardiac cath w/ patent grafts, thought be result of vasospasm and initiated on Imdur; DANIELLE on 04/13 w/ no WMAs but demonstrated questionable mitral annuloplasty - no other mention of this on earlier echos or cardiology records. - Continue Plavix - Continue Imdur 30 mg p.o. daily - new rx upon d/c - Atorvastatin held 04/20 as above - Continue lisinopril, metoprolol Pt should hold statin upon d/c until course of IV abx is complete #GERD - no acute concerns -Continue pantoprazole #Diarrhea -now resolved -Continue Metamucil #Hyponatremia - Resolved; Trend BMP Disposition - transfer to med/surg - awaiting safe dispo DVT prophylaxis - [facility] Admission and Anticipated Discharge Date Admission Date: April 11, 2025 Subjective Pt was laying in bed today in NAD. Pt states that he is ready to leave and is feeling much better than yesterday. He is able to bear weight on his foot and is hoping that things continue to improve. Discussed current wait for prior auth before discharge. Discussed restarting 6wk therapy with higher dose dapto d/t finding a positive culture from tissue sample intraoperatively during Lt foot I&D. Pt denies sore throat, cough, congestion, SOB, palpitations, CP, abd pain/discomfort, and N/V/D. Pt is overall feeling much stronger and states that he hopes to get home at an earlier time. Review of Systems Review of Systems: All systems reviewed & are unremarkable except as noted in Subjective Physical Exam Physical Exam: General: Pt is a 65 y/o obese male in NAD in bed. VS: reviewed - unremarkable Skin: Lt foot is wrapped and not able to be directly visualized; skin is otherwise warm and dry; no rashes, lesions or ulcerations Respiratory: CTA bilat, no adventitious sounds noted. Chest expansion is full and symmetrical Cardio: RRR no murmurs Abdomen: Round, normoactive BS x4, nontender to palpation MSK: Pt states that it is too painful for him to bear weight on his foot today; he has reduced ROM of L ankle when compared to 04/22; FROM extremities otherwise, no deformities noted Extremities: +2 pitting edema of LLE that extends to just below mid-rosa; RLE w/out edema; no clubbing/cyanosis bilat Neuro: A&Ox4, cooperative Results & Data Results & Data Vital Signs (Past 12 Hours) Vital Signs Temp Pulse Resp BP Pulse Ox O2 Del Method 04/25/25 15:10 97.9 F 81 16 134/69 95 Room Air 04/25/25 07:05 99.0 F 69 16 158/81 H 95 Room Air Laboratory Results PG Care Time/CCT Total # of Minutes Spent Total Time Spent with Patient: Total time spent is greater than 50% in coordination of care (as documented) at patient's floor/unit and/or counseling patient: Coding Level of Care Code 41891 SUB INP/OBS CARE 2/35MIN Diagnoses Cellulitis of left lower extremity L03.116 Laterality: left Site of cellulitis: extremity Site of cellulitis of extremity: lower extremity Sepsis due to methicillin resistant Staphylococcus aureus (MRSA) without acute organ dysfunction A41.02 Sepsis type: methicillin resistant Staphylococcus aureus Sepsis acute organ dysfunction status: without acute organ dysfunction Bacteremia R78.81 Acute superficial venous thrombosis of left lower extremity I82.812 (1) Cellulitis Laterality: left Site of cellulitis: extremity Site of cellulitis of extremity: lower extremity Qualified Code(s): L03.116 - Cellulitis of left lower limb (2) Sepsis Sepsis type: methicillin resistant Staphylococcus aureus Sepsis acute organ dysfunction status: without acute organ dysfunction Qualified Code(s): A41.02 - Sepsis due to Methicillin resistant Staphylococcus aureus"
--- NOTE | 2025-04-25 20:40 | Podiatry Progress Note ---
Date of Service April 25, 2025 Assessment & Plan (1) Cellulitis: (2) Sepsis: (3) Diabetes mellitus, type 2: Plan Patient was examined and evaluated. - Discussed results of pathology/micro specimens from surgery. Appears to be chronic abscess that may have been sequestered until some trauma caused seeding into the rest of his foot/bloodstream - Now doing well with excision and drainage of the abscess. - Will benefit from rehab and IV antibiotics given the duration of his symptoms and prior septicemia - Ok to d/c to rehab today. Will plan on removing sutures in two weeks at our office or at the discretion of healthcare team at rehab. - Dressing can be left intact for up to one week at a time; should be changed in rehab at one week or sooner. - Will follow outpatient until no longer needed. Admission and Anticipated Discharge Date Admission Date: April 11, 2025 Subjective Seen at bedside at lunchtime, POD#1. States his foot and ankle feel "100% better" after surgery. Still has some discomfort, but is ready for discharge today. Denies systemic signs of infection. Denies any new pain or complications. Review of Systems Constitutional: no fever, no chills and no fatigue Eyes: no problem reported Ear, Nose, Mouth, Throat: no problem reported Respiratory: no problem reported Cardiovascular: + edema; no chest pain and no problem re ported Gastrointestinal: no nausea, no vomiting and no problem reported Genitourinary: no problem reported Musculoskeletal: + joint pain and + swelling; no problem reported Integumentary: + erythema; no skin ulcer and no wounds Neurologic: + numbness; no localized weakness and no generalized weakness Psychiatric: no problem reported Physical Exam Physical Exam: Surgical dressing intact to left foot without bleeding or strikethrough noted to dressing. No ascending cellulitis. No pain on palpation of surgical site, at ankle or dorsal foot. Constitutional: WD/WN, vitals as above + ill appearing and + obese; no acute distress Eyes: PERRL, conjunctivae normal, anicteric sclerae ENMT: external ear and nose normal, oropharynx normal Neck: trachea midline, no thyromegaly normal visual inspection Respiratory: normal respiratory effort; no respiratory distress Cardiovascular: Rate/Rhythm: regular rate and regular rhythm Vessels: posterior tibial pulses present and dorsalis pedis pulses present Chest (Breasts): Chest: normal inspection of chest Gastrointestinal (Abdomen): Inspection/Auscultation: abdomen normal to inspection Percussion/Palpation: + abdomen tender and abdomen soft Musculoskeletal: no cyanosis or clubbing, extremities motor strength 5/5 Head/Neck/Chest: normocephalic and head atraumatic Extremities: extremities normal to inspection Ankle: + skin erythema and + limited ROM of ankle; no deformity and no ecchymosis Skin: + skin tightening and + erythema; no ulc ers, no wound, no skin atrophy and no fluctulance Neurologic: normal sensation to monofilament and awake; no focal motor deficits Psychiatric: A+Ox3, euthymic affect Results & Data Results & Data Vital Signs (Past 12 Hours) Vital Signs Temp Pulse Resp BP Pulse Ox O2 Del Method 04/25/25 15:10 36.6 C 81 16 134/69 95 Room Air (1) Cellulitis Laterality: left Site of cellulitis: extremity Site of cellulitis of extremity: lower extremity Qualified Code(s): L03.116 - Cellulitis of left lower limb (2) Sepsis Sepsis type: methicillin resistant Staphylococcus aureus Sepsis acute organ dysfunction status: without acute organ dysfunction Qualified Code(s): A41.02 - Sepsis due to Methicillin resistant Staphylococcus aureus (3) Diabetes mellitus, type 2 Diabetes mellitus intermediate insulin use: without intermediate use Diabetes me llitus complication status: with neurologic complications Diabetes mellitus complication detail: with polyneuropathy Qualified Code(s): E11.42 - Type 2 diabetes mellitus with diabetic polyneuropathy
[2025-04-25] MEDS: APIXABAN 5 MG TABLET PO SCH (21:01)
[2025-04-25 23:42] VITALS: TEMP 98.4
[2025-04-26 08:07] VITALS: BP 132/83; O2SAT 95
--- NOTE | 2025-04-26 14:29 | Discharge Summary ---
Discharge Summary Date of Service April 26, 2025 Principal Dx & Hospital Course #1 = Principal Diagnosis (1) Cellulitis: (2) Sepsis: (3) Bacteremia: (4) Acute superficial venous thrombosis of left lower extremity: Plan #MRSA bacteremia/left lower extremity cellulitis/acute gout/Sepsis This patient is a 65-year-old male with a history of CAD s/p CABG 2015, HLD, T2DM, HTN, GERD, PUD w/ Hx hemorrhage (06/2024) d/t excessive NSAID use, pulmonary nodules, former smoker who presented w/ confusion and severe left foot and ankle pain. Pt was found to have sepsis secondary to MRSA bacteremia and LLE cellulitis, w/ concurrent acute gout of Lt ankle. In ED pt had fever, tachycardia, leukocytosis, elevated lactate, and elevated procalcitonin. CT of LLE on 04/11 was negative for acute OM, gas, or fluid collection and was consistent with cellulitis. Pt was then started on IV Vancomycin w/ MRSA coverage. Blood cultures persistently positive for MRSA on 04/11, 04/13, and 04/14. ID was then consulted and recommended transition to IV daptomycin. TTE on 04/13 without valvular vegetations but showed probable MV annuloplasty ring. BCx on 04/16 were clear. Despite clear BCx, pt continued to express pain in his LLE. A repeat CT on 04/17 showed interval plantar soft tissue abscess w/ progressive edema, but no OM or soft tissue gas. Podiatry was consulted and ordered a Uric Acid and MRI. Uric acid demonstrated a sudden decrease in Serum uric acid, which may indicate early onset of Gout. A Joint aspiration of the Lt ankle demonstrated no uric crystals and was negative for the presence of bacteria. MRI on MRI LLE 04/17 revealed dorsal fluid collection 7.6 cm more suggestive of ganglion cyst or abscess, and 6.2 cm fluid collection adjacent to flexor digitorum longus suggestive of ganglion versus tenosynovitis, no OM, and with diffuse edema. D/t need for prolonged IV abx therapy, PICC line was placed on 04/22. IV daptomycin was decreased from 750mg to 600mg on 04/22. Pt developed increasing pain on 04/23. IV daptomycin was re-increased to 750mg daily and Podiatry then recommended I&D d/t continuation of pain. I&D on 04/24 demonstrated a dorsal foot mass w/ no significant encapsulation; the exudate expressed from this mass was atypical and difficult to identify as abscess vs ganglion. A sample of the exudate was cultured and positive for the presence of staph aureus. ID recommended at this point that the patients 6wk treatment start on 04/24 and end on 06/04. Pt was D/C to [facility] on IV Daptomycin and Colchicine. #Superficial Venous Thrombosis - While pt was in the hospital, and incidental finding on Repeat CT LLE 04/17 also demonstrated long segment of superficial thrombophlebitis, no extension into deep veins. A Venous Doppler 04/17 showed thrombus in greater saphenous, approx 6.6 cm long and 1.2 cm from junction w/ common femoral which is demonstrative of high-risk SVT. It is recommended that the pt continue with standard DVT treatment therapy d/t proximity of SVT to deep veins, dg with consideration to thrombus size. Pt was initiated on therapeutic Lovenox while in the hospital and transitioned to PO Eliquis. #CAD s/p CABG| HTN - Upon initial admission, a mildly elevated Trop was seen at 40.8, likely d/t demand ischemia secondary to Sepsis. A DANIELLE on 04/13 w/ no WMAs demonstrated questionable mitral annuloplasty - no other mention of this on earlier echos or cardiology records. Pt should continue his Imdur and metoprolol as rx. It is important that the pt hold atorvastatin during IV abx therapy. A trial of Atorvastatin was done while pt was admitted to [facility] and demonstrated a significant increase in LFTs. Pt should maintain appointment with Cardiology on 05/12/2025. With consideration to pt developing bacteremia and unclear hx of annuloplasty, the pt should pursue dental prophylaxis in future until able to determine medical hx of annuloplasty. #T2DM - Continue home Jardiance. #GERD - Continue home Pantoprazole #Diarrhea -RESOLVED #Hyponatremia - RESOLVED Disposition - D/C to [facility] for acute rehab per recommendation of PT/OT Notes For Next Care Provider Please continue Eliquis 5mg BID for a total of 3 months of therapy. Please F/U on questionable annuloplasty seen on Echo from 04/13 to determine wether or not pt will need life long dental prophylaxis. Pt had admitted to recent dental cleaning prior to being admitted to the hospital with MRSA bacteremia. Prophylaxis is recommended in the meantime. Admission HPI Per Admitting Provider 65-year-old male PMHx CAD s/p CHELSEY (2016), HLD, angina, T2DM, HTN, GERD, and prior duodenal ulcer with hemorrhage with most recent hospital admission 02/05/2025 until 02/06/2025 for NSTEMI who is presenting now for concerns of infection and altered mental status. Patient states he is "feeling better" than he did whenever he first arrived. His , Ngoc, helps to provide a history. States that overall the patient is very active, walking 2 to 3 miles a day and playing pickle ball routinely. Approximately 3 days CHEF UNDER at 0300 the patient awoke with complaints that his left foot was bothering him. 2 days CHEF UNDER in the morning, his noted that the foot felt warm to touch but did not notice any other changes. 1 day CHEF UNDER the foot became edematous and more painful, and the patient was unable to bear weight on the foot. He was seen by [place] [facility] and the provider thought that patient was potentially suffering from gout, so he put him in a boot which did help some. His pain did get better, has he been utilizing Tylenol. Patient's states that at 1230 she came home for lunch and noticed that the patient was more worn out in his appearance. When the patient's got home from work at 1600, she remembers asking the patient what kind of tea he wanted and he was unable to respond to this question because he has seemed confused at that point. Patient states that he is feeling better, states that the pain is rather significant even with light sensation to the foot. Denies chest pain, SOB, palpitations, abdominal pain, N/V/D/C, numbness/tingling, chills, URI symptoms, LUTS, syncope, or falls. He has no prior history of gout. No family history of gout. No open wounds, no known tick bites. ED evaluation reveals CBC with leukocytosis 14.76, stable H&H, platelets 119; CMP sodium 131, chloride 97, CO2 17, AG 17, BUN 29, ratio 28.7, glucose 196, bilirubin 1.3, direct 0.4; lactate 2.3, 1.5 on repeat; procalcitonin 11.2; MRSA positive; CXR L basilar opacity may represent atelectasis; L foot/LLE CT not suggestive of OM, soft tissue swelling and fat stranding throughout visualized L ankle and foot, no abscess or soft tissue gas; EKG sinus tachycardia at 149 bpm.; Provided with Zosyn 4.5 g IV, acetaminophen 1 g IV, vancomycin 2250 mg IV, clindamycin 900 mg IV, and Plasma-Lyte 1L in ED. Discharge Plan Discharge Items Patient Disposition: Transfer Group Home Fac Reason For Visit: SEPSIS, CELLULITIS, ? GOUT Discharge Diagnosis: Cellulitis Condition on Discharge: Serious Activity: As commented below Activity Comment: Increase activity as able Non-emergency contact: Primary Care Provider Call non-emergency contact if: you have any medication questions, your symptoms worsen, your pain is not controlled and your pain is worsening Follow-up/Referrals: Rock Fairchild MD [Primary Care Provider] - (Follow up w/in 1 wk ) Diet: Carb Consistent or DM2 Addtl Attending Provider Instructions: Summary of Stay: Cellulitis You were admitted to the hospital for left foot/leg cellulitis as well as bacteremia. While you were in the ED, a CT of the Left leg/foot revealed findings consisted with cellulitis and blood cultures were obtained. You were started on IV Vancomycin and admitted to the hospital for further evaluation and care. While you were in the hospital, your blood cultures remained consistently positive despite continued IV Vancomycin therapy. As a result, Infectious disease was consulted and recommended switching to IV daptomycin. Following IV daptomycin, an additional repeat blood culture came back negative. Because your symptoms had not yet resolved, a repeat CT scan was done and revealed a possible abscess on the top of the foot. Podiatry was then consulted and ordered an MRI. The MRI revealed a fluid collection within the left foot. A uric acid blood test revealed a sudden drop in uric acid which can indicated the onset of gout. 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 You were started on Colchicine to prevent a gouty outbreak. Your IV daptomycin was decreased from 750 to 600 after prolonged therapy, but re-increased when symptoms began to worsen. As a result of worsening symptoms, you were taken into the OR by podiatry for an incision and drainage of the abscess on the top of your left foot. Cultures were taken of this fluid and were positive; as a result your 6 weeks of abx therapy are set to be from 04/24 to 06/04/2025. Post-op Instructions: Your sutures should be removed 2 weeks after your I&D at the podiaty office. In the interim period, your dressing can be left in place for 1 week at a time. Superficial Thrombosis While you were in the hospital, you developed a venous thrombus of the superficial vein. This is likely d/t being sedentary for a prolonged period of time. As a result you were started on Lovenox in the hospital and transitioned to oral Eliquis. It is recommended that you are treated for a total of 3 months. Please follow-up within one week of discharge to obtain the following 2 months of anticoagulation therapy needed to treat your thrombus. 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 The history of repair was unclear and it is recommended that you follow-up with your custom clothier as scheduled to discuss your cardiac history. Until you are able to determine wether or not the repair took place you should pursue dental prophylaxis in the future, especially in the setting of bacteremia following a dental cleaning such as this. Medications: Your medication list has been reviewed and reconciled upon discharge to ensure accuracy and continuity of care. An updated list of all your medications is included with your hospital discharge paperwork. Please review this list closely, and make note of any changes. We sent a new medication called daptomycin to your pharmacy. Take once daily via IV. Your next dose is due at 14:00 on 04/27. This is an antibiotic to help with your cellulitis and concurrent bacteremia. We sent a new medication called Eliquis to your pharmacy. Take 2 times a day for the next 90 days. Start this tonight. This is a blood thinner to help treat your venous thrombus . We sent a new medication called Colchicine to your pharmacy. Take 2 times a day for the next 10 days. Start this tonight. This to help with gout . It's important to note that your typical dose of ATORVASTATIN has been held. A trial of your statin was done in the hospital in addition to your IV daptomycin which resulted in elevation of your liver functions. It is recommended that you do not take your statin throughout the duration of your IV abx therapy. Take your medications as instructed; do not skip a dose of your medicines. Make sure all of your doctors know every medicine you are taking (including [id number] medicines, vitamins, and supplements). Call your primary care provider before taking any new medicines (including over- the-counter medicines, vitamins, and supplements), because some of these may interact with your current medications, or may make your symptoms worse. Tell your primary care provider if you cannot afford your medications. Activity: You can do normal everyday activities as your body allows. Take rest breaks if you feel tired. Do not overexert. Stop activity if you have pain, shortness of breath or feel dizzy. Follow-up appointments: Make an appointment with your primary care physician within one week of discharge. A copy of this summary will be sent to them. Every time you see your primary care physician, or any other doctor, bring your medication list, and a list of questions. Please keep your appointment with Cardiology on 05/12/2025. You can feel free to discuss the hold of your IV daptomycin with your custom clothier at that time. CONTACT YOUR PRIMARY CARE PROVIDER if you experience any of the following: Shortness of breath or difficulty breathing Fevers or chills Feeling tired with normal activity or experiencing dizziness or fainting Difficulty following your treatment plan, or difficulty taking medications CALL 911 OR GO TO THE EMERGENCY DEPARTMENT if you experience any of the following: Severe abdominal pain or nausea/vomiting Severe chest pain, or chest pain that radiates (moves) to your jaw or arm Sudden, severe shortness of breath or difficulty breathing Thank you for allowing [facility] to participate in your care! Pending Studies at Discharge: No Stand-Alone Forms: My [facility] Skilled Items Patient informed of condition?: Yes DNR: No Discharge Level of Care: Acute rehab Communicable Disease: No Discharge Prognosis: Stable Lines: PICC Urinary Catheter: No Medications and DC Order Prescriptions: New isosorbide mononitrate 30 mg Tablet Extended Release 24 Hr 30 mg PO QAM Qty: 30 0RF colchicine [Colcrys] 0.6 mg Tablet 0.6 mg PO BID Qty: 22 0RF cholecalciferol (vitamin D3) 125 mcg (5,000 unit) Tablet 125 mcg PO QAM PRN (Reason: deficiency) Qty: 30 0RF Eliquis 5 mg (74 tabs) tablets,dose pack 5 mg PO BID Qty: 74 0RF Rx Instructions: Pt should take 10mg BID for 8 days then 5mg BID daptomycin in 0.9 % sod chlor 700 mg/100 mL piggyback 750 mg IV DAILY Rx Instructions: administer over 30 mins Continued lisinopril 20 mg tablet 20 mg PO DAILY Qty: 30 0RF pantoprazole 40 mg tablet,delayed release (DR/EC) 40 mg PO DAILY 90 Days Qty: 30 0RF metoprolol tartrate 25 mg tablet 25 mg PO BID Qty: 60 0RF Jardiance 25 mg Tablet 25 mg PO QPM Qty: 30 0RF Rx Instructions: after evening meal zinc acetate 50 mg (zinc) Capsule 50 mg PO DAILY Qty: 30 0RF cyanocobalamin (vitamin B-12) [Vitamin B-12] 1,000 mcg Tablet 1,000 mcg PO QAM Qty: 30 0RF clopidogrel 75 mg tablet 75 mg PO DAILY Qty: 30 0RF nitroglycerin 0.4 mg tablet, sublingual 0.4 mg sublingual Q5M PRN (Reason: chest pain) Qty: 10 0RF Patient Comments: 02/05- no fill history unable to verify multivit with min-folic acid [Adult One Daily Multivitamin] 0.4 mg Tablet 1 tab PO DAILY Qty: 30 0RF Probiotic 20 billion cell Capsule 20,000 mmu cells PO DAILY Qty: 30 0RF Rx Instructions: administer with a meal Changed magnesium citrate,mag oxide 250 mg Capsule 250 mg PO DAILY PRN (Reason: (Drug) Ingestion) Qty: 30 0RF Held atorvastatin 80 mg tablet 80 mg PO HS Qty: 90 3RF Hold Instructions: Resume on 06/09/25. d/t dapto Discharge Orders: Discharge Order (Routine); Ordered 04/26/25 Ordered By: Collette Jimenez/Other Patient Handouts: Managing Type 1 Diabetes Admission Data Admit Date/Time: 04/11/25 23:19 Attending Provider: Austyn Avila Admit Provider: Carloz Salazar Primary Care Provider: Rock Fairchild Other Providers: Sia Ennis Other Interventions: Discharge Summary Assessment (RN) Last Done: 04/26/25 15:30 Hospital Stay Data Consultations 04/13/25 10:56 Consult Infectious Diseases Routine 04/17/25 16:27 Consult Podiatry Routine Procedures Performed Operation Date: 04/24/25 11:35 Actual Procedures p Left Foot Incision and Drainage, Left Foot Dorsal Cyst Excision(Left) - Demetri Ennis DPM Diagnostic Imagining Performed Summary 04/11/25 20:04 CT foot LT w con Stat CT tib/fib LT w con Stat 04/17/25 12:03 CT foot LT w con Urgent CT leg [CT tib/fib LT w con] Urgent 04/17/25 16:27 US venous doppler LE LT Urgent 04/17/25 18:09 MR ankle LT wo con Routine MR foot LT w/o con Routine Reports: Chest X-Ray 04/11/25 19:40 Exam(s): XR CXR 1 VIEW EXAM: XR Chest, 1 View CLINICAL HISTORY: Reason for exam: Sepsis. TECHNIQUE: Frontal view of the chest. COMPARISON: Chest radiograph on 02/05/2025 FINDINGS: Hardware: None. Lungs/pleura: Left basilar opacity. No pleural effusion or pneumothorax. Heart/mediastinum: Normal. No cardiomegaly. Soft tissues: Unremarkable. Bones: No acute fracture. Upper abdomen: Normal. IMPRESSION: Left basilar opacity may represent atelectasis. Infectious/inflammatory process is not excluded. Electronically signed by: Mark Douglas M.D. 04/11/25 21:[address] 04/11/25 20:04 Exam(s): CT LEFT FOOT With Contrast EXAM: CT Left Lower Extremity With Intravenous Contrast, Foot CLINICAL HISTORY: Reason for exam: eval fo nec fasc. TECHNIQUE: Axial computed tomography images of the left foot with intravenous contrast. CTDI is 6.6 mGy and DLP is 379.19 mGy-cm. Automated exposure control was utilized for the study. A dose lowering technique was utilized adhering to the principles of ALARA. COMPARISON: None FINDINGS: Bones/joints: Plantar calcaneal spur. No acute fracture. No dislocation. No bony lesion to suggest osteomyelitis. Soft tissues: Soft tissue swelling and fat stranding throughout the visualized left ankle and foot. No discrete abscess or soft tissue gas. No radiopaque foreign body. IMPRESSION: 1. No bony lesion to suggest osteomyelitis. 2. Soft tissue swelling and fat stranding throughout the visualized left ankle and foot. No discrete abscess or soft tissue gas. Electronically signed by: Mark Douglas M.D. 04/11/25 20:[address] 04/11/25 20:04 Exam(s): CT EXTREMITY LEFT LOWER With Contrast IV Amt: 90ml [id number] EXAM: CT Left Lower Extremity With Intravenous Contrast CLINICAL HISTORY: Reason for exam: eval for nec fasc. TECHNIQUE: Axial computed tomography images of the left lower extremity with intravenous contrast. CTDI is 6.6 mGy and DLP is 379.19 mGy-cm. Automated exposure control was utilized for the study. A dose lowering technique was utilized adhering to the principles of ALARA. CONTRAST: Patient received 90ml [id number] of IV contrast COMPARISON: None FINDINGS: Bones/joints: Mild chondrocalcinosis in the medial and lateral compartments of the left knee. Small bone island in the lateral femoral condyle. No bony lesion to suggest osteomyelitis. No acute fracture or dislocation. Soft tissues: Soft tissue swelling and fat stranding in the distal left lower leg and ankle. No abscess or soft tissue gas identified. IMPRESSION: 1. No bony lesion to suggest osteomyelitis. 2. Soft tissue swelling and fat stranding in the distal left lower leg and ankle. No abscess or soft tissue gas identified. Electronically signed by: Mark Douglas M.D. 04/11/25 21:[address] 04/17/25 12:03 CT foot LT w con CLINICAL HISTORY: r/o OM COMPARISON STUDY: 04/11/2025 FINDINGS: Lower extremity thrombophlebitis described on the tibia and fibula CT earlier today is better seen on that exam. There is progressive diffuse cellulitis at the left foot. There is an interval lobulated branching fluid collection within the plantar muscles of the left foot extending from the anterior lower calcaneus to below the first and second metatarsals. It measures approximately 6 cm greatest AP dimension by 1 cm transverse by 1 cm craniocaudad. It has morphology consistent with soft tissue abscess. There is progressive edema versus diffuse early abscess in the dorsal soft tissues over the midfoot.. No evidence of osteomyelitis seen at the left foot. No fracture or dislocation seen. IMPRESSION: 1. No evidence of osteomyelitis. 2. Interval plantar soft tissue abscess. Progressive edema versus early abscess dorsal soft tissues. ACT 112: Negative or not required by law. Electronically signed by: Niko Sauceda M.D. 04/17/2025 3:[address] 04/17/25 12:03 CT tib/fib LT w con CLINICAL HISTORY: Left lower extremity pain, swelling and erythema. Evaluate for osteomyelitis. COMPARISON STUDY: Left tibia and fibula CT April 11, 2025. TECHNIQUE: Axial images of the left tibia and fibula/lower leg were obtained following intravenous injection of 93 cc of Optiray 320 IV. Sagittal and coronal reformats were viewed. A dose lowering technique was utilized adhering to the principles of ALARA. FINDINGS: There are no fractures within the left tibia or fibula. No foci of bony erosion are identified. There are no osseous lesions. There is no soft tissue gas within the left lower leg. The left foot CT will be reported separately. Extensive subcutaneous edema of the left lower leg has progressed since CT of April 11, 2025. Skin thickening has also increased. No intramuscular fluid collection is present. No fluid along the fascia is noted. There has been interval development of long segment thrombus within a superficial vein of the anterior medial left lower leg. This extends for at least [address] evidence for deep venous involvement. IMPRESSION: 1. Increasing left lower leg subcutaneous edema and skin thickening suggestive of cellulitis. No evidence for acute osteomyelitis. No soft tissue gas. No fluid collection within the left calf. Please note that the left foot CT will be reported separately. 2. Interval development of long segment superficial thrombophlebitis within the left lower leg which extends for at least 15 cm. No extension into the deep system. This can be assessed with a left lower extremity venous Doppler ultrasound. ACT 112: Negative or not required by law. Electronically signed by: Tony Villavicencio M.D. 04/17/2025 2:53 PM Venous Doppler Study 04/17/25 16:27 Technique: Venous ultrasound evaluation was performed utilizing grayscale, color Doppler and wave form evaluation. Images were also obtained with and without compression Findings: There is thrombus in the greater saphenous vein, extending approximately 6.6 cm in length and 1.2 cm from the junction with the common femoral vein. There is also some thrombus in the gastrocnemius vein, extending approximately 2.9 cm The left common femoral, superficial femoral, popliteal, and visualized calf veins demonstrate normal anechoic lumens with full compressibility. Normal flow is seen on color Doppler images. Expected waveforms were produced with augmentation maneuvers There is a 2 x 0.7 cm left inguinal lymph node Impression: 1. No evidence of left leg deep venous thrombosis 2. Left leg superficial venous thrombosis ACT 112: Positive. There are findings on this exam that require communication between the performing entity and the patient following Patient Test Result Information Act ([place] ACT 112) guidelines. Electronically signed by Nicho Avila 04-17-2025 6:07 PM Ankle MRI 04/17/25 18:09 Exam(s): MRI LEFT ANKLE Without Contrast EXAM: MR Left Lower Extremity Without Intravenous Contrast, Ankle CLINICAL HISTORY: Reason for exam: left foot/ankle cellulitis, ?abscess. OTHER: Other Notes: LEFT FOOT/ANKLE SWELLING AND REDNESS X 10-15 DAYS CELLULITIS POSSIBLE OR TECHNIQUE: Multiplanar magnetic resonance images of the left ankle without intravenous contrast. COMPARISON: CT 04/11/2025. FINDINGS: Circumferential subcutaneous soft tissue edema. No abscess. No soft tissue gas. No acute fracture. No osteomyelitis. Small amount of fluid within the posterior joint space of the tibiotalar and subtalar joints. No full-thickness or high-grade partial cartilage loss. Achilles, peroneal, medial flexor tendons, and anterior extensor tendons are intact. No acute ligamentous abnormality. Chronically torn anterior talofibular ligament. Thickened plantar fascia up to 7 mm. IMPRESSION: 1. Diffuse soft tissue edema at the ankle. No septic arthritis or osteomyelitis. Electronically signed by: Mike Singh MD 04/17/25 22:21 PM Foot MRI 04/17/25 18:09 Exam(s): MRI LEFT FOOT Without Contrast EXAM: MR Left Lower Extremity Without Intravenous Contrast, Foot CLINICAL HISTORY: Reason for exam: foot/ankle cellulitis, ?abscess on ct. OTHER: Other Notes: LEFT FOOT/ANKLE SWELLING AND REDNESS X 10-15 DAYS CELLULITIS POSSIBLE OR TECHNIQUE: Multiplanar magnetic resonance images of left foot without intravenous contrast. COMPARISON: CT 04/11/2025 FINDINGS: Diffuse subcutaneous soft tissue edema. Fluid collection along the dorsal aspect of midfoot and forefoot measuring 7.6 x 4.7 x 1.0 cm. No evidence of acute osteomyelitis. No acute fracture. Fluid collection adjacent to the flexor digitorum longus tendon measuring 6.2 x 1.0 x 1.0 cm. IMPRESSION: 1. Dorsal fluid collection measuring up to 7.6 cm. The appearance is more suggestive of ganglion than abscess. 2. Fluid collection adjacent to the flexor digitorum longus measuring up to 6.2 cm. Differential of ganglion versus tenosynovitis. 3. Diffuse subcutaneous soft tissue edema. 4. No evidence of osteomyelitis. Electronically signed by: Mike Singh MD 04/17/25 23:04 PM Pending Results Patient Have Any Pending Studies at Discharge: No Discharge Instructions Given to Patient (Per Discharging Provider) Summary of Stay: Cellulitis You were admitted to the hospital for left foot/leg cellulitis as well as bacteremia. While you were in the ED, a CT of the Left leg/foot revealed findings consisted with cellulitis and blood cultures were obtained. You were started on IV Vancomycin and admitted to the hospital for further evaluation and care. While you were in the hospital, your blood cultures remained consistently positive despite continued IV Vancomycin therapy. As a result, Infectious disease was consulted and recommended switching to IV daptomycin. Following IV daptomycin, an additional repeat blood culture came back negative. Because your symptoms had not yet resolved, a repeat CT scan was done and revealed a possible abscess on the top of the foot. Podiatry was then consulted and ordered an MRI. The MRI revealed a fluid collection within the left foot. A uric acid blood test revealed a sudden drop in uric acid which can indicated the onset of gout. 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 You were started on Colchicine to prevent a gouty outbreak. Your IV daptomycin was decreased from 750 to 600 after prolonged therapy, but re-increased when symptoms began to worsen. As a result of worsening symptoms, you were taken into the OR by podiatry for an incision and drainage of the abscess on the top of your left foot. Cultures were taken of this fluid and were positive; as a result your 6 weeks of abx therapy are set to be from 04/24 to 06/04/2025. Post-op Instructions: Your sutures should be removed 2 weeks after your I&D at the podiaty office. In the interim period, your dressing can be left in place for 1 week at a time. Superficial Thrombosis While you were in the hospital, you developed a venous thrombus of the superficial vein. This is likely d/t being sedentary for a prolonged period of time. As a result you were started on Lovenox in the hospital and transitioned to oral Eliquis. It is recommended that you are treated for a total of 3 months. Please follow-up within one week of discharge to obtain the following 2 months of anticoagulation therapy needed to treat your thrombus. 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 The history of repair was unclear and it is recommended that you follow-up with your custom clothier as scheduled to discuss your cardiac history. Until you are able to determine wether or not the repair took place you should pursue dental prophylaxis in the future, especially in the setting of bacteremia following a dental cleaning such as this. Medications: Your medication list has been reviewed and reconciled upon discharge to ensure accuracy and continuity of care. An updated list of all your medications is included with your hospital discharge paperwork. Please review this list closely, and make note of any changes. We sent a new medication called daptomycin to your pharmacy. Take once daily via IV. Your next dose is due at 14:00 on 04/27. This is an antibiotic to help with your cellulitis and concurrent bacteremia. We sent a new medication called Eliquis to your pharmacy. Take 2 times a day for the next 90 days. Start this tonight. This is a blood thinner to help treat your venous thrombus . We sent a new medication called Colchicine to your pharmacy. Take 2 times a day for the next 10 days. Start this tonight. This to help with gout . It's important to note that your typical dose of ATORVASTATIN has been held. A trial of your statin was done in the hospital in addition to your IV daptomycin which resulted in elevation of your liver functions. It is recommended that you do not take your statin throughout the duration of your IV abx therapy. Take your medications as instructed; do not skip a dose of your medicines. Make sure all of your doctors know every medicine you are taking (including [id number] medicines, vitamins, and supplements). Call your primary care provider before taking any new medicines (including over- the-counter medicines, vitamins, and supplements), because some of these may interact with your current medications, or may make your symptoms worse. Tell your primary care provider if you cannot afford your medications. Activity: You can do normal everyday activities as your body allows. Take rest breaks if you feel tired. Do not overexert. Stop activity if you have pain, shortness of breath or feel dizzy. Follow-up appointments: Make an appointment with your primary care physician within one week of discharge. A copy of this summary will be sent to them. Every time you see your primary care physician, or any other doctor, bring your medication list, and a list of questions. Please keep your appointment with Cardiology on 05/12/2025. You can feel free to discuss the hold of your IV daptomycin with your custom clothier at that time. CONTACT YOUR PRIMARY CARE PROVIDER if you experience any of the following: Shortness of breath or difficulty breathing Fevers or chills Feeling tired with normal activity or experiencing dizziness or fainting Difficulty following your treatment plan, or difficulty taking medications CALL 911 OR GO TO THE EMERGENCY DEPARTMENT if you experience any of the following: Severe abdominal pain or nausea/vomiting Severe chest pain, or chest pain that radiates (moves) to your jaw or arm Sudden, severe shortness of breath or difficulty breathing Thank you for allowing [facility] to participate in your care! Total Time Total Time Spent Total Time Spent (In Minutes): Time spent day of discharge 50 minutes including direct patient care, medication reconciliation, documentation, review of labs and images, and coordination of care. Coding Level of Care Code 55000 INP/OBS DISCH >30 MIN Diagnoses Cellulitis of left lower extremity L03.116 Laterality: left Site of cellulitis: extremity Site of cellulitis of extremity: lower extremity Sepsis due to methicillin resistant Staphylococcus aureus (MRSA) without acute organ dysfunction A41.02 Sepsis acute organ dysfunction status: without acute organ dysfunction Sepsis type: methicillin resistant Staphylococcus aureus Bacteremia R78.81 Acute superficial venous thrombosis of left lower extremity I82.812
[2025-04-26 15:59] VITALS: PULSE 78
== END 2025-04-26 15:25 | DRG 854 ==
LOC: ED 19:19 → SUATTDRO 23:19 → 4W 23:19 → 3E 04-22 21:18